=== PATIENT | female | born 1945 | race Caucasian/White ===

== ENCOUNTER → 2019-12-25 09:19 | Outpatient (BNVA) | payer MEDICARE, MEDICAID, SELFPAY | PROVIDERS: PCP Student in an Organized Health Care Education/Training Program; Visit Provider Internal Medicine | DX: I48.0 Paroxysmal atrial fibrillation (principal); Z51.81 Encounter for therapeutic drug level monitoring; Z79.01 Long term (current) use of anticoagulants | CPT/HCPCS: 99211 ==

== ENCOUNTER 2020-01-01 10:11 | Outpatient (REF) | payer MEDICARE, OTHER, SELFPAY ==
[2020-01-01 14:28] LABS: Anion Gap 10 (12-20); Carbon Dioxide 30 mmol/L (22-29); Chloride 104 mmol/L (96-108); Potassium 3.2 mmol/l (3.3-5.1); Sodium 141 mmol/L (135-145)
== END 2020-01-01 10:12 | disposition home or self-care (01) ==
LOC: HO.10HDL 10:11
PROVIDERS: Visit Provider Nurse Practitioner Acute Care
DX: I42.2 Other hypertrophic cardiomyopathy (principal); I48.19 Other persistent atrial fibrillation
CPT/HCPCS: 80051; 85610; 99211

== ENCOUNTER 2020-01-09 08:30 | Outpatient (REF) | payer MEDICARE, OTHER, SELFPAY ==
[2020-01-09 14:13] LABS: Anion Gap 15 (12-20); Blood Urea Nitrogen 9 mg/dL (9-16); Calcium 8.7 mg/dL (8.4-10.2); Carbon Dioxide 27 mmol/L (22-29); Chloride 102 mmol/L (96-108); Estimated Glomerular Filt Rate 41; Glucose Random 100 mg/dL (60-115); Potassium 3.6 mmol/l (3.3-5.1); Sodium 140 mmol/L (135-145)
[2020-01-09 14:38] LABS: TSH reflex Free T4 2.83 mIU/mL (0.32-4.0)
== END 2020-01-09 08:31 | disposition home or self-care (01) ==
LOC: HO.10HDL 08:30
PROVIDERS: Visit Provider Internal Medicine Cardiovascular Disease
DX: E05.90 Thyrotoxicosis, unspecified without thyrotoxic crisis or storm (principal); I34.2 Nonrheumatic mitral (valve) stenosis; I42.2 Other hypertrophic cardiomyopathy; I71.2 Thoracic aortic aneurysm, without rupture; I70.208 Unspecified atherosclerosis of native arteries of extremities, other extremity
CPT/HCPCS: 80048; 84443

== ENCOUNTER → 2020-02-03 08:27 | Outpatient (BNVA) | payer MEDICARE, OTHER, SELFPAY | PROVIDERS: PCP Student in an Organized Health Care Education/Training Program; Referring Provider Student in an Organized Health Care Education/Training Program; Visit Provider Internal Medicine | DX: I48.0 Paroxysmal atrial fibrillation (principal); Z51.81 Encounter for therapeutic drug level monitoring; Z79.01 Long term (current) use of anticoagulants | CPT/HCPCS: 85610; 99211 ==

== ENCOUNTER → 2020-03-11 09:32 | Outpatient (BNVA) | payer MEDICARE, MEDICAID, OTHER, SELFPAY | PROVIDERS: PCP Student in an Organized Health Care Education/Training Program; Visit Provider Internal Medicine | DX: I48.0 Paroxysmal atrial fibrillation (principal); Z51.81 Encounter for therapeutic drug level monitoring; Z79.01 Long term (current) use of anticoagulants | CPT/HCPCS: 85610; 99211 ==

== ENCOUNTER 2020-03-21 22:23 | Inpatient (IN) | payer MEDICARE, MEDICAID, SELFPAY ==
[2020-03-21 22:32] VITALS: BP 152/84; PULSE 84; RESP 16; TEMP 36.4; O2SAT 98; BMI 23.0
--- NOTE | 2020-03-21 22:48 | ED.SKABFB ---
HPI - Skin/Abscess/Foreign Bdy General Chief complaint: Skin/Abscess/Foreign Body Stated complaint: Red inflamed skin Time Seen by Provider: 03/21/20 22:48 Source: patient Mode of arrival: ambulatory Limitations: no limitations History of Present Illness HPI narrative: Patient with pacemaker had the wire refixed in 09/06 was doing fine for last few days noticed swelling around the size site of pacemaker which increase in last 2 days with surrounding erythema no fever no chills no shortness of breath no other complaints Related Data Home Medications Medication Instructions Recorded Confirmed albuterol sulfate 90 mcg/actuation INHALATION 02/03/20 02/24/20 aerosol inhaler amiodarone 200 mg tablet 200 mg PO DAILY 02/03/20 02/24/20 atorvastatin 40 mg tablet mg PO 02/03/20 02/24/20 budesonide-formoterol HFA 160 INHALATION 02/03/20 02/24/20 mcg-4.5 mcg/actuation aerosol inhaler cilostazol 100 mg tablet 100 mg PO Q12H 02/03/20 02/24/20 furosemide 40 mg tablet mg PO 02/03/20 02/24/20 levothyroxine 50 mcg tablet 50 mcg PO DAILY 02/03/20 02/24/20 metoprolol tartrate 25 mg tablet 25 mg PO BID 02/03/20 02/24/20 mexiletine 150 mg capsule 150 mg PO Q12H 02/03/20 02/24/20 multivitamin 1 tab PO DAILY 02/03/20 02/24/20 potassium chloride 20 mEq 20 meq PO DAILY 02/03/20 02/24/20 tablet,extended release(part/cryst) trazodone 50 mg tablet 50 mg PO BEDTIME 02/03/20 02/24/20 calcium carbonate 500 mg calcium 500 mg PO BID 02/24/20 02/24/20 (1,250 mg) tablet Previous Rx's Medication Instructions Recorded warfarin 2 mg tablet 2 mg PO DAILY #90 tab 12/25/19 Allergies Allergy/AdvReac Type Severity Reaction Status Date / Time doxycycline AdvReac Vomiting Verified 03/21/20 22:34 Review of Systems Review of Systems: Constitutional : No Weight loss, No Fever, No Chills ENT/Mouth : No sore throat, No Rhinorrhea Eyes: No Eye Pain, No Swelling Cardiovascular : No Chest Pain, no palpitations Respiratory : No Cough, No Sputum, no shortness of breath Gastrointestinal : no Nausea, No Vomiting, No Diarrhea, No abdominal Pain, no black stools Genitourinary : No Dysuria, No Urinary Frequency Musculoskeletal : No joint pain, No Myalgias, No Joint Swelling Skin : Per HPI Neuro : No Weakness, No Numbness, No Dizziness, No Headache Psych : No Anxiety/Panic, No Depression Heme/Lymph: No Bruising, No Lymphadenopathy Endocrine : No Polyuria, No Polydipsia All other systems reviewed and are negative [facility] Past Medical History Medical History History of breast cancer Hypothyroidism Mucinous carcinoma of right breast Multinodular thyroid Osteoporosis Vitamin D deficiency Surgical History History of automatic internal cardiac defibrillator (AICD) History of tubal ligation Social History Social History Smoking Status: Former smoker Packs Per Day: 3 Years Smoked: 30 Advance Directives: Yes Advance Directives on File: Yes Advance Directives Date on File: 01/01/20 Physical Exam Vital Signs: Vital Signs: Last Vital Signs Temp 97.6 F 03/21/20 22:32 Pulse 84 03/21/20 22:32 Resp 16 03/21/20 22:32 BP 152/84 H 03/21/20 22:32 Pulse Ox 98 03/21/20 22:32 Body Mass Index 23.0 Appearance: Alert. Oriented X3. No acute distress. Eyes: Pupils equal, round and reactive to light. ENT: Pharynx normal. Neck: Normal inspection. Neck supple. CVS: Normal heart rate and rhythm. Pulses normal. Respiratory: No respiratory distress. Breath sounds normal. Abdomen: Soft and nontender. Bowel sounds are present, no mass palpable, no CVA tenderness Skin: Skin warm and dry. Skin around the left chest wall around pacemaker swollen with fluctuancy with surrounding erythema Extremities: No lower extremity edema. Neuro: Oriented X 3. No motor deficit. No sensory deficit. Course Course Course Narrative: Patient clinically with infected pacemaker site needle aspiration showed thick yellow pus. Will do the CT scan to see exactly how deep is the fluid collection start on Zosyn plan to admit for IV antibiotics and surgical evaluation Procedures Abscess I/D Site: chest Side (if applicable): left Technique: needle aspiration Amount of fluid expressed (mL): 0.5 Sent for culture/gram staining?: Yes Irrigation: No Packing used?: none MDM - Skin/Abscess/Foreign Bdy MDM Narrative Medical decision making narrative: Patient with abscess with cellulitis around pacemaker site CT scan showed 4 cm fluid collection around it. WBCs count is normal needle aspiration showed thick pus. Will start patient on Zosyn plan to admit for surgical evaluation Medical Records Attestation: I reviewed the patient's medical records. Lab Data Attestation: I reviewed the patient's lab results. Result diagrams: 03/21/20 23:09 03/21/20 23:09 Labs: Lab Results 03/21/20 03/21/20 03/21/20 Range/Units 23:08 23:09 23:09 WBC 6.7 (4.8-10.8) X10*3/uL RBC 4.33 (4.20-5.50) X10*6/uL Hgb 11.3 L (12.0-16.0) g/dl Hct 36.3 L (37-47) % MCV 83.8 (80-98) fL MCH 26.1 L (27.0-33.0) pg MCHC 31.1 (31.0-35.0) g/dl RDW 19.3 H (11.0-16.0) % Plt Count 307 (160-400) X10*3/uL MPV 9.9 (9.4-12.3) fL Immature Gran % (Auto) 0.3 (0.0-0.4) % Neut % (Auto) 61.6 (45-73) % Lymph % (Auto) 19.9 L (20-40) % [place] % (Auto) 10.5 (2-11) % Eos % (Auto) 6.8 H (0-4) % Baso % (Auto) 0.9 (0-2) % Lymph # (Auto) 1.3 (1.2-4.9) X10*3/uL [place] # (Auto) 0.7 (0.1-1.2) X10*3/uL Eos # (Auto) 0.5 H (0.0-0.4) X10*3/uL Baso # (Auto) 0.1 (0.0-0.2) X10*3/uL Abs Immat Gran (auto) 0.02 (0.00-0.03) X10*3/uL Absolute Neuts (auto) 4.2 (2.0-8.3) X10*3/uL Absolute Nucleated RBC 0.000 (0.0-0.012) X10*3/uL Nucleated RBC % (auto) 0.0 (0.0-0.2) /100WBC PT (10.8-13.0) SEC INR (0.9-1.1) APTT (24.1-38.0) SEC Sodium 141 (135-145) mmol/L Potassium 3.8 (3.3-5.1) mmol/l Chloride 105 (96-108) mmol/L Carbon Dioxide 27 (22-29) mmol/L Anion Gap 13 (12-20) BUN 12 (9-16) mg/dL Creatinine 1.31 (0.5-1.4) mg/dL Estim Creat Clear Calc 26.4 Estimated GFR 40 Random Glucose 98 (60-115) mg/dL Lactic Acid 1.3 (0.5-2.0) mmol/L Calcium 8.5 (8.4-10.2) mg/dL COVID-19 ([facility]) (Negative) COVID-19 Clin Com 03/21/20 03/21/20 Range/Units 23:09 23:11 WBC (4.8-10.8) X10*3/uL RBC (4.20-5.50) X10*6/uL Hgb (12.0-16.0) g/dl Hct (37-47) % MCV (80-98) fL MCH (27.0-33.0) pg MCHC (31.0-35.0) g/dl RDW (11.0-16.0) % Plt Count (160-400) X10*3/uL MPV (9.4-12.3) fL Immature Gran % (Auto) (0.0-0.4) % Neut % (Auto) (45-73) % Lymph % (Auto) (20-40) % [place] % (Auto) (2-11) % Eos % (Auto) (0-4) % Baso % (Auto) (0-2) % Lymph # (Auto) (1.2-4.9) X10*3/uL [place] # (Auto) (0.1-1.2) X10*3/uL Eos # (Auto) (0.0-0.4) X10*3/uL Baso # (Auto) (0.0-0.2) X10*3/uL Abs Immat Gran (auto) (0.00-0.03) X10*3/uL Absolute Neuts (auto) (2.0-8.3) X10*3/uL Absolute Nucleated RBC (0.0-0.012) X10*3/uL Nucleated RBC % (auto) (0.0-0.2) /100WBC PT 24.2 H (10.8-13.0) SEC INR 2.0 H (0.9-1.1) APTT 39.6 H (24.1-38.0) SEC Sodium (135-145) mmol/L Potassium (3.3-5.1) mmol/l Chloride (96-108) mmol/L Carbon Dioxide (22-29) mmol/L Anion Gap (12-20) BUN (9-16) mg/dL Creatinine (0.5-1.4) mg/dL Estim Creat Clear Calc Estimated GFR Random Glucose (60-115) mg/dL Lactic Acid (0.5-2.0) mmol/L Calcium (8.4-10.2) mg/dL COVID-19 ([facility]) Negative (Negative) COVID-19 Clin Com See Note ECG Data Attestation: I personally reviewed and interpreted this ECG as follows: Interpretation: Pacemaker beats ventricular rate 71 left ventricular hypertrophy no acute ST T wave changes impression pacemaker beats no acute ischemia Discharge Plan Discharge Clinical Impression: Abscess of skin or subcutaneous tissue Qualifiers: Site of cutaneous abscess: trunk Site of cutaneous abscess of trunk: chest wall Qualified Code(s): L02.213 - Cutaneous abscess of chest wall Patient Disposition: Admitted As Inpatient
--- NOTE | 2020-03-21 22:56 | CT_ITS ---
EXAMINATION: CT CHEST WITHOUT CONTRAST CLINICAL INFORMATION: Abscess of the left chest wall around the pacemaker. COMPARISON: No prior CT for comparison. TECHNIQUE: Multidetector volumetric CT imaging of the chest was done. Axial MIP volume rendering provided. Sagittal and coronal reformatted images were obtained. This CT examination was performed using dose optimization techniques as appropriate, variously including the following: *Automated exposure control *Adjustment of mA and/or kV according to patient size (this includes techniques or standardized protocols for targeted exams where dose is matched to indication/reason for exam; i.e. extremities or head) *Use of iterative reconstruction technique DLP: 182 mGy-cm FINDINGS: CAM MAKER: Left chest wall pacer in place. Prominent cardiac silhouette. LUNGS: The central airways are patent. Mild subpleural reticulation bilaterally. Mild septal thickening. No consolidation. Multiple small subsolid pulmonary nodules are present scattered throughout. For instance, there is a 0.4 cm anterior right upper lobe nodule on series 5 image 57. Right middle lobe 0.4 cm nodule on series 5 image 230. MEDIASTINUM: Enlarged heart. Coarse calcifications of the mitral annulus. No pericardial effusion. No mediastinal adenopathy. Calcification in the left lobe of the thyroid gland. PLEURA: There is no pleural effusion. No pleural mass or thickening. No pneumothorax. AXILLA/CHEST WALL: There is no lymphadenopathy. There is a left chest wall pacer generator. Superficial to the generator and extending superiorly there is a collection. The collection measures 4.3 x 3.1 by approximately 4.5 cm. Pacer lead wiring extends through the collection. UPPER ABDOMEN: There is a 1.5 cm cyst in the left lobe of the liver. High attenuation of the liver parenchyma could be associated with iron overload or amiodarone deposition. OSSEOUS STRUCTURES: No acute or suspicious osseous abnormality. Mild height loss of the T11 vertebral body. CT/CT chest wo con IMPRESSION: 1. Fluid collection superficial to the pacer generator in the left chest wall. The pacer wiring extends through the collection. 2. Diffuse tiny nodules throughout the lungs are nonspecific, possibly infectious or inflammatory. According to the UPDATED 2017 Fleischner Society recommendations, the advised follow-up imaging for multiple subsolid nodules, the largest of which measures <6 mm, is: CT at 3-6 months. If stable, consider CT at 2 and 4 years. 3. Cardiomegaly.
--- NOTE | 2020-03-21 22:57 | ECG_ITS ---
Test Reason : INFECTION Blood Pressure : / mmHG Vent. Rate : 071 BPM Atrial Rate : 072 BPM P-R Int : 000 ms QRS Dur : 210 ms QT Int : 552 ms P-R-T Axes : 000 -22 147 degrees QTc Int : 599 ms A sensed V paced rhythm Abnormal ECG When compared with ECG of 09-SEP-2014 00:38, Rhythm change and rate slower Referred By: Pepe Cleary Electronically Signed By:SURJIT PICKENS
[2020-03-21 23:25] LABS: MANUAL DIFF FLAG NO
[2020-03-21 23:31] LABS: Basophils Absolute Auto 0.1 X10*3/uL (0.0-0.2); Basophils Percent Auto 0.9 % (0-2); Eosinophils Absolute Auto 0.5 X10*3/uL (0.0-0.4); Eosinophils Percent Auto 6.8 % (0-4); Hematocrit 36.3 % (37-47); Hemoglobin 11.3 g/dl (12.0-16.0); Imm Gran Abs Auto 0.02 X10*3/uL (0.00-0.03); Imm Gran Pct Auto 0.3 % (0.0-0.4); Lymphocytes Absolute Auto 1.3 X10*3/uL (1.2-4.9); Lymphocytes Percent Auto 19.9 % (20-40); Mean Corpuscular HGB Conc 31.1 g/dl (31.0-35.0); Mean Corpuscular Hemoglobin 26.1 pg (27.0-33.0); Mean Corpuscular Volume 83.8 fL (80-98); Mean Platelet Volume 9.9 fL (9.4-12.3); Monocytes Absolute Auto 0.7 X10*3/uL (0.1-1.2); Monocytes Percent Auto 10.5 % (2-11); Neutrophils Absolute Auto 4.2 X10*3/uL (2.0-8.3); Neutrophils Percent Auto 61.6 % (45-73); Platelet Count 307 X10*3/uL (160-400); Red Blood Count 4.33 X10*6/uL (4.20-5.50); Red Cell Distribution Width 19.3 % (11.0-16.0); White Blood Count 6.7 X10*3/uL (4.8-10.8)
[2020-03-21 23:41] LABS: COVID-19 Test Negative (Negative)
[2020-03-21 23:43] LABS: Lactic Acid 1.3 mmol/L (0.5-2.0)
[2020-03-21 23:45] LABS: Prothrombin Time 24.2 SEC (10.8-13.0)
[2020-03-21 23:46] LABS: Anion Gap 13 (12-20); Blood Urea Nitrogen 12 mg/dL (9-16); Calcium 8.5 mg/dL (8.4-10.2); Carbon Dioxide 27 mmol/L (22-29); Chloride 105 mmol/L (96-108); Creatinine Clr Calc Pharmacy 26.4; Estimated Glomerular Filt Rate 40; Glucose Random 98 mg/dL (60-115); Potassium 3.8 mmol/l (3.3-5.1); Sodium 141 mmol/L (135-145)
[2020-03-21 23:47] LABS: Partial Thromboplastin Time 39.6 SEC (24.1-38.0)
[2020-03-22] VITALS (12 sets, daily range): BP systolic 121–151; BP diastolic 62–81; PULSE 18–76; RESP 18; TEMP 36.2–36.6; O2SAT 95–100; BMI 23.3
[2020-03-22] MEDS: Piperacillin Sodium/Tazobactam 3.375 GM in 0.9 % Sodium Chloride 50 ML IV (00:08)
[2020-03-22] MEDS: vancomycin HCL 1,000 MG in 0.9 % Sodium Chloride 250 ML 270 MG IV (03:55)
[2020-03-22] MEDS: Levothyroxine Sodium 50 MCG TABLET PO (03:56)
--- NOTE | 2020-03-22 04:45 | P.HPHOSP_ITS ---
History of Present Illness Date of Service: 03/22/20 Chief Complaint: Abscess over pacemaker This is a 74-year-old female with past medical history of breast cancer, hypothyroidism, hypertrophic obstructive cardiomyopathy, AFib, hypertension, HLD, nonischemic cardiomyopathy status post ICD placement who presents to the hospital with complaints of swelling over her pacemaker/AICD. Patient reports that about 3 days ago she noticed a lump in swelling at the site of pacemaker as well as skin changes were started becoming red all around the pacemaker. She denies any fever, no chills, she has significant pain where she could not go to bed, and has difficulty laying on that side to the pain. She has some nausea, no vomiting, no abdominal pain diarrhea constipation. No chest pain shortness of breath, cough no urinary symptoms and no lower extremity edema. She reports that 1 of the leads stopped functioning back in August and had it replaced at that time and had no complications with her AICD since then. Denies any headache, change in vision, no dizziness, no fainting. On arrival to the ED hemodynamically stable with no significant abnormal vitals Labs are significant for WBC count of 6.7, hemoglobin of 11.3, hematocrit of 36.3, sodium of 141, potassium 3.8, PT of 24.2, INR of 2.0, Chest CT shows fluid collection superficial to the pacer generator in the left chest wall, the pacer wiring stents through the collection. Diffuse tiny nodules throughout the lungs which are nonspecific. Possibly infectious or inflammatory. Patient needs follow-up of these nodules in 3-6 months. Past medical history: Hypertension, HLD, AFib on anticoagulation with Coumadin, nonischemic cardiomyopathy status post ICD placement, hypothyroidism, breast cancer, hypertrophic obstructive cardiomyopathy Past surgical history: AICD placement, tubal ligation Family history: Mother had heart disease, father of pulmonary emboli Social history: Comes from home, walks with a walker, denies any tobacco alcoh ol or illicit drugs Review of Systems Review of Systems: Yes all other systems are reviewed and are negative [facility] Medical History (Updated 03/22/20 @ 05:09 by Carlos Hamm MD) Afib History of breast cancer Hypothyroidism Mucinous carcinoma of right breast Multinodular thyroid Osteoporosis Vitamin D deficiency Surgical History (Updated 03/22/20 @ 05:07 by Carlos Hamm MD) History of automatic internal cardiac defibrillator (AICD) History of tubal ligation Social History Household Members: Family Housing: Apartment Do you presently have visiting nurse or other home services: No Alcohol intake: current Smoking Status: Never smoker Packs Per Day: 3 Years Smoked: 30 Smoked in Last 30 Days: No Use of substances other than those prescribed or required for medical reasons: No Have you been hit, kicked, punched, or otherwise hurt by someone within the past year? If so, by whom?: No Do you feel safe in your current relationship?: No Current Relationship Is there a partner from a previous relationship who is making you feel unsafe now?: No Are you made to feel afraid or neglected: No Advance Directives: Yes Advance Directives on File: Yes Advance Directives Date on File: 01/01/20 Do you have thoughts of harming others: None Do you have a plan to hurt others: No Plan Recently lost weight without trying: Yes Meds Allergies Allergy/AdvReac Type Severity Reaction Status Date / Time doxycycline AdvReac Vomiting Verified 03/21/20 22:34 Home Medications Medication Instructions Recorded Confirmed Type albuterol sulfate 90 mcg/actuation 2 puff INHALATION Q4-6H 02/03/20 03/22/20 History aerosol inhaler amiodarone 200 mg tablet 200 mg PO DAILY 02/03/20 03/22/20 History atorvastatin 40 mg tablet 40 mg PO DAILY 02/03/20 03/22/20 History budesonide-formoterol HFA 160 1 puff INHALATION DIRECTED 02/03/20 03/22/20 History mcg-4.5 mcg/actuation aerosol inhaler cilostazol 100 mg tablet 100 mg PO Q12H 02/03/20 03/22/20 History furosemide 40 mg tablet 40 mg PO DAILY 02/03/20 03/22/20 History levothyroxine 50 mcg tablet 50 mcg PO DAILY 02/03/20 03/22/20 History metoprolol tartrate 25 mg tablet 25 mg PO BID 02/03/20 03/22/20 History mexiletine 150 mg capsule 150 mg PO Q12H 02/03/20 03/22/20 History multivitamin 1 tab PO DAILY 02/03/20 03/22/20 History potassium chloride 20 mEq 20 meq PO DAILY 02/03/20 03/22/20 History tablet,extended release(part/cryst) trazodone 50 mg tablet 50 mg PO BEDTIME 02/03/20 03/22/20 History calcium carbonate 500 mg calcium 500 mg PO BID 02/24/20 03/22/20 History (1,250 mg) tablet Physical Exam Vital Signs and Narrative: Vital Signs: Last Vital Signs Temp 97.3 F 03/22/20 03:40 Pulse 76 03/22/20 03:40 Resp 18 03/22/20 03:40 BP 151/81 H 03/22/20 03:40 Pulse Ox 98 03/22/20 03:40 Body Mass Index 23.3 Const: General: cooperative and no acute distress Orientation/consciousness: patient oriented x3 Eyes: General: appearance normal, both eyes and all related structures Chest: Other: Right upper chest abscess right over the AICD, erythema, edema, tenderness Resp: Effort & Inspection: normal respiratory effort and able to speak in complete sentences Cardio: Rate: regular rate Rhythm: regular rhythm GI: Palpation (GI): Soft to palpation Auscultation: normal bowel sounds Skin: General skin exam: no rashes or lesions noted Neuro: General: patient oriented x3 Cognition (Neuro): normal cognition Extrem: General: Yes normal to inspection and Yes no pedal edema Results Labs CBC and Chem 7: 03/21/20 23:09 03/21/20 23:09 Labs: Laboratory Results - last 24 hr 03/21/20 03/21/20 03/21/20 23:08 23:09 23:09 MCV 83.8 MCH 26.1 L MCHC 31.1 RDW 19.3 H Plt Count 307 MPV 9.9 Immature Gran % (Auto) 0.3 Neut % (Auto) 61.6 Lymph % (Auto) 19.9 L [place] % (Auto) 10.5 Eos % (Auto) 6.8 H Baso % (Auto) 0.9 Lymph # (Auto) 1.3 [place] # (Auto) 0.7 Eos # (Auto) 0.5 H Baso # (Auto) 0.1 Abs Immat Gran (auto) 0.02 Absolute Neuts (auto) 4.2 Absolute Nucleated RBC 0.000 Nucleated RBC % (auto) 0.0 PT INR APTT Anion Gap 13 Estim Creat Clear Calc 26.4 Estimated GFR 40 Random Glucose 98 Lactic Acid 1.3 Calcium 8.5 COVID-19 ([facility]) COVID-19 Clin Com 03/21/20 03/21/20 23:09 23:11 MCV MCH MCHC RDW Plt Count MPV Immature Gran % (Auto) Neut % (Auto) Lymph % (Auto) [place] % (Auto) Eos % (Auto) Baso % (Auto) Lymph # (Auto) [place] # (Auto) Eos # (Auto) Baso # (Auto) Abs Immat Gran (auto) Absolute Neuts (auto) Absolute Nucleated RBC Nucleated RBC % (auto) PT 24.2 H INR 2.0 H APTT 39.6 H Anion Gap Estim Creat Clear Calc Estimated GFR Random Glucose Lactic Acid Calcium COVID-19 ([facility]) Negative COVID-19 Clin Com See Note Imaging Radiologist's Impressions: Impressions Chest CT 03/21/20 22:56 IMPRESSION: 1. Fluid collection superficial to the pacer generator in the left chest wall. The pacer wiring extends through the collection. 2. Diffuse tiny nodules throughout the lungs are nonspecific, possibly infectious or inflammatory. According to the UPDATED 2017 Fleischner Society recommendations, the advised follow-up imaging for multiple subsolid nodules, the largest of which measures <6 mm, is: CT at 3-6 months. If stable, consider CT at 2 and 4 years. 3. Cardiomegaly. Assessment and Plan (1) Abscess of skin or subcutaneous tissue: Qualifiers: Site of cutaneous abscess: trunk Site of cutaneous abscess of trunk: chest wall Qualified Code(s): L02.213 - Cutaneous abscess of chest wall Status: Acute (2) AICD (automatic cardioverter/defibrillator) present: Status: Acute (3) Afib: Qualifiers: Atrial fibrillation type: unspecified Qualified Code(s): I48.91 - Unspecified atrial fibrillation Status: Acute (4) Lung nodules: Status: Acute (5) Nonischemic cardiomyopathy: Status: Acute This is a 74-year-old female with past medical history as above who presents to the hospital with abscess over AICD/pacemaker generator. # abscess/cellulitis chest - has no leukocytosis, afebrile - given location of this abscess patient will be admitted, will consult thoracic surgery as abscesses located directly on the pacemaker generator with leads going through a - will start on IV antibiotics - follow cultures # nonischemic cardiomyopathy - not in exacerbation - will continue Lasix # AFib - rate control - continue amiodarone, patient on warfarin with INR of 2.0 - INR may need to be reversed as patient may require I&D # hypothyroidism - continue levothyroxine DVT prophylaxis: Warfarin
[2020-03-22 07:21] LABS: INTERNATIONAL NORM RATIO 2.2 (0.9-1.1); Prothrombin Time 25.8 SEC (10.8-13.0)
[2020-03-22] MEDS: Multivitamin TABLET 1 TAB PO (08:47)
[2020-03-22] MEDS: Potassium Chloride ER 20 MEQ TAB.ER.PRT PO (08:47)
[2020-03-22] MEDS: Metoprolol Tartrate 25 MG TABLET PO ×2 (08:47→21:04)
[2020-03-22] MEDS: Furosemide 40 MG TABLET PO (08:47)
[2020-03-22] MEDS: Atorvastatin Calcium 40 MG TABLET PO (08:48)
[2020-03-22] MEDS: Amiodarone HCL 200 MG TABLET PO (08:48)
[2020-03-22] MEDS: 0.9 % Sodium Chloride Flush 3 ML SYRINGE IVFLUSH ×3 (08:48→23:44)
[2020-03-22] MEDS: cilostazoL 100 MG TABLET PO (09:40)
[2020-03-22] MEDS: Fluticasone/Vilanterol 200/25 BLST.W.DEV 1 PUFF INHALE (11:25)
--- NOTE | 2020-03-22 11:56 | MHC.CM.PN ---
PT REPORTS SHE LIVES AT HOME WITH HER DAUGHTER AND 23 YO GRANDSON. SHE REPORTS THEY BOTH HELP HER NEEDED. PT REPORTS SHE USES A WHEELED WALKER AT HOME AND IS INDEPENDENT WITH ALL PERSONAL CARE. PT DENIES THE USE OF ANY COMMUNITY OR HOME SERVICES. PT CONFIRMS HER PCP IS KENYATTA COPPOLA AND SHE HAS A HCP ON FILE. CURRENT DC PLAN IS HOME WITH NO SERVICES PT WILL NEED TRANSPORTATION
--- NOTE | 2020-03-22 15:18 | PM.EVENT ---
Event Note Date of Service: 03/22/20 Event Note: Chart reviewed patient seen and examined 74-year-old female patient admitted with diagnosis of abscess/cellulitis at site of pacemaker generator Patient awake alert offers no acute complete Will continue IV vancomycin follow Vanco trough, follow CBC, blood cultures, spoke with thoracic surgery PA patient will be evaluated by Dr. Schumacher at a.m. for possible abscess drainage will hold Coumadin Follow PT INR at am, keep patient NPO Nonischemic cardiomyopathy/AFib Continue amiodarone hold warfarin as above patient also on mexiletine that is non formulary medication requested patient to request family to bring it from home called pharmacy to arrange for medicine Hospital does not carry mexiletine, will rediscuss with pharmacist tomorrow morning Chronic kidney disease stage III
--- NOTE | 2020-03-22 17:36 | P.CONGS_ITS ---
History of Present Illness Consult details Consult date: 03/22/20 Reason for consult: other (Chest wall abscess) Narrative: Patient is a 74-year-old female with a past medical history of breast cancer, hypothyroidism, hypertrophic obstructive cardiomyopathy, atrial fibrillation on Coumadin last dose was taken yesterday on 03/21/2020, with a INR of 2.2, hypertension, HLD, nonischemic cardiomyopathy s/p ICD placement who presented to the hospital with complaints of swelling over her pacemaker/AICD. Patient states that about 2 days ago she noticed some swelling and discomfort over her pacemaker site with increased redness. Patient continues to deny fever, chills but does have significant pain when she moves her arm or lays on her left side. Patient denies any chest pain, shortness of breath, cough, hemoptysis. While patient was in the emergency department FNA was performed of the abscess which nicole out yellow pus. A chest CT was performed which showed a collection of fluid which measured 4 x 3 x 4.5 cm with pacer lead wires extending through the collection, for which Thoracic surgery was consulted for . During my examination today patient informed me that she originally had her pacemaker placed at [facility] and in August 2019 had leads replaced at [facility] by Dr.Jonathan Lou. Review of Systems Review of Systems: Yes all other systems are reviewed and are negative PMFSH Past Medical History Medical History Afib History of breast cancer Hypothyroidism Mucinous carcinoma of right breast Multinodular thyroid Osteoporosis Vitamin D deficiency Surgical History Surgical History History of automatic internal cardiac defibrillator (AICD) History of tubal ligation Social History Social History Household Members: Family Housing: Apartment Do you presently have visiting nurse or other home services: No Alcohol intake: current Smoking Status: Never smoker Packs Per Day: 3 Years Smoked: 30 Smoked in Last 30 Days: No Use of substances other than those prescribed or required for medical reasons: No Currently Displaying Signs/Symptoms of Drug Intoxication Withdrawal: No Have you been hit, kicked, punched, or otherwise hurt by someone within the past year? If so, by whom?: No Do you feel safe in your current relationship?: No Current Relationship Is there a partner from a previous relationship who is making you feel unsafe now?: No Are you made to feel afraid or neglected: No Advance Directives: Yes Advance Directives on File: Yes Advance Directives Date on File: 01/01/20 Do you have thoughts of harming others: None Do you have a plan to hurt others: No Plan Recently lost weight without trying: Yes service: No Current occupational status: retired Meds Allergies Allergy/AdvReac Type Severity Reaction Status Date / Time doxycycline AdvReac Vomiting Verified 03/21/20 22:34 Home Medications Medication Instructions Recorded Confirmed Type albuterol sulfate 90 mcg/actuation 2 puff INHALATION Q4-6H 02/03/20 03/22/20 History aerosol inhaler amiodarone 200 mg tablet 200 mg PO DAILY 02/03/20 03/22/20 History atorvastatin 40 mg tablet 40 mg PO DAILY 02/03/20 03/22/20 History budesonide-formoterol HFA 160 1 puff INHALATION DIRECTED 02/03/20 03/22/20 History mcg-4.5 mcg/actuation aerosol inhaler cilostazol 100 mg tablet 100 mg PO Q12H 02/03/20 03/22/20 History furosemide 40 mg tablet 40 mg PO DAILY 02/03/20 03/22/20 History levothyroxine 50 mcg tablet 50 mcg PO DAILY 02/03/20 03/22/20 History metoprolol tartrate 25 mg tablet 25 mg PO BID 02/03/20 03/22/20 History mexiletine 150 mg capsule 150 mg PO Q12H 02/03/20 03/22/20 History multivitamin 1 tab PO DAILY 02/03/20 03/22/20 History potassium chloride 20 mEq 20 meq PO DAILY 02/03/20 03/22/20 History tablet,extended release(part/cryst) trazodone 50 mg tablet 50 mg PO BEDTIME 02/03/20 03/22/20 History calcium carbonate 500 mg calcium 500 mg PO BID 02/24/20 03/22/20 History (1,250 mg) tablet Physical Exam Vital Signs: Vital Signs: Last Vital Signs Temp 97.4 F 03/22/20 15:40 Pulse 70 03/22/20 15:40 Resp 18 01/03/21 15:40 BP 133/66 03/22/20 15:40 Pulse Ox 95 03/22/20 15:40 Body Mass Index 23.3 Const: General: cooperative, comfortable and no acute distress Orientation/consciousness: patient oriented x3 HENMT: Head: Yes normocephalic and Yes atraumatic Neck: Neck: Yes normal visual inspection and Yes no JVD Chest: Other: there is a 4 cm induration which erythematous, fluctuant and tender. Resp: Effort & Inspection: normal respiratory effort Auscultation: clear to auscultation bilaterally Cardio: Jugular venous distension: no JVD Rhythm: regular rhythm Heart sounds: S1 normal heart sound present and S2 normal heart sound present GI: Inspection: Yes normal to inspection Auscultation: normal bowel sounds Neuro: General: patient oriented x3 Extrem: General: Yes normal to inspection Right upper extremity: no cyanosis and no edema Left upper extremity: no cyanosis and no edema Right lower extremity: normal to inspection; no cyanosis and no edema Left lower extremity: normal to inspection; no cyanosis and no edema Results Labs Result diagrams: 03/21/20 23:09 03/21/20 23:09 Labs: Abnormal lab results 03/21/20 03/21/20 03/22/20 Range/Units 23:09 23:09 06:35 Hgb 11.3 L (12.0-16.0) g/dl Hct 36.3 L (37-47) % MCH 26.1 L (27.0-33.0) pg RDW 19.3 H (11.0-16.0) % Lymph % (Auto) 19.9 L (20-40) % Eos % (Auto) 6.8 H (0-4) % Eos # (Auto) 0.5 H (0.0-0.4) X10*3/uL PT 24.2 H 25.8 H (10.8-13.0) SEC INR 2.0 H 2.2 H (0.9-1.1) APTT 39.6 H (24.1-38.0) SEC Short CBC 03/21/20 Range/Units 23:09 WBC 6.7 (4.8-10.8) X10*3/uL Hgb 11.3 L (12.0-16.0) g/dl Hct 36.3 L (37-47) % Plt Count 307 (160-400) X10*3/uL [facility] 03/21/20 23:09 Sodium 141 Potassium 3.8 Chloride 105 Carbon Dioxide 27 BUN 12 Creatinine 1.31 Calcium 8.5 All other labs normal. Assessment and Plan (1) Abscess of skin or subcutaneous tissue: Qualifiers: Site of cutaneous abscess: trunk Site of cutaneous abscess of trunk: chest wall Qualified Code(s): L02.213 - Cutaneous abscess of chest wall Status: Acute Patient is a 74-year-old female with a past medical history of breast cancer, hypothyroidism, hypertrophic obstructive cardiomyopathy, atrial fibrillation who takes Coumadin at home which is on hold, last dose was taken yesterday on 03/21/2020, with an INR of 2.2, hypertension, hyperlipidemia, nonischemic cardiomyopathy s/p ICD placement who presented to the hospital with a chest wall abscess which overlies her pacemaker. Cardiology at [facility] was contacted and asked to pass a message along to Dr. Lou as he is the computer technician who placed the pacemaker and would be more appropriate to manage her abscess. At this time patient is stable on IV Zosyn and vancomycin. Remains afebrile with WBC 6.7, in no acute distress. I was informed by Dr. Fenton computer technician that Dr. Lou would be contacting the medicine team at [facility] with instructions on where to transfer patient. It is thought patient will be required to be transferred to [facility] for removal of AICD hardware. Thank you for allowing me to participate in this patient's care if you have any other questions or concerns please do not hesitate to contact the thoracic surgical department.
[2020-03-22] MEDS: Albuterol Sulfate 90 MCG 8 GM INHALER 2 PUFF INHALE (19:38)
[2020-03-22] MEDS: traZODone HCL 50 MG TABLET PO (21:04)
[2020-03-23] VITALS (11 sets, daily range): BP systolic 119–143; BP diastolic 65–87; PULSE 70–80; RESP 18; TEMP 36.2–37.1; O2SAT 93–99
[2020-03-23] MEDS: vancomycin HCL 1,000 MG in 0.9 % Sodium Chloride 250 ML 270 MG IV (04:12)
[2020-03-23 04:51] LABS: Basophils Absolute Auto 0.1 X10*3/uL (0.0-0.2); Basophils Percent Auto 1.4 % (0-2); Eosinophils Absolute Auto 0.4 X10*3/uL (0.0-0.4); Eosinophils Percent Auto 6.5 % (0-4); Hematocrit 35.1 % (37-47); Hemoglobin 10.9 g/dl (12.0-16.0); Imm Gran Abs Auto 0.01 X10*3/uL (0.00-0.03); Imm Gran Pct Auto 0.2 % (0.0-0.4); Lymphocytes Absolute Auto 1.1 X10*3/uL (1.2-4.9); Lymphocytes Percent Auto 19.9 % (20-40); MANUAL DIFF FLAG NO; Mean Corpuscular HGB Conc 31.1 g/dl (31.0-35.0); Mean Corpuscular Hemoglobin 26.3 pg (27.0-33.0); Mean Corpuscular Volume 84.8 fL (80-98); Mean Platelet Volume 9.9 fL (9.4-12.3); Monocytes Absolute Auto 0.5 X10*3/uL (0.1-1.2); Monocytes Percent Auto 9.4 % (2-11); Neutrophils Absolute Auto 3.5 X10*3/uL (2.0-8.3); Neutrophils Percent Auto 62.6 % (45-73); Platelet Count 251 X10*3/uL (160-400); Red Blood Count 4.14 X10*6/uL (4.20-5.50); White Blood Count 5.5 X10*3/uL (4.8-10.8)
[2020-03-23 04:56] LABS: INTERNATIONAL NORM RATIO 1.8 (0.9-1.1); Prothrombin Time 21.7 SEC (10.8-13.0)
[2020-03-23 05:18] LABS: Anion Gap 11 (12-20); Blood Urea Nitrogen 9 mg/dL (9-16); Calcium 8.3 mg/dL (8.4-10.2); Carbon Dioxide 30 mmol/L (22-29); Chloride 103 mmol/L (96-108); Creatinine Clr Calc Pharmacy 30.3; Estimated Glomerular Filt Rate 43; Glucose Random 84 mg/dL (60-115); Potassium 3.2 mmol/l (3.3-5.1); Sodium 141 mmol/L (135-145)
[2020-03-23] MEDS: Albuterol Sulfate 90 MCG 8 GM INHALER 2 PUFF INHALE ×4 (07:58→20:19)
[2020-03-23] MEDS: 0.9 % Sodium Chloride Flush 3 ML SYRINGE IVFLUSH ×3 (09:09→19:50)
[2020-03-23] MEDS: Furosemide 40 MG TABLET PO (09:26)
[2020-03-23] MEDS: Amiodarone HCL 200 MG TABLET PO (09:26)
[2020-03-23] MEDS: Metoprolol Tartrate 25 MG TABLET PO ×2 (09:26→19:50)
--- NOTE | 2020-03-23 11:50 | HO.PM.IMPN ---
Subjective Subjective Date of Service: 03/23/20 Interval History: chest wall improved Respiratory Respiratory: Reports no additional respiratory complaints Gastrointestinal Gastrointestinal: Reports no additional gastrointestinal complaints Physical Exam Vital Signs: Vital Signs: Last Vital Signs Temp 97.1 F 03/23/20 08:00 Pulse 76 03/23/20 09:26 Resp 18 03/23/20 08:00 BP 143/72 H 03/23/20 09:26 Pulse Ox 93 03/23/20 08:00 Body Mass Index 23.3 General: AO X 3, no acute distress Resp: CTA bilateral CVS: S1,S2,RRR GI: soft, non tender, non distended Neuro: motor grossly intact Psych: appropriate affect Objective Data Current Medications Generic Name Dose Route Start Last Admin Trade Name Freq PRN Reason Stop Dose Admin Acetaminophen 650 mg 03/22/20 02:45 Acetaminophen 325 Mg Tablet PO Q6H PRN Pain, Mild (Pain Scale 1-3) Albuterol Sulfate 2 puff 03/22/20 04:00 03/23/20 07:58 Albuterol Sulfate 90 Mcg 8 Gm Inhaler INHALE 2 puff Q4H PATIENCE Administration Amiodarone HCl 200 mg 03/22/20 09:00 03/23/20 09:26 Amiodarone Hcl 200 Mg Tablet PO 200 mg DAILY PATIENCE Administration Atorvastatin Calcium 40 mg 03/22/20 09:00 03/23/20 09:27 Atorvastatin Calcium 40 Mg Tablet PO Not Given DAILY PATIENCE Calcium Carbonate 500 mg 03/22/20 09:00 03/23/20 09:28 Calcium Carbonate 500 Mg Tablet PO Not Given BID PATIENCE Docusate Sodium 100 mg 03/22/20 02:45 Docusate Sodium 100 Mg Capsule PO DAILY PRN Constipation Fluticasone/Vilanterol 1 puff 03/22/20 08:00 03/23/20 08:00 Fluticasone/Vilanterol 200/25 Blst.W.Dev INHALE Not Given RDAILY PATIENCE Furosemide 40 mg 03/22/20 09:00 03/23/20 09:26 Furosemide 40 Mg Tablet PO 40 mg DAILY PATIENCE Administration Protocol Vancomycin HCl 1,000 mg/ 270 mls @ 270 mls/hr 03/23/20 04:00 03/23/20 05:20 Sodium Chloride IV Infused Q24H PATIENCE Infusion Levothyroxine Sodium 50 mcg 03/22/20 06:00 03/23/20 05:24 Levothyroxine Sodium 50 Mcg Tablet PO Not Given DAILY@0600 [facility] Metoprolol Tartrate 25 mg 03/22/20 09:00 03/23/20 09:26 Metoprolol Tartrate 25 Mg Tablet PO 25 mg BID [facility] Administration Protocol Multivitamins/Vitamin C 1 tab 03/22/20 09:00 03/23/20 09:28 Multivitamin Tablet PO Not Given DAILY [facility] Patient Own 150 mg 03/22/20 09:00 Medication ( PO Mexiletine 150 Mg BID [facility] Capsule) Ondansetron HCl 4 mg 03/22/20 02:45 Ondansetron Hcl 4 Mg/2 Ml Vial IVPUSH Q8H PRN Nausea and Vomiting Pharmacy Consult 1 each 03/22/20 02:45 Consult Rx Vancomycin Dosing MISCELLANE DAILY PRN Consult order Potassium Chloride 20 meq 03/22/20 09:00 03/23/20 09:28 Potassium Chloride Er 20 Meq Tab.Er.Prt PO Not Given DAILY [facility] Sodium Chloride 3 ml 03/22/20 08:00 03/23/20 09:09 0.9 % Sodium Chloride Flush 3 Ml Syringe IVFLUSH 3 ml QSHIFT [facility] Administration Trazodone HCl 50 mg 03/22/20 21:00 03/22/20 21:04 Trazodone Hcl 50 Mg Tablet PO 50 mg BEDTIME [facility] Administration Labs CBC & Chem 7: 03/23/20 04:37 03/23/20 04:37 Microbiology Microbiology Results: Microbiology 03/21/20 23:07 Chest Gram Stain - Final 03/21/20 23:07 Chest Routine Culture - Preliminary Staphylococcus aureus 03/21/20 23:07 Blood - Venous Blood Culture - Preliminary No growth after 24 hours. 03/21/20 23:08 Blood - Venous Blood Culture - Preliminary No growth after 24 hours. Assessment and Plan (1) Abscess of skin or subcutaneous tissue: Status: Acute (2) AICD (automatic cardioverter/defibrillator) present: Status: Acute (3) Afib: Status: Acute (4) Lung nodules: Status: Acute (5) Nonischemic cardiomyopathy: Status: Acute Assessment and Plan: This is a 74-year-old female with past medical history as above who presented to the hospital with abscess over AICD/pacemaker generator. abscess/cellulitis chest abscess growing staph continue vanc follow up cultures and cardiology at [facility] nonischemic cardiomyopathy continue Lasix, amio, lopressor AFib lopressor, amiodarone, patient normally on warfarin - INR may need to be reversed as patient may require I&D (coumadin on hold for possible intervention) hypothyroidism levothyroxine DVT prophylaxis: Warfarin
--- NOTE | 2020-03-23 12:21 | P.DS_ITS ---
DS: Providers Provider Date of admission: 03/22/20 01:27 Primary care physician: Roya Marshall MD Consults: 03/22/20 02:45 Consult to Thoracic Surgery Routine Consulting Provider: Bradley Stahl Reason for consultation: abscess at pacemaker site DS: Diagnosis Discharge Diagnosis (1) Abscess of skin or subcutaneous tissue: Status: Acute (2) AICD (automatic cardioverter/defibrillator) present: Status: Acute (3) Afib: Status: Acute (4) Lung nodules: Status: Acute (5) Nonischemic cardiomyopathy: Status: Acute DS: Medications Discharge Medications Home Medications: Home Medications Medication Instructions Recorded Confirmed albuterol sulfate 90 mcg/actuation 2 puff INHALATION Q4-6H 02/03/20 03/22/20 aerosol inhaler amiodarone 200 mg tablet 200 mg PO DAILY 02/03/20 03/22/20 atorvastatin 40 mg tablet 40 mg PO DAILY 02/03/20 03/22/20 budesonide-formoterol HFA 160 1 puff INHALATION DIRECTED 02/03/20 03/22/20 mcg-4.5 mcg/actuation aerosol inhaler cilostazol 100 mg tablet 100 mg PO Q12H 02/03/20 03/22/20 furosemide 40 mg tablet 40 mg PO DAILY 02/03/20 03/22/20 levothyroxine 50 mcg tablet 50 mcg PO DAILY 02/03/20 03/22/20 metoprolol tartrate 25 mg tablet 25 mg PO BID 02/03/20 03/22/20 mexiletine 150 mg capsule 150 mg PO Q12H 02/03/20 03/22/20 multivitamin 1 tab PO DAILY 02/03/20 03/22/20 potassium chloride 20 mEq 20 meq PO DAILY 02/03/20 03/22/20 tablet,extended release(part/cryst) trazodone 50 mg tablet 50 mg PO BEDTIME 02/03/20 03/22/20 calcium carbonate 500 mg calcium 500 mg PO BID 02/24/20 03/22/20 (1,250 mg) tablet Previous Rx's Medication Instructions Recorded warfarin 2 mg tablet 2 mg PO DAILY #90 tab 12/25/19 DS: Summary Hospital Course Hospital Course: date of service: 03/24/2019 Patient was admitted for AICD site abscess, non septic. It was partially drained, abscess is growing Staph aureus, sensitivity still pending, blood culture negative so far. She was given IV vancomycin. Discussion was had with the foreign law consultant, plan for transfer to [facility] for OR on , would hold coumadin on transfer and continue vancomycin, follow up cultures from [facility] Time Spent with Patient Time attestation: Total time spent providing and/or coordinating discharge services: Physical Exam Vital Signs: Vital Signs: Last Vital Signs Temp 97.6 F 03/23/20 11:56 Pulse 80 03/23/20 12:06 Resp 18 03/23/20 11:56 BP 143/87 H 03/23/20 11:56 Pulse Ox 96 03/23/20 11:56 Body Mass Index 23.3 General: AO X 3, no acute distress Resp: CTA bilateral CVS: S1,S2,RRR GI: soft, non tender, non distended Neuro: motor grossly intact Psych: appropriate affect DS: Data Data Completed and Pending Labs on day of discharge: 03/21/20 22:56 IV insert/maintain .Now CT chest wo con Stat 03/21/20 22:57 ECG 12 lead EKG Stat EKG Documentation DIRECTED 03/21/20 22:58 Piperacillin Sodium/Tazobactam [Zosyn] 3.375 gm 0.9 % Sodium Chloride [Ns] 50 ml IV ONCE 03/21/20 23:08 Lactic Acid Stat 03/21/20 23:09 Basic Metabolic Panel Stat Complete Blood Count Auto Diff Stat Partial Thromboplastin Time Stat Prothrombin Time INR Stat 03/21/20 23:11 COVID-19 ID NOW (Nguyen) Stat 03/22/20 00:00 Piperacillin Sodium/Tazobactam [Zosyn] 3.375 gm IV .STK-MED ONE 03/22/20 01:11 Transfer Order Routine 03/22/20 03:45 vancomycin HCL 1,000 mg 0.9 % Sodium Chloride [Ns] 250 ml IV ONCE 03/22/20 03:46 vancomycin HCL 1,000 mg .ROUTE .STK-MED ONE 03/22/20 06:35 Prothrombin Time INR DAILY 03/22/20 09:00 cilostazoL [Pletal] 100 mg PO BID 03/22/20 Breakfast Cardiac Diet 03/22/20 18:00 Warfarin Sodium [Coumadin] 2 mg PO DAILY@1800 03/23/20 04:04 vancomycin HCL 1,000 mg .ROUTE .STK-MED ONE 03/23/20 04:37 Basic Metabolic Panel Routine Complete Blood Count Auto Diff Routine Prothrombin Time INR Routine Laboratory Last Values WBC 5.5 X10*3/uL (4.8-10.8) 03/23/20 04:37 RBC 4.14 X10*6/uL (4.20-5.50) L 03/23/20 04:37 Hgb 10.9 g/dl (12.0-16.0) L 03/23/20 04:37 Hct 35.1 % (37-47) L 03/23/20 04:37 MCV 84.8 fL (80-98) 03/23/20 04:37 MCH 26.3 pg (27.0-33.0) L 03/23/20 04:37 MCHC 31.1 g/dl (31.0-35.0) 03/23/20 04:37 RDW 19.0 % (11.0-16.0) H 03/23/20 04:37 Plt Count 251 X10*3/uL (160-400) 03/23/20 04:37 MPV 9.9 fL (9.4-12.3) 03/23/20 04:37 Immature Gran % (Auto) 0.2 % (0.0-0.4) 03/23/20 04:37 Neut % (Auto) 62.6 % (45-73) 03/23/20 04:37 Lymph % (Auto) 19.9 % (20-40) L 03/23/20 04:37 [place] % (Auto) 9.4 % (2-11) 03/23/20 04:37 Eos % (Auto) 6.5 % (0-4) H 03/23/20 04:37 Baso % (Auto) 1.4 % (0-2) 03/23/20 04:37 Lymph # (Auto) 1.1 X10*3/uL (1.2-4.9) L 03/23/20 04:37 [place] # (Auto) 0.5 X10*3/uL (0.1-1.2) 03/23/20 04:37 Eos # (Auto) 0.4 X10*3/uL (0.0-0.4) 03/23/20 04:37 Baso # (Auto) 0.1 X10*3/uL (0.0-0.2) 03/23/20 04:37 Abs Immat Gran (auto) 0.01 X10*3/uL (0.00-0.03) 03/23/20 04:37 Absolute Neuts (auto) 3.5 X10*3/uL (2.0-8.3) 03/23/20 04:37 Absolute Nucleated RBC 0.000 X10*3/uL (0.0-0.012) 03/23/20 04:37 Nucleated RBC % (auto) 0.0 /100WBC (0.0-0.2) 03/23/20 04:37 PT 21.7 SEC (10.8-13.0) H 03/23/20 04:37 INR 1.8 (0.9-1.1) H 03/23/20 04:37 APTT 39.6 SEC (24.1-38.0) H 03/21/20 23:09 Sodium 141 mmol/L (135-145) 03/23/20 04:37 Potassium 3.2 mmol/l (3.3-5.1) L 03/23/20 04:37 Chloride 103 mmol/L (96-108) 03/23/20 04:37 Carbon Dioxide 30 mmol/L (22-29) H 03/23/20 04:37 Anion Gap 11 (12-20) L 03/23/20 04:37 BUN 9 mg/dL (9-16) 03/23/20 04:37 Creatinine 1.24 mg/dL (0.5-1.4) 03/23/20 04:37 Estim Creat Clear Calc 30.3 03/23/20 04:37 Estimated GFR 43 03/23/20 04:37 Random Glucose 84 mg/dL (60-115) 03/23/20 04:37 Lactic Acid 1.3 mmol/L (0.5-2.0) 03/21/20 23:08 Calcium 8.3 mg/dL (8.4-10.2) L 03/23/20 04:37 COVID-19 (SHELBY) Negative (Negative) 03/21/20 23:11 COVID-19 Clin Com See Note 03/21/20 23:11 Preliminary micro results at discharge 03/21/20 23:07 Routine Culture - Preliminary Chest Staphylococcus aureus 03/21/20 23:07 Blood Culture - Preliminary Blood - Venous No growth after 24 hours. 03/21/20 23:08 Blood Culture - Preliminary Blood - Venous No growth after 24 hours. Discharge Plan Discharge Patient Disposition: [facility] Referrals: [facility] [Other] Roya Marshall MD [Primary Care Provider] - Discharge Medications: Continued levothyroxine 50 mcg tablet 50 mcg PO DAILY RF: 0 trazodone 50 mg tablet 50 mg PO BEDTIME RF: 0 multivitamin Tablet 1 tab PO DAILY RF: 0 mexiletine 150 mg capsule 150 mg PO Q12H RF: 0 budesonide-formoterol 160-4.5 mcg/actuation HFA aerosol inhaler 1 puff inhalation DIRECTED RF: 0 albuterol sulfate 90 mcg/actuation HFA aerosol inhaler 2 puff inhalation Q4-6H RF: 0 furosemide 40 mg tablet 40 mg PO DAILY RF: 0 metoprolol tartrate 25 mg tablet 25 mg PO BID RF: 0 atorvastatin 40 mg tablet 40 mg PO DAILY RF: 0 cilostazol 100 mg tablet 100 mg PO Q12H RF: 0 potassium chloride 20 mEq tablet,ER particles/crystals 20 meq PO DAILY RF: 0 amiodarone 200 mg tablet 200 mg PO DAILY RF: 0 calcium carbonate [Calcium 500] 500 mg calcium (1,250 mg) tablet 500 mg PO BID RF: 0 warfarin 2 mg tablet 2 mg PO DAILY Qty: 90 RF: 0 Discharge Orders: Discharge Order (Routine); Ordered 03/23/20 Ordered By: Redd Olivo Activity on Discharge: As tolerated Visit Report Forms: Patient Portal Discharge page Care Plan Goals: resolve aicd site infection Health Concerns: aicd site infection Plan of Treatment: [facility]
[2020-03-23] MEDS: Potassium Chloride ER 20 MEQ TAB.ER.PRT PO (13:42)
[2020-03-23] MEDS: traZODone HCL 50 MG TABLET PO (19:50)
[2020-03-24 03:47] VITALS: BP 153/77; PULSE 71; RESP 18; TEMP 36.9; O2SAT 96
[2020-03-24] MEDS: vancomycin HCL 1,000 MG in 0.9 % Sodium Chloride 250 ML 270 MG IV (03:50)
[2020-03-24] MEDS: Albuterol Sulfate 90 MCG 8 GM INHALER 2 PUFF INHALE ×2 (04:02→07:27)
[2020-03-24] MEDS: Levothyroxine Sodium 50 MCG TABLET PO (06:14)
[2020-03-24 06:34] LABS: MANUAL DIFF FLAG NO
[2020-03-24 06:52] LABS: Basophils Absolute Auto 0.1 X10*3/uL (0.0-0.2); Eosinophils Absolute Auto 0.4 X10*3/uL (0.0-0.4); Eosinophils Percent Auto 6.9 % (0-4); Hematocrit 35.4 % (37-47); Hemoglobin 11.1 g/dl (12.0-16.0); Imm Gran Abs Auto 0.02 X10*3/uL (0.00-0.03); Imm Gran Pct Auto 0.3 % (0.0-0.4); Lymphocytes Absolute Auto 1.1 X10*3/uL (1.2-4.9); Lymphocytes Percent Auto 18.2 % (20-40); Mean Corpuscular HGB Conc 31.4 g/dl (31.0-35.0); Mean Corpuscular Hemoglobin 26.3 pg (27.0-33.0); Mean Corpuscular Volume 83.9 fL (80-98); Mean Platelet Volume 10.8 fL (9.4-12.3); Monocytes Absolute Auto 0.7 X10*3/uL (0.1-1.2); Monocytes Percent Auto 11.1 % (2-11); Neutrophils Absolute Auto 3.8 X10*3/uL (2.0-8.3); Neutrophils Percent Auto 62.5 % (45-73); Platelet Count 257 X10*3/uL (160-400); Red Blood Count 4.22 X10*6/uL (4.20-5.50); Red Cell Distribution Width 18.9 % (11.0-16.0); White Blood Count 6.1 X10*3/uL (4.8-10.8)
[2020-03-24 06:55] LABS: INTERNATIONAL NORM RATIO 1.4 (0.9-1.1); Prothrombin Time 17.1 SEC (10.8-13.0)
[2020-03-24 07:16] LABS: Anion Gap 14 (12-20); Blood Urea Nitrogen 12 mg/dL (9-16); Calcium 8.5 mg/dL (8.4-10.2); Carbon Dioxide 28 mmol/L (22-29); Chloride 103 mmol/L (96-108); Creatinine Clr Calc Pharmacy 29.1; Estimated Glomerular Filt Rate 41; Glucose Fasting 87 mg/dL (60-99); Potassium 3.7 mmol/l (3.3-5.1); Sodium 141 mmol/L (135-145)
[2020-03-24] MEDS: Fluticasone/Vilanterol 200/25 BLST.W.DEV 1 PUFF INHALE (07:27)
[2020-03-24 08:00] VITALS: BP 128/66; PULSE 71; RESP 18; TEMP 36; O2SAT 97
[2020-03-24 08:11] VITALS: BP 128/66; PULSE 71
[2020-03-24] MEDS: Amiodarone HCL 200 MG TABLET PO (08:11)
[2020-03-24] MEDS: Multivitamin TABLET 1 TAB PO (08:11)
[2020-03-24] MEDS: Metoprolol Tartrate 25 MG TABLET PO (08:11)
[2020-03-24] MEDS: Furosemide 40 MG TABLET PO (08:11)
[2020-03-24] MEDS: Atorvastatin Calcium 40 MG TABLET PO (08:11)
[2020-03-24] MEDS: 0.9 % Sodium Chloride Flush 3 ML SYRINGE IVFLUSH (08:12)
[2020-03-24] MEDS: Potassium Chloride ER 20 MEQ TAB.ER.PRT PO (08:12)
--- NOTE | 2020-03-24 10:29 | MHC.CM.PN ---
Patient will be transferred today to [facility] via BLS transport.
== END 2020-03-24 11:11 | disposition short-term general hospital (02) | DRG 315 ==
LOC: HO.ED 03-22 00:41 → HO.IMC 03-22 02:40
PROVIDERS: Hospitalist; Admitting Provider Internal Medicine; Emergency Provider Internal Medicine; PCP Student in an Organized Health Care Education/Training Program; Visit Provider Internal Medicine
DX: T82.7XXA Infection and inflammatory reaction due to other cardiac and vascular devices, implants and grafts, initial encounter (principal); L02.213 Cutaneous abscess of chest wall; I42.8 Other cardiomyopathies; B95.61 Methicillin susceptible Staphylococcus aureus infection as the cause of diseases classified elsewhere; E03.9 Hypothyroidism, unspecified; I48.91 Unspecified atrial fibrillation; R91.8 Other nonspecific abnormal finding of lung field; Z20.828 Contact with and (suspected) exposure to other viral communicable diseases; Z79.01 Long term (current) use of anticoagulants; Z79.890 Hormone replacement therapy; Z79.899 Other long term (current) drug therapy
CPT/HCPCS: 36415; 71250; 80048; 83605; 85025; 85610; 85730; 87040; 87071; 87147; 87186; 87205; 87635; 93005; 94640; 94664; 96365; 99285; J2543; J3370

== ENCOUNTER → 2020-04-06 10:17 | Outpatient (BNVA) | payer MEDICARE, MEDICAID, OTHER, SELFPAY | PROVIDERS: PCP Student in an Organized Health Care Education/Training Program; Visit Provider Internal Medicine | DX: I48.0 Paroxysmal atrial fibrillation (principal); Z51.81 Encounter for therapeutic drug level monitoring; Z79.01 Long term (current) use of anticoagulants | CPT/HCPCS: Q3014 ==

== ENCOUNTER → 2020-04-10 15:18 | Outpatient (BNVA) | payer MEDICARE, MEDICAID, OTHER, SELFPAY | PROVIDERS: PCP Student in an Organized Health Care Education/Training Program; Visit Provider Internal Medicine | DX: I48.0 Paroxysmal atrial fibrillation (principal); Z51.81 Encounter for therapeutic drug level monitoring; Z79.01 Long term (current) use of anticoagulants | CPT/HCPCS: Q3014 ==

== ENCOUNTER → 2020-04-14 15:01 | Outpatient (BNVA) | payer MEDICARE, MEDICAID, OTHER, SELFPAY | PROVIDERS: PCP Student in an Organized Health Care Education/Training Program; Visit Provider Internal Medicine | DX: I48.0 Paroxysmal atrial fibrillation (principal); Z51.81 Encounter for therapeutic drug level monitoring; Z79.01 Long term (current) use of anticoagulants | CPT/HCPCS: Q3014 ==

== ENCOUNTER → 2020-04-21 10:41 | Outpatient (BNVA) | payer MEDICARE, MEDICAID, OTHER, SELFPAY | PROVIDERS: PCP Internal Medicine; Visit Provider Internal Medicine | DX: I48.0 Paroxysmal atrial fibrillation (principal); Z51.81 Encounter for therapeutic drug level monitoring; Z79.01 Long term (current) use of anticoagulants | CPT/HCPCS: Q3014 ==

== ENCOUNTER → 2020-04-28 08:53 | Outpatient (BNVA) | payer MEDICARE, MEDICAID, OTHER, SELFPAY | PROVIDERS: PCP Internal Medicine; Visit Provider Internal Medicine | DX: I48.0 Paroxysmal atrial fibrillation (principal); Z51.81 Encounter for therapeutic drug level monitoring; Z79.01 Long term (current) use of anticoagulants | CPT/HCPCS: Q3014 ==

== ENCOUNTER → 2020-05-05 15:07 | Outpatient (BNVA) | payer MEDICARE, MEDICAID, SELFPAY | PROVIDERS: PCP Internal Medicine; Visit Provider Internal Medicine | DX: I48.0 Paroxysmal atrial fibrillation (principal); Z51.81 Encounter for therapeutic drug level monitoring; Z79.01 Long term (current) use of anticoagulants | CPT/HCPCS: Q3014 ==

== ENCOUNTER → 2020-05-12 11:54 | Outpatient (BNVA) | payer MEDICARE, MEDICAID, SELFPAY | PROVIDERS: PCP Internal Medicine; Visit Provider Internal Medicine | DX: Z13.89 Encounter for screening for other disorder (principal) | CPT/HCPCS: Q3014 ==

== ENCOUNTER → 2020-05-19 09:10 | Outpatient (BNVA) | payer MEDICARE, OTHER, SELFPAY | PROVIDERS: PCP Internal Medicine; Visit Provider Internal Medicine | DX: I48.0 Paroxysmal atrial fibrillation (principal); Z51.81 Encounter for therapeutic drug level monitoring; Z79.01 Long term (current) use of anticoagulants | CPT/HCPCS: Q3014 ==

== ENCOUNTER → 2020-05-25 08:14 | Outpatient (BNVA) | payer MEDICARE, SELFPAY | PROVIDERS: PCP Student in an Organized Health Care Education/Training Program; Visit Provider Internal Medicine | DX: Z13.89 Encounter for screening for other disorder (principal) | CPT/HCPCS: Q3014 ==

== ENCOUNTER → 2020-05-26 11:47 | Outpatient (BNVA) | payer MEDICARE, OTHER, SELFPAY | PROVIDERS: PCP Internal Medicine; Visit Provider Internal Medicine | DX: I48.0 Paroxysmal atrial fibrillation (principal); Z51.81 Encounter for therapeutic drug level monitoring; Z79.01 Long term (current) use of anticoagulants | CPT/HCPCS: Q3014 ==

== ENCOUNTER → 2020-06-02 10:15 | Outpatient (BNVA) | payer MEDICARE, OTHER, SELFPAY | PROVIDERS: PCP Student in an Organized Health Care Education/Training Program; Visit Provider Internal Medicine | DX: I48.0 Paroxysmal atrial fibrillation (principal); Z51.81 Encounter for therapeutic drug level monitoring; Z79.01 Long term (current) use of anticoagulants | CPT/HCPCS: Q3014 ==

== ENCOUNTER → 2020-06-05 11:36 | Outpatient (BNVA) | payer MEDICARE, OTHER, SELFPAY | PROVIDERS: PCP Student in an Organized Health Care Education/Training Program; Visit Provider Internal Medicine | DX: I48.0 Paroxysmal atrial fibrillation (principal); Z51.81 Encounter for therapeutic drug level monitoring; Z79.01 Long term (current) use of anticoagulants | CPT/HCPCS: Q3014 ==

== ENCOUNTER → 2020-06-12 10:22 | Outpatient (BNVA) | payer MEDICARE, MEDICAID, SELFPAY | PROVIDERS: PCP Student in an Organized Health Care Education/Training Program; Visit Provider Internal Medicine | DX: I48.0 Paroxysmal atrial fibrillation (principal); Z51.81 Encounter for therapeutic drug level monitoring; Z79.01 Long term (current) use of anticoagulants | CPT/HCPCS: Q3014 ==

== ENCOUNTER → 2020-06-19 10:02 | Outpatient (BNVA) | payer MEDICARE, MEDICAID, OTHER, SELFPAY | PROVIDERS: PCP Student in an Organized Health Care Education/Training Program; Visit Provider Internal Medicine | DX: I48.0 Paroxysmal atrial fibrillation (principal); Z51.81 Encounter for therapeutic drug level monitoring; Z79.01 Long term (current) use of anticoagulants | CPT/HCPCS: Q3014 ==

== ENCOUNTER → 2020-06-26 14:14 | Outpatient (BNVA) | payer MEDICARE, MEDICAID, SELFPAY | PROVIDERS: PCP Student in an Organized Health Care Education/Training Program; Visit Provider Internal Medicine | DX: I48.0 Paroxysmal atrial fibrillation (principal); Z79.01 Long term (current) use of anticoagulants; Z51.81 Encounter for therapeutic drug level monitoring | CPT/HCPCS: Q3014 ==

== ENCOUNTER → 2020-07-03 09:13 | Outpatient (BNVA) | payer MEDICARE, MEDICAID, SELFPAY | PROVIDERS: PCP Student in an Organized Health Care Education/Training Program; Visit Provider Internal Medicine | DX: I48.0 Paroxysmal atrial fibrillation (principal); Z79.01 Long term (current) use of anticoagulants; Z51.81 Encounter for therapeutic drug level monitoring | CPT/HCPCS: Q3014 ==

== ENCOUNTER → 2020-07-10 11:20 | Outpatient (BNVA) | payer MEDICARE, SELFPAY | PROVIDERS: PCP Student in an Organized Health Care Education/Training Program; Visit Provider Internal Medicine ==

== ENCOUNTER → 2020-07-17 10:37 | Outpatient (BNVA) | payer MEDICARE, SELFPAY | PROVIDERS: PCP Student in an Organized Health Care Education/Training Program; Visit Provider Internal Medicine ==

== ENCOUNTER → 2020-07-24 12:05 | Outpatient (BNVA) | payer MEDICARE, SELFPAY | PROVIDERS: PCP Student in an Organized Health Care Education/Training Program; Visit Provider Internal Medicine ==

== ENCOUNTER → 2020-07-31 09:44 | Outpatient (BNVA) | payer MEDICARE, SELFPAY | PROVIDERS: PCP Student in an Organized Health Care Education/Training Program; Visit Provider Internal Medicine ==

== ENCOUNTER → 2020-08-07 08:25 | Outpatient (BNVA) | payer MEDICARE, OTHER, SELFPAY | PROVIDERS: PCP Student in an Organized Health Care Education/Training Program; Visit Provider Internal Medicine | DX: I48.0 Paroxysmal atrial fibrillation (principal); Z51.81 Encounter for therapeutic drug level monitoring; Z79.01 Long term (current) use of anticoagulants | CPT/HCPCS: 85610; 99211 ==

== ENCOUNTER → 2020-08-14 08:28 | Outpatient (BNVA) | payer MEDICARE, MEDICAID, OTHER, SELFPAY | PROVIDERS: PCP Student in an Organized Health Care Education/Training Program; Visit Provider Internal Medicine | DX: I48.0 Paroxysmal atrial fibrillation (principal); Z51.81 Encounter for therapeutic drug level monitoring; Z79.01 Long term (current) use of anticoagulants | CPT/HCPCS: 85610; 99211 ==

== ENCOUNTER → 2020-08-24 08:36 | Outpatient (BNVA) | payer MEDICARE, SELFPAY | PROVIDERS: PCP Student in an Organized Health Care Education/Training Program; Visit Provider Internal Medicine | CPT/HCPCS: Q3014 ==

== ENCOUNTER → 2020-09-02 08:44 | Outpatient (BNVA) | payer MEDICARE, OTHER, SELFPAY | PROVIDERS: PCP Student in an Organized Health Care Education/Training Program; Visit Provider Internal Medicine | DX: I48.0 Paroxysmal atrial fibrillation (principal); Z51.81 Encounter for therapeutic drug level monitoring; Z79.01 Long term (current) use of anticoagulants | CPT/HCPCS: 85610; 99211 ==

== ENCOUNTER → 2020-09-16 08:24 | Outpatient (BNVA) | payer MEDICARE, OTHER, SELFPAY | PROVIDERS: PCP Student in an Organized Health Care Education/Training Program; Visit Provider Internal Medicine | DX: I48.0 Paroxysmal atrial fibrillation (principal); Z51.81 Encounter for therapeutic drug level monitoring; Z79.01 Long term (current) use of anticoagulants | CPT/HCPCS: 85610; 99211 ==

== ENCOUNTER → 2020-11-30 09:26 | Outpatient (BNVA) | payer MEDICARE, SELFPAY | PROVIDERS: PCP Student in an Organized Health Care Education/Training Program; Visit Provider Internal Medicine | DX: M81.0 Age-related osteoporosis without current pathological fracture (principal); E04.2 Nontoxic multinodular goiter; E55.9 Vitamin D deficiency, unspecified; C50.911 Malignant neoplasm of unspecified site of right female breast | CPT/HCPCS: Q3014 ==

== ENCOUNTER 2021-06-01 13:17 | Outpatient (REF) | payer OTHER, SELFPAY ==
--- NOTE | ~2021-06-01 | MM_ITS ---
EXAMINATION: MM DIAGNOSTIC DIGITAL BREAST TOMOSYNTHESIS, BILATERAL CLINICAL INFORMATION: Status post right lumpectomy 04/04/2018 for invasive mucinous carcinoma. Prior history remote left breast biopsy, fibroadenoma, no clip. Due for yearly. COMPARISON: Mammography: 04/22/2019, 10/18/2018, 04/04/2018, 03/15/2018, 03/01/2018, 08/28/2017, 08/03/2017 TECHNIQUE: Digital breast tomosynthesis is performed in both the craniocaudal and mediolateral oblique views along with computer-aided detection (CAD). Synthesized 2D images are generated from the tomosynthesis. Additional views are obtained: Right MLO, exaggerated left CC, magnification right CC, magnification right LM. FINDINGS: There are scattered areas of fibroglandular density (ACR BI-RADS breast composition Category b). Right breast post therapy changes are similar to prior exam. There is no developing density or interval mass or architectural abnormality. There are scattered bilateral benign coarse and ductal secretory and vascular calcifications. The fibroadenoma left breast is not demonstrated since 2018. There is a pacemaker generator overlying and partly obscuring the right axilla on MLO view. No significant changes. Results are provided to the patient at time of visit by the technologist. MM/MM tomosynthesis diagnostic BI IMPRESSION: No mammographic evidence of malignancy. Post therapy changes on right. ASSESSMENT: BI-RADS 2: Benign RECOMMENDATION: Annual bilateral mammography. This patient's information was entered into a reminder system with a target due date for their next mammogram.
== END 2021-06-01 13:18 | disposition home or self-care (01) ==
LOC: HO.MAMMO 13:17
PROVIDERS: PCP Physician Assistant; Visit Provider Physician Assistant
DX: Z85.3 Personal history of malignant neoplasm of breast (principal); Z98.890 Other specified postprocedural states
CPT/HCPCS: 77062; 77066

== ENCOUNTER 2021-06-07 12:45 | Outpatient (REF) | payer OTHER, SELFPAY ==
--- NOTE | ~2021-06-07 | CT_ITS ---
EXAMINATION: CT CHEST WITHOUT CONTRAST CLINICAL INFORMATION: SOB, post COVID-19. COMPARISON: CT chest 03/21/2020 TECHNIQUE: Multidetector volumetric CT imaging of the chest was done. Axial MIP volume rendering provided. Sagittal and coronal reformatted images were obtained. This CT examination was performed using dose optimization techniques as appropriate, variously including the following: *Automated exposure control *Adjustment of mA and/or kV according to patient size (this includes techniques or standardized protocols for targeted exams where dose is matched to indication/reason for exam; i.e. extremities or head) *Use of iterative reconstruction technique DLP: 94 mGy-cm FINDINGS: COREMAKING SUPERVISOR: Well-inflated chest. LUNGS: There is centrilobular emphysema with mild ground-glass attenuation in both upper and lower lobes but without acute pneumonic process. There is a tubular pulmonary nodule right upper lobe axial image 115/5, a 3 mm pulmonary nodule right upper lobe anteriorly image 69/5, a 3 mm nodule right anterior apex image 52/5, a 3 mm nodule right upper lobe axial image 72/5, several punctate subpleural 1 mm calcifications right upper lobe variously seen right middle lobe nodule is not visualized at this time. No additional new nodules seen. Focal atelectatic changes seen in the right lung base and lingula. MEDIASTINUM: The heart size is enlarged with dense mitral valve calcification. There is extensive coronary artery calcification as well. There is a solitary pacer electrode in the right ventricle. There is mild anterior pericardial diffusion. No abnormal-sized mediastinal lymph nodes or mass seen. The thyroid lobes are symmetrical and normal. Central airways widely patent. PLEURA: There is no pleural effusion. No pleural mass or thickening. AXILLA: There are small shotty lymph nodes seen in left left axilla slightly more prominent than the right. The largest lymph node is benign measuring 1 cm. UPPER ABDOMEN: Visualized liver, spleen, pancreas and bilateral adrenal glands are unremarkable. OSSEOUS STRUCTURES: There is exaggerated thoracic kyphosis. The vertebral heights and alignment. There is compression deformity T11 vertebra of indeterminate age. The rest of the vertebral alignment is normal CT/CT chest wo con IMPRESSION: Stable multiple small pulmonary nodules especially right upper lobe. The right middle lobe nodule is not visualized. Emphysema with mild ground-glass attenuation seen in both upper and lower lobes. Cardiomegaly with extensive mitral valve and coronary artery calcifications. Small pericardial effusion, stable. Fleischner guidelines were followed.
== END 2021-06-07 12:46 | disposition home or self-care (01) ==
LOC: HO.CT 12:45
PROVIDERS: Visit Provider Nurse Practitioner Acute Care
DX: R91.8 Other nonspecific abnormal finding of lung field (principal)
CPT/HCPCS: 71250

== ENCOUNTER 2021-07-06 09:24 | Outpatient (REF) | payer OTHER, SELFPAY ==
--- NOTE | ~2021-07-06 | US_ITS ---
EXAMINATION: US VENOUS WITH DOPPLER UPPER EXTREMITY, LEFT CLINICAL INFORMATION: Incidental left internal jugular thrombus. COMPARISON: Chest CT scan dated 06/07/2021. TECHNIQUE: Ultrasound of the upper extremity is performed using compression sonography and color and pulse Doppler flow with assessment of augmentation of flow. There is also imaging and Doppler assessment of the jugular and subclavian veins. Spectral analysis with color-flow imaging is performed. FINDINGS: Intraluminal echoes are seen within the left internal jugular vein which demonstrates reversibility flow. Normal venous waveforms are otherwise seen along with normal compressibility. The left subclavian, brachial, radial and ulnar veins are patent. The left basilic and cephalic veins are patent. US/US venous duplex UE LT IMPRESSION: 1. Intraluminal echoes in the left internal jugular vein demonstrating reversed systolic flow, but normal compressibility. This could represent artifact rather than thrombus given the normal compressibility. An obstructing abnormality in the left brachiocephalic vein cannot be excluded.
--- NOTE | ~2021-07-06 | US_ITS ---
EXAMINATION: US THYROID CLINICAL INFORMATION: Nontoxic multinodular goiter. COMPARISON: Ultrasound-guided thyroid biopsy 02/07/2019. Thyroid ultrasound 08/20/2018. TECHNIQUE: Linear transducer grayscale and color Doppler examination with attention to the region of the thyroid. FINDINGS: SIZE: Measurements of the thyroid lobes and nodules are given in sagittal, anteroposterior and transverse dimensions respectively. Right Thyroid Lobe: 3.8 x 2.1 x 1.6 cm, volume 6.7 mL. Previously 4.7 x 2.5 x 1.6 cm, volume 9.9 mL. Parenchyma: The gland echotexture is heterogeneous. Thyroid vascularity is normal. Left Thyroid Lobe: 4.5 x 2.1 x 1.8 cm, volume 8.9 mL. Previously 4.8 x 2.1 x 1.9 cm, volume 9.2 mL. Parenchyma: The gland echotexture is heterogeneous. Thyroid vascularity is normal. Isthmus: 0.9 cm in maximum AP dimension. Previously 0.9 cm. Estimated total number of nodules greater than or equal to 1 cm: 1. Salon Receptionist nodules are described as follows: 1. Location: Right mid/medial. Size: 0.2 x 0.1 x 0.3 cm, volume 0.003 mL. Previously: 0.3 x 0.3 cm Nodule characteristics: Composition: Solid (2). Echogenicity: Hyperechoic (1). Shape: Not taller than wide (0). Margins: Smooth (0). Echogenic Foci: Macrocalcifications (1). ACR TI-RADS total points: 4 ACR TI-RADS category: 4 Significant change in size (>/= 20% in 2 dimensions and minimal increase of 2 mm or 50% or greater increase in volume): No Change in features: No Change in ACR TI-RADS risk category: No 2. Location: Left mid pole. Size: 0.5 x 0.5 x 0.4 cm, volume 0.05 mL. Previously: 0.9 x 0.7 x 0.7 cm, volume 0.2 mL. Nodule characteristics: Composition: Solid (2). Echogenicity: Hypoechoic (2). Shape: Taller than wide (3). Margins: Smooth (0). Echogenic Foci: None (0). ACR TI-RADS total points: 7 ACR TI-RADS category: 5 Significant change in size (>/= 20% in 2 dimensions and minimal increase of 2 mm or 50% or greater increase in volume): Decreased Change in features: No Change in ACR TI-RADS risk category: Number 3. Location: Left lower pole. Size: 0.4 x 0.1 x 0.3 cm, volume 0.006 mL. Previously: 0.3 x 0.4 cm. Nodule characteristics: Composition: Solid (2). Echogenicity: Hyperechoic (1). Shape: Not taller than wide (0). Margins: Smooth (0). Echogenic Foci: Macrocalcifications (1). ACR TI-RADS total points: 4 ACR TI-RADS category: 4 Significant change in size (>/= 20% in 2 dimensions and minimal increase of 2 mm or 50% or greater increase in volume): No Change in features: No Change in ACR TI-RADS risk category: No 4. Location: Isthmus. Size: 1.7 x 1.1 x 1.1 cm, volume 1.1 mL. Previously: 1.1 x 0.9 x 0.9 cm, volume 0.5 mL. Nodule characteristics: Composition: Solid (2). Echogenicity: Hypoechoic (2). Shape: Not taller than wide (0). Margins: Smooth (0). Echogenic Foci: None (0). ACR TI-RADS total points: 4 ACR TI-RADS category: 4 Significant change in size (>/= 20% in 2 dimensions and minimal increase of 2 mm or 50% or greater increase in volume): Yes Change in features: Increased hypoechoic components. Change in ACR TI-RADS risk category: NODES: No lymphadenopathy is seen in the tissue surrounding the thyroid gland. US/US thyroid IMPRESSION: Interval enlargement of left isthmus nodule as detailed above. This is amenable to further evaluation with ultrasound-guided biopsy as per guidelines detailed below. ACR TI-RADS RECOMMENDATION REFERENCE: Ultrasound-guided fine-needle aspiration, followup ultrasound, no further follow up. * TR1 (0 point) and TR 2 (2 points): No FNA or follow up * TR3 (3 points): FNA if more than or equal to 2.5 cm in maximum dimension, followup ultrasound in 1, 3 and 5 years if 1.5 to 2.4 cm in maximum dimension. * TR4 (4-6 points): FNA if more than or equal to 1.5 cm in maximum dimension, followup ultrasound in 1, 2, 3 and 5 years if 1 to 1.4 cm in maximum dimension. * TR5 (more than or equal to 7 points): FNA if more than or equal to 1 cm in maximum dimension, followup ultrasound every year for 5 years if 0.5 to 0.9 cm in maximum dimension. * TR3, TR4 or TR5 nodules that are below the size threshold for follow up receive no follow up.
== END 2021-07-06 09:25 | disposition home or self-care (01) ==
LOC: HO.US 09:24
PROVIDERS: Visit Provider Nurse Practitioner Acute Care
DX: E04.2 Nontoxic multinodular goiter (principal); I82.C12 Acute embolism and thrombosis of left internal jugular vein
CPT/HCPCS: 76536; 93971

== ENCOUNTER 2021-07-06 11:41 | Emergency (ER) | payer OTHER, SELFPAY ==
[2021-07-06 12:10] VITALS: BP 121/77; PULSE 73; RESP 18; TEMP 36.7; O2SAT 97; BMI 25.4
[2021-07-06 14:46] VITALS: BP 122/62; PULSE 74; RESP 16; TEMP 36.8; O2SAT 96
--- NOTE | 2021-07-06 14:48 | ED_ITS ---
HPI - General Adult General Chief complaint: General Medical Stated complaint: Abnormal ultrasound L arm Time Seen by Provider: 07/06/21 14:34 Source: patient and old records reviewed Mode of arrival: ambulatory Limitations: no limitations History of Present Illness HPI narrative: compliant with her coumadin - had surveillance US today - told she might have a clot in a vein has no complaints at this time. referred to ED for further workup. denies pain MD complaint: abnormal US - ? L clot brachiocephalic Onset (ago): minute(s) (had US done earlier today ) Radiation: non-radiation Severity: mild Relieving factors: none Exacerbating factors: none Associated symptoms: denies other symptoms Treatments prior to arrival: none Related Data Home Medications Medication Instructions Recorded Confirmed atorvastatin 40 mg tablet 40 mg PO DAILY 02/03/20 06/17/21 levothyroxine 50 mcg tablet 50 mcg PO DAILY 02/03/20 06/17/21 metoprolol tartrate 25 mg tablet 25 mg PO BID 02/03/20 06/17/21 multivitamin 1 tab PO DAILY 02/03/20 06/17/21 potassium chloride 20 mEq 20 meq PO BID tab 05/25/20 06/17/21 tablet,extended release(part/cryst) warfarin 3 mg tablet 3 mg PO DAILY 05/25/20 06/17/21 albuterol sulfate 90 mcg/actuation 2 puff INHALATION Q4-6H PRN 08/24/20 06/17/21 aerosol inhaler cilostazol 100 mg tablet 100 mg PO Q12H 08/24/20 06/17/21 Previous Rx's Medication Instructions Recorded fluticasone propionate 50 1 spray INTRANASAL DAILY PRN #16 g 05/28/21 mcg/actuation nasal spray,suspension loratadine 10 mg tablet 10 mg PO DAILY #20 tab 05/28/21 olopatadine 0.1 % eye drops 1 drp OPHTHALMIC (EYE) BID 15 Days 05/31/21 #5 ml warfarin 2 mg tablet 2 mg PO DAILY #90 tab 05/31/21 calcium carbonate 500 mg calcium 500 mg PO BID 90 Days #180 tab 06/17/21 (1,250 mg) tablet fluticasone fur. 100 mcg-umeclid 1 inh INHALATION DAILY 60 Days #60 06/17/21 62.5 mcg-vilant 25 mcg ea inhalat.powder (Trelegy Ellipta) miscellaneous medical supply 1 ea MISCELLANEOUS DAILY 99 Days 06/17/21 #1 ea furosemide 40 mg tablet 40 mg PO BID 30 Days #60 tab 06/22/21 ropinirole 5 mg tablet 5 mg PO BEDTIME #30 tab 06/22/21 amiodarone 200 mg tablet 200 mg PO DAILY 30 Days #30 tab 06/23/21 prednisone 5 mg tablet 5 mg PO DAILY 6 Days #9 tab 06/26/21 flecainide 150 mg tablet 150 mg PO Q12H #60 tab 06/30/21 Allergies Allergy/AdvReac Type Severity Reaction Status Date / Time doxycycline AdvReac Vomiting Verified 06/17/21 09:17 Review of Systems Review of Systems: Constitutional : No Weight loss, No Fever, No Chills, No Fatigue, No Malaise ENT/Mouth : No sore throat, No Rhinorrhea Eyes: No Eye Pain, No Swelling, No Redness Cardiovascular : No Chest Pain, No SOB, No Dyspnea on Exertion, No Orthopnea, No Edema, No Palpitations Respiratory : No Cough, No Sputum, No Wheezing Gastrointestinal : No Nausea, No Vomiting, No Diarrhea, No Constipation, No ab dominal Pain, No Hematochezia, No Melena Genitourinary : No Dysuria, No Urinary Frequency, No Hematuria, Musculoskeletal : No joint pain, No Myalgias, No Joint Swelling Skin : No Skin Lesions, No rash Neuro : No Weakness, No Numbness, No Dizziness, No Headache Psych : No Anxiety/Panic, No Depression All other systems reviewed and are negative [facility] Past Medical History Attestation statement: The following information was validated with the patient. Medical History Afib Cardiac defibrillator in place History of breast cancer Hypothyroidism Mucinous carcinoma of right breast Multinodular thyroid Osteoporosis Vitamin D deficiency Surgical History History of automatic internal cardiac defibrillator (AICD) History of tubal ligation Family History Family History Father Thrombus Mother Heart disease Social History Social History Household Members: Family Housing: Apartment Do you presently have visiting nurse or other home services: No Alcohol intake: current Alcohol intake frequency: does not drink Patient Tobacco Use Status: Former Tobacco user Cigarette Packs Per Day: 3 Years Smoked: 30 e-Cigarette/Vaping Use: Never Used Second Hand Smoke Exposure: Yes Advance Directives: Yes Advance Directives on File: Yes Advance Directives Date on File: 07/23/20 service: No Current occupational status: retired Cognitive needs: No Hearing needs: No Vision needs: No Physical Exam ED Vital Signs: Vital Signs - 24 hr 07/06/21 12:10 07/06/21 14:46 07/06/21 16:14 Temperature 98.0 F 98.2 F 98.9 F Pulse Rate 73 74 70 Respiratory Rate 18 16 14 Blood Pressure 121/77 122/62 104/59 L Pulse Oximetry 97 96 98 07/06/21 17:12 Temperature Pulse Rate 69 Respiratory Rate 16 Blood Pressure 138/69 Pulse Oximetry 98 BMI result Body Mass Index 25.4 Appearance: Alert. Oriented X3. No acute distress. Eyes: Pupils equal, round and reactive to light. ENT: Pharynx normal. Neck: Normal inspection. Neck supple. no mass or bulging neck veins. CVS: Normal heart rate and rhythm. Pulses normal. Respiratory: No respiratory distress. Breath sounds normal. Abdomen: Soft and nontender. Skin: Skin warm and dry. Normal skin color. Normal skin turgor. Extremities: No lower extremity edema. LUE NV intact no swelling Neuro: Oriented X 3. No motor deficit. No sensory deficit. Course Course Course Narrative: has PPM cannot have MRI will try to hydrate and recheck Cr awake she has mild BRIONNA cannot have CT scan at this time - was supposed to have labs done she never followed up no labs mar 2020 will repeat Cr after fluids over [address] Day sent images over of US today and INR 1.8 states no fu rther testing needed - patient does not need CT scans slight improvement in Cr with fluids though BUN normal Na normal suspect this is chronic and she was told she had to see a towel folder has intermittent bouts of elevated Cr 1.5 to 1.2 will instruct her to follow up with her PCP and towel folder this week plan to recheck with PCP - patient notes I have been told that I have kidney failure. Case management asked to call PCP in AM to make sure they follow up with patient as well. Medical Decision Making MDM Narrative Medical decision making narrative: 75 yo female with hx of cardiomyopathy, AICD, lung nodules, afib on coumadin, thyroid nodules comes in with c/o possible L brachiocephalic clot seen on US today - she has no complaints at this time. Will obtain labs and imaging of CT neck/chest to evaluate veins. Dispo per results and findings. Lab Data Result diagrams: 07/06/21 15:02 07/06/21 18:23 Labs: Lab Results 07/06/21 07/06/21 07/06/21 Range/Units 15:02 15:02 15:02 WBC 6.5 (4.8-10.8) X10*3/uL RBC 4.49 (4.20-5.50) X10*6/uL Hgb 9.1 L (12.0-16.0) g/dl Hct 31.6 L (37.0-47.0) % MCV 70.4 L (80.0-98.0) fL MCH 20.3 L (27.0-33.0) pg MCHC 28.8 L (31.0-35.0) g/dl RDW 20.0 H (11.0-16.0) % Plt Count 335 (160-400) X10*3/uL MPV 9.0 L (9.4-12.3) fL Immature Gran % (Auto) 0.2 (0.0-0.4) % Neut % (Auto) 77.2 H (45-73) % Lymph % (Auto) 12.5 L (20-40) % [place] % (Auto) 7.2 (2-11) % Eos % (Auto) 2.3 (0-4) % Baso % (Auto) 0.6 (0-2) % Lymph # (Auto) 0.8 L (1.2-4.9) X10*3/uL [place] # (Auto) 0.5 (0.1-1.2) X10*3/uL Eos # (Auto) 0.2 (0.0-0.4) X10*3/uL Baso # (Auto) 0.0 (0.0-0.2) X10*3/uL Abs Immat Gran (auto) 0.01 (0.00-0.03) X10*3/uL Absolute Neuts (auto) 5.0 (2.0-8.3) x10*3/uL Absolute Nucleated RBC 0.000 (0.0-0.012) X10*3/uL Nucleated RBC % (auto) 0.0 (0.0-0.2) /100WBC PT 20.7 H (9.9-13.0) SEC INR 1.8 H (0.9-1.1) APTT 34.9 (24.1-38.0) SEC Sodium 144 (135-145) mmol/L Potassium 2.9 L (3.3-5.1) mmol/L Chloride 101 (96-108) mmol/L Carbon Dioxide 32 H (22-29) mmol/L Anion Gap 14 (12-20) BUN 16 (9-16) mg/dL Creatinine 1.95 H (0.5-1.4) mg/dL Estim Creat Clear Calc 19.7 Estimated GFR 25 Random Glucose 146 H (60-115) mg/dL Calcium 8.8 (8.4-10.2) mg/dL Magnesium 1.8 (1.6-2.6) mg/dL Total Bilirubin 1.1 H (0.0-1.0) mg/dL Direct Bilirubin 0.4 (0.0-0.5) mg/dL AST 34 H (5-31) U/L ALT 24 (0-31) U/L Alkaline Phosphatase 104 (39-117) U/L Total Protein 6.2 L (6.5-8.0) g/dL Albumin 3.8 (3.5-5.0) g/dL Stool Occult Blood (NEGATIVE) 07/06/21 07/06/21 Range/Units 17:09 18:23 WBC (4.8-10.8) X10*3/uL RBC (4.20-5.50) X10*6/uL Hgb (12.0-16.0) g/dl Hct (37.0-47.0) % MCV (80.0-98.0) fL MCH (27.0-33.0) pg MCHC (31.0-35.0) g/dl RDW (11.0-16.0) % Plt Count (160-400) X10*3/uL MPV (9.4-12.3) fL Immature Gran % (Auto) (0.0-0.4) % Neut % (Auto) (45-73) % Lymph % (Auto) (20-40) % [place] % (Auto) (2-11) % Eos % (Auto) (0-4) % Baso % (Auto) (0-2) % Lymph # (Auto) (1.2-4.9) X10*3/uL [place] # (Auto) (0.1-1.2) X10*3/uL Eos # (Auto) (0.0-0.4) X10*3/uL Baso # (Auto) (0.0-0.2) X10*3/uL Abs Immat Gran (auto) (0.00-0.03) X10*3/uL Absolute Neuts (auto) (2.0-8.3) x10*3/uL Absolute Nucleated RBC (0.0-0.012) X10*3/uL Nucleated RBC % (auto) (0.0-0.2) /100WBC PT (9.9-13.0) SEC INR (0.9-1.1) APTT (24.1-38.0) SEC Sodium 145 (135-145) mmol/L Potassium 3.3 (3.3-5.1) mmol/L Chloride 105 (96-108) mmol/L Carbon Dioxide 32 H (22-29) mmol/L Anion Gap 11 L (12-20) BUN 16 (9-16) mg/dL Creatinine 1.75 H (0.5-1.4) mg/dL Estim Creat Clear Calc 22.0 Estimated GFR 28 Random Glucose 88 (60-115) mg/dL Calcium 8.1 L D (8.4-10.2) mg/dL Magnesium (1.6-2.6) mg/dL Total Bilirubin (0.0-1.0) mg/dL Direct Bilirubin (0.0-0.5) mg/dL AST (5-31) U/L ALT (0-31) U/L Alkaline Phosphatase (39-117) U/L Total Protein (6.5-8.0) g/dL Albumin (3.5-5.0) g/dL Stool Occult Blood NEGATIVE (NEGATIVE) Discharge Plan Discharge Clinical Impression: Acute kidney injury superimposed on chronic kidney disease, Acute hypokalemia Anemia Qualifiers: Anemia type: unspecified type Qualified Code(s): D64.9 - Anemia, unspecified Patient Disposition: Home, Self-Care Instructions: Chronic Kidney Disease (ED), Hypokalemia (ED), Anemia (ED) Additional Instructions: return to ED for any worsening symptoms or concerns INR 1.8 your kidney function runs from 1.2 to 1.5 today it was 1.7 - you have not followed up regularly and need to see the kidney doctor along with your doctor as soon as possible. in regards to the vein in your neck I spoke to a vascular doctor and states there is nothing to do at this time other than coumadin Prescriptions: No Action olopatadine 0.1 % drops 1 drp ophthalmic (eye) BID 15 Days Qty: 5 1RF Rx Instructions: separate doses by at least 6-8 hours warfarin 2 mg tablet 2 mg PO DAILY Qty: 90 0RF Protocol: Dose Management Condition: Monday (Week One) Dose/Route: 2 mg Instruction: 1 x 2 mg tablet Condition: Monday Dose/Route: 3 mg Instruction: 1 x 3 mg tablet Condition: Monday Dose/Route: 2 mg Instruction: 1 x 2 mg tablet Condition: Monday Dose/Route: 2 mg Instruction: 1 x 2 mg tablet Condition: Dose/Route: 3 mg Instruction: 1 x 3 mg tablet Condition: Monday Dose/Route: 2 mg Instruction: 1 x 2 mg tablet Condition: Monday Dose/Route: 2 mg Instruction: 1 x 2 mg tablet Condition: Monday (Week Two) Dose/Route: 2 mg Instruction: 1 x 2 mg tablet Condition: Monday Dose/Route: 3 mg Instruction: 1 x 3 mg tablet Condition: Monday Dose/Route: 2 mg Instruction: 1 x 2 mg tablet Condition: Monday Dose/Route: 2 mg Instruction: 1 x 2 mg tablet Condition: Dose/Route: 3 mg Instruction: 1 x 3 mg tablet Condition: Monday Dose/Route: 2 mg Instruction: 1 x 2 mg tablet Condition: Monday Dose/Route: 2 mg Instruction: 1 x 2 mg tablet Protocol Text: Adjustment Start Date: Monday09/16/20 INR Value: 2.7 INR Date: 09/16/20 Recheck Date: 09/30/20 furosemide 40 mg tablet 40 mg PO BID 30 Days Qty: 60 1RF ropinirole 5 mg tablet 5 mg PO BEDTIME Qty: 30 3RF amiodarone 200 mg tablet 200 mg PO DAILY 30 Days Qty: 30 1RF prednisone 5 mg tablet 5 mg PO DAILY 6 Days Qty: 9 0RF Rx Instructions: Take 2 tablets x3 days, 1 tablet x3 days flecainide 150 mg tablet 150 mg PO Q12H Qty: 60 2RF Hold Instructions: Doctor's Order fluticasone propionate 50 mcg/actuation spray,suspension 1 spray intranasal DAILY PRN (Reason: allergy symptoms) Qty: 16 0RF loratadine 10 mg tablet 10 mg PO DAILY Qty: 20 0RF calcium carbonate 500 mg calcium (1,250 mg) tablet 500 mg PO BID 90 Days Qty: 180 1RF Trelegy Ellipta 100-62.5-25 mcg blister with device 1 inh inhalation DAILY 60 Days Qty: 60 0RF miscellaneous medical supply Misc 1 ea miscellaneous DAILY 99 Days Qty: 1 0RF levothyroxine 50 mcg tablet 50 mcg PO DAILY 0RF multivitamin Tablet 1 tab PO DAILY 0RF metoprolol tartrate 25 mg tablet 25 mg PO BID 0RF atorvastatin 40 mg tablet 40 mg PO DAILY 0RF potassium chloride 20 mEq tablet,ER particles/crystals 20 meq PO BID 0RF albuterol sulfate 90 mcg/actuation HFA aerosol inhaler 2 puff inhalation Q4-6H PRN0RF cilostazol 100 mg tablet 100 mg PO Q12H 0RF warfarin 3 mg tablet 3 mg PO DAILY 0RF Protocol: Dose Management Condition: Monday (Week One) Dose/Route: 2 mg Instruction: 1 x 2 mg tablet Condition: Monday Dose/Route: 3 mg Instruction: 1 x 3 mg tablet Condition: Monday Dose/Route: 2 mg Instruction: 1 x 2 mg tablet Condition: Monday Dose/Route: 2 mg Instruction: 1 x 2 mg tablet Condition: Dose/Route: 3 mg Instruction: 1 x 3 mg tablet Condition: Monday Dose/Route: 2 mg Instruction: 1 x 2 mg tablet Condition: Monday Dose/Route: 2 mg Instruction: 1 x 2 mg tablet Condition: Monday (Week Two) Dose/Route: 2 mg Instruction: 1 x 2 mg tablet Condition: Monday Dose/Route: 3 mg Instruction: 1 x 3 mg tablet Condition: Monday Dose/Route: 2 mg Instruction: 1 x 2 mg tablet Condition: Monday Dose/Route: 2 mg Instruction: 1 x 2 mg tablet Condition: Dose/Route: 3 mg Instruction: 1 x 3 mg tablet Condition: Monday Dose/Route: 2 mg Instruction: 1 x 2 mg tablet Condition: Monday Dose/Route: 2 mg Instruction: 1 x 2 mg tablet Protocol Text: Adjustment Start Date: Monday09/16/20 INR Value: 2.7 INR Date: 09/16/20 Recheck Date: 09/30/20 Referrals: Farhan Molina PA-C [Primary Care Provider] - 1 day Interventions: ED Discharge Assessment Last Done: 07/06/21 19:13 Discharge Date/Time: 07/06/21 19:22
[2021-07-06 15:06] LABS: MANUAL DIFF FLAG NO
[2021-07-06 15:07] LABS: Basophils Percent Auto 0.6 % (0-2); Eosinophils Absolute Auto 0.2 X10*3/uL (0.0-0.4); Eosinophils Percent Auto 2.3 % (0-4); Hematocrit 31.6 % (37.0-47.0); Hemoglobin 9.1 g/dl (12.0-16.0); Imm Gran Abs Auto 0.01 X10*3/uL (0.00-0.03); Imm Gran Pct Auto 0.2 % (0.0-0.4); Lymphocytes Absolute Auto 0.8 X10*3/uL (1.2-4.9); Lymphocytes Percent Auto 12.5 % (20-40); Mean Corpuscular HGB Conc 28.8 g/dl (31.0-35.0); Mean Corpuscular Hemoglobin 20.3 pg (27.0-33.0); Mean Corpuscular Volume 70.4 fL (80.0-98.0); Monocytes Absolute Auto 0.5 X10*3/uL (0.1-1.2); Monocytes Percent Auto 7.2 % (2-11); Neutrophils Percent Auto 77.2 % (45-73); Platelet Count 335 X10*3/uL (160-400); Red Blood Count 4.49 X10*6/uL (4.20-5.50); White Blood Count 6.5 X10*3/uL (4.8-10.8)
[2021-07-06 15:19] LABS: INTERNATIONAL NORM RATIO 1.8 (0.9-1.1); Prothrombin Time 20.7 SEC (9.9-13.0)
[2021-07-06 15:21] LABS: Partial Thromboplastin Time 34.9 SEC (24.1-38.0)
[2021-07-06 15:31] LABS: Alanine Aminotransferase 24 U/L (0-31); Albumin Level 3.8 g/dL (3.5-5.0); Alkaline Phosphatase 104 U/L (39-117); Anion Gap 14 (12-20); Aspartate Amino Transferase 34 U/L (5-31); Bilirubin Direct 0.4 mg/dL (0.0-0.5); Bilirubin Total 1.1 mg/dL (0.0-1.0); Blood Urea Nitrogen 16 mg/dL (9-16); Calcium 8.8 mg/dL (8.4-10.2); Carbon Dioxide 32 mmol/L (22-29); Chloride 101 mmol/L (96-108); Creatinine Clr Calc Pharmacy 19.7; Estimated Glomerular Filt Rate 25; Glucose Random 146 mg/dL (60-115); Magnesium 1.8 mg/dL (1.6-2.6); Potassium 2.9 mmol/L (3.3-5.1); Sodium 144 mmol/L (135-145); Total Protein 6.2 g/dL (6.5-8.0)
[2021-07-06] MEDS: Potassium Chloride ER 20 MEQ TAB.ER.PRT PO (15:55)
[2021-07-06] MEDS: 0.9 % Sodium Chloride 1,000 ML 500 ML IV (15:55)
[2021-07-06 16:14] VITALS: BP 104/59; PULSE 70; RESP 14; TEMP 37.2; O2SAT 98
[2021-07-06 17:12] VITALS: BP 138/69; PULSE 69; RESP 16; O2SAT 98
--- NOTE | 2021-07-06 17:13 | PC.NURSE ---
This RN and Dr Albert to bedside for rectal exam. Pt denies rectal bleeding. Fluids continue to infuse slow per verbal from Dr Albert at 500ml/hr, BMP pending fluid completion
[2021-07-06 17:29] LABS: OBS Int Ctl Valid YES; OBS1 NEGATIVE (NEGATIVE)
[2021-07-06 18:49] LABS: Anion Gap 11 (12-20); Blood Urea Nitrogen 16 mg/dL (9-16); Calcium 8.1 mg/dL (8.4-10.2); Carbon Dioxide 32 mmol/L (22-29); Chloride 105 mmol/L (96-108); Estimated Glomerular Filt Rate 28; Glucose Random 88 mg/dL (60-115); Potassium 3.3 mmol/L (3.3-5.1); Sodium 145 mmol/L (135-145)
--- NOTE | 2021-07-07 08:22 | MHC.CM.ED ---
Patient already discharged home. Dr Albert requesting follow up appointment with Anthony Molina due to patient not having labs done in over a year. psychologist research assistant has been asked to reach out to PCP's office to arrange follow up ER appointment.
== END 2021-07-06 19:22 | disposition home or self-care (01) ==
PROVIDERS: Emergency Provider Emergency Medicine; PCP Physician Assistant
DX: N18.9 Chronic kidney disease, unspecified (principal); D64.9 Anemia, unspecified; Z79.899 Other long term (current) drug therapy; Z87.891 Personal history of nicotine dependence; Z79.01 Long term (current) use of anticoagulants
CPT/HCPCS: 36415; 80048; 80076; 82272; 83735; 85025; 85610; 85730; 96360; 99284

== ENCOUNTER 2021-07-08 00:23 | Inpatient (IN) | payer OTHER, SELFPAY ==
[2021-07-08] VITALS (16 sets, daily range): BP systolic 101–137; BP diastolic 63–86; PULSE 69–80; RESP 13–20; TEMP 36.4–37.1; O2SAT 93–100; BMI 25.4
--- NOTE | ~2021-07-08 | CT_ITS ---
EXAMINATION: CT HEAD WITHOUT CONTRAST CLINICAL INFORMATION: Fall with pain COMPARISON: None. TECHNIQUE: Contiguous axial imaging was performed from the skull base to vertex without intravenous contrast. This CT examination was performed using dose optimization techniques as appropriate, variously including the following: * Automated exposure control * Adjustment of mA and/or kV according to patient size (this includes techniques or standardized protocols for targeted exams where dose is matched to indication/reason for exam; i.e. extremities or head) Use of iterative reconstruction technique DLP: 638 mGy-cm. FINDINGS: There is no evidence of acute intracranial hemorrhage or territorial infarction. No abnormal mass effect or midline shift is seen. Sanchez to white matter differentiation is well preserved. No extra-axial fluid collections are identified. No hydrocephalus. Proportional prominence of the ventricles and sulcal spaces is consistent with mild volume loss. Patchy periventricular and deep white matter hypoattenuation is consistent with mild small vessel ischemic changes. The osseous structures and soft tissues are normal. The mastoid air cells and visualized portions of the paranasal sinuses are well aerated. CT/CT head/brain wo con IMPRESSION: No acute intracranial pathology.
--- NOTE | ~2021-07-08 | CT_ITS ---
EXAMINATION: CT CHEST WITHOUT CONTRAST CLINICAL INFORMATION: Fall. Thoracic back pain. COMPARISON: 06/07/2021 TECHNIQUE: Multidetector volumetric CT imaging of the chest was done. Axial MIP volume rendering provided. Sagittal and coronal reformatted images were obtained. This CT examination was performed using dose optimization techniques as appropriate, variously including the following: *Automated exposure control *Adjustment of mA and/or kV according to patient size (this includes techniques or standardized protocols for targeted exams where dose is matched to indication/reason for exam; i.e. 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 LUNGS: The central airways are patent. Small to moderate right pleural effusion with basilar atelectasis. No separate consolidation. No pneumothorax. MEDIASTINUM: Enlarged heart. Mitral annular calcification. No pericardial effusion. No mediastinal lymphadenopathy. Right chest wall pacer. AXILLA: No lymphadenopathy. UPPER ABDOMEN: Unremarkable. OSSEOUS STRUCTURES: No acute or suspicious osseous abnormality. Degenerative changes of the spine. Mild height loss of the T11 vertebral body is chronic. No rib fracture. CT/CT chest wo con IMPRESSION: Small to moderate right pleural effusion. Basilar atelectasis. No acute fractures. Fleischner guidelines were followed.
--- NOTE | 2021-07-08 00:43 | ECG_ITS ---
Test Reason : CP Blood Pressure : / mmHG Vent. Rate : 070 BPM Atrial Rate : 051 BPM P-R Int : 000 ms QRS Dur : 216 ms QT Int : 564 ms P-R-T Axes : 086 -38 140 degrees QTc Int : 609 ms Normal sinus rhythm with A-V dissociation with Ventricular-paced rhythm Abnormal ECG When compared with ECG of 22-MAR-2020 00:02, AV dissociation is seen Referred By: Branden Crowley Electronically Signed By:ROSI CHU MD
--- NOTE | 2021-07-08 00:44 | ED.FALL ---
HPI - Fall General Chief Complaint: Fall Stated Complaint: fall Time Seen by Provider: 07/08/21 00:32 Source: patient Mode of arrival: EMS Limitations: no limitations History of Present Illness HPI Narrative: 75-year-old female who presents emergency department for evaluation of a fall. The patient states that she was sitting on the edge of the bed and about to get up to go to the bathroom when she fell. She states she fell forward onto her knees . She believes that she then twisted and struck her back on a hamper. She did not hit her head and she did not lose consciousness. Her daughter was able to get her up and she was placed back in bed. She is currently complaining moderate to severe thoracic back and bilateral thoracic chest pain. She states that the pain is a constant, sharp pain which is worse with movement. The pain is 8/10 at its worst. She denies shortness of breath. She denies headache, neck pain, nausea or vomiting. She denied being ill in any way prior to the fall. She denied fever, chills, cough, nausea, vomiting, diarrhea, abdominal pain, frequency, urgency or dysuria. The patient was seen in the emergency department on 07/06/2021 after she had a left upper extremity Doppler ultrasound which revealed incidental left internal jugular thrombus. The patient is on warfarin and the treatment was determined to be continuation of this medication with no other intervention. Related Data Home Medications Medication Instructions Recorded Confirmed atorvastatin 40 mg tablet 40 mg PO DAILY 02/03/20 06/17/21 levothyroxine 50 mcg tablet 50 mcg PO DAILY 02/03/20 06/17/21 metoprolol tartrate 25 mg tablet 25 mg PO BID 02/03/20 06/17/21 multivitamin 1 tab PO DAILY 02/03/20 06/17/21 potassium chloride 20 mEq 20 meq PO BID tab 05/25/20 06/17/21 tablet,extended release(part/cryst) warfarin 3 mg tablet 3 mg PO DAILY 05/25/20 06/17/21 albuterol sulfate 90 mcg/actuation 2 puff INHALATION Q4-6H PRN 08/24/20 06/17/21 aerosol inhaler cilostazol 100 mg tablet 100 mg PO Q12H 08/24/20 06/17/21 Previous Rx's Medication Instructions Recorded fluticasone propionate 50 1 spray INTRANASAL DAILY PRN #16 g 05/28/21 mcg/actuation nasal spray,suspension loratadine 10 mg tablet 10 mg PO DAILY #20 tab 05/28/21 olopatadine 0.1 % eye drops 1 drp OPHTHALMIC (EYE) BID 15 Days 05/31/21 #5 ml warfarin 2 mg tablet 2 mg PO DAILY #90 tab 05/31/21 calcium carbonate 500 mg calcium 500 mg PO BID 90 Days #180 tab 06/17/21 (1,250 mg) tablet fluticasone fur. 100 mcg-umeclid 1 inh INHALATION DAILY 60 Days #60 06/17/21 62.5 mcg-vilant 25 mcg ea inhalat.powder (Trelegy Ellipta) miscellaneous medical supply 1 ea MISCELLANEOUS DAILY 99 Days 06/17/21 #1 ea furosemide 40 mg tablet 40 mg PO BID 30 Days #60 tab 06/22/21 ropinirole 5 mg tablet 5 mg PO BEDTIME #30 tab 06/22/21 amiodarone 200 mg tablet 200 mg PO DAILY 30 Days #30 tab 06/23/21 prednisone 5 mg tablet 5 mg PO DAILY 6 Days #9 tab 06/26/21 flecainide 150 mg tablet 150 mg PO Q12H #60 tab 06/30/21 Allergies Allergy/AdvReac Type Severity Reaction Status Date / Time doxycycline AdvReac Vomiting Verified 06/17/21 09:17 Review of Systems Review of Systems: Yes all other systems are reviewed and are negative [facility] Past Medical History [facility] Narrative: Social history: The patient lives at home with her daughter. She states that she is a former smoker and quit 12 years prior. She smoked for at least 30 years. She denies drug use. She denies alcohol use. Medical History Afib Cardiac defibrillator in place History of breast cancer Hypothyroidism Mucinous carcinoma of right breast Multinodular thyroid Osteoporosis Vitamin D deficiency Surgical History History of automatic internal cardiac defibrillator (AICD) History of tubal ligation Family History Family History Father Thrombus Mother Heart disease Social History Social History Household Members: Family Housing: Apartment Do you presently have visiting nurse or other home services: No Alcohol intake: current Alcohol intake frequency: does not drink Patient Tobacco Use Status: Former Tobacco user Cigarette Packs Per Day: 3 Years Smoked: 30 e-Cigarette/Vaping Use: Never Used Second Hand Smoke Exposure: Yes Advance Directives Date on File: 07/23/20 service: No Current occupational status: retired Cognitive needs: No Hearing needs: No Vision needs: No Physical Exam Vital Signs: Vital Signs: Last Vital Signs Temp 98.6 F 07/08/21 00:24 Pulse 71 07/08/21 00:38 Resp 16 07/08/21 00:38 BP 107/63 07/08/21 00:38 Pulse Ox 93 07/08/21 00:38 BMI result Body Mass Index 25.4 Const: Other: Awake, alert, female patient, very pleasant cooperative, answers all questions appropriately. HEENT: Head: Yes normal to inspection, Yes normocephalic and Yes atraumatic Ears: external ears normal General nose exam: Normal external nose present Face and sinus: Yes normal facial exam Mouth: Normal oral and palatal mucosa present Throat: Yes posterior oropharynx normal Eyes: General: appearance normal, both eyes and all related structures Pupils: Equal, round and reactive pupils present Neck: Neck: Yes normal visual inspection, Yes no lymphadenopathy, Yes trachea midline and Yes supple Chest: Other: The patient does have tenderness with palpation of her midthoracic spine and bilateral thoracic ribs, there is no crepitus, there is no ecchymosis Resp: Effort & Inspection: normal respiratory effort and able to speak in complete sentences Auscultation: clear to auscultation bilaterally Cardio: Rate: regular rate Rhythm: regular rhythm Heart sounds: S1 normal heart sound present, S2 normal heart sound present and no murmurs GI: Inspection: Yes normal to inspection Palpation (GI): Soft to palpation, nontender and no guarding Auscultation: normal bowel sounds Back/Spine/Pelvis: Other: Tenderness with palpation of the midthoracic spine Skin: General skin exam: no rashes or lesions noted Neuro: Cranial nerves: Yes CN's II-XII intact bilaterally and Yes Equal, round and reactive pupils present Cognition (Neuro): normal cognition Motor exam (neuro): 5/5 motor strength present throughout Extrem: Other: Patient is able to move all extremities symmetrically without any difficulty Psych: Appearance: grossly normal Speech and movement: Normal speech and movement present Affect: normal affect Attitude: cooperative Thought process: Normal thought process present Thought content: Normal thought content present Course Course Course Narrative: 75-year-old female who presents emergency department for evaluation of injuries from a fall. Patient was sitting on the edge of her bed to get up to go to the bathroom when she fell forward landing on her knees. She believes that she may have either twisted or struck her back on a hamper. She is currently complaining of pain in her upper thoracic back and posterior chest pain. She had no head injury or loss of consciousness. She denies headache, neck pain, shortness of breath. She was not ill in any way prior to her fall. The patient does have atrial fibrillation and is on warfarin. Her vital signs were normal. Examination did reveal tenderness palpation of her midthoracic vertebrae as well as her posterior chest/ribs. I did order laboratory evaluation to include CBC, CMP, troponin, PT/INR, PTT, urinalysis. EKG will also be obtained. Given her fall in her tenderness I will order a CT scan of the chest to evaluate for possible thoracic vertebrae fractures and rib fractures. 0113: At the end of my shift, the patient's workup is pending, therefore the patient's care was turned over to my colleague, Dr. Cleary. Discharge Plan Discharge Clinical Impression: Fall Patient Disposition: Still a Patient Prescriptions: No Action olopatadine 0.1 % drops 1 drp ophthalmic (eye) BID 15 Days Qty: 5 1RF Rx Instructions: separate doses by at least 6-8 hours warfarin 2 mg tablet 2 mg PO DAILY Qty: 90 0RF Protocol: Dose Management Condition: Monday (Week One) Dose/Route: 2 mg Instruction: 1 x 2 mg tablet Condition: Monday Dose/Route: 3 mg Instruction: 1 x 3 mg tablet Condition: Monday Dose/Route: 2 mg Instruction: 1 x 2 mg tablet Condition: Monday Dose/Route: 2 mg Instruction: 1 x 2 mg tablet Condition: Dose/Route: 3 mg Instruction: 1 x 3 mg tablet Condition: Monday Dose/Route: 2 mg Instruction: 1 x 2 mg tablet Condition: Monday Dose/Route: 2 mg Instruction: 1 x 2 mg tablet Condition: Monday (Week Two) Dose/Route: 2 mg Instruction: 1 x 2 mg tablet Condition: Monday Dose/Route: 3 mg Instruction: 1 x 3 mg tablet Condition: Monday Dose/Route: 2 mg Instruction: 1 x 2 mg tablet Condition: Monday Dose/Route: 2 mg Instruction: 1 x 2 mg tablet Condition: Dose/Route: 3 mg Instruction: 1 x 3 mg tablet Condition: Monday Dose/Route: 2 mg Instruction: 1 x 2 mg tablet Condition: Monday Dose/Route: 2 mg Instruction: 1 x 2 mg tablet Protocol Text: Adjustment Start Date: Monday09/16/20 INR Value: 2.7 INR Date: 09/16/20 Recheck Date: 09/30/20 furosemide 40 mg tablet 40 mg PO BID 30 Days Qty: 60 1RF ropinirole 5 mg tablet 5 mg PO BEDTIME Qty: 30 3RF amiodarone 200 mg tablet 200 mg PO DAILY 30 Days Qty: 30 1RF prednisone 5 mg tablet 5 mg PO DAILY 6 Days Qty: 9 0RF Rx Instructions: Take 2 tablets x3 days, 1 tablet x3 days flecainide 150 mg tablet 150 mg PO Q12H Qty: 60 2RF Hold Instructions: Doctor's Order fluticasone propionate 50 mcg/actuation spray,suspension 1 spray intranasal DAILY PRN (Reason: allergy symptoms) Qty: 16 0RF loratadine 10 mg tablet 10 mg PO DAILY Qty: 20 0RF calcium carbonate 500 mg calcium (1,250 mg) tablet 500 mg PO BID 90 Days Qty: 180 1RF Trelegy Ellipta 100-62.5-25 mcg blister with device 1 inh inhalation DAILY 60 Days Qty: 60 0RF miscellaneous medical supply Misc 1 ea miscellaneous DAILY 99 Days Qty: 1 0RF levothyroxine 50 mcg tablet 50 mcg PO DAILY 0RF multivitamin Tablet 1 tab PO DAILY 0RF metoprolol tartrate 25 mg tablet 25 mg PO BID 0RF atorvastatin 40 mg tablet 40 mg PO DAILY 0RF potassium chloride 20 mEq tablet,ER particles/crystals 20 meq PO BID 0RF albuterol sulfate 90 mcg/actuation HFA aerosol inhaler 2 puff inhalation Q4-6H PRN0RF cilostazol 100 mg tablet 100 mg PO Q12H 0RF warfarin 3 mg tablet 3 mg PO DAILY 0RF Protocol: Dose Management Condition: Monday (Week One) Dose/Route: 2 mg Instruction: 1 x 2 mg tablet Condition: Monday Dose/Route: 3 mg Instruction: 1 x 3 mg tablet Condition: Monday Dose/Route: 2 mg Instruction: 1 x 2 mg tablet Condition: Monday Dose/Route: 2 mg Instruction: 1 x 2 mg tablet Condition: Dose/Route: 3 mg Instruction: 1 x 3 mg tablet Condition: Monday Dose/Route: 2 mg Instruction: 1 x 2 mg tablet Condition: Monday Dose/Route: 2 mg Instruction: 1 x 2 mg tablet Condition: Monday (Week Two) Dose/Route: 2 mg Instruction: 1 x 2 mg tablet Condition: Monday Dose/Route: 3 mg Instruction: 1 x 3 mg tablet Condition: Monday Dose/Route: 2 mg Instruction: 1 x 2 mg tablet Condition: Monday Dose/Route: 2 mg Instruction: 1 x 2 mg tablet Condition: Dose/Route: 3 mg Instruction: 1 x 3 mg tablet Condition: Monday Dose/Route: 2 mg Instruction: 1 x 2 mg tablet Condition: Monday Dose/Route: 2 mg Instruction: 1 x 2 mg tablet Protocol Text: Adjustment Start Date: Monday09/16/20 INR Value: 2.7 INR Date: 09/16/20 Recheck Date: 09/30/20
[2021-07-08] MEDS: oxyCODONE HCl Immed Release 5 MG TABLET PO ×2 (01:05→20:48)
[2021-07-08] MEDS: Acetaminophen 325 MG TABLET 975 MG PO (01:06)
[2021-07-08 01:12] LABS: Basophils Percent Auto 0.5 % (0-2); Eosinophils Absolute Auto 0.2 X10*3/uL (0.0-0.4); Eosinophils Percent Auto 3.1 % (0-4); Hematocrit 27.6 % (37.0-47.0); Hemoglobin 8.1 g/dl (12.0-16.0); Imm Gran Abs Auto 0.07 X10*3/uL (0.00-0.03); Imm Gran Pct Auto 1.1 % (0.0-0.4); Lymphocytes Absolute Auto 0.5 X10*3/uL (1.2-4.9); Lymphocytes Percent Auto 7.3 % (20-40); MANUAL DIFF FLAG NO; Mean Corpuscular HGB Conc 29.3 g/dl (31.0-35.0); Mean Corpuscular Hemoglobin 20.5 pg (27.0-33.0); Mean Corpuscular Volume 69.9 fL (80.0-98.0); Mean Platelet Volume 9.3 fL (9.4-12.3); Monocytes Absolute Auto 0.5 X10*3/uL (0.1-1.2); Monocytes Percent Auto 8.2 % (2-11); Neutrophils Absolute Auto 4.9 x10*3/uL (2.0-8.3); Neutrophils Percent Auto 79.8 % (45-73); Platelet Count 314 X10*3/uL (160-400); Red Blood Count 3.95 X10*6/uL (4.20-5.50); White Blood Count 6.2 X10*3/uL (4.8-10.8)
[2021-07-08 01:20] LABS: INTERNATIONAL NORM RATIO 1.5 (0.9-1.1)
[2021-07-08 01:24] LABS: Partial Thromboplastin Time 20.8 SEC (24.1-38.0)
[2021-07-08 01:37] LABS: Alanine Aminotransferase 24 U/L (0-31); Albumin Level 3.5 g/dL (3.5-5.0); Alkaline Phosphatase 91 U/L (39-117); Anion Gap 14 (12-20); Aspartate Amino Transferase 53 U/L (5-31); Bilirubin Total 1.1 mg/dL (0.0-1.0); Blood Urea Nitrogen 18 mg/dL (9-16); Calcium 8.5 mg/dL (8.4-10.2); Carbon Dioxide 28 mmol/L (22-29); Chloride 103 mmol/L (96-108); Creatinine Clr Calc Pharmacy 21.2; Estimated Glomerular Filt Rate 27; Glucose Random 100 mg/dL (60-115); Potassium 4.3 mmol/L (3.3-5.1); Sodium 141 mmol/L (135-145); Total Protein 6.1 g/dL (6.5-8.0)
[2021-07-08 01:38] LABS: Troponin-I High Sensitivity 204.6 ng/L (<3.5-17.0)
[2021-07-08 04:28] LABS: Troponin-I High Sensitivity 227.2 ng/L (<3.5-17.0)
--- NOTE | 2021-07-08 05:29 | P.HPHOSP_ITS ---
History of Present Illness Date of Service: 07/08/21 Chief Complaint: falling, abnormal labs This is a 75-year-old female past medical history of nonischemic cardiomyopathy, AFib on warfarin, AICD, history of breast cancer, COPD, who presents to the hospital after a fall. Patient reports she had the lobe yesterday and she was called and told that she has anemia as well as BRIONNA. Patient also reports that she has been falling for the past week with the most recent episode happening last night while she was sitting in bed. Patient denies having loss of consciousness, but feels that she falls asleep as she sitting down as noticed by her daughter. Patient reports that she also falls asleep on the kitchen table. She reports that she fell back and hit her back but did not hit her head. She denies dizziness, no change in vision, no chest pain, she complains of chronic shortness of breath with no recent worsening symptoms. She has chronic cough and sputum production that has not worsened. She denies any abdominal pains but reports nausea and vomiting episodes most recently happened today, she denies any diarrhea constipation, she reports urinary frequency and no lower extremity edema. While in the ED patient was noted to be hypoxic with oxygen level dropping to 80%. Vital signs are otherwise unremarkable, currently on 2 L satting 93%. Labs are significant for WBC count of 6.2, hemoglobin of 8.1 that dropped from 9.1 on July 06, it was 11.1 back in 2020, hematocrit 27.6, PT of 17, INR of 1.5, PTT of 20, BUN of 19, creatinine of 1.82, troponin of 204.6, increased to 227, BNP of [address] revealed small to moderate right pleural effusion Patient will be admitted for further management Review of Systems Review of Systems: Yes all other systems are reviewed and are negative [facility] Medical History Afib Cardiac defibrillator in place History of breast cancer Hypothyroidism Mucinous carcinoma of right breast Multinodular thyroid Osteoporosis Vitamin D deficiency Family History Father Thrombus Mother Heart disease Surgical History History of automatic internal cardiac defibrillator (AICD) History of tubal ligation Social History Household Members: Family Housing: Apartment Do you presently have visiting nurse or other home services: No Alcohol intake: current Alcohol intake frequency: does not drink Patient Tobacco Use Status: Former Tobacco user Cigarette Packs Per Day: 3 Years Smoked: 30 e-Cigarette/Vaping Use: Never Used Second Hand Smoke Exposure: Yes Advance Directives: Yes Advance Directives on File: Yes Advance Directives Date on File: 07/23/20 service: No Current occupational status: retired Cognitive needs: No Hearing needs: No Vision needs: No Meds Allergies Allergy/AdvReac Type Severity Reaction Status Date / Time doxycycline AdvReac Vomiting Verified 06/17/21 09:17 Active Medications: Current Medications Acetaminophen (Acetaminophen 325 Mg Tablet) 650 mg PO Q6H PRN PRN Reason: Pain, Mild (Pain Scale 1-3) Ondansetron HCl (Ondansetron Hcl 4 Mg/2 Ml Vial) 4 mg IVPUSH Q8H PRN PRN Reason: Nausea and Vomiting Sodium Chloride (0.9 % Sodium Chloride Flush 3 Ml Syringe) 3 ml IVFLUSH [facility] Home Medications Medication Instructions Recorded Confirmed Last Taken Type atorvastatin 40 mg tablet 40 mg PO DAILY 02/03/20 06/17/21 Unknown History levothyroxine 50 mcg tablet 50 mcg PO DAILY 02/03/20 06/17/21 Unknown History metoprolol tartrate 25 mg tablet 25 mg PO BID 02/03/20 06/17/21 Unknown History multivitamin 1 tab PO DAILY 02/03/20 06/17/21 Unknown History potassium chloride 20 mEq 20 meq PO BID tab 05/25/20 06/17/21 Unknown History tablet,extended release(part/cryst) warfarin 3 mg tablet 3 mg PO DAILY 05/25/20 06/17/21 Unknown History albuterol sulfate 90 mcg/actuation 2 puff INHALATION Q4-6H PRN 08/24/20 06/17/21 Unknown History aerosol inhaler cilostazol 100 mg tablet 100 mg PO Q12H 08/24/20 06/17/21 Unknown History Physical Exam Vital Signs and Narrative: Vital Signs: Last Vital Signs Temp 98.6 F 07/08/21 00:24 Pulse 70 07/08/21 04:11 Resp 14 07/08/21 04:11 BP 126/71 07/08/21 04:11 Pulse Ox 97 07/08/21 04:11 BMI result Body Mass Index 25.4 Const: General: cooperative and no acute distress Orientation/consciousness: patient oriented x3 Eyes: General: appearance normal, both eyes and all related structures Pupils: Equal, round and reactive pupils present Resp: Other: Crackles in the right lower base Effort & Inspection: normal respiratory effort Cardio: Rate: regular rate Rhythm: regular rhythm GI: Palpation (GI): Soft to palpation Auscultation: normal bowel sounds Skin: General skin exam: no rashes or lesions noted Neuro: General: patient oriented x3 Cranial nerves: Yes Equal, round and reactive pupils present Cognition (Neuro): normal cognition Extrem: General: Yes normal to inspection and Yes no pedal edema Results Labs CBC and Chem 7: 07/08/21 01:08 07/08/21 01:08 Labs: Laboratory Results - last 24 hr 07/08/21 07/08/21 07/08/21 01:08 01:08 01:08 Hgb 8.1 L MCV 69.9 L MCH 20.5 L MCHC 29.3 L RDW 20.0 H Plt Count 314 MPV 9.3 L Immature Gran % (Auto) 1.1 H Neut % (Auto) 79.8 H Lymph % (Auto) 7.3 L Cooper % (Auto) 8.2 Eos % (Auto) 3.1 Baso % (Auto) 0.5 Lymph # (Auto) 0.5 L Cooper # (Auto) 0.5 Eos # (Auto) 0.2 Baso # (Auto) 0.0 Abs Immat Gran (auto) 0.07 H Absolute Neuts (auto) 4.9 Absolute Nucleated RBC 0.000 Nucleated RBC % (auto) 0.0 PT 17.0 H INR 1.5 H APTT 20.8 L D Anion Gap 14 Creatinine 1.82 H Estim Creat Clear Calc 21.2 Estimated GFR 27 Random Glucose 100 Calcium 8.5 Total Bilirubin 1.1 H AST 53 H ALT 24 Alkaline Phosphatase 91 Troponin I High Sens Total Protein 6.1 L Albumin 3.5 07/08/21 07/08/21 01:08 03:57 Hgb MCV MCH MCHC RDW Plt Count MPV Immature Gran % (Auto) Neut % (Auto) Lymph % (Auto) Cooper % (Auto) Eos % (Auto) Baso % (Auto) Lymph # (Auto) Cooper # (Auto) Eos # (Auto) Baso # (Auto) Abs Immat Gran (auto) Absolute Neuts (auto) Absolute Nucleated RBC Nucleated RBC % (auto) PT INR APTT Anion Gap Creatinine Estim Creat Clear Calc Estimated GFR Random Glucose Calcium Total Bilirubin AST ALT Alkaline Phosphatase Troponin I High Sens 204.6 H* 227.2 H* Total Protein Albumin ECG Interpretation: EKG reviewed, reticular paced rhythm Imaging Radiologist's Impressions: Impressions Chest CT 07/08/21 01:40 IMPRESSION: Small to moderate right pleural effusion. Basilar atelectasis. No acute fractures. Fleischner guidelines were followed. Assessment and Plan (1) Acute exacerbation of CHF (congestive heart failure): Status: Acute (2) Acute on chronic anemia: Status: Acute (3) Acute respiratory failure with hypoxia: Status: Acute (4) Fall: Status: Acute (5) Syncope: Status: Acute (6) Elevated troponin: Status: Acute (7) BRIONNA (acute kidney injury): Status: Acute Plan this is a 75 yo F with hx of non-ischemic cardiomyopathy status post AICD, AFib on Coumadin who presents to the hospital with complaints of multiple falls as well as abnormal labs was found to have hypoxia in the ED # acute hypoxic respiratory failure - secondary to CHF exacerbation - has moderate size pleural effusion as seen on chest - less likely to be PE, no evidence of pneumonia - will treat with IV Lasix - O2 as required - monitor respiratory status # acute CHF exacerbation - has slightly elevated BNP with no EKG suggestive of ACS - patient on 40 of Lasix b.i.d. at home - has elevated BNP, pleural effusion on chest CT, dyspnea as well as hypoxia - will treat with Lasix 40 IV b.i.d., strict I&O, low-sodium diet, daily weight - echocardiogram - consult cardiology # acute on chronic anemia - patient with recent falls, on anticoagulation, and a notable drop in hemoglobin - patient is also symptomatic with dyspnea, and syncope - will obtain stool occult, ferritin, B12, and folic acid - will obtain head CT - transfuse 1 unit of PRBC given symptomatic anemia # syncope - possibly multifactorial including secondary to anemia as well as CHF - will obtain Cardiology consult and likely will need an AICD interrogation - monitor on telemetry # BRIONNA - likely secondary to CHF - will treat with Lasix - follow BMP # elevated troponin - most likely type 2 in the setting of CHF - patient denies any chest pain - no EKG changes suggestive of ACS - will monitor - cardiology consulted # fall - patient reports falling after falling asleep in random places - PT OT # AFib - on Coumadin and amiodarone as well as flecainide and metoprolol - will hold Coumadin at this time DVT prophylaxis: SCDs Given the hypoxia, CHF exacerbation, as syncope, as well as the anemia patient will require a 2 night inpatient hospital stay for further management and monitoring DVT prophylaxis Quality Stroke Does the patient have a stroke diagnosis?: No VTE Prior VTE?: No VTE Risk Level:: Medical - moderate - high VTE Device Contraindication: N/A - Device Ordered VTE Drug Contraindication: Treatment Not Indicated
[2021-07-08 05:46] LABS: B Type Natriuretic Peptide 1635 pg/mL (<100)
[2021-07-08 06:14] LABS: MANUAL DIFF FLAG NO
[2021-07-08 06:16] LABS: Basophils Percent Auto 0.5 % (0-2); Eosinophils Absolute Auto 0.2 X10*3/uL (0.0-0.4); Eosinophils Percent Auto 3.1 % (0-4); Hematocrit 27.3 % (37.0-47.0); Hemoglobin 7.9 g/dl (12.0-16.0); Imm Gran Abs Auto 0.02 X10*3/uL (0.00-0.03); Imm Gran Pct Auto 0.3 % (0.0-0.4); Lymphocytes Absolute Auto 0.7 X10*3/uL (1.2-4.9); Lymphocytes Percent Auto 11.3 % (20-40); Mean Corpuscular HGB Conc 28.9 g/dl (31.0-35.0); Mean Corpuscular Hemoglobin 20.4 pg (27.0-33.0); Mean Corpuscular Volume 70.4 fL (80.0-98.0); Mean Platelet Volume 9.3 fL (9.4-12.3); Monocytes Absolute Auto 0.5 X10*3/uL (0.1-1.2); Monocytes Percent Auto 8.7 % (2-11); Neutrophils Absolute Auto 4.7 x10*3/uL (2.0-8.3); Neutrophils Percent Auto 76.1 % (45-73); Platelet Count 281 X10*3/uL (160-400); Red Blood Count 3.88 X10*6/uL (4.20-5.50); White Blood Count 6.2 X10*3/uL (4.8-10.8)
[2021-07-08 06:18] LABS: OBS Int Ctl Valid YES; OBS1 NEGATIVE (NEGATIVE)
[2021-07-08 06:30] LABS: Anion Gap 13 (12-20); Blood Urea Nitrogen 19 mg/dL (9-16); Calcium 8.6 mg/dL (8.4-10.2); Carbon Dioxide 30 mmol/L (22-29); Chloride 103 mmol/L (96-108); Creatinine Clr Calc Pharmacy 21.1; Estimated Glomerular Filt Rate 27; Glucose Random 95 mg/dL (60-115); Potassium 3.9 mmol/L (3.3-5.1); Sodium 142 mmol/L (135-145)
--- NOTE | 2021-07-08 06:37 | PM.EVENT ---
Event Note Date of Service: 07/08/21 Event Note: pt has a prolonged QTc>600 will hold flecainide, amiodarone Extrusion Technician consulted
[2021-07-08 06:44] LABS: COVID-19 Test Negative (Negative)
[2021-07-08] MEDS: Furosemide 40 MG/4 ML VIAL IVPUSH ×2 (06:50→18:37)
[2021-07-08 06:52] LABS: Ferritin 24 ng/mL (10-250)
[2021-07-08 07:33] LABS: Magnesium 1.9 mg/dL (1.6-2.6)
--- NOTE | 2021-07-08 07:45 | PHA.MEDREC ---
Pharmacy Consult ? Medication Reconciliation Pharmacy has completed the medication reconciliation. Patients primary care states she takes warfarin, between 2 mg and 3 mg p.o. daily, she does take her own PT INR at home and calls in with results .
[2021-07-08 07:48] LABS: Appearance Urine CLEAR; Color Urine YELLOW; Glucose Urine UA NEG (NEG); Leukocyte Esterase Urine NEG (NEG); Nitrite Urine NEG (NEG); Urine Blood NEG (NEG); Urine Ketones NEG (NEG); Urine Protein TRACE MG/DL (NEG-TRACE)
--- NOTE | 2021-07-08 07:55 | PC.NURSE ---
pt doing well and tolerating Red blood cells , VSS. no reactions noted. Waiting to give report to RN on IMC.
[2021-07-08 08:48] LABS: Folate 11.1 ng/mL (> or = 4.0); Vitamin B12 318 pg/mL (200-900)
[2021-07-08 09:27] LABS: Iron 25 mcg/dL (30-160); Percent Iron Saturation 6 % (15-50); Total Iron Binding Capacity 402 mcg/dL (228-428); Unsaturated Iron Binding 377 ug/dL
[2021-07-08] MEDS: Loratadine 10 MG TABLET PO ×2 (09:49→10:16)
[2021-07-08] MEDS: Levothyroxine Sodium 50 MCG TABLET PO ×2 (09:49→10:15)
[2021-07-08] MEDS: Atorvastatin Calcium 40 MG TABLET PO ×2 (09:49→10:15)
[2021-07-08] MEDS: Potassium Chloride ER 20 MEQ TAB.ER.PRT PO ×2 (09:49→10:15)
[2021-07-08] MEDS: Multivitamin TABLET 1 TAB PO ×2 (09:49→10:16)
[2021-07-08] MEDS: Metoprolol Tartrate 25 MG TABLET PO ×2 (09:50→10:15)
--- NOTE | 2021-07-08 10:01 | MHC.CM.PN ---
Cm attempted to meet w/pt however pt has not made it to unit, per unit nurse pt will be w/in half hour, cm will revisit after morning rounds.
[2021-07-08] MEDS: cilostazoL 100 MG TABLET PO ×2 (10:16→18:38)
--- NOTE | 2021-07-08 10:16 | HE.PHANOTE ---
Messaged BETY Banegas to see if the patients family could bring in her non-formulary medications. I will follow up.
--- NOTE | 2021-07-08 11:09 | MHC.CLN ---
NUTRITION DIET CHANGED FROM REGULAR TO CARDIAC DUE TO CHF.
--- NOTE | 2021-07-08 12:14 | P.CONCA_ITS ---
History of Present Illness History of Present Illness Date of Service: 07/08/21 Requesting physician: Carlos Hmam Consult reason: congestive heart failure Chief complaint: Syncope, pleural effusion, hypoxic Narrative: I was requested to see Nishi in cardiology consultation today because of questionable symptoms of syncope but also heart failure. She is very complicated past cardiac history with poor follow-up. She is to see cardiolog ist in [place] but because of lack of access and able to go to the office she decided to switch her care to [place]. She was scheduled to see Dr. Garcia in the future her comes to the hospital after she fell down of the bed. Patient says she has been told that she has to get of easily from the bed and yesterday she was doing that and she was sitting by the edge of the bed. She was very slow and said she dozed off and then found herself on the floor. Not clear if there was a syncopal episode. She does not think so as she says she knew that she was going down. Her daughter 0 who was close by came by and she was alert and conscious. Patient does have significant past cardiac history including prior history of hypertrophic nonobstructive cardiomyopathy with severe LVH, dual-chamber Medtronic ICD placed in 2010 for syncope. Subsequently she had a lead fracture and underwent a revision and a new lead placement but unfortunate developed bacteremia and device side pocket abscess. She had to undergo explantation of the complete system and had a repeat implantation of dual-chamber Medtronic system on the right pectoral region. She also has prior history of permanent atrial fibrillation on chronic anticoagulation with warfarin. She also has AV shantel ablation because of that is ventricularly pacer dependent. She has prior history of heart failure poor functional status and what appears to significant calcific mitral stenosis although this has been difficult to assess. She also has prior history of recurrent VT and has been on amiodarone and in the past was on mexiletine. However mexiletine, she is not able to take because insurance company has denied coverage. She was admitted yesterday because of anemia, acute kidney injury and elevated BNP suggestive of heart failure. She continues to be short of breath. She says she is short of breath with minimal exertion and also has orthopnea and sleeps on 2 pillows. She also has leg edema more on the left side. She denies any exertional syncopal episode however this is difficult to obtain from her. She denies any palpitations. We had reviewed her Medtronic device report and there appears to be no ventricular tachycardia events or ICD therapy. She has ventricularly pacer dependent 100% Review of Systems Constitutional: Constitutional: Reports no additional constitutional complaints Eyes: Eyes: Reports no additional eye complaints Cardiovascular: Cardiovascular: Denies chest pain, Denies rapid heart rate, Reports leg edema, Denies palpitations, Reports dyspnea on exertion and Reports orthopnea Respiratory: Respiratory: Reports no additional respiratory complaints and Reports dyspnea on exertion Gastrointestinal: Gastrointestinal: Reports no additional gastrointestinal complaints Genitourinary: Genitourinary: Reports no additional female genitourinary complaints Musculoskeletal: Musculoskeletal: Reports no additional musculoskeletal complaints Integumentary/Breasts: Skin/Breast: Reports system reviewed and no additional complaints, except as docu Neurologic: Reports system reviewed and no additional complaints, except as documented Psychiatric: Psychiatric: Reports no additional psychiatric complaints Endocrine: Endocrine: Denies palpitations PMFSH Past Medical History Medical History (Updated 07/08/21 @ 12:21 by Ulysses Fernando MD) Afib Cardiac defibrillator in place History of breast cancer Hypertrophic cardiomyopathy Hypothyroidism Mitral stenosis Mucinous carcinoma of right breast Multinodular thyroid Osteoporosis Permanent atrial fibrillation Vitamin D deficiency Family History Family History Father Thrombus Mother Heart disease Surgical History Surgical History History of automatic internal cardiac defibrillator (AICD) History of tubal ligation Social History Social History Household Members: None Housing: Apartment Do you presently have visiting nurse or other home services: No Alcohol intake: current Alcohol intake frequency: does not drink Patient Tobacco Use Status: Former Tobacco user Cigarette Packs Per Day: 3 Years Smoked: 30 e-Cigarette/Vaping Use: Never Used Second Hand Smoke Exposure: Yes Advance Directives Date on File: 07/23/20 service: No Current occupational status: retired Cognitive needs: No Hearing needs: No Vision needs: No Meds Allergies Allergy/AdvReac Type Severity Reaction Status Date / Time doxycycline AdvReac Vomiting Verified 06/17/21 09:17 Active Medications: Current Medications Acetaminophen (Acetaminophen 325 Mg Tablet) 650 mg PO Q6H PRN PRN Reason: Pain, Mild (Pain Scale 1-3) Albuterol Sulfate (Albuterol Sulfate 90 Mcg 8 Gm Inhaler) 2 puff INHALE Q4H PRN PRN Reason: Shortness Of Breath Or Wheezing Atorvastatin Calcium (Atorvastatin Calcium 40 Mg Tablet) 40 mg PO DAILY [facility] Last Admin: 07/08/21 10:15 Dose: 40 mg Documented by: Calcium Carbonate (Calcium Carbonate 500 Mg Tablet) 500 mg PO BID [facility] Last Admin: 07/08/21 10:16 Dose: 500 mg Documented by: Cilostazol (Cilostazol 100 Mg Tablet) 100 mg PO Q12H [facility] Last Admin: 07/08/21 10:16 Dose: 100 mg Documented by: Fluticasone Propionate (Fluticasone Propionate Nasal 16 Gm Scotts) 1 spray NOSTRIL-B DAILY PRN PRN Reason: allergy symptoms Furosemide (Furosemide 40 Mg/4 Ml Vial) 40 mg IVPUSH BID@0900,1800 [facility]; Protocol Last Admin: 07/08/21 06:50 Dose: 40 mg Documented by: Levothyroxine Sodium (Levothyroxine Sodium 50 Mcg Tablet) 50 mcg PO DAILY@0600 [facility] Last Admin: 07/08/21 10:15 Dose: 50 mcg Documented by: Loratadine (Loratadine 10 Mg Tablet) 10 mg PO DAILY [facility] Last Admin: 07/08/21 10:16 Dose: 10 mg Documented by: Metoprolol Tartrate (Metoprolol Tartrate 25 Mg Tablet) 25 mg PO BID [facility]; Protocol Last Admin: 07/08/21 10:15 Dose: 25 mg Documented by: Multivitamins/Vitamin C (Multivitamin Tablet) 1 tab PO DAILY [facility] Last Admin: 07/08/21 10:16 Dose: 1 tab Documented by: Non-Formulary Medication ([id number]-Wjekkdnv [Trelegy Ellipta]) 1 inhalation INHALE DAILY [facility] Non-Formulary Medication (Olopatadine) 1 drop EYE-BOTH BID [facility] Potassium Chloride (Potassium Chloride Er 20 Meq Tab.Er.Prt) 20 meq PO BID [facility] Last Admin: 07/08/21 10:15 Dose: 20 meq Documented by: Prednisone (Prednisone 5 Mg Tablet) 5 mg PO DAILY [facility] Stop: 07/09/21 09:01 Ropinirole HCl (Ropinirole Hcl 1 Mg Tablet) 5 mg PO BEDTIME [facility] Sodium Chloride (0.9 % Sodium Chloride Flush 3 Ml Syringe) 3 ml IVFLUSH QSHIFT [facility] Last Admin: 07/08/21 10:26 Dose: Not Given Documented by: Warfarin Sodium (Warfarin Sodium 3 Mg Tablet) 3 mg PO DAILY@1800 [facility] Home Medications Medication Instructions Recorded Confirmed Last Taken Type atorvastatin 40 mg tablet 40 mg PO DAILY 02/03/20 07/08/21 07/07/21 21:00 History levothyroxine 50 mcg tablet 50 mcg PO DAILY 02/03/20 07/08/21 07/06/21 07:00 History metoprolol tartrate 25 mg tablet 25 mg PO BID 02/03/20 07/08/21 Unknown History multivitamin 1 tab PO DAILY 02/03/20 07/08/21 Unknown History potassium chloride 20 mEq 20 meq PO BID tab 05/25/20 07/08/21 07/07/21 21:00 History tablet,extended release(part/cryst) albuterol sulfate 90 mcg/actuation 2 puff INHALATION Q4-6H PRN 08/24/20 07/08/21 Unknown History aerosol inhaler cilostazol 100 mg tablet 100 mg PO Q12H 08/24/20 07/08/21 07/07/21 21:00 History budesonide-formoterol HFA 160 2 puff INHALATION BID 07/08/21 07/08/21 Unknown History mcg-4.5 mcg/actuation aerosol inhaler (Symbicort) warfarin 2 mg tablet (Jantoven) 2 - 3 mg PO DAILY 07/08/21 07/08/21 Unknown History Physical Exam Vital Signs: Vital Signs: Last Vital Signs Temp 98.5 F 07/08/21 11:04 Pulse 75 07/08/21 11:04 Resp 16 07/08/21 11:04 BP 112/64 07/08/21 11:04 Pulse Ox 99 07/08/21 11:04 BMI result Body Mass Index 25.4 Const: General: cooperative, comfortable, alert, awake and in distress mild and respiratory Nutritional Appearance: average body habitus Orientation/consciousness: patient oriented x3 HEENT: Head: Yes normocephalic and Yes atraumatic Neck: Neck: Yes trachea midline, Yes supple and Yes JVD Chest: Chest palpation & inspection: normal inspection of the chest Resp: Effort & Inspection: normal respiratory effort Auscultation: no rales and diminished lung sounds Cardio: Jugular venous distension: JVD Palpation: normal PMI Rate: regular rate Rhythm: regular rhythm Heart sounds: S1 normal heart sound present, S2 normal heart sound present, no click, no gallops and Murmur heart sound present systolic harsh and at the left sternal border GI: Auscultation: normal bowel sounds Skin: General skin exam: no rashes or lesions noted and ecchymosis Neuro: General: patient oriented x3 and no focal motor deficits Extrem: General: Yes no clubbing, cyanosis or edema Psych: Appearance: grossly normal Objective Labs and Meds Result diagrams: 07/08/21 06:11 07/08/21 06:10 Lab results: Laboratory Results - last 24 hr 07/08/21 07/08/21 07/08/21 01:08 01:08 01:08 WBC 6.2 RBC 3.95 L Hgb 8.1 L Hct 27.6 L MCV 69.9 L MCH 20.5 L MCHC 29.3 L RDW 20.0 H Plt Count 314 MPV 9.3 L Immature Gran % (Auto) 1.1 H Neut % (Auto) 79.8 H Lymph % (Auto) 7.3 L [place] % (Auto) 8.2 Eos % (Auto) 3.1 Baso % (Auto) 0.5 Lymph # (Auto) 0.5 L [place] # (Auto) 0.5 Eos # (Auto) 0.2 Baso # (Auto) 0.0 Abs Immat Gran (auto) 0.07 H Absolute Neuts (auto) 4.9 Absolute Nucleated RBC 0.000 Nucleated RBC % (auto) 0.0 PT 17.0 H INR 1.5 H APTT 20.8 L D Sodium 141 Potassium 4.3 D Chloride 103 Carbon Dioxide 28 Anion Gap 14 BUN 18 H Creatinine 1.82 H Estim Creat Clear Calc 21.2 Estimated GFR 27 Random Glucose 100 Calcium 8.5 Magnesium Iron TIBC % Saturation Unsat Iron Binding Ferritin Total Bilirubin 1.1 H AST 53 H ALT 24 Alkaline Phosphatase 91 Troponin I High Sens B-Natriuretic Peptide Total Protein 6.1 L Albumin 3.5 Vitamin B12 Folate Urine Color Urine Appearance Urine pH Ur Specific [place] Urine Protein Urine Glucose (UA) Urine Ketones Urine Blood Urine Nitrite Ur Leukocyte Esterase Stool Occult Blood COVID-19 (SHELBY) COVID-19 [facility] Blood Type Antibody Screen Crossmatch 07/08/21 07/08/21 07/08/21 01:08 03:57 06:10 WBC RBC Hgb Hct MCV MCH MCHC RDW Plt Count MPV Immature Gran % (Auto) Neut % (Auto) Lymph % (Auto) [place] % (Auto) Eos % (Auto) Baso % (Auto) Lymph # (Auto) [place] # (Auto) Eos # (Auto) Baso # (Auto) Abs Immat Gran (auto) Absolute Neuts (auto) Absolute Nucleated RBC Nucleated RBC % (auto) PT INR APTT Sodium Potassium Chloride Carbon Dioxide Anion Gap BUN Creatinine Estim Creat Clear Calc Estimated GFR Random Glucose Calcium Magnesium Iron TIBC % Saturation Unsat Iron Binding Ferritin Total Bilirubin AST ALT Alkaline Phosphatase Troponin I High Sens 204.6 H* 227.2 H* B-Natriuretic Peptide 1635 H Total Protein Albumin Vitamin B12 318 Folate 11.1 Urine Color Urine Appearance Urine pH Ur Specific [place] Urine Protein Urine Glucose (UA) Urine Ketones Urine Blood Urine Nitrite Ur Leukocyte Esterase Stool Occult Blood COVID-19 (SHELBY) COVID-Zhilian Zhaopin [facility] Blood Type Antibody Screen Crossmatch 07/08/21 07/08/21 07/08/21 06:10 06:11 06:11 WBC RBC Hgb Hct MCV MCH MCHC RDW Plt Count MPV Immature Gran % (Auto) Neut % (Auto) Lymph % (Auto) [place] % (Auto) Eos % (Auto) Baso % (Auto) Lymph # (Auto) [place] # (Auto) Eos # (Auto) Baso # (Auto) Abs Immat Gran (auto) Absolute Neuts (auto) Absolute Nucleated RBC Nucleated RBC % (auto) PT INR APTT Sodium 142 Potassium 3.9 Chloride 103 Carbon Dioxide 30 H Anion Gap 13 BUN 19 H Creatinine 1.83 H Estim Creat Clear Calc 21.1 Estimated GFR 27 Random Glucose 95 Calcium 8.6 Magnesium 1.9 Iron 25 L TIBC 402 % Saturation 6 L Unsat Iron Binding 377 Ferritin 24 Total Bilirubin AST ALT Alkaline Phosphatase Troponin I High Sens B-Natriuretic Peptide Total Protein Albumin Vitamin B12 Folate Urine Color Urine Appearance Urine pH Ur Specific [place] Urine Protein Urine Glucose (UA) Urine Ketones Urine Blood Urine Nitrite Ur Leukocyte Esterase Stool Occult Blood COVID-19 (SHELBY) COVIDHometica19 [facility] Blood Type O Positive Antibody Screen NEGATIVE Crossmatch See Detail 07/08/21 07/08/21 07/08/21 06:11 06:13 06:19 WBC 6.2 RBC 3.88 L Hgb 7.9 L Hct 27.3 L MCV 70.4 L MCH 20.4 L MCHC 28.9 L RDW 20.0 H Plt Count 281 MPV 9.3 L Immature Gran % (Auto) 0.3 Neut % (Auto) 76.1 H Lymph % (Auto) 11.3 L [place] % (Auto) 8.7 Eos % (Auto) 3.1 Baso % (Auto) 0.5 Lymph # (Auto) 0.7 L [place] # (Auto) 0.5 Eos # (Auto) 0.2 Baso # (Auto) 0.0 Abs Immat Gran (auto) 0.02 Absolute Neuts (auto) 4.7 Absolute Nucleated RBC 0.000 Nucleated RBC % (auto) 0.0 PT INR APTT Sodium Potassium Chloride Carbon Dioxide Anion Gap BUN Creatinine Estim Creat Clear Calc Estimated GFR Random Glucose Calcium Magnesium Iron TIBC % Saturation Unsat Iron Binding Ferritin Total Bilirubin AST ALT Alkaline Phosphatase Troponin I High Sens B-Natriuretic Peptide Total Protein Albumin Vitamin B12 Folate Urine Color Urine Appearance Urine pH Ur Specific [place] Urine Protein Urine Glucose (UA) Urine Ketones Urine Blood Urine Nitrite Ur Leukocyte Esterase Stool Occult Blood NEGATIVE COVID-19 (SHELBY) Negative COVID-19 Clin Com See Note Blood Type Antibody Screen Crossmatch 07/08/21 07/08/21 07:30 07:31 WBC RBC Hgb Hct MCV MCH MCHC RDW Plt Count MPV Immature Gran % (Auto) Neut % (Auto) Lymph % (Auto) [place] % (Auto) Eos % (Auto) Baso % (Auto) Lymph # (Auto) [place] # (Auto) Eos # (Auto) Baso # (Auto) Abs Immat Gran (auto) Absolute Neuts (auto) Absolute Nucleated RBC Nucleated RBC % (auto) PT INR APTT Sodium Potassium Chloride Carbon Dioxide Anion Gap BUN Creatinine Estim Creat Clear Calc Estimated GFR Random Glucose Calcium Magnesium Iron TIBC % Saturation Unsat Iron Binding Ferritin Total Bilirubin AST ALT Alkaline Phosphatase Troponin I High Sens B-Natriuretic Peptide Total Protein Albumin Vitamin B12 Folate Urine Color YELLOW Cancelled Urine Appearance CLEAR Cancelled Urine pH 7.0 Cancelled Ur Specific [place] 1.010 Cancelled Urine Protein TRACE Cancelled Urine Glucose (UA) NEG Cancelled Urine Ketones NEG Cancelled Urine Blood NEG Cancelled Urine Nitrite NEG Cancelled Ur Leukocyte Esterase NEG Cancelled Stool Occult Blood COVID-19 (SHELBY) COVID-19 Clin Com Blood Type Antibody Screen Crossmatch Imaging Radiologist's impression: Impressions Chest CT 07/08/21 01:40 IMPRESSION: Small to moderate right pleural effusion. Basilar atelectasis. No acute fractures. Fleischner guidelines were followed. Head CT 07/08/21 06:39 IMPRESSION: No acute intracranial pathology. Assessment and Plan (1) Acute exacerbation of CHF (congestive heart failure): Status: Acute Patient very complicated past medical history with poor follow-up in the past comes with symptoms of shortness of breath with elevated BNP and remains clinically short of breath with findings suggestive of elevated right-sided filling pressures. Clinically does not appear to be in marked heart failure but findings are suggestive the same mostly right-sided heart failure. Continue IV diuresis with Lasix. Strict intake and output chart needs to be pursued. Continue to monitor renal function electrolytes and replace electrolytes as needed. Her heart failure appears to be secondary to significant mitral stenosis however also a component of significant advanced diastolic dysfunction setting of atrial fibrillation cannot be entirely ruled out. Overall prognosis is guarded. Please replace packed RBC with goal hematocrit above 30 to help her heart failure syndrome. Rate is adequately control at this point time. Heart of bed to chair. At some point time future require full hemodynamic evaluation of mitral valve, as outpatient. (2) AICD (automatic cardioverter/defibrillator) present: Status: Acute ICD in place. Working well. No events noted. She has prior history of VT, wit h no recurrent events. Continue amiodarone therapy for now. (3) Permanent atrial fibrillation: Status: Acute Permanent atrial fibrillation status post AV shantel ablation. Continue rate control approach. Continue full oral anticoagulation, currently on warfarin therapy. Maintain target INR between 2 and 3. If she develops recurrent anemia, may require GI workup and evaluation with GI blood loss. (4) Mitral stenosis: Status: Acute Calcific mitral stenosis. Echocardiogram staton appears to be significant mitral stenosis however not able to accurately define it as most of the parameters to evaluate calcific mitral stenosis could be erroneous on transthoracic echocardiogram. Most likely require invasive evaluation in the future. However given her multiple comorbidities not sure if she would be a candidate for mitral valve replacement, will need to be done at the surgical center of Excellence for such disease. This would. This is marcelino in the future. For now continue rate control and continue diuresis as above. (5) Hypertrophic cardiomyopathy: Status: Acute She has significant LVH in narrowing of the LV outflow tract which could also be due to the calcific mitral annulus as well as severe LVH. However there is no dynamic obstruction. LV systolic function is normal. She could have significant advanced diastolic dysfunction contributing to heart failure syndrome. Will need further evaluation with cardiac catheterization. Continue diuresis as above. Consider addition of Aldactone therapy to her regimen. May require septal debulking surgery in the future as well. Will follow with her. Greater than 30 minutes was spent in managing her complex care. Procedures Date of Service Date of Service: 07/08/21
--- NOTE | 2021-07-08 13:00 | CA_ITS ---
Transthoracic Echocardiogram Patient (Last, First, Middle): Nishi Hernandez G Gender: Female Date of : 1945 Age: 75 Procedure Date: 07/08/2021 Procedure Type: Transthoracic Echocardiogram Location: ER Height: 149.86 cm Weight: 57.15 kg BSA: 1.52 m2 Heart Rate: bpm BP: 125 / 72 mmHg Set Designer: GUERO Referring MD: Carlos Hamm MD Ground Host/Hostess: Ulysses Fernando MD Symptoms: CHF Study Quality: Fair ECG Rhythm: Ventriculary paced rhythm Conclusions: - 1. Normal LV systolic function with severe LVH and significant asymmetric septal hypertrophy without any clear evidence of dynamic obstruction 2. Markedly enlarged left atrium 3. Possibility of severe calcific mitral stenosis and mild-to moderate mitral regurgitation 4. Severely elevated right atrial pressures and moderate elevation of right ventricular systolic pressure Findings Left Ventricle Normal left ventricular cavity size. There is severely increased left ventricular wall thickness. The left ventricular systolic function is normal. The visually estimated ejection fraction is between 65-70%. There is paradoxical septal motion consistent with a right ventricular pacemaker. Diastolic function is indeterminate on the basis of available data. There is severe septal asymmetric hypertrophy. Right Ventricle Normal right ventricular cavity size and systolic function. There is an ICD wire seen in the right ventricle. Atria The left atrium is severely dilated. Interatrial shunt cannot be excluded. The right atrium is moderately dilated. Aortic Valve There is mild calcification of the aortic valve. There is no aortic valve stenosis. There is no aortic valve regurgitation. Mitral Valve There is mild anterior and severe posterior mitral leaflet thickening. The anterior mitral leaflet has restricted mobility and the posterior mitral leaflet is immobile. There is severe mitral annular calcification. There is mild to moderate mitral valve regurgitation. There is suggestion of significant mitral stenosis although accurate quantitative evaluation could not be performed due to heavy calcification, limits the utility of pressure half time as well as planimetry Pulmonic Valve The pulmonic valve is likely normal. There is mild pulmonic valve regurgitation. Tricuspid Valve There is moderate tricuspid valve regurgitation. Significantly elevated right atrial pressure. Great Vessels All visible segments of the aorta are normal in size. The pulmonary artery was not well visualized. Venous The inferior vena cava is severely dilated and does not collapse with inspiration. Pericardium/Pleural There is no evidence of pericardial effusion. Measurements 2D Linear Measurements IVSd: 2.32 0.6-0.9/0.6-1.0 cm LVIDd: 3.12 3.9-5.3/4.2-5.9 cm LVIDd Index: 2.05 2.4-3.2/2.2-3.1 cm/m2 LVIDs: 1.35 2.0-3.6 cm LVPWd: 2.25 0.7-1.1 cm LA Diam: 5.10 2.7-3.8/3.0-4.0 cm LAIDs Index: 3.36 1.5-2.3 cm/m2 LV Mass: 441.36 67-162/88-224 g LV Mass Index: 290.37 43-95/49-115 g/m2 LVOT Diam: 2.00 3.0+(-)1.3 cm 2D Systolic Function EF 4C: 67.20 >55% EF 2C: 71.80 >55% EF BiP: 71.30 >55% Mitral Valve MV VTI: 0.50 MV Pk Escobar: 1.84 MV Mn Escobar: 1.09 MV Pk Grad: 14.00 MV Mn Grad: 6.00 MV Pk E: 1.73 MV PK A: 1.18 MV Decel Time: 325.00 E/A: 1.50 E'Lateral: 3.94 E'Medial: 2.76 E/E' Med: 62.70 E/E' Lat: 43.90 PHT: 95.00 MVA PHT: 2.32 MVA Continuity: 1.02 Decel Nolan: 5.33 Aortic Valve AoV Pk Escobar: 1.18 AoV Mn Escobar: 0.86 AoV VTI: 0.21 AoV Pk Grad: 6.00 Aov Mn Grad: 3.00 JAGRUTI Cont.VTI: 2.45 LVOT LVOT Pk Escobar: 0.86 LVOT Mn Escobar: 0.59 LVOT VTI: 0.16 LVOT Pk Grad: 3.00 LVOT Mn Grad: 2.00 LVOT Diam: 2.00 LVOT Area: 3.14 Diastolic Function MV Pk E: 1.73 MV Pk A: 1.18 E/A: 1.50 E'Medial: 2.76 E/E' Med: 62.70 E' Laterial: 3.94 E/E' Lat: 43.90 Right Ventricle TAPSE (mm): 13.60 TVS' Escobar: 7.18 Tricuspid Valve TR Pk Escobar: 3.07 TR Pk Grad: 38.00 RA Press: 15.00 RVSP: 53.00 Great Vessels Aorta Sinus of Valsalva: 3.25 2.0-3.[address] [place]: 2.61 1.7-3.4 cm Ao Asc: 3.70 2.1-3.4 cm Ao Arch: 2.90 Updated in Other Vendor System with Status of Final Ulysses Fernando MD electronically signed on 07/08/2021 10:53:55 AM with status of Final
--- NOTE | 2021-07-08 13:16 | MHC.CM.PN ---
IMM 07/08/21, CM MET W/PT WHO REPORTS SHE LIVES W/DTR AND 27YO GSON, PT IS INDEPENDENT W/CARE AND HAS A CANE/WALKER AT HOME HOWEVER SHE HAS ASKED HER PCP TO REQUEST SCOOTER FROM HER INSURANCE SO SHE CAN GO TO THE STORE INDEPENDENTLY, OF NOW SHE WOULD HAVE TO USE A W/C FOR LONG DISTANCES BUT IS UNABLE TO PUSH HERSELF, PT WOULD ALSO LIKE A VNA FOR A SHORT TIME AND REFERRAL WILL BE SENT TO [facility], PT VERIFIES PCP MAURO MOFFETT, HCP ON FILE IN EXPANCE FROM PREVIOUS VISIT AND PT HAS HAD Privlo VACCINE X2 AND A MODERNA BOOSTER ON 04/26/21, ALL 3 WERE GIVEN AT [facility] IN [place]. D/C PLAN: HOME W/NEW VNA-NO PREFERENCE, FAMILY FOR TRANSPORT
--- NOTE | 2021-07-08 13:51 | PM.EVENT ---
Event Note Date of Service: 07/08/21 Event Note: Patient seen and evaluated this morning Feeling better since admission Possible anemia Seems she has significant mitral stenosis which will likely need further evaluation down the road but she is high risk for any surgery for mitral valve replacement. continue IV diuresis Will need further evaluation with cardiac catheterization In the future Cardiology following
[2021-07-08] MEDS: predniSONE 5 MG TABLET PO (13:56)
[2021-07-08] MEDS: 0.9 % Sodium Chloride Flush 3 ML SYRINGE IVFLUSH ×2 (18:38→20:24)
[2021-07-08] MEDS: Warfarin Sodium 3 MG TABLET PO (18:38)
[2021-07-08] MEDS: rOPINIRole HCL 1 MG TABLET 5 MG PO (20:23)
[2021-07-09] VITALS (8 sets, daily range): BP systolic 106–144; BP diastolic 59–77; PULSE 66–75; RESP 16–20; TEMP 36.2–36.9; O2SAT 90–95; BMI 27.1
[2021-07-09] MEDS: cilostazoL 100 MG TABLET PO ×2 (06:34→18:43)
[2021-07-09] MEDS: Levothyroxine Sodium 50 MCG TABLET PO (06:35)
[2021-07-09 06:38] LABS: INTERNATIONAL NORM RATIO 1.5 (0.9-1.1); Prothrombin Time 17.3 SEC (9.9-13.0)
[2021-07-09 06:40] LABS: Hematocrit 32.7 % (37.0-47.0); Hemoglobin 9.5 g/dl (12.0-16.0); Mean Corpuscular HGB Conc 29.1 g/dl (31.0-35.0); Mean Corpuscular Volume 72.2 fL (80.0-98.0); Mean Platelet Volume 8.9 fL (9.4-12.3); Platelet Count 286 X10*3/uL (160-400); Red Blood Count 4.53 X10*6/uL (4.20-5.50); White Blood Count 6.1 X10*3/uL (4.8-10.8)
[2021-07-09 06:59] LABS: Anion Gap 10 (12-20); Blood Urea Nitrogen 19 mg/dL (9-16); Calcium 8.8 mg/dL (8.4-10.2); Carbon Dioxide 31 mmol/L (22-29); Chloride 104 mmol/L (96-108); Creatinine Clr Calc Pharmacy 24.2; Estimated Glomerular Filt Rate 31; Glucose Random 93 mg/dL (60-115); Potassium 3.6 mmol/L (3.3-5.1); Sodium 141 mmol/L (135-145)
[2021-07-09] MEDS: Furosemide 40 MG/4 ML VIAL IVPUSH ×2 (08:13→18:44)
[2021-07-09] MEDS: Potassium Chloride ER 20 MEQ TAB.ER.PRT PO ×2 (08:13→20:47)
[2021-07-09] MEDS: Metoprolol Tartrate 25 MG TABLET PO ×2 (08:13→20:47)
[2021-07-09] MEDS: predniSONE 5 MG TABLET PO (08:14)
[2021-07-09] MEDS: 0.9 % Sodium Chloride Flush 3 ML SYRINGE IVFLUSH ×3 (08:15→20:47)
[2021-07-09] MEDS: Multivitamin TABLET 1 TAB PO (08:20)
[2021-07-09] MEDS: Loratadine 10 MG TABLET PO (08:20)
[2021-07-09] MEDS: Fluticasone/Vilanterol 100/25 BLST.W.DEV 1 PUFF INHALE (08:20)
--- NOTE | 2021-07-09 11:24 | P.PNCA_ITS ---
Subjective Subjective Date of Service: 07/09/21 Principal diagnosis: CHF Interval history: Patient is feeling better, less short of breath and says has been going to bathroom a lot. However intake and output chart are suggestive of the same. She denies any chest pain. No palpitations. Remains in paced rhythm. Review of Systems Constitutional: Reports no additional constitutional complaints Cardiovascular: Denies chest pain and Reports dyspnea Respiratory: Reports no additional respiratory complaints and Reports dyspnea Gastrointestinal: Reports no additional gastrointestinal complaints Genitourinary: Reports no additional female genitourinary complaints Musculoskeletal: Reports no additional musculoskeletal complaints Skin/Breast: Reports system reviewed and no additional complaints, except as docu Reports system reviewed and no additional complaints, except as documented Physical Exam Vital Signs: Last Vital Signs Temp 97.4 F 07/09/21 07:26 Pulse 72 07/09/21 07:26 Resp 19 07/09/21 07:26 BP 121/67 07/09/21 07:26 Pulse Ox 92 07/09/21 07:26 BMI result Body Mass Index 27.1 Const General: cooperative, comfortable, alert, awake and in distress mild and respiratory Nutritional Appearance: overweight Orientation/consciousness: patient oriented x3 Neck Neck: Yes trachea midline, Yes supple and Yes JVD Resp Effort & Inspection: normal respiratory effort Auscultation: no rales and diminished lung sounds Cardio Jugular venous distension: JVD Palpation: normal PMI Rate: regular rate Rhythm: regular rhythm Heart sounds: S1 normal heart sound present, S2 normal heart sound present and Murmur heart sound present systolic GI Auscultation: normal bowel sounds Skin General skin exam: no rashes or lesions noted Neuro General: patient oriented x3 and no focal motor deficits Extrem General: Yes no clubbing, cyanosis or edema Objective Labs and Meds Result diagrams: 07/09/21 06:21 07/09/21 06:21 Lab results: Laboratory Results - last 24 hr 07/09/21 07/09/21 07/09/21 06:21 06:21 06:21 WBC 6.1 RBC 4.53 Hgb 9.5 L D Hct 32.7 L MCV 72.2 L MCH 21.0 L MCHC 29.1 L RDW 21.0 H Plt Count 286 MPV 8.9 L Absolute Nucleated RBC 0.000 Nucleated RBC % (auto) 0.0 PT 17.3 H INR 1.5 H Sodium 141 Potassium 3.6 Chloride 104 Carbon Dioxide 31 H Anion Gap 10 L BUN 19 H Creatinine 1.64 H Estim Creat Clear Calc 24.2 Estimated GFR 31 Random Glucose 93 Calcium 8.8 Progress Note: A&P Assessment and plan (1) Acute exacerbation of CHF (congestive heart failure): Status: Acute Assessment and Plan: Patient with congestive heart failure, multifactorial. Breathing is improved diuresis although intake and output chart is not adequately charge. Kidney functions have improved with diuresis. Continue Lasix. Better intake and output chart needs to be pursued. Continue to monitor renal function electrolytes. Volume status is difficult to assess but appears said she still has central venous congestion. Consider adding Aldactone 12.5 mg to her regimen. Will continue to monitor clinically. Trend BNP tomorrow. Will continue follow with her. Maintain hematocrit above 30. (2) Permanent atrial fibrillation: Status: Acute Assessment and Plan: Permanent atrial fibrillation. Continue warfarin therapy with target INR between 2 and 3. Rate is adequately controlled and patient is currently being paced. (3) Mitral stenosis: Status: Acute Assessment and Plan: Appears to have significant calcific mitral stenosis. This will require further invasive evaluation down the line and see if she would be a candidate for mitral valve surgery, would be higher risk. Will continue to follow with you Fall Risk Details Current Medications: Current Medications Acetaminophen (Acetaminophen 325 Mg Tablet) 650 mg PO Q6H PRN PRN Reason: Pain, Mild (Pain Scale 1-3) Albuterol Sulfate (Albuterol Sulfate 90 Mcg 8 Gm Inhaler) 2 puff INHALE Q4H PRN PRN Reason: Shortness Of Breath Or Wheezing Atorvastatin Calcium (Atorvastatin Calcium 40 Mg Tablet) 40 mg PO DAILY [facility] Last Admin: 07/08/21 10:15 Dose: 40 mg Documented by: Calcium Carbonate (Calcium Carbonate 500 Mg Tablet) 500 mg PO BID [facility] Last Admin: 07/09/21 08:13 Dose: 500 mg Documented by: Cilostazol (Cilostazol 100 Mg Tablet) 100 mg PO Q12H [facility] Last Admin: 07/09/21 06:34 Dose: 100 mg Documented by: Fluticasone Propionate (Fluticasone Propionate Nasal 16 Gm [place]) 1 spray NOSTRIL-B DAILY PRN PRN Reason: allergy symptoms Fluticasone/Vilanterol (Fluticasone/Vilanterol 100/25 Blst.W.Dev) 1 puff INHALE RDAILY [facility] Last Admin: 07/09/21 08:20 Dose: 1 puff Documented by: Furosemide (Furosemide 40 Mg/4 Ml Vial) 40 mg IVPUSH BID@0900,1800 [facility]; Protocol Last Admin: 07/09/21 08:13 Dose: 40 mg Documented by: Levothyroxine Sodium (Levothyroxine Sodium 50 Mcg Tablet) 50 mcg PO DAILY@0600 [facility] Last Admin: 07/09/21 06:35 Dose: 50 mcg Documented by: Loratadine (Loratadine 10 Mg Tablet) 10 mg PO DAILY [facility] Last Admin: 07/09/21 08:20 Dose: 10 mg Documented by: Metoprolol Tartrate (Metoprolol Tartrate 25 Mg Tablet) 25 mg PO BID [facility]; Protocol Last Admin: 07/09/21 08:13 Dose: 25 mg Documented by: Multivitamins/Vitamin C (Multivitamin Tablet) 1 tab PO DAILY [facility] Last Admin: 07/09/21 08:20 Dose: 1 tab Documented by: Non-Formulary Medication (Olopatadine) 1 drop EYE-BOTH BID [facility] Potassium Chloride (Potassium Chloride Er 20 Meq Tab.Er.Prt) 20 meq PO BID [facility] Last Admin: 07/09/21 08:13 Dose: 20 meq Documented by: Ropinirole HCl (Ropinirole Hcl 1 Mg Tablet) 5 mg PO BEDTIME [facility] Last Admin: 07/08/21 20:23 Dose: 5 mg Documented by: Sodium Chloride (0.9 % Sodium Chloride Flush 3 Ml Syringe) 3 ml IVFLUSH QSHIFT [facility] Last Admin: 07/09/21 08:15 Dose: 3 ml Documented by: Tiotropium [place] (Tiotropium [place] 18 Mcg Cap.W.Dev) 1 puff INHALE RDAILY [facility] Last Admin: 07/09/21 08:22 Dose: 1 puff Documented by: Warfarin Sodium (Warfarin Sodium 4 Mg Tablet) 4 mg PO DAILY@1800 [facility] Time Spent With Patient Time: Total time spent is greater than 50% in coordination of care (as documented) at patient's floor/unit and/or counseling patient: Progress Note: Quality Stroke Does the patient have a stroke diagnosis?: No Procedures Date of Service Date of Service: 07/09/21
--- NOTE | 2021-07-09 13:11 | HO.PM.IMPN ---
Subjective Subjective Date of Service: 07/09/21 Interval History: the patient was seen and evaluated this morning Laying in bed, feels some improvement with SOB Edema improving Denies any fever, chills or shortness of breath No reported other overnight events. Systemic review: No fever, chills or weakness No chest pain, palpitation but has mild edema Dyspnea on exertion with no coughing No abdominal pain, nausea or vomiting No urinary symptoms No any rash or wounds Physical Exam Vital Signs: Vital Signs: Last Vital Signs Temp 97.8 F 07/09/21 12:15 Pulse 68 07/09/21 12:15 Resp 19 07/09/21 12:15 BP 119/69 07/09/21 12:15 Pulse Ox 90 L 07/09/21 12:15 BMI result Body Mass Index 27.1 Const: Other: Constitutional : Alert, oriented, not in distress Neck : Normal inspection, Supple Cardiovascular : RRR, no JVP, trace bilateral lower extremity edema Respiratory : fair bilateral air entry, basal fine more in the right crackles, wheezes or rhonchi Gastrointestinal: soft, lax, Normal bowel sounds, Non tender Skin : Warm, Dry Neurological : Alert & oriented x3, No focal deficit , CN 2-12 within normal Objective Data Active Medications Acetaminophen (Acetaminophen 325 Mg Tablet) 650 mg PO Q6H PRN PRN Reason: Pain, Mild (Pain Scale 1-3) Albuterol Sulfate (Albuterol Sulfate 90 Mcg 8 Gm Inhaler) 2 puff INHALE Q4H PRN PRN Reason: Shortness Of Breath Or Wheezing Atorvastatin Calcium (Atorvastatin Calcium 40 Mg Tablet) 40 mg PO BEDTIME [facility] Calcium Carbonate (Calcium Carbonate 500 Mg Tablet) 500 mg PO BID [facility] Last Admin: 07/09/21 08:13 Dose: 500 mg Documented by: TRINI Cilostazol (Cilostazol 100 Mg Tablet) 100 mg PO Q12H [facility] Last Admin: 07/09/21 06:34 Dose: 100 mg Documented by: JACK Fluticasone Propionate (Fluticasone Propionate Nasal 16 Gm [place]) 1 spray NOSTRIL-B DAILY PRN PRN Reason: allergy symptoms Fluticasone/Vilanterol (Fluticasone/Vilanterol 100/25 Blst.W.Dev) 1 puff INHALE RDAILY [facility] Last Admin: 07/09/21 08:20 Dose: 1 puff Documented by: TRINI Furosemide (Furosemide 40 Mg/4 Ml Vial) 40 mg IVPUSH BID@0900,1800 [facility]; Protocol Last Admin: 07/09/21 08:13 Dose: 40 mg Documented by: TRINI Levothyroxine Sodium (Levothyroxine Sodium 50 Mcg Tablet) 50 mcg PO DAILY@0600 [facility] Loratadine (Loratadine 10 Mg Tablet) 10 mg PO DAILY [facility] Metoprolol Tartrate (Metoprolol Tartrate 25 Mg Tablet) 25 mg PO BID [facility]; Protocol Multivitamins/Vitamin C (Multivitamin Tablet) 1 tab PO DAILY [facility] Non-Formulary Medication (Olopatadine) 1 drop EYE-BOTH BID [facility] Potassium Chloride (Potassium Chloride Er 20 Meq Tab.Er.Prt) 20 meq PO BID [facility] Ropinirole HCl (Ropinirole Hcl 1 Mg Tablet) 5 mg PO BEDTIME [facility] Last Admin: 07/08/21 20:23 Dose: 5 mg Documented by: STELLA Sodium Chloride (0.9 % Sodium Chloride Flush 3 Ml Syringe) 3 ml IVFLUSH QSHIFT [facility] Last Admin: 07/09/21 08:15 Dose: 3 ml Documented by: TRINI Tiotropium [place] (Tiotropium [place] 18 Mcg Cap.W.Dev) 1 puff INHALE RDAILY [facility] Last Admin: 07/09/21 08:22 Dose: 1 puff Documented by: TRINI Warfarin Sodium (Warfarin Sodium 4 Mg Tablet) 4 mg PO DAILY@1800 [facility] Labs CBC & Chem 7: 07/09/21 06:21 07/09/21 06:21 Labs: Laboratory Results - last 24 hr 07/09/21 07/09/21 07/09/21 06:21 06:21 06:21 MCV 72.2 L MCH 21.0 L MCHC 29.1 L RDW 21.0 H Plt Count 286 MPV 8.9 L Absolute Nucleated RBC 0.000 Nucleated RBC % (auto) 0.0 PT 17.3 H INR 1.5 H Anion Gap 10 L Estim Creat Clear Calc 24.2 Estimated GFR 31 Random Glucose 93 Calcium 8.8 Assessment and Plan (1) Hypertrophic cardiomyopathy: Status: Acute (2) Mitral stenosis: Status: Acute (3) Acute respiratory failure with hypoxia: Status: Acute (4) Acute exacerbation of CHF (congestive heart failure): Status: Acute (5) Acute on chronic anemia: Status: Acute Plan this is a 75 yo F with hx of non-ischemic cardiomyopathy status post AICD, AFib on Coumadin who presents to the hospital with complaints of multiple falls as well as abnormal labs was found to have hypoxia in the ED # acute hypoxic respiratory failure # secondary to CHF exacerbation has moderate size pleural effusion as seen on chest image continue IV Lasix wean O2 as required Echo showed normal EF with severe LVH and asymmetric septal hypertrophy with associated severe calcific mitral stenosis cardiology input appreciated, continue diuresis and add Aldactone appropriate intake and output # acute on chronic anemia symptomatic with dyspnea, and syncope negative occult stool Low normal ferritin, B12, and folic acid hemoglobin of 9.5 after 1 unit transfusion # syncope multifactorial including secondary to anemia as well as CHF AICD interrogation monitor on telemetry # BRIONNA seems cardiorenal syndrome as creatinine improving with diuresis continue Lasix follow BMP # mitral stenosis Appears significantly calcified and require further invasive evaluation as outpatient # fall PT evaluation # AFib continue Coumadin and amiodarone as well as mexiletine and metoprolol DVT prophylaxis warfarin patient will require overnight hospital stay for treatment of hypoxia, CHF exacerbation given High chance of decompensation. Quality Stroke Does the patient have a stroke diagnosis?: No VTE Prior VTE?: No VTE Risk Level:: Medical - moderate - high VTE Device Contraindication: N/A - Device Ordered VTE Drug Contraindication: Treatment Not Indicated
[2021-07-09] MEDS: Warfarin Sodium 4 MG TABLET PO (18:44)
[2021-07-09] MEDS: rOPINIRole HCL 1 MG TABLET 5 MG PO (20:46)
[2021-07-09] MEDS: Atorvastatin Calcium 40 MG TABLET PO (20:48)
[2021-07-10] VITALS (9 sets, daily range): BP systolic 102–141; BP diastolic 57–78; PULSE 69–76; RESP 16–20; TEMP 36.1–37.1; O2SAT 92–95; BMI 25.9
[2021-07-10] MEDS: Acetaminophen 325 MG TABLET 650 MG PO (00:11)
[2021-07-10] MEDS: cilostazoL 100 MG TABLET PO ×2 (06:12→17:49)
[2021-07-10] MEDS: Levothyroxine Sodium 50 MCG TABLET PO (06:14)
[2021-07-10 07:03] LABS: INTERNATIONAL NORM RATIO 1.9 (0.9-1.1); Prothrombin Time 22.2 SEC (9.9-13.0)
[2021-07-10 07:17] LABS: B Type Natriuretic Peptide 2270 pg/mL (<100)
[2021-07-10 07:24] LABS: Anion Gap 11 (12-20); Blood Urea Nitrogen 16 mg/dL (9-16); Calcium 8.5 mg/dL (8.4-10.2); Carbon Dioxide 33 mmol/L (22-29); Chloride 103 mmol/L (96-108); Creatinine Clr Calc Pharmacy 24.7; Estimated Glomerular Filt Rate 32; Glucose Random 78 mg/dL (60-115); Potassium 3.7 mmol/L (3.3-5.1); Sodium 143 mmol/L (135-145)
[2021-07-10] MEDS: Fluticasone/Vilanterol 100/25 BLST.W.DEV 1 PUFF INHALE (07:52)
[2021-07-10] MEDS: Potassium Chloride ER 20 MEQ TAB.ER.PRT PO ×2 (08:43→20:31)
[2021-07-10] MEDS: Metoprolol Tartrate 25 MG TABLET PO ×2 (08:43→20:31)
[2021-07-10] MEDS: Spironolactone 25 MG TABLET 12.5 MG PO (08:43)
[2021-07-10] MEDS: 0.9 % Sodium Chloride Flush 3 ML SYRINGE IVFLUSH ×3 (08:43→20:34)
[2021-07-10] MEDS: Multivitamin TABLET 1 TAB PO (08:44)
[2021-07-10] MEDS: Loratadine 10 MG TABLET PO (08:44)
[2021-07-10] MEDS: Furosemide 40 MG/4 ML VIAL IVPUSH ×2 (08:44→17:49)
[2021-07-10] MEDS: predniSONE 20 MG TABLET 40 MG PO (09:51)
[2021-07-10] MEDS: Benzonatate 100 MG CAPSULE PO ×3 (09:51→20:32)
[2021-07-10] MEDS: guaiFENesin LA 600 MG TAB.ER.12H PO ×2 (09:51→20:32)
--- NOTE | 2021-07-10 11:44 | HO.PM.IMPN ---
Subjective Subjective Date of Service: 07/10/21 Interval History: the patient was seen and evaluated this morning feels some improvement with SOB but still complaining of significant cough Edema improving Denies any fever, chills or shortness of breath No reported other overnight events. Systemic review: No fever, chills or weakness No chest pain, palpitation but has mild edema Dyspnea on exertion with productive coughing No abdominal pain, nausea or vomiting No urinary symptoms No any rash or wounds Physical Exam Vital Signs: Vital Signs: Last Vital Signs Temp 97.9 F 07/10/21 11:40 Pulse 76 07/10/21 11:40 Resp 20 07/10/21 11:40 BP 113/66 07/10/21 11:40 Pulse Ox 95 07/10/21 11:40 BMI result Body Mass Index 25.9 Const: Other: Constitutional : Alert, oriented, not in distress Neck : Normal inspection, Supple Cardiovascular : RRR, no JVP, trace bilateral lower extremity edema Respiratory : fair bilateral air entry, decreased basal crackles, wheezes or rhonchi Gastrointestinal: soft, lax, Normal bowel sounds, Non tender Skin : Warm, Dry Neurological : Alert & oriented x3, No focal deficit , CN 2-12 within normal Objective Data Active Medications Acetaminophen (Acetaminophen 325 Mg Tablet) 650 mg PO Q6H PRN PRN Reason: Pain, Mild (Pain Scale 1-3) Last Admin: 07/10/21 00:11 Dose: 650 mg Documented by: LILIANA Albuterol Sulfate (Albuterol Sulfate 90 Mcg 8 Gm Inhaler) 2 puff INHALE Q4H PRN PRN Reason: Shortness Of Breath Or Wheezing Albuterol/Ipratropium (Albuterol/Iprat 2.5/0.5mg 3 Ml Ampul.Neb) 3 ml INHALE RQ6H WHILE AWAKE [facility] Atorvastatin Calcium (Atorvastatin Calcium 40 Mg Tablet) 40 mg PO BEDTIME [facility] Last Admin: 07/09/21 20:48 Dose: 40 mg Documented by: LILIANA Benzonatate (Benzonatate 100 Mg Capsule) 100 mg PO TID [facility] Last Admin: 07/10/21 09:51 Dose: 100 mg Documented by: ZAIN Calcium Carbonate (Calcium Carbonate 500 Mg Tablet) 500 mg PO BID [facility] Last Admin: 07/10/21 08:43 Dose: 500 mg Documented by: ZANI Cilostazol (Cilostazol 100 Mg Tablet) 100 mg PO Q12H [facility] Last Admin: 07/10/21 06:12 Dose: 100 mg Documented by: LILIANA Fluticasone Propionate (Fluticasone Propionate Nasal 16 Gm [place]) 1 spray NOSTRIL-B DAILY PRN PRN Reason: allergy symptoms Fluticasone/Vilanterol (Fluticasone/Vilanterol 100/25 Blst.W.Dev) 1 puff INHALE RDAILY [facility] Last Admin: 07/10/21 07:52 Dose: 1 puff Documented by: ADARSH Furosemide (Furosemide 40 Mg/4 Ml Vial) 40 mg IVPUSH BID@0900,1800 [facility]; Protocol Last Admin: 07/10/21 08:44 Dose: 40 mg Documented by: ZAIN Guaifenesin (Guaifenesin [place] 600 Mg Tab.Er.12h) 600 mg PO BID [facility] Last Admin: 07/10/21 09:51 Dose: 600 mg Documented by: ZAIN Levothyroxine Sodium (Levothyroxine Sodium 50 Mcg Tablet) 50 mcg PO DAILY@0600 [facility] Last Admin: 07/10/21 06:14 Dose: 50 mcg Documented by: LILIANA Loratadine (Loratadine 10 Mg Tablet) 10 mg PO DAILY [facility] Last Admin: 07/10/21 08:44 Dose: 10 mg Documented by: ZAIN Metoprolol Tartrate (Metoprolol Tartrate 25 Mg Tablet) 25 mg PO BID [facility]; Protocol Last Admin: 07/10/21 08:43 Dose: 25 mg Documented by: ZAIN Multivitamins/Vitamin C (Multivitamin Tablet) 1 tab PO DAILY [facility] Last Admin: 07/10/21 08:44 Dose: 1 tab Documented by: ZAIN Non-Formulary Medication (Olopatadine) 1 drop EYE-BOTH BID [facility] Potassium Chloride (Potassium Chloride Er 20 Meq Tab.Er.Prt) 20 meq PO BID [facility] Last Admin: 07/10/21 08:43 Dose: 20 meq Documented by: ZAIN Prednisone (Prednisone 20 Mg Tablet) 40 mg PO DAILY [facility] Last Admin: 07/10/21 09:51 Dose: 40 mg Documented by: ZAIN Ropinirole HCl (Ropinirole Hcl 1 Mg Tablet) 5 mg PO BEDTIME [facility] Last Admin: 07/09/21 20:46 Dose: 5 mg Documented by: LILIANA Sodium Chloride (0.9 % Sodium Chloride Flush 3 Ml Syringe) 3 ml IVFLUSH QSHIFT [facility] Last Admin: 07/10/21 08:43 Dose: 3 ml Documented by: ZAIN Spironolactone (Spironolactone 25 Mg Tablet) 12.5 mg PO DAILY [facility]; Protocol Last Admin: 07/10/21 08:43 Dose: 12.5 mg Documented by: ZAIN Warfarin Sodium (Warfarin Sodium 4 Mg Tablet) 4 mg PO DAILY@1800 [facility] Last Admin: 07/09/21 18:44 Dose: 4 mg Documented by: LOR-SEFERINO Labs CBC & Chem 7: 07/09/21 06:21 07/10/21 06:06 Labs: Laboratory Results - last 24 hr 07/10/21 07/10/21 07/10/21 06:06 06:06 06:06 PT 22.2 H INR 1.9 H Anion Gap 11 L Estim Creat Clear Calc 24.7 Estimated GFR 32 Random Glucose 78 Calcium 8.5 B-Natriuretic Peptide 2270 H Assessment and Plan (1) Acute respiratory failure with hypoxia: Status: Acute (2) Acute on chronic anemia: Status: Acute (3) Acute exacerbation of CHF (congestive heart failure): Status: Acute (4) Syncope: Status: Acute (5) BRIONNA (acute kidney injury): Status: Acute Plan this is a 75 yo F with hx of non-ischemic cardiomyopathy status post AICD, AFib on Coumadin who presents to the hospital with complaints of multiple falls as well as abnormal labs was found to have hypoxia in the ED # acute hypoxic respiratory failure # secondary to CHF exacerbation Echo showed normal EF with severe LVH and asymmetric septal hypertrophy with associated severe calcific mitral stenosis cardiology input appreciated, continue diuresis and add Aldactone I\O -1.2 L last 24 hours continue IV Lasix Aldactone started at 12.5 mg daily wean O2 as as tolerated # acute on chronic anemia symptomatic with dyspnea, and syncope negative occult stool Low normal ferritin, B12, and folic acid hemoglobin of 9.5 after 1 unit transfusion # syncope multifactorial including secondary to anemia as well as CHF AICD interrogation monitor on telemetry # BRIONNA seems cardiorenal syndrome as creatinine improving with diuresis to 1.5 today continue Lasix follow BMP # mitral stenosis Appears significantly calcified and require further invasive evaluation as outpatient # fall PT evaluation # AFib continue Coumadin and metoprolol hold mexiletine and amiodarone # COPD Seems a case of chronic bronchitis To use duo nebs and steroid for short-term and monitor response DVT prophylaxis warfarin patient will require overnight hospital stay for treatment of hypoxia, CHF exacerbation given High chance of decompensation. Quality Stroke Does the patient have a stroke diagnosis?: No VTE Prior VTE?: No VTE Risk Level:: Medical - moderate - high VTE Device Contraindication: N/A - Device Ordered VTE Drug Contraindication: Treatment Not Indicated
[2021-07-10] MEDS: Albuterol/Iprat 2.5/0.5MG 3 ML AMPUL.NEB INHALE ×2 (13:21→20:24)
--- NOTE | 2021-07-10 13:53 | HE.PHANOTE ---
Antiarrthymic Medications Dr. Méndez called pharmacy to question med rec. Patient has amiodarone and flecainide listed but also has filled mexilitine in the past. Contacted pharmacy who said the mexilitine has not been filled since 01/17 and the Flecainide was on hold due to interaction with amiodarone and PCP said to hold off on filling that medication. I also contacted the patients daughter who lives with danica. The daughter read off all medication bottles that were in her bin and only amiodarone was in there... mexilitine and fleciainide were not.
--- NOTE | 2021-07-10 14:31 | PM.PNCARD ---
Subjective Subjective Date of Service: 07/10/21 Principal diagnosis: CHF Interval history: Patient is diuresing adequately. Renal function is improving although BNP is gone up. She says her shortness of breath is improved. No arrhythmias noted Review of Systems Review of Systems Yes all other systems are reviewed and are negative Physical Exam Vital Signs: Last Vital Signs Temp 97.9 F 07/10/21 11:40 Pulse 76 07/10/21 13:21 Resp 20 07/10/21 13:21 BP 113/66 07/10/21 11:40 Pulse Ox 95 07/10/21 11:40 BMI result Body Mass Index 25.9 Const General: cooperative, comfortable, alert and awake Nutritional Appearance: average body habitus Orientation/consciousness: patient oriented x3 Neck Neck: Yes trachea midline, Yes supple and Yes JVD Resp Effort & Inspection: normal respiratory effort Auscultation: clear to auscultation bilaterally Cardio Jugular venous distension: JVD Palpation: normal PMI Rate: regular rate Rhythm: regular rhythm Heart sounds: S1 normal heart sound present, S2 normal heart sound present, no click, no gallops and Murmur heart sound present systolic Skin General skin exam: no rashes or lesions noted Neuro General: patient oriented x3 Extrem General: Yes no clubbing, cyanosis or edema Objective Labs and Meds Result diagrams: 07/09/21 06:21 07/10/21 06:06 Lab results: Laboratory Results - last 24 hr 07/10/21 07/10/21 07/10/21 06:06 06:06 06:06 PT 22.2 H INR 1.9 H Sodium 143 Potassium 3.7 Chloride 103 Carbon Dioxide 33 H Anion Gap 11 L BUN 16 Creatinine 1.57 H Estim Creat Clear Calc 24.7 Estimated GFR 32 Random Glucose 78 Calcium 8.5 B-Natriuretic Peptide 2270 H Progress Note: A&P Assessment and plan (1) Acute exacerbation of CHF (congestive heart failure): Status: Acute Assessment and Plan: Acute heart failure with seems to be clinically improving. Diuresing well. Continue IV diuresis. Hematocrit has improved about 30. Continue maintain hematocrit above 30. Strict intake and output chart needs to be pursued. Continue to follow renal function electrolytes and replace electrolytes as needed. Most likely require switch to a different oral diuretic on discharge. Continue other medical management. Eventually evaluation for mitral stenosis as well as hypertrophic cardiomyopathy. Will require invasive cardiac catheterization the future. Continue oral anticoagulation warfarin with target INR between 2 and 3. Continue current other therapy. Blood pressure is well optimal. Overall prognosis is still guarded. Will follow with you Fall Risk Details Current Medications: Current Medications Acetaminophen (Acetaminophen 325 Mg Tablet) 650 mg PO Q6H PRN PRN Reason: Pain, Mild (Pain Scale 1-3) Last Admin: 07/10/21 00:11 Dose: 650 mg Documented by: Albuterol Sulfate (Albuterol Sulfate 90 Mcg 8 Gm Inhaler) 2 puff INHALE Q4H PRN PRN Reason: Shortness Of Breath Or Wheezing Albuterol/Ipratropium (Albuterol/Iprat 2.5/0.5mg 3 Ml Ampul.Neb) 3 ml INHALE RQ6H WHILE AWAKE [facility] Last Admin: 07/10/21 13:21 Dose: 3 ml Documented by: Atorvastatin Calcium (Atorvastatin Calcium 40 Mg Tablet) 40 mg PO BEDTIME [facility] Last Admin: 07/09/21 20:48 Dose: 40 mg Documented by: Benzonatate (Benzonatate 100 Mg Capsule) 100 mg PO TID [facility] Last Admin: 07/10/21 09:51 Dose: 100 mg Documented by: Calcium Carbonate (Calcium Carbonate 500 Mg Tablet) 500 mg PO BID [facility] Last Admin: 07/10/21 08:43 Dose: 500 mg Documented by: Cilostazol (Cilostazol 100 Mg Tablet) 100 mg PO Q12H [facility] Last Admin: 07/10/21 06:12 Dose: 100 mg Documented by: Fluticasone Propionate (Fluticasone Propionate Nasal 16 Gm [place]) 1 spray NOSTRIL-B DAILY PRN PRN Reason: allergy symptoms Fluticasone/Vilanterol (Fluticasone/Vilanterol 100/25 Blst.W.Dev) 1 puff INHALE RDAILY [facility] Last Admin: 07/10/21 07:52 Dose: 1 puff Documented by: Furosemide (Furosemide 40 Mg/4 Ml Vial) 40 mg IVPUSH BID@0900,1800 [facility]; Protocol Last Admin: 07/10/21 08:44 Dose: 40 mg Documented by: Guaifenesin (Guaifenesin La 600 Mg Tab.Er.12h) 600 mg PO BID [facility] Last Admin: 07/10/21 09:51 Dose: 600 mg Documented by: Levothyroxine Sodium (Levothyroxine Sodium 50 Mcg Tablet) 50 mcg PO DAILY@0600 [facility] Last Admin: 07/10/21 06:14 Dose: 50 mcg Documented by: Loratadine (Loratadine 10 Mg Tablet) 10 mg PO DAILY [facility] Last Admin: 07/10/21 08:44 Dose: 10 mg Documented by: Metoprolol Tartrate (Metoprolol Tartrate 25 Mg Tablet) 25 mg PO BID [facility]; Protocol Last Admin: 07/10/21 08:43 Dose: 25 mg Documented by: Multivitamins/Vitamin C (Multivitamin Tablet) 1 tab PO DAILY [facility] Last Admin: 07/10/21 08:44 Dose: 1 tab Documented by: Non-Formulary Medication (Olopatadine) 1 drop EYE-BOTH BID [facility] Potassium Chloride (Potassium Chloride Er 20 Meq Tab.Er.Prt) 20 meq PO BID [facility] Last Admin: 07/10/21 08:43 Dose: 20 meq Documented by: Prednisone (Prednisone 20 Mg Tablet) 40 mg PO DAILY [facility] Last Admin: 07/10/21 09:51 Dose: 40 mg Documented by: Ropinirole HCl (Ropinirole Hcl 1 Mg Tablet) 5 mg PO BEDTIME [facility] Last Admin: 07/09/21 20:46 Dose: 5 mg Documented by: Sodium Chloride (0.9 % Sodium Chloride Flush 3 Ml Syringe) 3 ml IVFLUSH QSHIFT [facility] Last Admin: 07/10/21 08:43 Dose: 3 ml Documented by: Spironolactone (Spironolactone 25 Mg Tablet) 12.5 mg PO DAILY [facility]; Protocol Last Admin: 07/10/21 08:43 Dose: 12.5 mg Documented by: Warfarin Sodium (Warfarin Sodium 4 Mg Tablet) 4 mg PO DAILY@1800 [facility] Last Admin: 07/09/21 18:44 Dose: 4 mg Documented by: Time Spent With Patient Time: Total time spent is greater than 50% in coordination of care (as documented) at patient's floor/unit and/or counseling patient: Progress Note: Quality Stroke Does the patient have a stroke diagnosis?: No Procedures Date of Service Date of Service: 07/10/21
[2021-07-10] MEDS: Warfarin Sodium 4 MG TABLET PO (17:49)
[2021-07-10] MEDS: Atorvastatin Calcium 40 MG TABLET PO (20:32)
[2021-07-10] MEDS: rOPINIRole HCL 1 MG TABLET 5 MG PO (20:33)
[2021-07-10] MEDS: oxyCODONE HCl Immed Release 5 MG TABLET PO (20:59)
[2021-07-11] VITALS (9 sets, daily range): BP systolic 107–140; BP diastolic 54–78; PULSE 70–76; RESP 16–20; TEMP 36.3–37.3; O2SAT 94–96; BMI 25.3
[2021-07-11] MEDS: Acetaminophen 325 MG TABLET 650 MG PO ×3 (04:43→20:41)
[2021-07-11] MEDS: cilostazoL 100 MG TABLET PO ×2 (05:45→18:41)
[2021-07-11] MEDS: Levothyroxine Sodium 50 MCG TABLET PO (05:45)
[2021-07-11 07:28] LABS: INTERNATIONAL NORM RATIO 2.8 (0.9-1.1); Prothrombin Time 32.9 SEC (9.9-13.0)
[2021-07-11] MEDS: Albuterol/Iprat 2.5/0.5MG 3 ML AMPUL.NEB INHALE ×2 (07:36→19:21)
[2021-07-11] MEDS: Fluticasone/Vilanterol 100/25 BLST.W.DEV 1 PUFF INHALE (07:36)
[2021-07-11 08:08] LABS: B Type Natriuretic Peptide 2676 pg/mL (<100)
[2021-07-11 08:28] LABS: Anion Gap 12 (12-20); Blood Urea Nitrogen 19 mg/dL (9-16); Calcium 8.9 mg/dL (8.4-10.2); Carbon Dioxide 31 mmol/L (22-29); Chloride 104 mmol/L (96-108); Creatinine Clr Calc Pharmacy 22.5; Estimated Glomerular Filt Rate 29; Glucose Random 77 mg/dL (60-115); Potassium 4.2 mmol/L (3.3-5.1); Sodium 143 mmol/L (135-145)
[2021-07-11] MEDS: Benzonatate 100 MG CAPSULE PO ×3 (08:36→20:36)
[2021-07-11] MEDS: Potassium Chloride ER 20 MEQ TAB.ER.PRT PO ×2 (08:36→20:37)
[2021-07-11] MEDS: predniSONE 20 MG TABLET 40 MG PO (08:36)
[2021-07-11] MEDS: Loratadine 10 MG TABLET PO (08:36)
[2021-07-11] MEDS: Multivitamin TABLET 1 TAB PO (08:37)
[2021-07-11] MEDS: Metoprolol Tartrate 25 MG TABLET PO ×2 (08:37→20:37)
[2021-07-11] MEDS: Spironolactone 25 MG TABLET 12.5 MG PO (08:37)
[2021-07-11] MEDS: guaiFENesin LA 600 MG TAB.ER.12H PO ×2 (08:37→20:36)
[2021-07-11] MEDS: Furosemide 40 MG/4 ML VIAL IVPUSH (08:38)
[2021-07-11] MEDS: 0.9 % Sodium Chloride Flush 3 ML SYRINGE IVFLUSH ×2 (08:38→15:26)
[2021-07-11] MEDS: Bumetanide 1 MG TABLET 2 MG PO (12:21)
--- NOTE | 2021-07-11 13:16 | P.PNIM_ITS ---
Subjective Subjective Date of Service: 07/11/21 Interval History: the patient was seen and evaluated this morning weaned off oxygen, feels improvement Less coughing No reported other overnight events. Systemic review: No fever, chills or weakness No chest pain, palpitation but has mild edema improvement withDyspnea on exertion and decreased productive coughing No abdominal pain, nausea or vomiting No urinary symptoms No any rash or wounds Physical Exam Vital Signs: Vital Signs: Last Vital Signs Temp 98.0 F 07/11/21 11:12 Pulse 75 07/11/21 11:12 Resp 16 07/11/21 11:12 BP 117/54 L 07/11/21 11:12 Pulse Ox 96 07/11/21 11:12 BMI result Body Mass Index 25.3 Const: Other: Constitutional : Alert, oriented, not in distress Neck : Normal inspection, Supple Cardiovascular : RRR, no JVP, trace bilateral lower extremity edema Respiratory : fair bilateral air entry, decreased basal crackles, no wheezes or rhonchi Gastrointestinal: soft, lax, Normal bowel sounds, Non tender Skin : Warm, Dry Neurological : Alert & oriented x3, No focal deficit , CN 2-12 within normal Objective Data Active Medications Acetaminophen (Acetaminophen 325 Mg Tablet) 650 mg PO Q6H PRN PRN Reason: Pain, Mild (Pain Scale 1-3) Last Admin: 07/11/21 04:43 Dose: 650 mg Documented by: LILIANA Albuterol Sulfate (Albuterol Sulfate 90 Mcg 8 Gm Inhaler) 2 puff INHALE Q4H PRN PRN Reason: Shortness Of Breath Or Wheezing Albuterol/Ipratropium (Albuterol/Iprat 2.5/0.5mg 3 Ml Ampul.Neb) 3 ml INHALE RQ6H WHILE AWAKE [facility] Last Admin: 07/11/21 07:36 Dose: 3 ml Documented by: CARLA Atorvastatin Calcium (Atorvastatin Calcium 40 Mg Tablet) 40 mg PO BEDTIME [facility] Last Admin: 07/10/21 20:32 Dose: 40 mg Documented by: LILIANA Benzonatate (Benzonatate 100 Mg Capsule) 100 mg PO TID [facility] Last Admin: 07/11/21 08:36 Dose: 100 mg Documented by: LYNDSAY Bumetanide (Bumetanide 1 Mg Tablet) 2 mg PO DAILY [facility]; Protocol Last Admin: 07/11/21 12:21 Dose: 2 mg Documented by: LYNDSAY Calcium Carbonate (Calcium Carbonate 500 Mg Tablet) 500 mg PO BID [facility] Last Admin: 07/11/21 08:36 Dose: 500 mg Documented by: LYNDSAY Cilostazol (Cilostazol 100 Mg Tablet) 100 mg PO Q12H [facility] Last Admin: 07/11/21 05:45 Dose: 100 mg Documented by: LILIANA Fluticasone Propionate (Fluticasone Propionate Nasal 16 Gm [place]) 1 spray NOSTRIL-B DAILY PRN PRN Reason: allergy symptoms Fluticasone/Vilanterol (Fluticasone/Vilanterol 100/25 Blst.W.Dev) 1 puff INHALE RDAILY [facility] Last Admin: 07/11/21 07:36 Dose: 1 puff Documented by: CARLA Guaifenesin (Guaifenesin La 600 Mg Tab.Er.12h) 600 mg PO BID [facility] Last Admin: 07/11/21 08:37 Dose: 600 mg Documented by: LYNDSAY Levothyroxine Sodium (Levothyroxine Sodium 50 Mcg Tablet) 50 mcg PO DAILY@0600 [facility] Last Admin: 07/11/21 05:45 Dose: 50 mcg Documented by: LILIANA Loratadine (Loratadine 10 Mg Tablet) 10 mg PO DAILY [facility] Last Admin: 07/11/21 08:36 Dose: 10 mg Documented by: LYNDSAY Metoprolol Tartrate (Metoprolol Tartrate 25 Mg Tablet) 25 mg PO BID [facility]; Protocol Last Admin: 07/11/21 08:37 Dose: 25 mg Documented by: LYNDSAY Multivitamins/Vitamin C (Multivitamin Tablet) 1 tab PO DAILY [facility] Last Admin: 07/11/21 08:37 Dose: 1 tab Documented by: LYNDSAY Non-Formulary Medication (Olopatadine) 1 drop EYE-BOTH BID [facility] Potassium Chloride (Potassium Chloride Er 20 Meq Tab.Er.Prt) 20 meq PO BID [facility] Last Admin: 07/11/21 08:36 Dose: 20 meq Documented by: LYNDSAY Prednisone (Prednisone 20 Mg Tablet) 40 mg PO DAILY [facility] Last Admin: 07/11/21 08:36 Dose: 40 mg Documented by: LYNDSAY Ropinirole HCl (Ropinirole Hcl 1 Mg Tablet) 5 mg PO BEDTIME [facility] Last Admin: 07/10/21 20:33 Dose: 5 mg Documented by: LILIANA Sodium Chloride (0.9 % Sodium Chloride Flush 3 Ml Syringe) 3 ml IVFLUSH QSHIFT [facility] Last Admin: 07/11/21 08:38 Dose: 3 ml Documented by: LYNDSAY Spironolactone (Spironolactone 25 Mg Tablet) 12.5 mg PO DAILY [facility]; Protocol Last Admin: 07/11/21 08:37 Dose: 12.5 mg Documented by: LYNDSAY Warfarin Sodium (Warfarin Sodium 2 Mg Tablet) 2 mg PO DAILY@1800 [facility] Labs CBC & Chem 7: 07/09/21 06:21 07/11/21 06:44 Labs: Laboratory Results - last 24 hr 07/11/21 07/11/21 07/11/21 06:44 06:44 06:44 PT 32.9 H INR 2.8 H Anion Gap 12 Estim Creat Clear Calc 22.5 Estimated GFR 29 Random Glucose 77 Calcium 8.9 B-Natriuretic Peptide 2676 H Assessment and Plan (1) Hypertrophic cardiomyopathy: Status: Acute (2) Acute respiratory failure with hypoxia: Status: Acute (3) Acute on chronic anemia: Status: Acute (4) Acute exacerbation of CHF (congestive heart failure): Status: Acute (5) COPD (chronic obstructive pulmonary disease): Status: Acute Plan this is a 75 yo F with hx of non-ischemic cardiomyopathy status post AICD, AFib on Coumadin who presents to the hospital with complaints of multiple falls as well as abnormal labs was found to have hypoxia in the ED # acute hypoxic respiratory failure # secondary to CHF exacerbation Echo showed normal EF with severe LVH and asymmetric septal hypertrophy with associated severe calcific mitral stenosis cardiology input appreciated, Changed to p.o. diuresis and Aldactone I\O start Bumex 2 mg daily Aldactone at 12.5 mg daily # acute on chronic anemia symptomatic with dyspnea, and syncope negative occult stool Low normal ferritin, B12, and folic acid hemoglobin of 9.5 after 1 unit transfusion # syncope multifactorial including secondary to anemia as well as CHF AICD interrogation monitor on telemetry # BRIONNA seems cardiorenal syndrome as creatinine improving with diuresis to 1.5 today follow BMP # mitral stenosis Appears significantly calcified and require further invasive evaluation as outpatient # fall PT evaluation # AFib continue Coumadin and metoprolol hold mexiletine and amiodarone # COPD Seems a case of chronic bronchitis To use duo nebs and steroid for short-term and monitor response DVT prophylaxis warfarin patient will require overnight hospital stay for treatment of CHF exacerbation pending safe discharge plan given High chance of decompensation. Quality Stroke Does the patient have a stroke diagnosis?: No VTE Prior VTE?: No VTE Risk Level:: Medical - moderate - high VTE Device Contraindication: N/A - Device Ordered VTE Drug Contraindication: Treatment Not Indicated
--- NOTE | 2021-07-11 13:17 | P.PNCA_ITS ---
Subjective Subjective Date of Service: 07/11/21 Principal diagnosis: CHF Interval history: Patient hemodynamically stable. Has diuresed although eyes and nose are not adequately charted. BNP has increased although creatinine is also increased with rising BUN. She is off oxygen and breathing much better. Review of Systems Review of Systems Yes all other systems are reviewed and are negative Physical Exam Vital Signs: Last Vital Signs Temp 98.0 F 07/11/21 11:12 Pulse 75 07/11/21 11:12 Resp 16 07/11/21 11:12 BP 117/54 L 07/11/21 11:12 Pulse Ox 96 07/11/21 11:12 BMI result Body Mass Index 25.3 Const General: cooperative, comfortable, no acute distress, alert and awake Nutritional Appearance: average body habitus Orientation/consciousness: patient oriented x3 Neck Neck: Yes trachea midline, Yes supple and Yes no JVD Resp Effort & Inspection: normal respiratory effort Auscultation: clear to auscultation bilaterally Cardio Palpation: normal PMI Rate: regular rate Rhythm: regular rhythm Heart sounds: S1 normal heart sound present, S2 normal heart sound present, no click, no gallops and Murmur heart sound present systolic at the left sternal border Skin General skin exam: no rashes or lesions noted Neuro General: patient oriented x3 Objective Labs and Meds Result diagrams: 07/09/21 06:21 07/11/21 06:44 Lab results: Laboratory Results - last 24 hr 07/11/21 07/11/21 07/11/21 06:44 06:44 06:44 PT 32.9 H INR 2.8 H Sodium 143 Potassium 4.2 Chloride 104 Carbon Dioxide 31 H Anion Gap 12 BUN 19 H Creatinine 1.71 H Estim Creat Clear Calc 22.5 Estimated GFR 29 Random Glucose 77 Calcium 8.9 B-Natriuretic Peptide 2676 H Progress Note: A&P Assessment and plan (1) Acute exacerbation of CHF (congestive heart failure): Status: Acute Assessment and Plan: Heart failure seems like clinically appears to be doing well. Hypoxia has resolved. Switch to p.o. Bumex 2 mg daily. Heart failure education to be provided. Additional Bumex at home with weight gain was discussed with her. S till require further evaluation for hemodynamics as well as evaluation for mitral stenosis as well as hypertrophic cardiomyopathy as outpatient. If she is stable by tomorrow can be discharged and will set up for follow-up as outpatient. (2) Permanent atrial fibrillation: Status: Acute Assessment and Plan: Permanent atrial fibrillation, status post AV shantel ablation. Rate is adequately controlled. Continue full oral anticoagulation, currently on warfarin. Target INR between 2 and 3. Continue monitor hematocrit as outpatient. (3) Mitral stenosis: Status: Acute Assessment and Plan: Calcific mitral stenosis which appears to be severe. Patient currently has improved with heart failure symptoms. Continue p.o. Bumex. Outpatient evaluation will mitral stenosis with hemodynamic evaluation. (4) Hypertrophic cardiomyopathy: Status: Acute Assessment and Plan: Prior history of hypertrophic cardiomyopathy significant LV thickness. Component of heart failure could be due to diastolic dysfunction and setting of pulmonary atrial fibrillation. Full hemodynamic evaluation as above. Status post ICD placement which is working well. On amiodarone therapy due to recurrent VT. No recurrent VT this time. Is off mexiletine at home due to insurance denial. Continue amiodarone therapy. Will sign of the case and follow up with her as outpatient Fall Risk Details Current Medications: Current Medications Acetaminophen (Acetaminophen 325 Mg Tablet) 650 mg PO Q6H PRN PRN Reason: Pain, Mild (Pain Scale 1-3) Last Admin: 07/11/21 04:43 Dose: 650 mg Documented by: Albuterol Sulfate (Albuterol Sulfate 90 Mcg 8 Gm Inhaler) 2 puff INHALE Q4H PRN PRN Reason: Shortness Of Breath Or Wheezing Albuterol/Ipratropium (Albuterol/Iprat 2.5/0.5mg 3 Ml Ampul.Neb) 3 ml INHALE RQ6H WHILE AWAKE [facility] Last Admin: 07/11/21 07:36 Dose: 3 ml Documented by: Atorvastatin Calcium (Atorvastatin Calcium 40 Mg Tablet) 40 mg PO BEDTIME [facility] Last Admin: 07/10/21 20:32 Dose: 40 mg Documented by: Benzonatate (Benzonatate 100 Mg Capsule) 100 mg PO TID [facility] Last Admin: 07/11/21 08:36 Dose: 100 mg Documented by: Bumetanide (Bumetanide 1 Mg Tablet) 2 mg PO DAILY [facility]; Protocol Last Admin: 07/11/21 12:21 Dose: 2 mg Documented by: Calcium Carbonate (Calcium Carbonate 500 Mg Tablet) 500 mg PO BID [facility] Last Admin: 07/11/21 08:36 Dose: 500 mg Documented by: Cilostazol (Cilostazol 100 Mg Tablet) 100 mg PO Q12H [facility] Last Admin: 07/11/21 05:45 Dose: 100 mg Documented by: Fluticasone Propionate (Fluticasone Propionate Nasal 16 Gm [place]) 1 spray NOSTRIL-B DAILY PRN PRN Reason: allergy symptoms Fluticasone/Vilanterol (Fluticasone/Vilanterol 100/25 Blst.W.Dev) 1 puff INHALE RDAILY [facility] Last Admin: 07/11/21 07:36 Dose: 1 puff Documented by: Guaifenesin (Guaifenesin La 600 Mg Tab.Er.12h) 600 mg PO BID [facility] Last Admin: 07/11/21 08:37 Dose: 600 mg Documented by: Levothyroxine Sodium (Levothyroxine Sodium 50 Mcg Tablet) 50 mcg PO DAILY@0600 [facility] Last Admin: 07/11/21 05:45 Dose: 50 mcg Documented by: Loratadine (Loratadine 10 Mg Tablet) 10 mg PO DAILY [facility] Last Admin: 07/11/21 08:36 Dose: 10 mg Documented by: Metoprolol Tartrate (Metoprolol Tartrate 25 Mg Tablet) 25 mg PO BID [facility]; Protocol Last Admin: 07/11/21 08:37 Dose: 25 mg Documented by: Multivitamins/Vitamin C (Multivitamin Tablet) 1 tab PO DAILY [facility] Last Admin: 07/11/21 08:37 Dose: 1 tab Documented by: Non-Formulary Medication (Olopatadine) 1 drop EYE-BOTH BID [facility] Potassium Chloride (Potassium Chloride Er 20 Meq Tab.Er.Prt) 20 meq PO BID [facility] Last Admin: 07/11/21 08:36 Dose: 20 meq Documented by: Prednisone (Prednisone 20 Mg Tablet) 40 mg PO DAILY [facility] Last Admin: 07/11/21 08:36 Dose: 40 mg Documented by: Ropinirole HCl (Ropinirole Hcl 1 Mg Tablet) 5 mg PO BEDTIME [facility] Last Admin: 07/10/21 20:33 Dose: 5 mg Documented by: Sodium Chloride (0.9 % Sodium Chloride Flush 3 Ml Syringe) 3 ml IVFLUSH QSHIFT [facility] Last Admin: 07/11/21 08:38 Dose: 3 ml Documented by: Spironolactone (Spironolactone 25 Mg Tablet) 12.5 mg PO DAILY [facility]; Protocol Last Admin: 07/11/21 08:37 Dose: 12.5 mg Documented by: Warfarin Sodium (Warfarin Sodium 2 Mg Tablet) 2 mg PO DAILY@1800 [facility] Time Spent With Patient Time: Total time spent is greater than 50% in coordination of care (as documented) at patient's floor/unit and/or counseling patient: Progress Note: Quality Stroke Does the patient have a stroke diagnosis?: No Procedures Date of Service Date of Service: 07/11/21
[2021-07-11] MEDS: Warfarin Sodium 2 MG TABLET PO (18:41)
[2021-07-11] MEDS: Atorvastatin Calcium 40 MG TABLET PO (20:36)
[2021-07-11] MEDS: rOPINIRole HCL 1 MG TABLET 5 MG PO (20:36)
[2021-07-12] MEDS: 0.9 % Sodium Chloride Flush 3 ML SYRINGE IVFLUSH (00:10)
[2021-07-12 03:20] VITALS: BP 125/63; PULSE 89; RESP 18; TEMP 36.1; O2SAT 97
[2021-07-12 05:32] VITALS: BMI 25.2
[2021-07-12] MEDS: Levothyroxine Sodium 50 MCG TABLET PO (06:22)
[2021-07-12] MEDS: cilostazoL 100 MG TABLET PO (06:22)
[2021-07-12] MEDS: Acetaminophen 325 MG TABLET 650 MG PO (06:24)
[2021-07-12] MEDS: guaiFENesin DM 100/10/5 ML 5 ML SYRUP PO (06:25)
[2021-07-12 06:36] LABS: Hematocrit 32.2 % (37.0-47.0); Hemoglobin 9.5 g/dl (12.0-16.0); Mean Corpuscular HGB Conc 29.5 g/dl (31.0-35.0); Mean Corpuscular Hemoglobin 21.3 pg (27.0-33.0); Mean Corpuscular Volume 72.4 fL (80.0-98.0); Mean Platelet Volume 9.2 fL (9.4-12.3); Platelet Count 353 X10*3/uL (160-400); Red Blood Count 4.45 X10*6/uL (4.20-5.50); Red Cell Distribution Width 22.8 % (11.0-16.0); White Blood Count 9.8 X10*3/uL (4.8-10.8)
[2021-07-12 06:41] LABS: INTERNATIONAL NORM RATIO 4.3 (0.9-1.1); Prothrombin Time 50.9 SEC (9.9-13.0)
[2021-07-12 06:55] LABS: B Type Natriuretic Peptide 2268 pg/mL (<100)
[2021-07-12 07:04] LABS: Anion Gap 12 (12-20); Blood Urea Nitrogen 21 mg/dL (9-16); Calcium 9.1 mg/dL (8.4-10.2); Carbon Dioxide 30 mmol/L (22-29); Chloride 106 mmol/L (96-108); Creatinine Clr Calc Pharmacy 22.6; Estimated Glomerular Filt Rate 29; Glucose Random 97 mg/dL (60-115); Potassium 5.1 mmol/L (3.3-5.1); Sodium 143 mmol/L (135-145)
[2021-07-12] MEDS: Fluticasone/Vilanterol 100/25 BLST.W.DEV 1 PUFF INHALE (07:32)
[2021-07-12] MEDS: Albuterol/Iprat 2.5/0.5MG 3 ML AMPUL.NEB INHALE (07:32)
[2021-07-12 07:34] VITALS: BP 142/82; PULSE 72; PULSE 74; RESP 18; RESP 19; TEMP 36.8; O2SAT 94
[2021-07-12] MEDS: Potassium Chloride ER 20 MEQ TAB.ER.PRT PO (09:32)
[2021-07-12] MEDS: predniSONE 20 MG TABLET 40 MG PO (09:32)
[2021-07-12] MEDS: Multivitamin TABLET 1 TAB PO (09:32)
[2021-07-12] MEDS: Spironolactone 25 MG TABLET 12.5 MG PO (09:33)
[2021-07-12] MEDS: Loratadine 10 MG TABLET PO (09:34)
[2021-07-12] MEDS: Benzonatate 100 MG CAPSULE PO (09:34)
[2021-07-12] MEDS: guaiFENesin LA 600 MG TAB.ER.12H PO (09:34)
[2021-07-12] MEDS: Bumetanide 1 MG TABLET 2 MG PO (09:34)
[2021-07-12] MEDS: Metoprolol Tartrate 25 MG TABLET PO (09:34)
[2021-07-12 09:59] VITALS: BP 142/82; PULSE 72; O2SAT 94
--- NOTE | 2021-07-12 11:07 | P.F2F_ITS ---
Service Date Service Date: 07/12/21 Encounter Date of encounter: 07/12/21 Reasons for Services Signs and symptoms assessed: Physical deconditioning, heart failure Reason for assisted: medication treatment and teach disease management Reason for physical therapy: home safety and mobility and therapeutic exercises Homebound: Leaving the home is medically contraindicated at this time without the asist of a device and/or another person due th the listed conditions above and below. Reason homebound: unsteady gait / fall risk Certification: Based on the above findings, I certify that this patient is confined to the home and needs intermittent assisted care, physical therapy and/or speech therapy, or continues to need occupational therapy. The patient is under my care, and I have initiated the establishment of the plan of care. The patient will be followed by a physician who will periodically review the plan of care.
[2021-07-12 11:13] VITALS: BP 145/69; PULSE 75; RESP 17; TEMP 36.9; O2SAT 94
--- NOTE | 2021-07-12 11:16 | P.DS_ITS ---
DS: Providers Provider Date of Service: 07/12/21 Date of admission: 07/08/21 05:25 Primary care physician: Farhan Molina PA-C Consults: 07/08/21 05:56 Consult to Cardiology Routine Consulting Provider: Ulysses Fernando Reason for consultation: CHF Has provider been notified: No DS: Diagnosis Discharge Diagnosis (1) Hypertrophic cardiomyopathy: Status: Acute (2) Acute respiratory failure with hypoxia: Status: Acute (3) Acute on chronic anemia: Status: Acute (4) Acute exacerbation of CHF (congestive heart failure): Status: Acute (5) COPD (chronic obstructive pulmonary disease): Status: Acute (6) BRIONNA (acute kidney injury): Status: Acute (7) Syncope: Status: Acute DS: Summary Hospital Course Hospital Course: admission note HPI This is a 75-year-old female past medical history of nonischemic cardiomyopathy, AFib on warfarin, AICD, history of breast cancer, COPD, who presents to the hospital after a fall.? Patient reports she had the lobe yesterday and she was called and told that she has anemia as well as BRIONNA.? Patient also reports that she has been falling for the past week with the most recent episode happening last night while she was sitting in bed.? Patient denies having loss of consciousness, but feels that she falls asleep as she sitting down as noticed by her daughter.? Patient reports that she also falls asleep on the kitchen table.? She reports that she fell back and hit her back but did not hit her head.? She denies dizziness, no change in vision, no chest pain, she complains of chronic shortness of breath with no recent worsening symptoms.? She has chronic cough and sputum production that has not worsened.? She denies any abdominal pains but reports nausea and vomiting episodes most recently happened today, she denies any diarrhea constipation, she reports urinary frequency and no lower extremity edema. While in the ED patient was noted to be hypoxic with oxygen level dropping to 80%.? Vital signs are otherwise unremarkable, currently on 2 L satting 93%.? Labs are significant for WBC count of 6.2, hemoglobin of 8.1 that dropped from 9.1 on July 06, it was 11.1 back in 2020, hematocrit 27.6, PT of 17, INR of 1.5, PTT of 20, BUN of 19, creatinine of 1.82, troponin of 204.6, increased to 227, BNP of [address] revealed small to moderate right pleural effusion Hospital course The patient was admitted to the hospital for evaluation of acute hypoxic respiratory failure secondary to CHF exacerbation as an echo showed normal EF with s evere LVH and asymmetric septal hypertrophy with associated severe calcific mitral stenosis. Evaluated by Cardiology juju who recommended changing diuresis 2 Bumex instead of Lasix and to start Aldactone With significant improvement as the patient was weaned off the oxygen was able to ambulate with physical therapy with no reported hypoxia. recommended discontinuation of mexiletine as well. She was also noted to have acute on chronic anemia with negative occult blood. Found to have low ferritin received 1 unit of blood with improvement of hemoglobin to 9.5. To be discharged on iron supplement. She had no recurrence of syncope which believed to be?multifactorial including secondary to anemia as well as CHF. She was monitored on telemetry with no significant abnormalities reported. monitor on telemetry Her kidney function was noted to be mildly injured at time of presentation which?seems cardiorenal syndrome as creatinine improving with diuresis to 1.5. Echo also reported significant mitral stenosis which cardiology Appears significantly calcified and require further invasive evaluation as outpatient seen by Physical therapy who recommended home PT. INR elevated to 4.9. Warfarin was held and the patient was last restarted by Monday. she did receive also treatment for chronic Bronchitis with steroids and nebulizers with good response. Discontinue Mexiletine and Lasix hold warfarin for now and restarted on Monday. Start Bumex 2 mg And spironolactone 12.5 mg daily Continue prednisone for 3 more days in use nebulizer as needed every 4-6 hours Start iron supplement monitor weight at home and follow up with Cardiology as outpatient. Time Spent with Patient Time attestation: Total time spent providing and/or coordinating discharge services: Discharge coordination time: Greater than 30 minutes Quality: Safe Use of Opioids Does Pt have an Active Cancer Diagnosis on the Problem List?: No Quality: Stroke Does the patient have a stroke diagnosis?: No Physical Exam Vital Signs: Vital Signs: Last Vital Signs Temp 98.5 F 07/12/21 11:13 Pulse 75 07/12/21 11:13 Resp 17 07/12/21 11:13 BP 145/69 H 07/12/21 11:13 Pulse Ox 94 07/12/21 11:13 BMI result Body Mass Index 25.2 Const: Other: Constitutional : Alert, oriented, not in distress Neck : Normal inspection, Supple Cardiovascular : RRR, no JVP, trace bilateral lower extremity edema Respiratory : fair bilateral air entry, decreased basal crackles, no wheezes or rhonchi Gastrointestinal: soft, lax, Normal bowel sounds, Non tender Skin : Warm, Dry Neurological : Alert & oriented x3, No focal deficit , CN 2-12 within normal DS: Data Data Completed and Pending Completed studies during hospitalization [Text1]: Procedures Drainage of Chest Wall, Percutaneous Approach (03/22/20) Labs on day of discharge: Laboratory Results - last 24 hr 07/12/21 07/12/21 07/12/21 06:12 06:12 06:12 WBC 9.8 RBC 4.45 Hgb 9.5 L Hct 32.2 L MCV 72.4 L MCH 21.3 L MCHC 29.5 L RDW 22.8 H Plt Count 353 MPV 9.2 L Absolute Nucleated RBC 0.000 Nucleated RBC % (auto) 0.0 PT 50.9 H INR 4.3 H Sodium 143 Potassium 5.1 D Chloride 106 Carbon Dioxide 30 H Anion Gap 12 BUN 21 H Creatinine 1.70 H Estim Creat Clear Calc 22.6 Estimated GFR 29 Random Glucose 97 Calcium 9.1 B-Natriuretic Peptide 07/12/21 06:12 WBC RBC Hgb Hct MCV MCH MCHC RDW Plt Count MPV Absolute Nucleated RBC Nucleated RBC % (auto) PT INR Sodium Potassium Chloride Carbon Dioxide Anion Gap BUN Creatinine Estim Creat Clear Calc Estimated GFR Random Glucose Calcium B-Natriuretic Peptide 2268 H Discharge Plan Discharge Patient Disposition: Home Health Service Discharge Diagnosis: acute heart failure exacerbation acute kidney injury acute on chronic anemia Referrals: [facility] [Outside] - 1 Week Farhan Molina PA-C [Primary Care Provider] - 1 Week Discharge Medications: New prednisone 20 mg Tablet 40 mg PO DAILY 3 Days Qty: 6 0RF spironolactone 25 mg Tablet 12.5 mg PO DAILY 30 Days Qty: 15 0RF Protocol: Hold for SBP< HOLD for SBP < : 90 bumetanide 1 mg Tablet 2 mg PO DAILY 30 Days Qty: 60 0RF Protocol: Hold for SBP< HOLD for SBP < : 90 ferrous sulfate 325 mg (65 mg iron) tablet 325 mg PO DAILY Qty: 30 0RF ipratropium-albuterol 0.5 mg-3 mg(2.5 mg base)/3 mL Solution For Nebulization 3 ml inhalation RQ6H WHILE AWAKE 30 Days 0RF (DME) nebulizers Mis See Rx Instructions .Route Qty: 1 0RF Rx Instructions: As directed Continued olopatadine 0.1 % drops 1 drp ophthalmic (eye) BID 15 Days Qty: 5 1RF Rx Instructions: separate doses by at least 6-8 hours ropinirole 5 mg tablet 5 mg PO BEDTIME Qty: 30 3RF amiodarone 200 mg tablet 200 mg PO DAILY 30 Days Qty: 30 1RF budesonide-formoterol [Symbicort] 160-4.5 mcg/actuation HFA aerosol inhaler 2 puff inhalation BID 0RF fluticasone propionate 50 mcg/actuation spray,suspension 1 spray intranasal DAILY PRN (Reason: allergy symptoms) Qty: 16 0RF loratadine 10 mg tablet 10 mg PO DAILY Qty: 20 0RF calcium carbonate 500 mg calcium (1,250 mg) tablet 500 mg PO BID 90 Days Qty: 180 1RF Trelegy Ellipta 100-62.5-25 mcg blister with device 1 inh inhalation DAILY 60 Days Qty: 60 0RF levothyroxine 50 mcg tablet 50 mcg PO DAILY 0RF multivitamin Tablet 1 tab PO DAILY 0RF metoprolol tartrate 25 mg tablet 25 mg PO BID 0RF atorvastatin 40 mg tablet 40 mg PO DAILY 0RF potassium chloride 20 mEq tablet,ER particles/crystals 20 meq PO BID 0RF albuterol sulfate 90 mcg/actuation HFA aerosol inhaler 2 puff inhalation Q4-6H PRN (Reason: Shortness Of Breath Or Wheezing) 0RF cilostazol 100 mg tablet 100 mg PO Q12H 0RF Held warfarin [Jantoven] 2 mg tablet 2 - 3 mg PO DAILY 0RF Hold Instructions: Resume on 07/14/21. Discontinued furosemide 40 mg tablet 40 mg PO BID 30 Days Qty: 60 1RF Discharge Orders: Discharge Order (Routine); Ordered 07/12/21 Ordered By: Yamila Méndez Diet: advance to usual diet and low salt diet Activity on Discharge: As tolerated Stand Alone Forms: Patient Portal Discharge page Care Plan Goals: Read below Health Concerns: Read below Plan of Treatment: Read below Assessment: you were admitted to the hospital for treatment of difficulty breathing. Found to be on heart failure exacerbation with associated worsening anemia requiring blood transfusion Of 1 unit and treatment with IV diuresis with good response as you were evaluated by control supervisor. Discontinue Mexiletine and Lasix hold warfarin for now and restarted on Monday. Start Bumex 2 mg And spironolactone 12.5 mg daily Continue prednisone for 3 more days in use nebulizer as needed every 4-6 hours Start iron supplement monitor weight at home and follow up with Cardiology as outpatient.
--- NOTE | 2021-07-12 11:39 | MHC.CM.PN ---
IMM 07/12/21 Female 75 DX Syncope Pleural effussion Patient is discharged to home today. [facility] will provide homecare services. Patient will travel via BLS. Her dtr has been notified dc supervisor dry paste time 2pm. Family will meet patient at her home.
--- NOTE | 2021-07-13 10:35 | PC.RT ---
pt was discharged yesterday. pt was given a prescription for a home nebulizer. The Respiratory therapy Department was never contacted yesterday prior to her discharge to have her set up with a DME company. I was contacted this am by case management and the patient went to [facility] to get a nebulizer However, this store is not a DME Company, therefore pt. could not get a nebulizer at home. I have contacted case management this am and I am following up on this matter. i also contacted one of our DME vendors, and they will be here at [facility] so we can get this to the patients home today. Thank You, Ck Leonard ELECTRONICS SPECIALIST [employer] Resp Therapy
== END 2021-07-12 14:29 | disposition home health service (06) | DRG 291 ==
LOC: HO.ED 04:03 → HO.EDOVER 05:30 → HO.IMC 07:23
PROVIDERS: Emergency Medicine Emergency Medical Services; Admitting Provider Internal Medicine; Emergency Provider Internal Medicine; PCP Physician Assistant; Visit Provider Student in an Organized Health Care Education/Training Program
DX: I50.33 Acute on chronic diastolic (congestive) heart failure (principal); J96.01 Acute respiratory failure with hypoxia; I42.8 Other cardiomyopathies; N17.9 Acute kidney failure, unspecified; I42.2 Other hypertrophic cardiomyopathy; I48.21 Permanent atrial fibrillation; E03.9 Hypothyroidism, unspecified; D64.9 Anemia, unspecified; I05.0 Rheumatic mitral stenosis; J42 Unspecified chronic bronchitis; Z85.3 Personal history of malignant neoplasm of breast; I25.2 Old myocardial infarction; Z20.822 Contact with and (suspected) exposure to COVID-19; Z95.810 Presence of automatic (implantable) cardiac defibrillator; Z87.891 Personal history of nicotine dependence; Z88.1 Allergy status to other antibiotic agents; Z79.01 Long term (current) use of anticoagulants; Z79.51 Long term (current) use of inhaled steroids; Z79.52 Long term (current) use of systemic steroids; Z79.890 Hormone replacement therapy; Z79.899 Other long term (current) drug therapy
CPT/HCPCS: 36415; 70450; 71250; 80048; 80053; 80076; 81003; 82272; 82607; 82728; 82746; 83540; 83735; 83880; 84484; 85025; 85027; 85610; 85730; 86850; 86900; 86901; 86923; 87635; 93005; 93306; 96360; 97116; 97162; 99284; 99285; J1940; P9016

== ENCOUNTER → 2021-08-12 10:16 | Outpatient (BNVA) | payer OTHER, SELFPAY | PROVIDERS: PCP Physician Assistant; Visit Provider Internal Medicine | DX: J43.2 Centrilobular emphysema (principal); R91.8 Other nonspecific abnormal finding of lung field; D64.9 Anemia, unspecified | CPT/HCPCS: 99202 ==

== ENCOUNTER 2021-08-17 12:17 | Outpatient (REF) | payer OTHER, SELFPAY ==
[2021-08-17 15:18] LABS: Mean Corpuscular HGB Conc 29.3 g/dl (31.0-35.0); Mean Corpuscular Hemoglobin 23.8 pg (27.0-33.0); Mean Corpuscular Volume 81.4 fL (80.0-98.0); Mean Platelet Volume 9.8 fL (9.4-12.3); Platelet Count 321 X10*3/uL (160-400); Red Blood Count 5.75 X10*6/uL (4.20-5.50)
[2021-08-17 15:22] LABS: Hematocrit 46.8 % (37.0-47.0); Hemoglobin 13.7 g/dl (12.0-16.0)
[2021-08-17 15:25] LABS: Anion Gap 15 (12-20); Blood Urea Nitrogen 15 mg/dL (9-16); Calcium 9.8 mg/dL (8.4-10.2); Carbon Dioxide 28 mmol/L (22-29); Chloride 101 mmol/L (96-108); Estimated Glomerular Filt Rate 22; Glucose Random 77 mg/dL (60-115); Potassium 4.4 mmol/L (3.3-5.1); Sodium 140 mmol/L (135-145)
[2021-08-17 15:30] LABS: B Type Natriuretic Peptide 1424 pg/mL (<100)
== END 2021-08-17 12:18 | disposition home or self-care (01) ==
LOC: HO.LAB 12:17
PROVIDERS: PCP Physician Assistant; Referring Provider Physician Assistant; Visit Provider Internal Medicine Cardiovascular Disease
DX: I50.9 Heart failure, unspecified (principal); I05.0 Rheumatic mitral stenosis; I42.2 Other hypertrophic cardiomyopathy; I48.0 Paroxysmal atrial fibrillation; Z95.810 Presence of automatic (implantable) cardiac defibrillator; Z87.891 Personal history of nicotine dependence; Z79.899 Other long term (current) drug therapy
CPT/HCPCS: 36415; 80048; 83880; 85027; 93005; 99212

== ENCOUNTER 2021-09-01 13:14 | Day surgery (SDC) | payer OTHER, SELFPAY ==
--- NOTE | 2021-08-19 09:38 | P.CONAN_ITS ---
Documented by User: Bridget Joe NP 08/31/21 10:13 HPI - Anesthesia Eval Consult details Narrative: 76yo F for Transesophageal Echocardiogram Pacer/ICD in situ Warfarin for afib PMFSH Active Problems Active Problems: All Active Problems (Updated 08/17/21 @ 13:22 by Ulysses Fernando MD) Mitral stenosis (Acute) Congestive heart failure (Acute) Cardiac defibrillator in place (Acute) Hypertrophic cardiomyopathy (Acute) Hypothyroidism (Acute) COPD (chronic obstructive pulmonary disease) (Acute) BRIONNA (acute kidney injury) (Acute) Anemia (Acute) Thyroid nodule (Acute) Frequent falls (Acute) Lower extremity weakness (Acute) Current use of anticoagulant therapy (Acute) Current use of anticoagulant therapy (Acute) Abscess of skin or subcutaneous tissue (Acute) Nonischemic cardiomyopathy (Acute) Lung nodules (Acute) History of lumpectomy of right breast (Acute) Encounter to establish care (Acute) Rhinitis (Acute) Cough (Acute) Allergic conjunctivitis (Acute) SOB (shortness of breath) on exertion (Acute) RLS (restless legs syndrome) (Acute) Afib (Acute) Vitamin D deficiency (Acute) Osteoporosis (Acute) Mucinous carcinoma of right breast (Acute) Multinodular thyroid (Acute) Past Medical History Medical History (Updated 08/26/21 @ 10:26 by Fara Cantu, RN) Fall History of breast cancer Mitral stenosis Non-ST elevation PA (NSTEMI) On anticoagulant therapy On beta bert at home Pleural effusion on right Presence of combination internal cardiac defibrillator (ICD) and pacemaker Family History Family History Father Thrombus Mother Heart disease Surgical History Surgical History (Updated 08/26/21 @ 10:26 by Fara Cantu, RN) AICD (automatic cardioverter/defibrillator) present History of automatic internal cardiac defibrillator (AICD) History of bilateral tubal ligation History of lumpectomy of right breast History of tubal ligation Social History Social History Household Members: None Housing: Apartment Do you presently have visiting nurse or other home services: No Alcohol intake: current Alcohol intake frequency: does not drink Patient Tobacco Use Status: Former Tobacco user Cigarette Packs Per Day: 3 Years Smoked: 30 e-Cigarette/Vaping Use: Never Used Second Hand Smoke Exposure: Yes Advance Directives: Yes Advance Directives on File: Yes Advance Directives Date on File: 07/23/20 service: No Current occupational status: retired Cognitive needs: No Hearing needs: No Vision needs: No Meds Allergies Allergy/AdvReac Type Severity Reaction Status Date / Time doxycycline AdvReac Vomiting Verified 08/26/21 10:10 Home Medications Medication Instructions Recorded Confirmed Last Taken Type atorvastatin 40 mg tablet 40 mg PO DAILY 02/03/20 08/26/21 07/07/21 21:00 History metoprolol tartrate 25 mg tablet 25 mg PO BID 02/03/20 08/26/21 Unknown History multivitamin 1 tab PO DAILY 02/03/20 08/26/21 Unknown History albuterol sulfate 90 mcg/actuation 2 puff inhalation Q4-6H PRN 08/24/20 08/26/21 Unknown History aerosol inhaler Shortness Of Breath Or Wheezing cilostazol 100 mg tablet 100 mg PO Q12H 08/24/20 08/26/21 07/07/21 21:00 History budesonide-formoterol HFA 160 2 puff inhalation BID 07/08/21 08/26/21 Unknown History mcg-4.5 mcg/actuation aerosol inhaler (Symbicort) warfarin 2 mg tablet (Jantoven) 2 - 3 mg PO DAILY 07/08/21 08/26/21 Unknown History potassium chloride 20 mEq 20 meq PO BID 08/17/21 08/26/21 Unknown History tablet,extended release(part/cryst) Exam Exam Date and Time: August 19, 2021 0938 Pertinent Lab Results Pertinent Lab Results: Laboratory Tests 08/17/21 08/17/21 13:54 13:54 WBC 5.0 Hgb 13.7 D Hct 46.8 D Plt Count 321 Sodium 140 Potassium 4.4 Chloride 101 Carbon Dioxide 28 BUN 15 Creatinine 2.23 H Narrative Narrative: EKG 07/2021 ventricularly paced rhythm Cardiac catheterization 08/03/2021 showed significantly elevated pulmonary capillary wedge pressure and difference with left ventricular end-diastolic pres sure although a was not clearly diagnostic for mitral stenosis but mitral valve calculated area was 0.97 consistent with severe mitral stenosis.? Low cardiac output was noted. ECHO 06/2021 Conclusions: - 1.? Normal LV systolic function with severe LVH and significant asymmetric septal hypertrophy without any clear evidence of? ? ? dynamic obstruction? 2. Markedly enlarged left atrium ? 3. Possibility of severe calcific mitral stenosis and mild-to? ? moderate mitral regurgitation? 4. Severely elevated right atrial pressures and moderate ? elevation of right ventricular systolic pressure ? ? Assessment and Plan Assessment Anesthesia Assessment: Chart Reviewed Documented by User: Ioana Willingham MD 09/01/21 13:56 PMFSH Past Medical History Medical History (Updated 08/26/21 @ 10:26 by Fara Cantu RN) Fall History of breast cancer Mitral stenosis Non-ST elevation PA (NSTEMI) On anticoagulant therapy On beta ebrt at home Pleural effusion on right Presence of combination internal cardiac defibrillator (ICD) and pacemaker Family History Family History Father Thrombus Mother Heart disease Family history of problems with anesthesia: No Surgical History Surgical History (Updated 08/26/21 @ 10:26 by Fara Cantu RN) AICD (automatic cardioverter/defibrillator) present History of automatic internal cardiac defibrillator (AICD) History of bilateral tubal ligation History of lumpectomy of right breast History of tubal ligation History of Problems with Anesthesia: No Social History Social History Household Members: None Housing: Apartment Do you presently have visiting nurse or other home services: No Alcohol intake: current Alcohol intake frequency: does not drink Patient Tobacco Use Status: Former Tobacco user Cigarette Packs Per Day: 3 Years Smoked: 30 e-Cigarette/Vaping Use: Never Used Second Hand Smoke Exposure: Yes Advance Directives: Yes Advance Directives on File: Yes Advance Directives Date on File: 07/23/20 service: No Current occupational status: retired Cognitive needs: No Hearing needs: No Vision needs: No Meds Allergies Allergy/AdvReac Type Severity Reaction Status Date / Time doxycycline AdvReac Vomiting Verified 08/26/21 10:10 Home Medications Medication Instructions Recorded Confirmed Last Taken Type atorvastatin 40 mg tablet 40 mg PO DAILY 02/03/20 08/26/21 07/07/21 21:00 History metoprolol tartrate 25 mg tablet 25 mg PO BID 02/03/20 08/26/21 Unknown History multivitamin 1 tab PO DAILY 02/03/20 08/26/21 Unknown History albuterol sulfate 90 mcg/actuation 2 puff inhalation Q4-6H PRN 08/24/20 08/26/21 Unknown History aerosol inhaler Shortness Of Breath Or Wheezing cilostazol 100 mg tablet 100 mg PO Q12H 08/24/20 08/26/21 07/07/21 21:00 History budesonide-formoterol HFA 160 2 puff inhalation BID 07/08/21 08/26/21 Unknown History mcg-4.5 mcg/actuation aerosol inhaler (Symbicort) warfarin 2 mg tablet (Jantoven) 2 - 3 mg PO DAILY 07/08/21 08/26/21 Unknown History potassium chloride 20 mEq 20 meq PO BID 08/17/21 08/26/21 Unknown History tablet,extended release(part/cryst) Exam Airway Mallampati Class: II (Poor dentition) TM Dist: >3cm Neck ROM: Full Heart: rrr Lungs: cta Assessment and Plan Assessment Anesthesia Assessment: Anesthesia Plan Discussed and Chart Reviewed Final Anesthetic Review Family History of Problems with Anesthesia: No History of Problems with Anesthesia: No NPO: Yes ASA Class: IV Final Preanesthetic Review: No Changes in Pt Med Stat, Meds/Allgs Chart Reviewed and Consent Obtained/Reviewed Patient Risk: Intermediate Procedure Risk: Intermediate Anesthetic Plan Anesthetic Plan: MAC: Disposition: Standard PACU
[2021-08-26 10:55] VITALS: BMI 22.6
[2021-09-01] VITALS (7 sets, daily range): BP systolic 89–123; BP diastolic 44–84; PULSE 70–84; RESP 16–21; TEMP 36.1–36.8; O2SAT 93–99; BMI 23.4
--- NOTE | 2021-09-01 13:51 | CA_ITS ---
Transesophageal Echocardiogram Patient (Last, First, Middle): Nishi Hernandez G Gender: Female Date of : 1945 Age: 76 Procedure Date: 09/01/2021 Procedure Type: Transesophageal Echocardiogram Location: OP Height: 149.86 cm Weight: 52.62 kg BSA: 1.46 m2 Heart Rate: 70 bpm Office Machine Technician: ALEXI Referring MD: Ulysses Fernando MD Vein Pumper: Ulysses Fernando MD Symptoms: I05.0 - Rheumatic mitral stenosis Conclusion: ??? 1. LV systolic function appears normal with suggestion of LVH 2. Severely dilated left atrium with no intracardiac shunting and then smoke formation in the left atrium 3. Moderate mitral stenosis and moderate mitral regurgitation due to calcific mitral valve disease 4. Moderate tricuspid regurgitation 5. No gross pericardial effusion Findings Procedure Information Consent was obtained prior to the procedure. Pre SIMI oral cavity was checked and revealed no overcrowding. The adult 3D probe was passed with minimal difficulty. Left Ventricle The left ventricle was not well visualized. Normal left ventricular cavity size. There is moderately increased left ventricular wall thickness. The left ventricular systolic function is normal. The visually estimated ejection fraction is between 55-60%. There is paradoxical septal motion consistent with a right ventricular pacemaker. The left ventricle was not well visualized on esophageal views due to significant artifact due to mitral annular calcification. Right Ventricle Normal right ventricular cavity size and systolic function. There is an ICD wire seen in the right ventricle. Atria The left atrium is severely dilated. There is no evidence of interatrial shunt. Left atrium is free of any thrombi or masses. There is dense smoke formation seen within left atrial appendage. The left atrial appendage was identified in multiple views and there are no clots seen. The left upper, right upper and right lower pulmonary vein drain normally into the left atrium. The right atrium is moderately dilated. IVC and SVC drain normally into the right atrium. There is a small eustachian valve noted. There is smoke formation seen with the right atrium. The SVC is minimally enlarged with slightly blunted pattern. Aortic Valve There is mild calcification of the aortic valve. There is mild thickening of the aortic valve. There is no aortic valve stenosis. There is no aortic valve regurgitation. Mitral Valve There is mild anterior and severe posterior mitral leaflet thickening. The posterior mitral leaflet is immobile. There is severe mitral annular calcification. There is moderate mitral valve regurgitation. There is moderate mitral valve stenosis. Calculated mitral valve area by PISA is 1.69 cm2, which is consistent with moderate mitral stenosis. Calculated regurgitant volume is 39 mL which is also consistent with moderate mitral regurgitation. Pulmonic Valve The pulmonic valve is likely normal. There is trace pulmonic valve regurgitation. Tricuspid Valve Normal tricuspid valve structure. There is moderate tricuspid valve regurgitation. Great Vessels There is no dilatation of the ascending aorta. Small plaque is seen in the ascending aorta. The visualized portions of the pulmonary artery and branches are normal. Venous The inferior vena cava is mildly dilated and collapses less than 50% with inspiration. Pericardium/Pleural There is no evidence of pericardial effusion. Prior Study Comparison No prior study available for comparison. Measurements Mitral Valve MV VTI: 0.41 MV Pk Escobar: 1.38 MV Mn Escobar: 0.90 MV Pk Grad: 8.00 MV Mn Grad: 4.00 MV Pk E: 1.62 MV Decel Time: 345.00 E'Medial: 2.55 E/E' Med: 63.50 PHT: 99.00 MVA PHT: 2.22 Decel Dyer: 4.39 MR Vol - PW Dopp: 92.61 MR VTI: 1.47 MR ERO: 63.00 MR Alias Escobar: 0.38 MR RAD: 1.10 Diastolic Function MV Pk E: 1.62 E'Medial: 2.55 E/E' Med: 63.50 Tricuspid Valve TR Pk Escobar: 2.95 TR Pk Grad: 35.00 Updated by Ulysses Fernando on 04:24 PM with Status of Final Ulysses Fernando MD electronically signed on 09/01/2021 4:24:49 PM with status of Final
[2021-09-01] MEDS: Lactated Ringers 1,000 ML 23 ML IVCONT (14:00)
[2021-09-01 14:03] LABS: INTERNATIONAL NORM RATIO 2.4 (0.9-1.1); Prothrombin Time 27.3 SEC (9.9-13.0)
[2021-09-01 14:27] LABS: Blood Urea Nitrogen 18 mg/dL (9-16); Creatinine Clr Calc Pharmacy 17.9; Estimated Glomerular Filt Rate 24
== END 2021-09-01 16:15 | disposition home or self-care (01) ==
PROVIDERS: Nurse Practitioner; PCP Physician Assistant; Visit Provider Internal Medicine Cardiovascular Disease
PROC: (CPT 93312; principal; 2021-09-01 13:30)
DX: I05.0 Rheumatic mitral stenosis (principal); I50.9 Heart failure, unspecified; I42.2 Other hypertrophic cardiomyopathy; Z95.810 Presence of automatic (implantable) cardiac defibrillator; I48.0 Paroxysmal atrial fibrillation; Z79.01 Long term (current) use of anticoagulants; D64.9 Anemia, unspecified; J44.9 Chronic obstructive pulmonary disease, unspecified; Z79.51 Long term (current) use of inhaled steroids; Z79.899 Other long term (current) drug therapy; Z88.1 Allergy status to other antibiotic agents; Z87.891 Personal history of nicotine dependence
CPT/HCPCS: 93312; 36415; 82565; 84520; 85610; J2250; J2370

== ENCOUNTER → 2021-09-23 11:55 | Outpatient (BNVA) | payer OTHER, SELFPAY | PROVIDERS: PCP Physician Assistant; Referring Provider Physician Assistant; Visit Provider Internal Medicine Cardiovascular Disease | DX: I50.9 Heart failure, unspecified (principal); I42.2 Other hypertrophic cardiomyopathy; I05.0 Rheumatic mitral stenosis; I48.0 Paroxysmal atrial fibrillation; Z79.01 Long term (current) use of anticoagulants; Z79.899 Other long term (current) drug therapy; Z95.810 Presence of automatic (implantable) cardiac defibrillator | CPT/HCPCS: 93005; 99212 ==

== ENCOUNTER 2021-11-29 09:19 | Outpatient (REF) | payer OTHER, SELFPAY ==
[2021-11-29 09:51] LABS: MANUAL DIFF FLAG NO
[2021-11-29 10:28] LABS: Basophils Absolute Auto 0.1 X10*3/uL (0.0-0.2); Basophils Percent Auto 1.7 % (0-2); Eosinophils Absolute Auto 0.4 X10*3/uL (0.0-0.4); Hemoglobin 14.5 g/dl (12.0-16.0); Lymphocytes Absolute Auto 0.9 X10*3/uL (1.2-4.9); Lymphocytes Percent Auto 19.4 % (20-40); Mean Corpuscular HGB Conc 32.2 g/dl (31.0-35.0); Mean Corpuscular Hemoglobin 29.2 pg (27.0-33.0); Mean Corpuscular Volume 90.5 fL (80.0-98.0); Mean Platelet Volume 10.2 fL (9.4-12.3); Monocytes Absolute Auto 0.5 X10*3/uL (0.1-1.2); Monocytes Percent Auto 9.7 % (2-11); Neutrophils Absolute Auto 2.9 x10*3/uL (2.0-8.3); Neutrophils Percent Auto 61.2 % (45-73); Platelet Count 209 X10*3/uL (160-400); Red Blood Count 4.97 X10*6/uL (4.20-5.50); Red Cell Distribution Width 15.2 % (11.0-16.0); White Blood Count 4.8 X10*3/uL (4.8-10.8)
[2021-11-29 10:41] LABS: Albumin Level 4.3 g/dL (3.5-5.0); Anion Gap 14 (12-20); Blood Urea Nitrogen 23 mg/dL (9-16); Calcium 9.5 mg/dL (8.4-10.2); Carbon Dioxide 28 mmol/L (22-29); Chloride 103 mmol/L (96-108); Estimated Glomerular Filt Rate 22; Magnesium 2.1 mg/dL (1.6-2.6); Phosphorus 4.2 mg/dL (2.7-4.5); Potassium 4.9 mmol/L (3.3-5.1); Sodium 140 mmol/L (135-145)
[2021-11-29 11:00] LABS: HBS Num1 2.07 mIU/mL (0-7.99); HBc Num1 0.07 S/CO (0.00-0.79); HBsAGNum1 0.19 S/CO (0.00-0.99); Hepatitis B Core Antibody Nonreactive (Nonreactive); Hepatitis B Surface Antigen Negative (Negative); ~HepC Num1 0.34 S/CO (0.00-0.79); ~Hepatitis B Surface Antibody NONREACTIVE (Nonreactive); ~Hepatitis C Antibody Nonreactive (Nonreactive)
[2021-11-29 11:01] LABS: Appearance Urine Clear; Color Urine Yellow; Glucose Urine UA Negative (Negative); Leukocyte Esterase Urine Moderate (2+) (Negative); Nitrite Urine Negative (Negative); Urine Blood Trace (Negative); Urine Ketones Trace mg/dL (Negative); Urine Protein 30 (1+) mg/dL (Neg-Trace)
[2021-11-29 11:04] LABS: Vitamin D 25-OH Total 32.4 ng/mL (>30)
[2021-11-29 11:08] LABS: Bacteria Urine 2+ (None Seen); Hyaline Casts Urine 0-2 /LPF (0-2); WBC Urine 21-50 /HPF (0-5)
[2021-11-29 11:09] LABS: UACC Culture Trigger YES
[2021-11-29 11:54] LABS: Microalbum/Creatinine Ratio Ur 18.8 ug/mg cr; Protein/Creatinine Ratio, Ur 0.15 (<0.2); Total Protein Urine Random 26 mg/dL (<12)
[2021-12-01 11:22] LABS: Complement C3 95 mg/dL (83-193)
[2021-12-01 13:33] LABS: Calcium (PTHI) 9.8 mg/dL (8.6-10.4); PTHI 125 pg/mL (16-77)
[2021-12-03 13:21] LABS: Anti Nuclear Antibody Screen POSITIVE (NEGATIVE); Anti Nuclear Antibody Titer 1:40 titer
[2021-12-03 17:38] LABS: Prot Elec - Albumin 4.1 g/dL (3.8-4.8); Prot Elec - Alpha1 0.3 g/dL (0.2-0.3); Prot Elec - Alpha2 0.8 g/dL (0.5-0.9); Prot Elec - Beta 1 0.4 g/dL (0.4-0.6); Prot Elec - Beta 2 0.3 g/dL (0.2-0.5); Prot Elec - Gamma 0.8 g/dL (0.8-1.7); Prot Elec - Total Protein 6.6 g/dL (6.1-8.1)
[2021-12-10 15:31] LABS: Kappa, Serum 214 mg/dL (176-443); Kappa/Lambda Ratio, Serum 1.88 (1.29-2.55); Lambda, Serum 114 mg/dL (91-240)
== END 2021-11-29 09:20 | disposition home or self-care (01) ==
LOC: HO.LAB 09:19
PROVIDERS: PCP Physician Assistant; Visit Provider Internal Medicine Nephrology
DX: I12.9 Hypertensive chronic kidney disease with stage 1 through stage 4 chronic kidney disease, or unspecified chronic kidney disease (principal); N18.4 Chronic kidney disease, stage 4 (severe); N25.0 Renal osteodystrophy
CPT/HCPCS: 36415; 80051; 81001; 81003; 82040; 82043; 82306; 82310; 82565; 83735; 83883; 83970; 84100; 84156; 84165; 84520; 85025; 86038; 86039; 86160; 86704; 86706; 86803; 87340

== ENCOUNTER → 2022-01-11 13:38 | Outpatient (BNVA) | payer OTHER, SELFPAY | PROVIDERS: PCP Physician Assistant; Referring Provider Physician Assistant; Visit Provider Internal Medicine Cardiovascular Disease | DX: I50.9 Heart failure, unspecified (principal); I42.2 Other hypertrophic cardiomyopathy; I05.0 Rheumatic mitral stenosis; I48.0 Paroxysmal atrial fibrillation; Z95.810 Presence of automatic (implantable) cardiac defibrillator | CPT/HCPCS: 93005; 99212 ==

== ENCOUNTER 2022-01-20 10:54 | Outpatient (REF) | payer OTHER, SELFPAY ==
--- NOTE | 2022-01-20 11:26 | P.BOP_ITS ---
Brief Operative Note Date of Service: 01/20/22 Pre-op diagnosis: Multinodular Thyroid Procedure: EXAMINATION: US THYROID CLINICAL INFORMATION: Multinodular Thyroid COMPARISON: Prior TECHNIQUE: Linear transducer canela-scale and color Doppler examination with attention to the region of the thyroid. FINDINGS: US of the thyroid was repeated and no nodules were identified. What was reported as a 1.7 cm isthmus nodule is solely an area of normal thyroid tissue t hat is encircled by a blood vessel, giving the appearance of a thyroid nodule. The area had decreased in size to 1.2 cm. This area was previously biopsied when measuring 1.0 cm and was benign. She was noted to have abberrant flow in her L internal jugular vein. This was compressible. She is complaining of L arm pain and also has AFib on Coumadin with what she reports as a subtherapeutic INR at her last check. I sent her to the ED for emergent evaluation. I also called and spoke with Dr. Tamayo in the ED and discussed these findings. Surgeon: Tali Hernandez, DO Was an Mate Fishing Vessel used for this Procedure?: No Estimated blood loss (mL): 0
== END 2022-01-20 10:55 | disposition home or self-care (01) ==
LOC: HO.US 10:54
PROVIDERS: Visit Provider Internal Medicine
DX: E04.1 Nontoxic single thyroid nodule (principal)
CPT/HCPCS: 76536

== ENCOUNTER 2022-01-20 11:29 | Emergency (ER) | payer OTHER, SELFPAY ==
--- NOTE | ~2022-01-20 | US_ITS ---
EXAMINATION: US VENOUS WITH DOPPLER UPPER EXTREMITY, LEFT CLINICAL INFORMATION: Abnormal follow seen on outpatient ultrasound. Evaluate for clot of IJ vein. COMPARISON: None TECHNIQUE: Ultrasound of the upper extremity is performed using compression sonography and color and pulse Doppler flow with assessment of augmentation of flow. There is also imaging and Doppler assessment of the jugular and subclavian veins. Spectral analysis with color-flow imaging is performed. FINDINGS: Color Doppler images with spectral waveforms show presence of flow within the left internal jugular, subclavian, axial and brachial veins. The cephalic and basilic veins are compressible. Within the forearm, the radial and ulnar veins are normal. There appears to be relatively slow flow of blood through the left internal jugular vein with visible echogenicity of blood traveling through the vein, Rouleaux flow. However, there is no abnormal thickening along the venous wall or thrombus along the wall. US/US venous duplex UE LT IMPRESSION: Although Rouleaux flow is observed in the left internal jugular vein, no specific cause of this finding is identified, and there is no evidence of deep vein thrombosis in the left upper extremity.
--- NOTE | ~2022-01-20 | CT_ITS ---
EXAMINATION: CT CHEST WITHOUT CONTRAST CLINICAL INFORMATION: Question left internal jugular clot or mass. Evaluate for compressive lung mass. COMPARISON: 07/08/2021 TECHNIQUE: Multidetector volumetric CT imaging of the chest was done. Axial MIP volume rendering provided. Sagittal and coronal reformatted images were obtained. This CT examination was performed using dose optimization techniques as appropriate, variously including the following: *Automated exposure control *Adjustment of mA and/or kV according to patient size (this includes techniques or standardized protocols for targeted exams where dose is matched to indication/reason for exam; i.e. extremities or head) *Use of iterative reconstruction technique DLP: 230 mGy-cm FINDINGS: BROOMMAKING SUPERVISOR: Prominent calcifications over the left heart. Right chest wall pacer. LUNGS: The central airways are patent. There is no dense consolidation. Minimal basilar atelectasis. Multiple 0.3 cm groundglass nodules in the left upper lobe, for instance on series 5 image 141. These are similar to previous. Additional scattered tiny nodules are unchanged throughout the lungs. For instance in the right middle lobe measuring 0.3 cm on series 5 image 258. No pulmonary mass. MEDIASTINUM: Enlarged heart. No pericardial effusion. Prominent coarse calcifications along the mitral annulus. Dense coronary artery calcifications. There is no mediastinal lymphadenopathy. There is a right chest wall pacer with the lead extending to the right ventricle. There is no external mass seen in the region of the left internal jugular vein. Cannot evaluate for patency of the vein on this noncontrast study. CORONARY ARTERY CALCIFICATION: Present. PLEURA: There is no pleural effusion. No pleural mass or thickening. No pneumothorax. AXILLA: No lymphadenopathy. UPPER ABDOMEN: Simple cyst in the left lobe of the liver. No acute findings in the visualized upper abdomen. Dense calcifications of the aorta. OSSEOUS STRUCTURES: No acute or suspicious osseous abnormality. Mild degenerative change throughout the spine. CT/CT chest wo IV con IMPRESSION: 1. No suspicious findings in the chest. No mass. No lymphadenopathy. 2. Multiple tiny pulmonary nodules are unchanged from previous imaging, suggesting benign etiology. 3. No external mass seen in the region of the left internal jugular vein. Cannot evaluate for patency of the vein on this noncontrast study. Fleischner guidelines were followed.
[2022-01-20 11:55] VITALS: BP 120/75; PULSE 75; RESP 18; TEMP 37.1; O2SAT 98; BMI 25.4
--- NOTE | 2022-01-20 11:59 | ECG_ITS ---
Test Reason : abn ultrasound Blood Pressure : / mmHG Vent. Rate : 083 BPM Atrial Rate : 093 BPM P-R Int : 000 ms QRS Dur : 222 ms QT Int : 514 ms P-R-T Axes : 000 -48 131 degrees QTc Int : 603 ms Ventricular-paced rhythm Abnormal ECG When compared with ECG of 08-JUL-2021 01:16, Vent. rate has increased BY 13 BPM Referred By: Generic ED Physician Electronically Signed By:LENA TOWNSEND MD
[2022-01-20 12:23] LABS: MANUAL DIFF FLAG NO
[2022-01-20 12:24] LABS: Basophils Absolute Auto 0.1 X10*3/uL (0.0-0.2); Basophils Percent Auto 1.6 % (0-2); Eosinophils Absolute Auto 0.4 X10*3/uL (0.0-0.4); Hematocrit 43.6 % (37.0-47.0); Imm Gran Abs Auto 0.01 X10*3/uL (0.00-0.03); Imm Gran Pct Auto 0.2 % (0.0-0.4); Lymphocytes Absolute Auto 0.8 X10*3/uL (1.2-4.9); Lymphocytes Percent Auto 19.2 % (20-40); Mean Corpuscular HGB Conc 32.1 g/dl (31.0-35.0); Mean Corpuscular Hemoglobin 30.4 pg (27.0-33.0); Mean Corpuscular Volume 94.6 fL (80.0-98.0); Mean Platelet Volume 9.7 fL (9.4-12.3); Monocytes Absolute Auto 0.3 X10*3/uL (0.1-1.2); Monocytes Percent Auto 7.9 % (2-11); Neutrophils Absolute Auto 2.7 x10*3/uL (2.0-8.3); Neutrophils Percent Auto 62.1 % (45-73); Platelet Count 197 X10*3/uL (160-400); Red Blood Count 4.61 X10*6/uL (4.20-5.50); Red Cell Distribution Width 14.6 % (11.0-16.0); White Blood Count 4.3 X10*3/uL (4.8-10.8)
[2022-01-20 12:30] LABS: INTERNATIONAL NORM RATIO 2.3 (0.9-1.1); Prothrombin Time 26.9 SEC (10.0-13.1)
[2022-01-20 12:33] LABS: Partial Thromboplastin Time 45.9 SEC (26.0-36.4)
[2022-01-20 12:42] LABS: Anion Gap 17 (12-20); Blood Urea Nitrogen 31 mg/dL (9-16); COVID-19 Test Negative (Negative); Carbon Dioxide 25 mmol/L (22-29); Chloride 104 mmol/L (96-108); Estimated Glomerular Filt Rate 23; Glucose Random 95 mg/dL (60-115); IDNOW Serial# 9DB6401D; Potassium 4.5 mmol/L (3.3-5.1); Sodium 141 mmol/L (135-145)
--- NOTE | 2022-01-20 13:50 | ED_ITS ---
HPI - General Adult General Chief complaint: General Medical Stated complaint: Sub Therapeutic INR Time Seen by Provider: 01/20/22 13:33 Source: patient Mode of arrival: wheelchair Limitations: no limitations History of Present Illness HPI narrative: 36-year-old female with a history of COPD, AFib on Coumadin, hypothyroidism, thyroid nodule who presents from a thyroid biopsy with an abnormal flow noted over the left IJ Per Endocrine note She was noted to have abberrant flow in her L internal jugular vein.? This was compressible.? She is complaining of L arm pain and also has AFib on Coumadin with what she reports as a subtherapeutic INR at her last check.? I sent her to the ED for emergent evaluation. Related Data Home Medications Medication Instructions Recorded Confirmed metoprolol tartrate 25 mg tablet 25 mg PO BID 02/03/20 01/11/22 multivitamin 1 tab PO DAILY 02/03/20 01/11/22 bumetanide 1 mg tablet 2 mg PO DAILY 01/11/22 01/11/22 Previous Rx's Medication Instructions Recorded fluticasone propionate 50 1 spray intranasal DAILY PRN 05/28/21 mcg/actuation nasal allergy symptoms #16 grams spray,suspension loratadine 10 mg tablet 10 mg PO DAILY #20 tabs 05/28/21 nebulizers #1 07/12/21 hospital bed #1 ea 07/13/21 miscellaneous medical supply 1 ea miscellaneous DAILY 99 days 07/13/21 #1 akbar sadler (Ultra-Light Rollator misc) #1 ea 07/13/21 miscellaneous medical supply 1 ea miscellaneous DAILY #1 ea 08/05/21 ipratropium 0.5 mg-albuterol 3 mg 3 ml inhalation RQ6H WHILE AWAKE 08/24/21 (2.5 mg base)/3 mL nebulization PRN shortness of breath or soln wheezing 30 days #180 mL warfarin 2 mg tablet (Jantoven) 2 mg PO DAILY 90 days #90 tabs 09/06/21 budesonide-formoterol HFA 160 2 puff inhalation BID 30 days 09/09/21 mcg-4.5 mcg/actuation aerosol #10.2 grams inhaler (Symbicort) albuterol sulfate 90 mcg/actuation 2 puff inhalation Q4-6H PRN 09/21/21 aerosol inhaler Shortness Of Breath Or Wheezing 30 days #8.5 grams amiodarone 200 mg tablet 200 mg PO DAILY 30 days #30 tabs 11/04/21 atorvastatin 40 mg tablet 40 mg PO DAILY #90 tabs 11/13/21 cilostazol 100 mg tablet 100 mg PO Q12H 90 days #180 tabs 11/16/21 calcium carbonate 500 mg calcium 500 mg PO BID 90 days #180 tabs 12/27/21 (1,250 mg) tablet potassium chloride 20 mEq 20 meq PO BID #60 tabs 12/28/21 tablet,extended release(part/cryst) ferrous sulfate 325 mg (65 mg 325 mg PO DAILY #30 tabs 01/10/22 iron) tablet levothyroxine 50 mcg tablet 50 mcg PO DAILY #30 tabs 01/10/22 ropinirole 5 mg tablet 5 mg PO BEDTIME #30 tabs 01/11/22 spironolactone 25 mg tablet 12.5 mg PO DAILY 30 days #15 tabs 01/11/22 Allergies Allergy/AdvReac Type Severity Reaction Status Date / Time doxycycline AdvReac Vomiting Verified 09/23/21 12:26 Review of Systems Review of Systems: Yes all other systems are reviewed and are negative Constitutional: Constitutional: Reports no additional constitutional complai nts, Denies body ache(s), Denies chills, Denies fever(s), Denies headache(s) and Denies weakness Eyes: Eyes: Reports no additional eye complaints and Denies change in vision ENT: Reports system reviewed and no additional complaints, except as documented, Denies dizziness, Denies headache(s), Denies nasal congestion, Denies nasal discharge and Reports neck pain Cardiovascular: Cardiovascular: Reports no additional cardiovascular complaints, Denies chest pain, Denies leg edema and Denies dyspnea Respiratory: Respiratory: Reports no additional respiratory complaints, Denies cough and Denies dyspnea Gastrointestinal: Gastrointestinal: Reports no additional gastrointestinal complaints, Denies abdominal pain, Denies diarrhea, Denies nausea and Denies vomiting Genitourinary: Genitourinary: Reports no additional female genitourinary complaints and Denies urinary incontinence Musculoskeletal: Musculoskeletal: Reports no additional musculoskeletal complaints, Denies back pain, Denies arthralgias, Denies joint swelling, Reports neck pain, Denies numbness and Denies tingling Integumentary/Breasts: Skin/Breast: Reports system reviewed and no additional complaints, except as docu and Denies rash Neurologic: Reports system reviewed and no additional complaints, except as documented, Denies dizziness, Denies headache(s), Denies numbness, Denies tingling and Denies weakness PMFSH Past Medical History Attestation statement: The following information was validated with the patient. Source: old records reviewed Medical History Afib Anemia Cardiac defibrillator in place COPD (chronic obstructive pulmonary disease) Fall History of breast cancer Hypertrophic cardiomyopathy Hypothyroidism Mitral stenosis Mucinous carcinoma of right breast Multinodular thyroid Non-ST elevation NE (NSTEMI) On anticoagulant therapy On beta bert at home Osteoporosis Pleural effusion on right Presence of combination internal cardiac defibrillator (ICD) and pacemaker Vitamin D deficiency Surgical History AICD (automatic cardioverter/defibrillator) present History of automatic internal cardiac defibrillator (AICD) History of bilateral tubal ligation History of lumpectomy of right breast History of tubal ligation Family History Family History Father Thrombus Mother Heart disease Social History Social History Household Members: None Housing: Apartment Do you presently have visiting nurse or other home services: No Alcohol intake: never Patient Tobacco Use Status: Former Tobacco user Quit Date: 2007 Years Smoked: 30 +/- Smoked in Last 30 Days: No e-Cigarette/Vaping Use: Never Used Second Hand Smoke Exposure: Yes Advance Directives: Yes Advance Directives on File: Yes Advance Directives Date on File: 07/23/20 service: No Current occupational status: retired Cognitive needs: No Hearing needs: No Vision needs: No Physical Exam ED Vital Signs: Vital Signs - 24 hr 01/20/22 11:55 01/20/22 14:17 Temperature 98.8 F Pulse Rate 75 70 Respiratory Rate 18 12 Blood Pressure 120/75 108/70 Pulse Oximetry 98 99 Oxygen Delivery Method Room Air Room Air BMI result Body Mass Index 25.4 Const General: cooperative, healthy appearing, comfortable and no acute distress Orientation/consciousness: patient oriented x3 Limitations: no limitations HENMT Head: Yes normal to inspection Ears: hearing grossly normal bilaterally and TM's normal bilaterally General nose exam: Normal external nose present Face and sinus: Yes normal facial exam Throat: Yes posterior oropharynx normal Eyes General: appearance normal, both eyes and all related structures Pupils: Equal, round and reactive pupils present Neck Other: No obvious swelling/thrill/bruit Neck: Yes normal visual inspection, Yes full ROM, Yes no lymphadenopathy and Yes no meningeal signs Chest Chest/axillae images: 1. pacemaker present 2. healed surgical incision Resp Effort & Inspection: normal respiratory effort Auscultation: clear to auscultation bilaterally Cardio Rate: regular rate Rhythm: regular rhythm Peripheral pulses: Peripheral pulses 2+ throughout GI Inspection: Yes normal to inspection Palpation (GI): Soft to palpation and nontender General: Yes no CVA tenderness Back/Spine/Pelvis Back: no CVA tenderness Thoracic/Lumbar Spine: thoracic and lumbar spine normal to inspection Skin General skin exam: no rashes or lesions noted Neuro General: patient oriented x3, moves all extremities and no meningeal signs Cranial nerves: Yes CN's II-XII intact bilaterally, Yes Equal, round and reactive pupils present, Yes Bilaterally intact EOM present, Yes Nystagmus not present, Yes Normal facial strength present and Yes Midline tongue present Cognition (Neuro): normal cognition Gait exam (Neuro): Normal gait present Motor exam (neuro): 5/5 motor strength present throughout Sensory Exam: Normal double simultaneous stimulation for sensation Extrem General: Yes normal to inspection, Yes no pedal edema and Yes no calf tenderness Course Course Course Narrative: Reviewed labs which show renal function at baseline. All other labs are unremarkable. Patient's INR is 2.3. She is on Coumadin. This is slightly subtherapeutic for her. She will likely need to increase her dose of Coumadin for the next few days. She tells me she will discuss this with her nurse. The patient's CT scan of her chest shows no acute finding. The venous ultrasound of her left IJ shows no DVT although rouleaux flow. Plan for discharge home. Reviewed worrisome signs symptoms of when to return to the emergency room. Comfortable discharge home Medical Decision Making MDM Narrative Medical decision making narrative: 76 yo female with history of afib on Coumadin here from a thyroid biopsy with ?abberant flow in her L IJ. Patient reports some mild discomfort on the left neck but there is no obvious swelling, bruising, bruit or thrill. There is full range of motion the neck. Patient denies any recent trauma or injury. She does have a pacemaker which was placed 3 years ago when the pacemaker/AICD on the left side was infected and removed. . No recent surgical procedure. She has shortness of breath which she tells me is chronic. It does not worsened from baseline. No chest pain, fevers, cough, leg swelling or leg pain. She does report compliance with Coumadin although her INR is low today however ?held for several days for biopsy. D/w with Dr Albert. Patient has CKD. Will obtain Venous studies of neck. CT chest w/o contrast to r/o compressive mass, labs, INR. Medical Records Medical records reviewed: Yes I reviewed the patient's medical records. Lab Data Lab results reviewed: Yes I reviewed the patient's lab results. Result diagrams: 01/20/22 12:12 01/20/22 12:12 Labs: Lab Results 01/20/22 01/20/22 01/20/22 Range/Units 12:12 12:12 12:12 WBC 4.3 L (4.8-10.8) X10*3/uL RBC 4.61 (4.20-5.50) X10*6/uL Hgb 14.0 (12.0-16.0) g/dl Hct 43.6 (37.0-47.0) % MCV 94.6 (80.0-98.0) fL MCH 30.4 (27.0-33.0) pg MCHC 32.1 (31.0-35.0) g/dl RDW 14.6 (11.0-16.0) % Plt Count 197 (160-400) X10*3/uL MPV 9.7 (9.4-12.3) fL Immature Gran % (Auto) 0.2 (0.0-0.4) % Neut % (Auto) 62.1 (45-73) % Lymph % (Auto) 19.2 L (20-40) % [place] % (Auto) 7.9 (2-11) % Eos % (Auto) 9.0 H (0-4) % Baso % (Auto) 1.6 (0-2) % Lymph # (Auto) 0.8 L (1.2-4.9) X10*3/uL [place] # (Auto) 0.3 (0.1-1.2) X10*3/uL Eos # (Auto) 0.4 (0.0-0.4) X10*3/uL Baso # (Auto) 0.1 (0.0-0.2) X10*3/uL Abs Immat Gran (auto) 0.01 (0.00-0.03) X10*3/uL Absolute Neuts (auto) 2.7 (2.0-8.3) x10*3/uL Absolute Nucleated RBC 0.000 (0.0-0.012) X10*3/uL Nucleated RBC % (auto) 0.0 (0.0-0.2) /100WBC PT 26.9 H (10.0-13.1) SEC INR 2.3 H (0.9-1.1) APTT 45.9 H (26.0-36.4) SEC Sodium 141 (135-145) mmol/L Potassium 4.5 (3.3-5.1) mmol/L Chloride 104 (96-108) mmol/L Carbon Dioxide 25 (22-29) mmol/L Anion Gap 17 (12-20) BUN 31 H (9-16) mg/dL Creatinine 2.10 H (0.5-1.4) mg/dL Estim Creat Clear Calc 18.0 Estimated GFR 23 Random Glucose 95 (60-115) mg/dL Calcium 9.0 (8.4-10.2) mg/dL COVID-19 ([facility]) (Negative) COVID-19 Clin Com 01/20/22 Range/Units 12:12 WBC (4.8-10.8) X10*3/uL RBC (4.20-5.50) X10*6/uL Hgb (12.0-16.0) g/dl Hct (37.0-47.0) % MCV (80.0-98.0) fL MCH (27.0-33.0) pg MCHC (31.0-35.0) g/dl RDW (11.0-16.0) % Plt Count (160-400) X10*3/uL MPV (9.4-12.3) fL Immature Gran % (Auto) (0.0-0.4) % Neut % (Auto) (45-73) % Lymph % (Auto) (20-40) % [place] % (Auto) (2-11) % Eos % (Auto) (0-4) % Baso % (Auto) (0-2) % Lymph # (Auto) (1.2-4.9) X10*3/uL [place] # (Auto) (0.1-1.2) X10*3/uL Eos # (Auto) (0.0-0.4) X10*3/uL Baso # (Auto) (0.0-0.2) X10*3/uL Abs Immat Gran (auto) (0.00-0.03) X10*3/uL Absolute Neuts (auto) (2.0-8.3) x10*3/uL Absolute Nucleated RBC (0.0-0.012) X10*3/uL Nucleated RBC % (auto) (0.0-0.2) /100WBC PT (10.0-13.1) SEC INR (0.9-1.1) APTT (26.0-36.4) SEC Sodium (135-145) mmol/L Potassium (3.3-5.1) mmol/L Chloride (96-108) mmol/L Carbon Dioxide (22-29) mmol/L Anion Gap (12-20) BUN (9-16) mg/dL Creatinine (0.5-1.4) mg/dL Estim Creat Clear Calc Estimated GFR Random Glucose (60-115) mg/dL Calcium (8.4-10.2) mg/dL COVID-19 ([facility]) Negative (Negative) COVID-19 Clin Com See Note Imaging Data Venous US: Attestation: I personally reviewed and interpreted this imaging study as follows: Radiologist's impression: [address] [address] Ultrasound Report Signed Patient: Nishi Hernandez MR#: [id number] : 1945 Acct:[id number] Age/Sex: 76 / F ADM Date: 01/20/22 Loc: HO.ED Attending Dr: Ordering Physician: Melvi Graff NP Date of Service: 01/20/22 Procedure(s): US venous duplex UE LT Accession Number(s): [id number] cc: Melvi Graff NP~ EXAMINATION:? US VENOUS WITH DOPPLER UPPER EXTREMITY, LEFT CLINICAL INFORMATION:? Abnormal follow seen on outpatient ultrasound. Evaluate for clot of IJ vein. COMPARISON:? None TECHNIQUE: Ultrasound of the upper extremity is performed using compression sonography and color and pulse Doppler flow with assessment of augmentation of flow. There is also imaging and Doppler assessment of the jugular and subclavian veins. Spectral analysis with color-flow imaging is performed. FINDINGS: Color Doppler images with spectral waveforms show presence of flow within the left internal jugular, subclavian, axial and brachial veins. The cephalic and basilic veins are compressible. Within the forearm, the radial and ulnar veins are normal. There appears to be relatively slow flow of blood through the left internal jugular vein with visible echogenicity of blood traveling through the vein, Rouleaux flow. However, there is no abnormal thickening along the venous wall or thrombus along the wall. US/US venous duplex UE LT IMPRESSION: Although Rouleaux flow is observed in the left internal jugular vein, no specific cause of this finding is identified, and there is no evidence of deep vein thrombosis in the left upper extremity. ? CT scan - chest: Attestation: I personally reviewed and interpreted this imaging study as follows: Radiologist's impression: FINDINGS: FINAL INSPECTOR AND TESTER: Prominent calcifications over the left heart. Right chest wall pacer. LUNGS: The central airways are patent. There is no dense consolidation. Minimal basilar atelectasis. Multiple 0.3 cm groundglass nodules in the left upper lobe, for instance on series 5 image 141. These are similar to previous. Additional scattered tiny nodules are unchanged throughout the lungs. For instance in the right middle lobe measuring 0.3 cm on series 5 image 258. No pulmonary mass. MEDIASTINUM: Enlarged heart. No pericardial effusion. Prominent coarse calcifications along the mitral annulus. Dense coronary artery calcifications. There is no mediastinal lymphadenopathy. There is a right chest wall pacer with the lead extending to the right ventricle. There is no external mass seen in the region of the left internal jugular vein. Cannot evaluate for patency of the vein on this noncontrast study.? CORONARY ARTERY CALCIFICATION: Present. PLEURA: There is no pleural effusion. No pleural mass or thickening. No pneumothorax. AXILLA: No lymphadenopathy.? UPPER ABDOMEN: Simple cyst in the left lobe of the liver. No acute findings in the visualized upper abdomen. Dense calcifications of the aorta.? OSSEOUS STRUCTURES: No acute or suspicious osseous abnormality. Mild degenerative change throughout the spine.? CT/CT chest wo IV con IMPRESSION: 1.? No suspicious findings in the chest. No mass. No lymphadenopathy. 2.? Multiple tiny pulmonary nodules are unchanged from previous imaging, suggesting benign etiology. 3.? No external mass seen in the region of the left internal jugular vein. Cannot evaluate for patency of the vein on this noncontrast study. ? Discharge Plan Discharge Clinical Impression: Neck and shoulder pain Patient Disposition: Home, Self-Care Instructions: Shoulder Pain (ED), Acute Neck Pain (ED) Additional Instructions: Your ultrasound showed no signs of blood clot Your INR is 2.3 Follow-up with your primary care doctor Reschedule your appointment for your biopsy Prescriptions: No Action miscellaneous medical supply [facility] 1 ea miscellaneous DAILY 99 Days Qty: 1 0RF (DME) hospital bed Kit See Rx Instructions .Route Qty: 1 0RF Rx Instructions: As directed ([facility] [place]) Ultra-Light Rollator [facility] See Rx Instructions .Route Qty: 1 0RF Rx Instructions: As directed miscellaneous medical supply [facility] 1 ea miscellaneous DAILY Qty: 1 0RF Rx Instructions: Air Mattress for Hospital Bed ipratropium-albuterol 0.5 mg-3 mg(2.5 mg base)/3 mL solution for nebulization 3 ml inhalation RQ6H WHILE AWAKE PRN (Reason: shortness of breath or wheezing) 30 Days Qty: 180 6RF warfarin [Jantoven] 2 mg tablet 2 mg PO DAILY 90 Days Qty: 90 4RF Hold Instructions: Resume on 07/14/21. budesonide-formoterol [Symbicort] 160-4.5 mcg/actuation HFA aerosol inhaler 2 puff inhalation BID 30 Days Qty: 10.2 2RF albuterol sulfate 90 mcg/actuation HFA aerosol inhaler 2 puff inhalation Q4-6H PRN (Reason: Shortness Of Breath Or Wheezing) 30 Days Qty: 8.5 3RF amiodarone 200 mg tablet 200 mg PO DAILY 30 Days Qty: 30 1RF atorvastatin 40 mg tablet 40 mg PO DAILY Qty: 90 1RF cilostazol 100 mg tablet 100 mg PO Q12H 90 Days Qty: 180 0RF calcium carbonate 500 mg calcium (1,250 mg) tablet 500 mg PO BID 90 Days Qty: 180 1RF potassium chloride 20 mEq tablet,ER particles/crystals 20 meq PO BID Qty: 60 5RF levothyroxine 50 mcg tablet 50 mcg PO DAILY Qty: 30 3RF ferrous sulfate 325 mg (65 mg iron) tablet 325 mg PO DAILY Qty: 30 3RF ropinirole 5 mg tablet 5 mg PO BEDTIME Qty: 30 6RF spironolactone 25 mg tablet 12.5 mg PO DAILY 30 Days Qty: 15 4RF Protocol: Hold for SBP< HOLD for SBP < : 90 (DME) nebulizers Misc See Rx Instructions .Route Qty: 1 0RF Rx Instructions: As directed fluticasone propionate 50 mcg/actuation spray,suspension 1 spray intranasal DAILY PRN (Reason: allergy symptoms) Qty: 16 0RF loratadine 10 mg tablet 10 mg PO DAILY Qty: 20 0RF multivitamin Tablet 1 tab PO DAILY metoprolol tartrate 25 mg tablet 25 mg PO BID bumetanide 1 mg tablet 2 mg PO DAILY Protocol: Hold for SBP< HOLD for SBP < : 90 Referrals: Farhan Molina PA-C [Primary Care Provider] - 5 days
[2022-01-20 14:17] VITALS: BP 108/70; PULSE 70; RESP 12; O2SAT 99
== END 2022-01-20 16:41 | disposition home or self-care (01) ==
PROVIDERS: Emergency Provider Emergency Medicine; PCP Physician Assistant
DX: M54.2 Cervicalgia (principal); M25.512 Pain in left shoulder; M79.602 Pain in left arm; R79.1 Abnormal coagulation profile; R06.02 Shortness of breath; Z20.822 Contact with and (suspected) exposure to COVID-19; I48.91 Unspecified atrial fibrillation; Z79.01 Long term (current) use of anticoagulants; Z95.0 Presence of cardiac pacemaker
CPT/HCPCS: 36415; 71250; 80048; 85025; 85610; 85730; 87635; 93005; 93971; 99284

== ENCOUNTER → 2022-02-16 12:18 | Outpatient (BNVA) | payer OTHER, MEDICAID, SELFPAY | PROVIDERS: PCP Physician Assistant; Visit Provider Internal Medicine | DX: E04.2 Nontoxic multinodular goiter (principal) | CPT/HCPCS: Q3014 ==

== ENCOUNTER → 2022-05-02 12:49 | Outpatient (BNVA) | payer OTHER, MEDICAID, SELFPAY | PROVIDERS: PCP Physician Assistant; Referring Provider Physician Assistant; Visit Provider Internal Medicine Cardiovascular Disease | DX: I50.9 Heart failure, unspecified (principal); I05.0 Rheumatic mitral stenosis; I42.2 Other hypertrophic cardiomyopathy; I48.0 Paroxysmal atrial fibrillation; R53.83 Other fatigue; Z45.018 Encounter for adjustment and management of other part of cardiac pacemaker; Z79.01 Long term (current) use of anticoagulants | CPT/HCPCS: 93005; 99212 ==

== ENCOUNTER 2022-05-12 02:18 | Inpatient (IN) | payer OTHER, SELFPAY ==
[2022-05-12] VITALS (9 sets, daily range): BP systolic 90–115; BP diastolic 41–57; PULSE 57–84; RESP 15–22; TEMP 36.6–36.7; O2SAT 93–97; BMI 24.2
--- NOTE | ~2022-05-12 | XR_ITS ---
EXAMINATION: XR CHEST CLINICAL INFORMATION: Cough COMPARISON: 01/20/2022 TECHNIQUE: Frontal view of the chest was obtained. FINDINGS: Right-sided AICD lead tip overlies the right ventricle. Lung volumes are symmetric. Central vasculature appears mildly prominent, without overt edema. No definite pulmonary consolidation. No evidence of pneumothorax or significant pleural effusion. Cardiac silhouette is enlarged. Redemonstrated prominent mitral annular calcification. Calcification is present at the aortic arch. No acute osseous findings are seen. XR/XR chest 1V IMPRESSION: Mildly prominent central vasculature without overt edema. Enlarged cardiac silhouette.
--- NOTE | 2022-05-12 05:11 | MHC.EDTECH ---
see paper chart
--- NOTE | 2022-05-12 05:51 | ED.SOB ---
HPI - SOB/Dyspnea General Chief Complaint: Dyspnea Time Seen by Provider: 05/12/22 05:50 Source: patient Mode of arrival: EMS Limitations: no limitations History of Present Illness HPI Narrative: Patient is 76 years old with history of hypertrophic cardiomyopathy, AFib on Coumadin and amiodarone, s/p AICD , history of breast cancer COPD ex-smoker with history of congestive heart failure, mitral stenosis comes in for increased cough shortness of breath for last 5 days patient does have chronic covered this time cough is with mucopurulent phlegm also has multiple episodes of diarrhea for last 3 days no fever no chills no nausea no vomiting no palpitation patient feels chest heavy as in the past. patient checked her INR was 2.6 last week Related Data Home Medications Medication Instructions Recorded Confirmed multivitamin 1 tab PO DAILY 02/03/20 05/02/22 Previous Rx's Medication Instructions Recorded fluticasone propionate 50 1 spray intranasal DAILY PRN 05/28/21 mcg/actuation nasal allergy symptoms #16 grams spray,suspension loratadine 10 mg tablet 10 mg PO DAILY #20 tabs 05/28/21 nebulizers #1 ea 07/12/21 hospital bed #1 ea 07/13/21 miscellaneous medical supply 1 ea miscellaneous DAILY 99 days 07/13/21 #1 akbar sadler (Ultra-Light Rollator mis) #1 ea 07/13/21 miscellaneous medical supply 1 ea miscellaneous DAILY #1 ea 08/05/21 ipratropium 0.5 mg-albuterol 3 mg 3 ml inhalation RQ6H WHILE AWAKE 08/24/21 (2.5 mg base)/3 mL nebulization PRN shortness of breath or soln wheezing 30 days #180 mL warfarin 2 mg tablet (Jantoven) 2 mg PO DAILY 90 days #90 tabs 09/06/21 budesonide-formoterol HFA 160 2 puff inhalation BID 30 days 09/09/21 mcg-4.5 mcg/actuation aerosol #10.2 grams inhaler (Symbicort) calcium carbonate 500 mg calcium 500 mg PO BID 90 days #180 tabs 12/27/21 (1,250 mg) tablet potassium chloride 20 mEq 20 meq PO BID #60 tabs 12/28/21 tablet,extended release(part/cryst) spironolactone 25 mg tablet 12.5 mg PO DAILY 30 days #15 tabs 01/11/22 cilostazol 100 mg tablet 100 mg PO Q12H 90 days #180 tabs 02/07/22 ferrous sulfate 325 mg (65 mg 325 mg PO DAILY #30 tabs 02/07/22 iron) tablet ropinirole 5 mg tablet 5 mg PO BEDTIME #30 tabs 02/07/22 amiodarone 200 mg tablet 200 mg PO DAILY 30 days #30 tabs 02/16/22 bumetanide 1 mg tablet 2 mg PO DAILY #60 tabs 02/16/22 albuterol sulfate 90 mcg/actuation 2 puff inhalation Q4-6H PRN 04/08/22 aerosol inhaler Shortness Of Breath Or Wheezing 30 days #8.5 grams metoprolol tartrate 25 mg tablet 25 mg PO Q12H #180 tabs 04/20/22 atorvastatin 40 mg tablet 40 mg PO DAILY #90 tabs 05/10/22 levothyroxine 50 mcg tablet 50 mcg PO DAILY #30 tabs 05/10/22 Allergies Allergy/AdvReac Type Severity Reaction Status Date / Time doxycycline AdvReac Vomiting Verified 02/16/22 12:49 Review of Systems Review of Systems: Yes all other systems are reviewed and are negative COUNTS INCLUDE 234 BEDS AT THE [facility] Past Medical History Medical History Afib Anemia Cardiac defibrillator in place COPD (chronic obstructive pulmonary disease) Fall History of breast cancer Hypertrophic cardiomyopathy Hypothyroidism Mitral stenosis Mucinous carcinoma of right breast Multinodular thyroid Non-ST elevation [place] (NSTEMI) On anticoagulant therapy On beta bert at home Osteoporosis Pleural effusion on right Presence of combination internal cardiac defibrillator (ICD) and pacemaker Vitamin D deficiency Surgical History AICD (automatic cardioverter/defibrillator) present History of automatic internal cardiac defibrillator (AICD) History of bilateral tubal ligation History of lumpectomy of right breast History of tubal ligation Family History Family History Father Thrombus Mother Heart disease Social History Social History Household Members: None Housing: Apartment Do you presently have visiting nurse or other home services: No Alcohol intake: never Patient Tobacco Use Status: Former Tobacco user Quit Date: 2007 Years Smoked: 30 +/- e-Cigarette/Vaping Use: Never Used Second Hand Smoke Exposure: Yes Advance Directives: Yes Advance Directives on File: Yes Advance Directives Date on File: 07/23/20 service: No Current occupational status: retired Cognitive needs: No Hearing needs: No Vision needs: No Physical Exam Vital Signs: Vital Signs: BMI result Body Mass Index 24.2 Appearance: Alert. Oriented X3. No acute distress. Eyes: PERRLA, No Nystagmus ENT: Pharynx normal. Oral Mucosa moist Neck: Normal inspection. Neck supple. CVS: Normal heart rate and rhythm. Pulses normal. Respiratory: Moderate respiratory distress. Equal air entry bilateral, bilateral wheezing prolonged expiration with diffuse rales Abdomen: Soft and nontender. Bowel sounds are present, no mass palpable, no CVA tenderness Skin: Skin warm and dry. Normal skin color. Normal skin turgor. Extremities: No lower extremity edema. No calf tenderness Neuro: Oriented X 3. No motor deficit. No sensory deficit.No cerebellar signs , cranial nerves II-XII intact Medications Administered Discontinued Medications Generic Name Dose Route Start Last Admin Trade Name Freq PRN Reason Stop Dose Admin Furosemide 20 mg 05/12/22 06:15 05/12/22 06:36 Furosemide 20 Mg/2 Ml Vial IVPUSH 05/12/22 06:16 20 mg ONCE ONE Administration Protocol Medical Decision Making Medical Decision Making [facility] Narrative: Patient with severe COPD with chronic congestive heart failure comes for increased shortness of breath clinically chronic bronchitis with poor lung reserve will admit patient for nebulizing treatment and IV diuresis no signs of infection at this time case discussed with hospitalist patient does have elevated troponin and BNP but is much better than before will do a repeat troponin no ischemic change in the EKG Consult Healthcare Provider Management of the patient was discussed with: Hospitalist Lab Data [facility] Lab Attestation statement: I reviewed the patient's lab results. 05/12/22 04:02 Labs: Lab Results 05/12/22 05/12/22 05/12/22 Range/Units 04:02 04:02 04:02 WBC (4.8-10.8) X10*3/uL RBC (4.20-5.50) X10*6/uL Hgb (12.0-16.0) g/dl Hct (37.0-47.0) % MCV (80.0-98.0) fL MCH (27.0-33.0) pg MCHC (31.0-35.0) g/dl RDW (11.0-16.0) % Plt Count (160-400) X10*3/uL MPV (9.4-12.3) fL Immature Gran % (Auto) (0.0-0.4) % Neut % (Auto) (45-73) % Lymph % (Auto) (20-40) % [place] % (Auto) (2-11) % Eos % (Auto) (0-4) % Baso % (Auto) (0-2) % Lymph # (Auto) (1.2-4.9) X10*3/uL [place] # (Auto) (0.1-1.2) X10*3/uL Eos # (Auto) (0.0-0.4) X10*3/uL Baso # (Auto) (0.0-0.2) X10*3/uL Abs Immat Gran (auto) (0.00-0.03) X10*3/uL Absolute Neuts (auto) (2.0-8.3) x10*3/uL Absolute Nucleated RBC (0.0-0.012) X10*3/uL Nucleated RBC % (auto) (0.0-0.2) /100WBC Sodium 138 (135-145) mmol/L Potassium 3.8 (3.3-5.1) mmol/L Chloride 103 (96-108) mmol/L Carbon Dioxide 21 L (22-29) mmol/L Anion Gap 18 (12-20) BUN 32 H (9-16) mg/dL Creatinine 2.53 H (0.5-1.4) mg/dL Estim Creat Clear Calc TNP Estimated GFR 19 Random Glucose 125 H (60-115) mg/dL Lactic Acid 1.4 (0.5-2.0) mmol/L Calcium 8.9 (8.4-10.2) mg/dL Total Bilirubin 1.3 H (0.0-1.0) mg/dL AST 90 H (5-31) U/L ALT 106 H (0-31) U/L Alkaline Phosphatase 90 (39-117) U/L Total Creatine Kinase 208 H (26-140) U/L Troponin I High Sens 143.2 H* (<3.5-17.0) ng/L B-Natriuretic Peptide (<100) pg/mL Total Protein 6.5 (6.5-8.0) g/dL Albumin 4.1 (3.5-5.0) g/dL 05/12/22 05/12/22 Range/Units 04:02 04:02 WBC 6.5 (4.8-10.8) X10*3/uL RBC 4.37 (4.20-5.50) X10*6/uL Hgb 13.5 (12.0-16.0) g/dl Hct 41.5 (37.0-47.0) % MCV 95.0 (80.0-98.0) fL MCH 30.9 (27.0-33.0) pg MCHC 32.5 (31.0-35.0) g/dl RDW 13.2 (11.0-16.0) % Plt Count 174 (160-400) X10*3/uL MPV 9.9 (9.4-12.3) fL Immature Gran % (Auto) 0.3 (0.0-0.4) % Neut % (Auto) 68.0 (45-73) % Lymph % (Auto) 18.8 L (20-40) % Cannon % (Auto) 11.4 H (2-11) % Eos % (Auto) 1.2 (0-4) % Baso % (Auto) 0.3 (0-2) % Lymph # (Auto) 1.2 (1.2-4.9) X10*3/uL Cannon # (Auto) 0.7 (0.1-1.2) X10*3/uL Eos # (Auto) 0.1 (0.0-0.4) X10*3/uL Baso # (Auto) 0.0 (0.0-0.2) X10*3/uL Abs Immat Gran (auto) 0.02 (0.00-0.03) X10*3/uL Absolute Neuts (auto) 4.4 (2.0-8.3) x10*3/uL Absolute Nucleated RBC 0.000 (0.0-0.012) X10*3/uL Nucleated RBC % (auto) 0.0 (0.0-0.2) /100WBC Sodium (135-145) mmol/L Potassium (3.3-5.1) mmol/L Chloride (96-108) mmol/L Carbon Dioxide (22-29) mmol/L Anion Gap (12-20) BUN (9-16) mg/dL Creatinine (0.5-1.4) mg/dL Estim Creat Clear Calc Estimated GFR Random Glucose (60-115) mg/dL Lactic Acid (0.5-2.0) mmol/L Calcium (8.4-10.2) mg/dL Total Bilirubin (0.0-1.0) mg/dL AST (5-31) U/L ALT (0-31) U/L Alkaline Phosphatase (39-117) U/L Total Creatine Kinase (26-140) U/L Troponin I High Sens (<3.5-17.0) ng/L B-Natriuretic Peptide 904 H (<100) pg/mL Total Protein (6.5-8.0) g/dL Albumin (3.5-5.0) g/dL Independent Interpretation I performed an independent interpretation of an: EKG Interpretation: Ventricularly paced rhythm with heart rate 76 beats per minute Discharge Plan Discharge Clinical Impression: Acute exacerbation of chronic obstructive airways disease, Congestive heart failure, Afib Patient Disposition: Admitted As Inpatient
[2022-05-12 06:17] LABS: Anion Gap 18 (12-20); Blood Urea Nitrogen 32 mg/dL (9-16); Calcium 8.9 mg/dL (8.4-10.2); Carbon Dioxide 21 mmol/L (22-29); Chloride 103 mmol/L (96-108); Estimated Glomerular Filt Rate 19; Glucose Random 125 mg/dL (60-115); Potassium 3.8 mmol/L (3.3-5.1); Sodium 138 mmol/L (135-145)
[2022-05-12 06:19] LABS: Alanine Aminotransferase 106 U/L (0-31); Albumin Level 4.1 g/dL (3.5-5.0); Alkaline Phosphatase 90 U/L (39-117); Aspartate Amino Transferase 90 U/L (5-31); Bilirubin Total 1.3 mg/dL (0.0-1.0); Total Protein 6.5 g/dL (6.5-8.0)
[2022-05-12 06:22] LABS: B Type Natriuretic Peptide 904 pg/mL (<100); Lactic Acid 1.4 mmol/L (0.5-2.0); Troponin-I High Sensitivity 143.2 ng/L (<3.5-17.0)
[2022-05-12 06:23] LABS: Basophils Percent Auto 0.3 % (0-2); Eosinophils Absolute Auto 0.1 X10*3/uL (0.0-0.4); Eosinophils Percent Auto 1.2 % (0-4); Hematocrit 41.5 % (37.0-47.0); Hemoglobin 13.5 g/dl (12.0-16.0); Imm Gran Abs Auto 0.02 X10*3/uL (0.00-0.03); Imm Gran Pct Auto 0.3 % (0.0-0.4); Lymphocytes Absolute Auto 1.2 X10*3/uL (1.2-4.9); Lymphocytes Percent Auto 18.8 % (20-40); MANUAL DIFF FLAG NO; Mean Corpuscular HGB Conc 32.5 g/dl (31.0-35.0); Mean Corpuscular Hemoglobin 30.9 pg (27.0-33.0); Mean Platelet Volume 9.9 fL (9.4-12.3); Monocytes Absolute Auto 0.7 X10*3/uL (0.1-1.2); Monocytes Percent Auto 11.4 % (2-11); Neutrophils Absolute Auto 4.4 x10*3/uL (2.0-8.3); Platelet Count 174 X10*3/uL (160-400); Red Blood Count 4.37 X10*6/uL (4.20-5.50); Red Cell Distribution Width 13.2 % (11.0-16.0); White Blood Count 6.5 X10*3/uL (4.8-10.8)
[2022-05-12] MEDS: Furosemide 20 MG/2 ML VIAL IVPUSH (06:36)
--- NOTE | 2022-05-12 07:17 | PC.NURSE ---
Patient AOx 4 neuros intact rhonchi throughout on auscultation. Reports being past smoker there are smokers in house. Paced on monitor to receive another breathing treatment. Tolerating IVF will CTM
[2022-05-12 07:35] LABS: COVID-19 Test Negative (Negative); IDNOW Serial# 16C4AD1C
[2022-05-12 07:38] LABS: Troponin-I High Sensitivity 126.5 ng/L (<3.5-17.0)
--- NOTE | 2022-05-12 07:44 | ECG_ITS ---
Test Reason : sob Blood Pressure : / mmHG Vent. Rate : 070 BPM Atrial Rate : 063 BPM P-R Int : 000 ms QRS Dur : 236 ms QT Int : 554 ms P-R-T Axes : 000 -40 140 degrees QTc Int : 598 ms Ventricular-paced rhythm Abnormal ECG When compared with ECG of 20-JAN-2022 12:00, No significant changes seen Referred By: Pepe Calhoun Electronically Signed By:SURJIT PICKENS
--- NOTE | 2022-05-12 07:56 | MHC.EDTECH ---
repeat EKG 07:49
[2022-05-12] MEDS: Albuterol Sulfate (0.083%) 2.5 MG/3 ML VIAL.NEB 5 MG INHALE (08:19)
--- NOTE | 2022-05-12 09:41 | PC.NURSE ---
LS some improvement continue to have rhonchi some clearing with cough per patient will CTM
--- NOTE | 2022-05-12 11:16 | P.HPHOSP_ITS ---
History of Present Illness Date of Service: 05/12/22 Attending physician on admission: Leland Garcia Chief Complaint: SOB Pt is a 76-year-old female with a PMH significant for?CHF, nonischemic c ardiomyopathy, mitral valve stenosis, AFib on warfarin and amiodarone, AICD, hx of breast cancer, and COPD who presents to the ED with?increasing SOB and persistent cough occasionally productive of white sputum x5 days. Patient states she is no longer able to do daily chores like make her bed without having to rest. Coughing has been so bad occasionally vomits; cough keeps her and the others in the house awake at night. Patient has also experienced diarrhea for the past 3 days with chills but no noticeable fever. Denies orthopnea and increase in lower leg edema. Patient denies chest pain/pressure, palpitations. No abdominal pain. Of note, pt seen by Dr. Fernando, who changed her meds from furosemide to Bumex and spironolactone a few months ago. In the ED patient was afebrile. Labs were significant for WBC WNL, creatinine elevated 2.53, mild transaminitis, initial troponin 143.2 with repeat down trending to 126.5, BNP elevated at 904. CXR showed mildly prominent central vasculature without overt edema. EKG demonstrated ventricular paced rhythm without evidence of ST elevations or depressions. Pt was treated with Ventolin inhaler and 20 mg of IV Lasix. Pt will be admitted to the hospital for treatment and further evaluation of COPD exacerbation. Review of Systems Review of Systems: SOB x5 days Persistent cough occasionally productive white sputum Diarrhea x3 days Chills No fever Denies lower leg edema No chest pain/pressure, palpitations Denies abdominal pain Yes all other systems are reviewed and are negative [facility] Medical History Afib Anemia Cardiac defibrillator in place COPD (chronic obstructive pulmonary disease) Fall History of breast cancer Hypertrophic cardiomyopathy Hypothyroidism Mitral stenosis Mucinous carcinoma of right breast Multinodular thyroid Non-ST elevation [place] (NSTEMI) On anticoagulant therapy On beta bert at home Osteoporosis Pleural effusion on right Presence of combination internal cardiac defibrillator (ICD) and pacemaker Vitamin D deficiency Family History Father Thrombus Mother Heart disease Surgical History AICD (automatic cardioverter/defibrillator) present History of automatic internal cardiac defibrillator (AICD) History of bilateral tubal ligation History of lumpectomy of right breast History of tubal ligation Social History Household Members: None Housing: Apartment Do you presently have visiting nurse or other home services: No Alcohol intake: never Patient Tobacco Use Status: Former Tobacco user Quit Date: 2007 Years Smoked: 30 +/- e-Cigarette/Vaping Use: Never Used Second Hand Smoke Exposure: Yes Advance Directives: Yes Advance Directives on File: Yes Advance Directives Date on File: 07/23/20 service: No Current occupational status: retired Cognitive needs: No Hearing needs: No Vision needs: No Meds Allergies Allergy/AdvReac Type Severity Reaction Status Date / Time doxycycline AdvReac Vomiting Verified 02/16/22 12:49 Home Medications Medication Instructions Recorded Confirmed Last Taken Type multivitamin 1 tab PO DAILY 02/03/20 05/12/22 Unknown History Physical Exam Vital Signs and Narrative: Vital Signs: Last Vital Signs Temp 97.8 F 05/12/22 09:49 Pulse 70 05/12/22 09:59 Resp 18 05/12/22 09:59 BP 94/48 L 05/12/22 09:59 Pulse Ox 95 05/12/22 09:59 O2 Del Method 05/12/22 09:59 O2 Flow Rate 2 05/12/22 09:49 BMI result Body Mass Index 24.2 Constitutional: Alert, in no acute distress. Mental Status: Oriented to person, place and time. Eyes: Pupils are equal, round, and reactive to light. Ear, Nose, and Throat: Oropharynx clear, mucous membranes dry. Ears and nose without deformities. Trachea midline. Respiratory: Diffuse expiratory wheezing bilaterally. Cardiovascular: S1, S2 regular. 2/6 diastolic murmur. Gastrointestinal: Abdomen soft, non-tender, non-distended. Normal bowel sounds. Neurologic: Cranial nerves II-XII are grossly intact. No focal neurological deficits. Moves all extremities spontaneously. Skin: No rashes or lesions noted. Musculoskeletal: No cyanosis or clubbing. Extremities: No lower leg edema. Psychiatric: Normal mood and affect. Results Labs 05/12/22 04:02 05/12/22 04:02 Labs: Laboratory Results - last 24 hr 05/12/22 05/12/22 05/12/22 04:02 04:02 04:02 MCV MCH MCHC RDW Plt Count MPV Immature Gran % (Auto) Neut % (Auto) Lymph % (Auto) [place] % (Auto) Eos % (Auto) Baso % (Auto) Lymph # (Auto) [place] # (Auto) Eos # (Auto) Baso # (Auto) Abs Immat Gran (auto) Absolute Neuts (auto) Absolute Nucleated RBC Nucleated RBC % (auto) Anion Gap 18 Estim Creat Clear Calc TNP Estimated GFR 19 Random Glucose 125 H Lactic Acid 1.4 Calcium 8.9 Total Bilirubin 1.3 H AST 90 H ALT 106 H Alkaline Phosphatase 90 Total Creatine Kinase 208 H Troponin I High Sens 143.2 H* B-Natriuretic Peptide Total Protein 6.5 Albumin 4.1 COVID-19 (SHELBY) COVID-[employer] 05/12/22 05/12/22 05/12/22 04:02 04:02 06:25 MCV 95.0 MCH 30.9 MCHC 32.5 RDW 13.2 Plt Count 174 MPV 9.9 Immature Gran % (Auto) 0.3 Neut % (Auto) 68.0 Lymph % (Auto) 18.8 L [place] % (Auto) 11.4 H Eos % (Auto) 1.2 Baso % (Auto) 0.3 Lymph # (Auto) 1.2 [place] # (Auto) 0.7 Eos # (Auto) 0.1 Baso # (Auto) 0.0 Abs Immat Gran (auto) 0.02 Absolute Neuts (auto) 4.4 Absolute Nucleated RBC 0.000 Nucleated RBC % (auto) 0.0 Anion Gap Estim Creat Clear Calc Estimated GFR Random Glucose Lactic Acid Calcium Total Bilirubin AST ALT Alkaline Phosphatase Total Creatine Kinase Troponin I High Sens 126.5 H* B-Natriuretic Peptide 904 H Total Protein Albumin COVID-19 (SHELBY) COVID-[employer] 05/12/22 07:15 MCV MCH MCHC RDW Plt Count MPV Immature Gran % (Auto) Neut % (Auto) Lymph % (Auto) [place] % (Auto) Eos % (Auto) Baso % (Auto) Lymph # (Auto) [place] # (Auto) Eos # (Auto) Baso # (Auto) Abs Immat Gran (auto) Absolute Neuts (auto) Absolute Nucleated RBC Nucleated RBC % (auto) Anion Gap Estim Creat Clear Calc Estimated GFR Random Glucose Lactic Acid Calcium Total Bilirubin AST ALT Alkaline Phosphatase Total Creatine Kinase Troponin I High Sens B-Natriuretic Peptide Total Protein Albumin COVID-19 (SHELBY) Negative COVID-19 Clin Com See Note Imaging Radiologist's Impressions: Impressions Chest X-Ray 05/12/22 04:10 IMPRESSION: Mildly prominent central vasculature without overt edema. Enlarged cardiac silhouette. Assessment and Plan (1) Acute exacerbation of chronic obstructive airways disease: Status: Acute Plan Pt is a 76-year-old female with a PMH significant for?CHF, nonischemic cardiomyopathy, mitral valve stenosis, AFib on warfarin and amiodarone, AICD, hx of breast cancer, and COPD who presents to the ED with?increasing SOB and persistent cough occasionally productive of white sputum x5 days. Acute COPD exacerbation Patient with increasing SOB and persistent cough productive of non purulent sputum x5 days Patient received DuoNeb in the ED, patient already notices less SOB and cough Solu-Medrol IV 40 mg b.i.d. DuoNebs Q 4 while awake Continue home maintenance inhalers Titrate O2 >92, wean as tolerated BRIONNA Patient's creatinine 2.53, above baseline of 2.00 Likely secondary to GI losses from diarrhea Patient received 1 L of IVF in ED Encourage oral hydration Follow CMP CHF Does not appear to be in acute exacerbation: BNP at 904 (was 2268 at time of l ast discharge on 05/14/21), CXR with no overt edema, no JVD, no lower leg edema; pt denies orthopnea Patient received 20 mg IV Lasix in ED Hold home diuretics for now d/t BRIONNA from possible dehydration Cardiology consult Elevated troponin Initial troponin 143.2 with repeat down trending to 126.5 EKG with no evidence of ST elevations or depressions Likely type 2 in the setting of demand ischemia Diarrhea Pt states she has had diarrhea x3 days, no diarrhea today at home or in hospital No obvious signs of infection: no fever, no leukocytosis, cough with non- purulent sputum If patient has diarrhea while at the hospital consider GI panel Transaminitis AST mildly elevated at 90 with ALT elevated at 106 Etiology unclear, trend labs tomorrow Follow CMP AFib Patient with AICD, ventricularly paced Continue amiodarone, metoprolol, warfarin Hypothyroidism Continue levothyroxine PVD Continue cilostazol Restless leg syndrome Continue ropinirole DNR/DNI Attending:?Dr. Garcia DVT Prophylaxis: On warfarin Pt will require a hospitalization of at least two nights for treatment of?acute COPD exacerbation with IV steroids and nebulizers. Time Spent With Patient Time: Total time managing care of this patient today ____ minutes. Quality Stroke Does the patient have a stroke diagnosis?: No VTE Prior VTE?: No VTE Risk Level:: Medical - moderate - high VTE Device Contraindication: Treatment Not Indicated VTE Drug Contraindication: N/A - Med Ordered
[2022-05-12] MEDS: methylPREDNISolone Sod Succ 40 MG/ML VIAL IVPUSH ×2 (13:41→23:51)
[2022-05-12 13:51] LABS: Alanine Aminotransferase 95 U/L (0-31); Albumin Level 3.7 g/dL (3.5-5.0); Alkaline Phosphatase 78 U/L (39-117); Anion Gap 18 (12-20); Aspartate Amino Transferase 75 U/L (5-31); Bilirubin Total 0.9 mg/dL (0.0-1.0); Blood Urea Nitrogen 34 mg/dL (9-16); Calcium 8.1 mg/dL (8.4-10.2); Carbon Dioxide 19 mmol/L (22-29); Chloride 103 mmol/L (96-108); Creatinine Clr Calc Pharmacy 13.9; Estimated Glomerular Filt Rate 18; Glucose Random 305 mg/dL (60-115); Sodium 136 mmol/L (135-145); Total Protein 5.7 g/dL (6.5-8.0)
--- NOTE | 2022-05-12 16:05 | PHA.MEDREC ---
Pharmacy Consult ? Medication Reconciliation Pharmacy has completed the medication reconciliation. Med rec completed by Mya Kc, unclear about current warfarin regimen.
[2022-05-12] MEDS: 0.9 % Sodium Chloride Flush 3 ML SYRINGE IVFLUSH ×2 (16:23→23:12)
--- NOTE | 2022-05-12 16:26 | PC.NURSE ---
Notified inpatient provider patient on llow side of hypotensive awaiting orders. Continues on O2 with no ill effect no distress noted inpatient phlepbotomy at bedside will CTM
[2022-05-12 16:49] LABS: INTERNATIONAL NORM RATIO 3.4 (0.9-1.1)
[2022-05-12] MEDS: Lactated Ringers 1,000 ML 80 ML IVCONT (20:02)
[2022-05-12] MEDS: Potassium Chloride ER 20 MEQ TAB.ER.PRT PO (21:17)
[2022-05-12] MEDS: cilostazoL 100 MG TABLET PO (21:17)
[2022-05-12] MEDS: Metoprolol Tartrate 25 MG TABLET PO (21:17)
--- NOTE | 2022-05-12 22:21 | MHC.CM.PN ---
IMM 05/12. CM met with admitted patient with bed assignment 470. A&Ox4. Lives with daughter, Ines. Somewhat independent. Uses cane/walker. Has no services. PCP Farhan Molina. HCP on file. Pt requests changes to be made. HCP #1/daughter Hilda Petit ([phone]) and new HCP#2/daughter Ines Wallace ([phone]). Uses cane/walker. No services. Pfizer x2/boosted x2. Is essentially independent at home. Cooks and cares for self. No access to car. Takes [employer] van and has arranged rides through [employer]. States needs to make appointments 72 hours in advance. Pt states she can take [employer] van home. Pt admitted with COPD exacerbation, may need Lyft. D/C plan: home w/o services. CM will follow for discharge needs.
[2022-05-12] MEDS: rOPINIRole HCL 2 MG TABLET 5 MG PO (23:09)
[2022-05-13] VITALS (12 sets, daily range): BP systolic 98–120; BP diastolic 53–62; PULSE 65–89; RESP 15–20; TEMP 36.2–36.9; O2SAT 91–97
[2022-05-13] MEDS: cilostazoL 100 MG TABLET PO ×2 (06:30→20:25)
[2022-05-13] MEDS: Levothyroxine Sodium 50 MCG TABLET PO (06:30)
[2022-05-13 07:36] LABS: INTERNATIONAL NORM RATIO 4.6 (0.9-1.1); Prothrombin Time 55.8 SEC (10.0-13.1)
[2022-05-13] MEDS: Metoprolol Tartrate 25 MG TABLET PO ×2 (09:06→20:25)
[2022-05-13] MEDS: Atorvastatin Calcium 40 MG TABLET PO (09:06)
[2022-05-13] MEDS: Loratadine 10 MG TABLET PO (09:07)
[2022-05-13] MEDS: Ferrous Sulfate 324 MG TABLET.DR PO (09:07)
[2022-05-13] MEDS: Multivitamin TABLET 1 TAB PO (09:07)
[2022-05-13] MEDS: Potassium Chloride ER 20 MEQ TAB.ER.PRT PO ×2 (09:07→20:25)
[2022-05-13] MEDS: Amiodarone HCL 200 MG TABLET PO (09:07)
[2022-05-13] MEDS: 0.9 % Sodium Chloride Flush 3 ML SYRINGE IVFLUSH (09:08)
[2022-05-13] MEDS: methylPREDNISolone Sod Succ 40 MG/ML VIAL IVPUSH (12:24)
[2022-05-13] MEDS: Furosemide 20 MG/2 ML VIAL IVPUSH (12:24)
--- NOTE | 2022-05-13 13:18 | MHC.CM.PN ---
DP is home no services. She will need assist with transportation home.
--- NOTE | 2022-05-13 14:30 | P.PNIM_ITS ---
Subjective Subjective Date of Service: 05/13/22 Interval History: the patient was seen and evaluated this morning Laying in bed, feels better but still on oxygen supplement Denies any fever, chills or shortness of breath No reported other overnight events. Systemic review: No fever, chills or weakness No chest pain, palpitation No shortness of breath or coughing No abdominal pain, nausea or vomiting No urinary symptoms No reported rash Physical Exam Vital Signs: Vital Signs: Last Vital Signs Temp 98.4 F 05/13/22 11:28 Pulse 89 05/13/22 12:14 Resp 18 05/13/22 12:14 BP 110/55 L 05/13/22 11:28 Pulse Ox 93 05/13/22 11:28 O2 Del Method 05/13/22 11:28 O2 Flow Rate 1 05/13/22 11:28 BMI result Body Mass Index 24.2 Const: Other: Constitutional : Awake, interactive, not in distress Neck : Normal inspection, Supple Cardiovascular : RRR, no JVP, trace lower extremity edema Respiratory : fair bilateral air entry, mild basal crackles,expiratory wheezes Gastrointestinal: soft, lax, Normal bowel sounds, Non tender Skin : Warm, Dry Neurological : Alert & oriented x3, No focal deficit Objective Data Active Medications Acetaminophen (Acetaminophen 325 Mg Tablet) 650 mg PO Q6H PRN PRN Reason: Pain, Mild (Pain Scale 1-3) Albuterol Sulfate (Albuterol Sulfate 90 Mcg 8 Gm Inhaler) 2 puff INHALE Q4H PRN PRN Reason: Shortness Of Breath Or Wheezing Amiodarone HCl (Amiodarone Hcl 200 Mg Tablet) 200 mg PO DAILY [facility] Last Admin: 05/13/22 09:07 Dose: 200 mg Documented By: SHELIA Atorvastatin Calcium (Atorvastatin Calcium 40 Mg Tablet) 40 mg PO DAILY [facility] Last Admin: 05/13/22 09:06 Dose: 40 mg Documented By: SHELIA Calcium Carbonate (Calcium Carbonate 500 Mg Tablet) 500 mg PO BID [facility] Last Admin: 05/13/22 09:07 Dose: 500 mg Documented By: SHELIA Cilostazol (Cilostazol 100 Mg Tablet) 100 mg PO Q12H [facility] Last Admin: 05/13/22 06:30 Dose: 100 mg Documented By: ALYSSA Albuterol Sulfate 2.5 mg/ (Ipratropium [place] 0.5 mg) 0 mg INHALE RQ4H WHILE AWAKE [facility] Last Admin: 05/13/22 12:13 Dose: 1 each Documented By: PEDRO Ferrous Sulfate (Ferrous Sulfate 324 Mg Tablet.Dr) 324 mg PO DAILY [facility] Last Admin: 05/13/22 09:07 Dose: 324 mg Documented By: SHELIA Fluticasone/Vilanterol (Fluticasone/Vilanterol 200/25 Blst.W.Dev) 1 puff INHALE RDAILY [facility] Last Admin: 05/13/22 11:55 Dose: Not Given Documented By: SHELIA Non-Admin Reason: RT? Levothyroxine Sodium (Levothyroxine Sodium 50 Mcg Tablet) 50 mcg PO DAILY@0600 [facility] Last Admin: 05/13/22 06:30 Dose: 50 mcg Documented By: ALYSSA Loratadine (Loratadine 10 Mg Tablet) 10 mg PO DAILY [facility] Last Admin: 05/13/22 09:07 Dose: 10 mg Documented By: SHELIA Methylprednisolone Sodium Succinate (Methylprednisolone Sod Succ 40 Mg/Ml Vial) 40 mg IVPUSH Q12H [facility] Last Admin: 05/13/22 12:24 Dose: 40 mg Documented By: SHELIA Metoprolol Tartrate (Metoprolol Tartrate 25 Mg Tablet) 25 mg PO Q12H [facility]; Protocol Last Admin: 05/13/22 09:06 Dose: 25 mg Documented By: SHELIA Multivitamins/Vitamin C (Multivitamin Tablet) 1 tab PO DAILY [facility] Last Admin: 05/13/22 09:07 Dose: 1 tab Documented By: SHELIA Potassium Chloride (Potassium Chloride Er 20 Meq Tab.Er.Prt) 20 meq PO BID [facility] Last Admin: 05/13/22 09:07 Dose: 20 meq Documented By: SHELIA Ropinirole HCl (Ropinirole Hcl 2 Mg Tablet) 5 mg PO BEDTIME [facility] Last Admin: 05/12/22 23:09 Dose: 5 mg Documented By: ALYSSA Sodium Chloride (0.9 % Sodium Chloride Flush 3 Ml Syringe) 3 ml IVFLUSH QSHIFT [facility] Last Admin: 05/13/22 09:08 Dose: 3 ml Documented By: SHELIA Warfarin Sodium (Warfarin Sodium 2 Mg Tablet) 2 mg PO DAILY@1800 [facility] Labs 05/12/22 04:02 05/12/22 13:04 Labs: Laboratory Results - last 24 hr 05/12/22 05/13/22 16:27 07:22 PT 41.0 H 55.8 H INR 3.4 H 4.6 H Microbiology Microbiology Results: Microbiology 05/12/22 04:18 Blood Culture - Preliminary Blood - Venous No growth after 24 hours. 05/12/22 04:18 Blood Culture - Preliminary Blood - Venous No growth after 24 hours. Assessment and Plan (1) Acute exacerbation of chronic obstructive airways disease: Status: Acute (2) Current use of anticoagulant therapy: Status: Acute (3) Congestive heart failure: Status: Acute Plan Pt is a 76-year-old female with a PMH significant for?CHF, nonischemic card iomyopathy, mitral valve stenosis, AFib on warfarin and amiodarone, AICD, hx of breast cancer, and COPD who presents to the ED with?increasing SOB and persistent cough occasionally productive of white sputum x5 days. Acute COPD exacerbation continue Solu-Medrol IV 40 mg b.i.d. DuoNebs Q 4 while awake Continue home maintenance inhalers Titrate O2 >92, wean as tolerated worsening CKD stage 4 Patient's creatinine 2.6 avoid nephrotoxic medications Encourage oral hydration Follow CMP Diastolic CHF w acute exacerbation Elevated BNP w prominent vascularity on CXR IV Lasix bid monitor I\O Elevated troponin Initial troponin 143.2 with repeat down trending to 126.5 EKG with no evidence of ST elevations or depressions Likely type 2 in the setting of demand ischemia Diarrhea no diarrhea since admission monitor the need for GI panel Transaminitis trending down, Follow CMP AFib Patient with AICD, ventricularly paced Continue amiodarone, metoprolol, warfarin Hypothyroidism Continue levothyroxine PVD Continue cilostazol Restless leg syndrome Continue ropinirole DNR/DNI Attending:?Dr. Garcia DVT Prophylaxis: On warfarin Pt will require overnight hospital stay for treatment of?acute COPD exacerbation with IV steroids and nebulizers. Time Spent With Patient Time: Total time managing care of this patient today ____ minutes. Quality Stroke Does the patient have a stroke diagnosis?: No VTE Prior VTE?: No VTE Risk Level:: Medical - moderate - high VTE Device Contraindication: Treatment Not Indicated VTE Drug Contraindication: N/A - Med Ordered
[2022-05-13] MEDS: rOPINIRole HCL 2 MG TABLET 5 MG PO (20:25)
[2022-05-14] VITALS (12 sets, daily range): BP systolic 100–137; BP diastolic 57–86; PULSE 70–96; RESP 16–20; TEMP 36.3–36.9; O2SAT 92–99
[2022-05-14] MEDS: methylPREDNISolone Sod Succ 40 MG/ML VIAL IVPUSH ×2 (00:22→14:24)
[2022-05-14] MEDS: 0.9 % Sodium Chloride Flush 3 ML SYRINGE IVFLUSH ×3 (00:22→09:14)
[2022-05-14] MEDS: cilostazoL 100 MG TABLET PO ×2 (06:12→22:05)
[2022-05-14] MEDS: Levothyroxine Sodium 50 MCG TABLET PO (06:12)
[2022-05-14 06:18] LABS: Prothrombin Time 67.8 SEC (10.0-13.1)
[2022-05-14 06:23] LABS: INTERNATIONAL NORM RATIO 5.5 (0.9-1.1)
[2022-05-14 06:37] LABS: Anion Gap 13 (12-20); Blood Urea Nitrogen 36 mg/dL (9-16); Calcium 8.6 mg/dL (8.4-10.2); Carbon Dioxide 20 mmol/L (22-29); Chloride 108 mmol/L (96-108); Creatinine Clr Calc Pharmacy 15.8; Estimated Glomerular Filt Rate 20; Glucose Random 174 mg/dL (60-115); Potassium 4.3 mmol/L (3.3-5.1); Sodium 137 mmol/L (135-145)
[2022-05-14] MEDS: Fluticasone/Vilanterol 200/25 BLST.W.DEV 1 PUFF INHALE (07:45)
[2022-05-14] MEDS: Loratadine 10 MG TABLET PO (08:59)
[2022-05-14] MEDS: Multivitamin TABLET 1 TAB PO (08:59)
[2022-05-14] MEDS: Ferrous Sulfate 324 MG TABLET.DR PO (09:00)
[2022-05-14] MEDS: Atorvastatin Calcium 40 MG TABLET PO (09:00)
[2022-05-14] MEDS: Potassium Chloride ER 20 MEQ TAB.ER.PRT PO ×2 (09:00→22:07)
[2022-05-14] MEDS: Metoprolol Tartrate 25 MG TABLET PO ×2 (09:00→22:07)
[2022-05-14] MEDS: Amiodarone HCL 200 MG TABLET PO (09:00)
[2022-05-14] MEDS: Bumetanide 1 MG/4 ML VIAL IVPUSH (09:00)
[2022-05-14] MEDS: Benzonatate 100 MG CAPSULE 200 MG PO ×3 (14:00→22:05)
--- NOTE | 2022-05-14 14:11 | P.PNIM_ITS ---
Subjective Subjective Date of Service: 05/14/22 Interval History: the patient was seen and evaluated this morning Laying in bed, reporting significant cough and dyspnea on exertion Denies any fever, chills or shortness of breath No reported other overnight events. Review of Systems Systemic review: No fever, chills or weakness No chest pain, palpitation Having dyspnea on exertion coughing No abdominal pain, nausea or vomiting No urinary symptoms No reported rash Physical Exam Vital Signs: Vital Signs: Last Vital Signs Temp 98.4 F 05/14/22 11:15 Pulse 75 05/14/22 11:21 Resp 16 05/14/22 11:21 BP 109/60 05/14/22 11:15 Pulse Ox 93 05/14/22 11:15 O2 Del Method 05/14/22 11:15 O2 Flow Rate 2 05/14/22 11:15 BMI result Body Mass Index 24.2 Const: Other: Constitutional : Awake, interactive, not in distress Neck : Normal inspection, Supple Cardiovascular : RRR, no JVP, trace lower extremity edema Respiratory : fair bilateral air entry, mild basal crackles,expiratory wheezes and rhonchi Gastrointestinal: soft, lax, Normal bowel sounds, Non tender Skin : Warm, Dry Neurological : Alert & oriented x3, No focal deficit Objective Data Active Medications Acetaminophen (Acetaminophen 325 Mg Tablet) 650 mg PO Q6H PRN PRN Reason: Pain, Mild (Pain Scale 1-3) Albuterol Sulfate (Albuterol Sulfate 90 Mcg 8 Gm Inhaler) 2 puff INHALE Q4H PRN PRN Reason: Shortness Of Breath Or Wheezing Amiodarone HCl (Amiodarone Hcl 200 Mg Tablet) 200 mg PO DAILY [facility] Last Admin: 05/14/22 09:00 Dose: 200 mg Documented By: JOSE ANTONIO Atorvastatin Calcium (Atorvastatin Calcium 40 Mg Tablet) 40 mg PO DAILY [facility] Last Admin: 05/14/22 09:00 Dose: 40 mg Documented By: JOSE ANTONIO Benzonatate (Benzonatate 100 Mg Capsule) 200 mg PO TID [facility] Bumetanide (Bumetanide 1 Mg/4 Ml Vial) 1 mg IVPUSH DAILY [facility]; Protocol Last Admin: 05/14/22 09:00 Dose: 1 mg Documented By: JOSE ANTONIO Calcium Carbonate (Calcium Carbonate 500 Mg Tablet) 500 mg PO BID [facility] Last Admin: 05/14/22 09:00 Dose: 500 mg Documented By: JOSE ANTONIO Cilostazol (Cilostazol 100 Mg Tablet) 100 mg PO Q12H [facility] Last Admin: 05/14/22 06:12 Dose: 100 mg Documented By: LENCHO Albuterol Sulfate 2.5 mg/ (Ipratropium [place] 0.5 mg) 0 mg INHALE RQ4H WHILE AWAKE [facility] Last Admin: 05/14/22 11:20 Dose: 2.5 each Documented By: CARLA Ferrous Sulfate (Ferrous Sulfate 324 Mg Tablet.Dr) 324 mg PO DAILY [facility] Last Admin: 05/14/22 09:00 Dose: 324 mg Documented By: JOSE ANTONIO Fluticasone/Vilanterol (Fluticasone/Vilanterol 200/25 Blst.W.Dev) 1 puff INHALE RDAILY [facility] Last Admin: 05/14/22 07:45 Dose: 1 puff Documented By: CARLA Guaifenesin (Guaifenesin La 600 Mg Tab.Er.12h) 600 mg PO BID [facility] Levothyroxine Sodium (Levothyroxine Sodium 50 Mcg Tablet) 50 mcg PO DAILY@0600 [facility] Last Admin: 05/14/22 06:12 Dose: 50 mcg Documented By: LENCHO Loratadine (Loratadine 10 Mg Tablet) 10 mg PO DAILY [facility] Last Admin: 05/14/22 08:59 Dose: 10 mg Documented By: JOSE ANTONIO Methylprednisolone Sodium Succinate (Methylprednisolone Sod Succ 40 Mg/Ml Vial) 40 mg IVPUSH Q12H [facility] Last Admin: 05/14/22 00:22 Dose: 40 mg Documented By: LENCHO Metoprolol Tartrate (Metoprolol Tartrate 25 Mg Tablet) 25 mg PO Q12H [facility]; Protocol Last Admin: 05/13/22 20:25 Dose: 25 mg Documented By: KATYA Multivitamins/Vitamin C (Multivitamin Tablet) 1 tab PO DAILY [facility] Last Admin: 05/14/22 08:59 Dose: 1 tab Documented By: JOSE ANTONIO Potassium Chloride (Potassium Chloride Er 20 Meq Tab.Er.Prt) 20 meq PO BID [facility] Last Admin: 05/14/22 09:00 Dose: 20 meq Documented By: JOSE ANTONIO Ropinirole HCl (Ropinirole Hcl 2 Mg Tablet) 5 mg PO BEDTIME [facility] Last Admin: 05/13/22 20:25 Dose: 5 mg Documented By: KATYA Sodium Chloride (0.9 % Sodium Chloride Flush 3 Ml Syringe) 3 ml IVFLUSH QSHIFT [facility] Last Admin: 05/14/22 09:14 Dose: 3 ml Documented By: JOSE ANTONIO Warfarin Sodium (Warfarin Sodium 2 Mg Tablet) 2 mg PO DAILY@1800 [facility] Labs 05/12/22 04:02 05/14/22 05:49 Labs: Laboratory Results - last 24 hr 05/14/22 05/14/22 05:49 05:49 PT 67.8 H INR 5.5 H* Anion Gap 13 Estim Creat Clear Calc 15.8 Estimated GFR 20 Random Glucose 174 H Calcium 8.6 D Microbiology Microbiology Results: Microbiology 05/12/22 04:18 Blood Culture - Preliminary Blood - Venous No growth after 48 hours. 05/12/22 04:18 Blood Culture - Preliminary Blood - Venous No growth after 48 hours. Assessment and Plan (1) Acute exacerbation of chronic obstructive airways disease: Status: Acute (2) Current use of anticoagulant therapy: Status: Acute Plan Pt is a 76-year-old female with a PMH significant for?CHF, nonischemic cardiomyopathy, mitral valve stenosis, AFib on warfarin and amiodarone, AICD, hx of breast cancer, and COPD who presents to the ED with?increasing SOB and persistent cough occasionally productive of white sputum x5 days. Acute COPD exacerbation continue Solu-Medrol IV 40 mg b.i.d. DuoNebs Q 4 while awake Cough medication Continue home maintenance inhalers Titrate O2 >92, wean as tolerated worsening CKD stage 4 Stable creatinine 2.6 avoid nephrotoxic medications Encourage oral hydration Follow CMP Diastolic CHF w acute exacerbation Elevated BNP w prominent vascularity on CXR Continue IV Bumex monitor I\O Elevated troponin Initial troponin 143.2 with repeat down trending to 126.5 EKG with no evidence of ST elevations or depressions Likely type 2 in the setting of demand ischemia Diarrhea no diarrhea since admission monitor the need for GI panel Transaminitis trending down, Follow CMP AFib Patient with AICD, ventricularly paced Continue amiodarone, metoprolol, warfarin Hypothyroidism Continue levothyroxine PVD Continue cilostazol Restless leg syndrome Continue ropinirole DNR/DNI Attending:?Dr. Garcia DVT Prophylaxis: On warfarin Pt will require overnight hospital stay for treatment of?acute COPD exacerbation with IV steroids and nebulizers. Time Spent With Patient Time: Total time managing care of this patient today ____ minutes. Quality Stroke Does the patient have a stroke diagnosis?: No VTE Prior VTE?: No VTE Risk Level:: Medical - moderate - high VTE Device Contraindication: Treatment Not Indicated VTE Drug Contraindication: N/A - Med Ordered
[2022-05-14] MEDS: guaiFENesin LA 600 MG TAB.ER.12H PO (22:07)
[2022-05-14] MEDS: rOPINIRole HCL 2 MG TABLET 5 MG PO (22:07)
[2022-05-14] MEDS: guaiFENesin DM 100/10/5 ML 5 ML SYRUP PO (22:15)
[2022-05-15] VITALS (8 sets, daily range): BP systolic 109–136; BP diastolic 58–80; PULSE 70–98; RESP 16–20; TEMP 36.2–37.2; O2SAT 92–97
[2022-05-15] MEDS: methylPREDNISolone Sod Succ 40 MG/ML VIAL IVPUSH ×2 (02:52→12:16)
[2022-05-15 07:14] LABS: Prothrombin Time 76.1 SEC (10.0-13.1)
[2022-05-15 07:55] LABS: INTERNATIONAL NORM RATIO 6.1 (0.9-1.1)
[2022-05-15] MEDS: Fluticasone/Vilanterol 200/25 BLST.W.DEV 1 PUFF INHALE (08:11)
[2022-05-15] MEDS: Bumetanide 1 MG/4 ML VIAL IVPUSH (08:14)
[2022-05-15] MEDS: Amiodarone HCL 200 MG TABLET PO (08:15)
[2022-05-15] MEDS: Multivitamin TABLET 1 TAB PO (08:15)
[2022-05-15] MEDS: Atorvastatin Calcium 40 MG TABLET PO (08:15)
[2022-05-15] MEDS: guaiFENesin LA 600 MG TAB.ER.12H PO ×2 (08:15→20:53)
[2022-05-15] MEDS: Ferrous Sulfate 324 MG TABLET.DR PO (08:15)
[2022-05-15] MEDS: Potassium Chloride ER 20 MEQ TAB.ER.PRT PO ×2 (08:15→20:52)
[2022-05-15] MEDS: cilostazoL 100 MG TABLET PO ×2 (08:15→20:53)
[2022-05-15] MEDS: Levothyroxine Sodium 50 MCG TABLET PO (08:16)
[2022-05-15] MEDS: Metoprolol Tartrate 25 MG TABLET PO ×2 (08:16→20:52)
[2022-05-15] MEDS: Loratadine 10 MG TABLET PO (08:16)
[2022-05-15] MEDS: Benzonatate 100 MG CAPSULE 200 MG PO ×3 (08:17→20:52)
[2022-05-15] MEDS: 0.9 % Sodium Chloride Flush 3 ML SYRINGE IVFLUSH ×2 (08:27→16:28)
[2022-05-15] MEDS: Loperamide HCl 2 MG CAPSULE PO (12:16)
--- NOTE | 2022-05-15 13:00 | P.PNIM_ITS ---
Subjective Subjective Date of Service: 05/15/22 Interval History: the patient was seen and evaluated this morning reporting significant cough and dyspnea on exertion Denies any fever, chills or shortness of breath No reported other overnight events. Review of Systems Systemic review: No fever, chills or weakness No chest pain, palpitation Having dyspnea on exertion coughing No abdominal pain, nausea or vomiting No urinary symptoms No reported rash Physical Exam Vital Signs: Vital Signs: Last Vital Signs Temp 97.6 F 05/15/22 11:23 Pulse 79 05/15/22 11:23 Resp 20 05/15/22 11:23 BP 128/77 05/15/22 11:23 Pulse Ox 94 05/15/22 11:23 O2 Del Method 05/15/22 11:23 O2 Flow Rate 2 05/14/22 11:15 BMI result Body Mass Index 24.2 Const: Other: Constitutional : Awake, interactive, not in distress Neck : Normal inspection, Supple Cardiovascular : RRR, no JVP, trace lower extremity edema Respiratory : fair bilateral air entry, mild basal crackles,expiratory wheezes and rhonchi Gastrointestinal: soft, lax, Normal bowel sounds, Non tender Skin : Warm, Dry Neurological : Alert & oriented x3, No focal deficit Objective Data Active Medications Acetaminophen (Acetaminophen 325 Mg Tablet) 650 mg PO Q6H PRN PRN Reason: Pain, Mild (Pain Scale 1-3) Albuterol Sulfate (Albuterol Sulfate 90 Mcg 8 Gm Inhaler) 2 puff INHALE Q4H PRN PRN Reason: Shortness Of Breath Or Wheezing Amiodarone HCl (Amiodarone Hcl 200 Mg Tablet) 200 mg PO DAILY [facility] Last Admin: 05/15/22 08:15 Dose: 200 mg Documented By: JOSE ANTONIO Atorvastatin Calcium (Atorvastatin Calcium 40 Mg Tablet) 40 mg PO DAILY [facility] Last Admin: 05/15/22 08:15 Dose: 40 mg Documented By: JOSE ANTONIO Benzonatate (Benzonatate 100 Mg Capsule) 200 mg PO TID [facility] Last Admin: 05/15/22 08:17 Dose: 200 mg Documented By: JOSE ANTONIO Bumetanide (Bumetanide 1 Mg/4 Ml Vial) 1 mg IVPUSH DAILY [facility]; Protocol Last Admin: 05/15/22 08:14 Dose: 1 mg Documented By: JOSE ANTONIO Calcium Carbonate (Calcium Carbonate 500 Mg Tablet) 500 mg PO BID [facility] Last Admin: 05/15/22 08:15 Dose: 500 mg Documented By: JOSE ANTONIO Cilostazol (Cilostazol 100 Mg Tablet) 100 mg PO Q12H [facility] Last Admin: 05/15/22 08:15 Dose: 100 mg Documented By: JOSE ANTONIO Albuterol Sulfate 2.5 mg/ (Ipratropium [place] 0.5 mg) 0 mg INHALE RQ4H WHILE AWAKE [facility] Last Admin: 05/15/22 11:56 Dose: Not Given Documented By: ETHAN Non-Admin Reason: pt unavail Ferrous Sulfate (Ferrous Sulfate 324 Mg Tablet.Dr) 324 mg PO DAILY [facility] Last Admin: 05/15/22 08:15 Dose: 324 mg Documented By: JOSE ANTONIO Fluticasone/Vilanterol (Fluticasone/Vilanterol 200/25 Blst.W.Dev) 1 puff INHALE RDAILY [facility] Last Admin: 05/15/22 08:11 Dose: 1 puff Documented By: CARLA Guaifenesin (Guaifenesin La 600 Mg Tab.Er.12h) 600 mg PO BID [facility] Last Admin: 05/15/22 08:15 Dose: 600 mg Documented By: JOSE ANTONIO Guaifenesin/Dextromethorphan (Guaifenesin Dm 100/10/5 Ml 5 Ml Syrup) 5 ml PO Q6H PRN PRN Reason: Cough Last Admin: 05/14/22 22:15 Dose: 5 ml Documented By: KATYA Levothyroxine Sodium (Levothyroxine Sodium 50 Mcg Tablet) 50 mcg PO DAILY@0600 [facility] Last Admin: 05/15/22 08:16 Dose: 50 mcg Documented By: JOSE ANTONIO Loperamide HCl (Loperamide Hcl 2 Mg Capsule) 2 mg PO Q4H PRN PRN Reason: Diarrhea Last Admin: 05/15/22 12:16 Dose: 2 mg Documented By: JOSE ANTONIO Loratadine (Loratadine 10 Mg Tablet) 10 mg PO DAILY [facility] Last Admin: 05/15/22 08:16 Dose: 10 mg Documented By: JOSE ANTONIO Methylprednisolone Sodium Succinate (Methylprednisolone Sod Succ 40 Mg/Ml Vial) 40 mg IVPUSH Q12H [facility] Last Admin: 05/15/22 12:16 Dose: 40 mg Documented By: JOSE ANTONIO Metoprolol Tartrate (Metoprolol Tartrate 25 Mg Tablet) 25 mg PO Q12H [facility]; Protocol Last Admin: 05/15/22 08:16 Dose: 25 mg Documented By: JOSE ANTONIO Multivitamins/Vitamin C (Multivitamin Tablet) 1 tab PO DAILY [facility] Last Admin: 05/15/22 08:15 Dose: 1 tab Documented By: JOSE ANTONIO Potassium Chloride (Potassium Chloride Er 20 Meq Tab.Er.Prt) 20 meq PO BID [facility] Last Admin: 05/15/22 08:15 Dose: 20 meq Documented By: JOSE ANTONIO Ropinirole HCl (Ropinirole Hcl 2 Mg Tablet) 5 mg PO BEDTIME [facility] Last Admin: 05/14/22 22:07 Dose: 5 mg Documented By: LOR-JOZEItz Sodium Chloride (0.9 % Sodium Chloride Flush 3 Ml Syringe) 3 ml IVFLUSH QSHIFT [facility] Last Admin: 05/15/22 08:27 Dose: 3 ml Documented By: JOSE ANTONIO Warfarin Sodium (Warfarin Sodium 2 Mg Tablet) 2 mg PO DAILY@1800 [facility] Labs 05/12/22 04:02 05/14/22 05:49 Labs: Laboratory Results - last 24 hr 05/15/22 06:41 PT 76.1 H INR 6.1 H* Microbiology Microbiology Results: Microbiology 05/12/22 04:18 Blood Culture - Preliminary Blood - Venous No growth after 48 hours. 05/12/22 04:18 Blood Culture - Preliminary Blood - Venous No growth after 48 hours. Assessment and Plan (1) Acute exacerbation of chronic obstructive airways disease: Status: Acute (2) Current use of anticoagulant therapy: Status: Acute (3) Congestive heart failure: Status: Acute Plan Pt is a 76-year-old female with a PMH significant for?CHF, nonischemic cardiomyopathy, mitral valve stenosis, AFib on warfarin and amiodarone, AICD, hx of breast cancer, and COPD who presents to the ED with?increasing SOB and persistent cough occasionally productive of white sputum x5 days. Diastolic CHF w acute exacerbation Elevated BNP w prominent vascularity on CXR Continue IV Bumex monitor I\O Acute COPD exacerbation continue Solu-Medrol IV 40 mg b.i.d. [place] Q 4 while awake Cough medication Continue home maintenance inhalers Titrate O2 >92, wean as tolerated worsening CKD stage 4 Stable creatinine 2.6 avoid nephrotoxic medications Encourage oral hydration Follow CMP supratherapeutic INR INR of 6.1 hold warfarin, no bleeding follow INR Diarrhea no diarrhea since admission monitor the need for GI panel Transaminitis trending down, Follow CMP AFib Patient with AICD, ventricularly paced Continue amiodarone, metoprolol, warfarin Hypothyroidism Continue levothyroxine PVD Continue cilostazol Restless leg syndrome Continue ropinirole DNR/DNI Attending:?Dr. Garcia DVT Prophylaxis: On warfarin Pt will require overnight hospital stay for treatment of?acute COPD and CHF exacerbations with IV steroids, diuretics and nebulizers. Time Spent With Patient Time: Total time managing care of this patient today ____ minutes. Quality Stroke Does the patient have a stroke diagnosis?: No VTE Prior VTE?: No VTE Risk Level:: Medical - moderate - high VTE Device Contraindication: Treatment Not Indicated VTE Drug Contraindication: N/A - Med Ordered
[2022-05-15] MEDS: rOPINIRole HCL 2 MG TABLET 5 MG PO (20:50)
[2022-05-16] MEDS: methylPREDNISolone Sod Succ 40 MG/ML VIAL IVPUSH ×2 (02:24→11:46)
[2022-05-16] MEDS: 0.9 % Sodium Chloride Flush 3 ML SYRINGE IVFLUSH ×2 (02:24→08:55)
[2022-05-16 04:00] VITALS: BP 126/68; PULSE 69; RESP 16; TEMP 36.3; O2SAT 96
[2022-05-16] MEDS: Levothyroxine Sodium 50 MCG TABLET PO (06:02)
[2022-05-16] MEDS: cilostazoL 100 MG TABLET PO (06:02)
[2022-05-16] MEDS: guaiFENesin DM 100/10/5 ML 5 ML SYRUP PO (06:04)
[2022-05-16 07:27] LABS: Prothrombin Time 63.6 SEC (10.0-13.1)
[2022-05-16 07:52] LABS: INTERNATIONAL NORM RATIO 5.2 (0.9-1.1)
[2022-05-16 08:00] VITALS: BP 119/67; PULSE 71; RESP 20; TEMP 36.6; O2SAT 93
[2022-05-16] MEDS: Fluticasone/Vilanterol 200/25 BLST.W.DEV 1 PUFF INHALE (08:21)
[2022-05-16 08:24] VITALS: PULSE 70; RESP 18; O2SAT 94
[2022-05-16] MEDS: Loratadine 10 MG TABLET PO (08:42)
[2022-05-16] MEDS: Metoprolol Tartrate 25 MG TABLET PO (08:42)
[2022-05-16] MEDS: Benzonatate 100 MG CAPSULE 200 MG PO (08:42)
[2022-05-16] MEDS: Multivitamin TABLET 1 TAB PO (08:43)
[2022-05-16] MEDS: Amiodarone HCL 200 MG TABLET PO (08:43)
[2022-05-16] MEDS: guaiFENesin LA 600 MG TAB.ER.12H PO (08:43)
[2022-05-16] MEDS: Atorvastatin Calcium 40 MG TABLET PO (08:43)
[2022-05-16] MEDS: Potassium Chloride ER 20 MEQ TAB.ER.PRT PO (08:43)
[2022-05-16] MEDS: Ferrous Sulfate 324 MG TABLET.DR PO (08:43)
[2022-05-16] MEDS: Bumetanide 1 MG/4 ML VIAL IVPUSH (08:43)
--- NOTE | 2022-05-16 11:40 | P.CDIC_ITS ---
CDI Concurrent Query Documentation Clarification: PHYSICIAN'S DOCUMENTATION REQUEST Date of Query: 05/16/22 1142 Patient Name: Nishi Hernandez Admit Date: 05/12/22 Dear Doctor, A review of the medical record indicates additional documentation may be needed. Please review below and update the documentation accordingly. Clinical Indicators: Risk Factors/Clinical Indicators/Treatments Atrial fibrillation with AICD, Warfarin and Amiodarone. If possible, please provide further specificity regarding atrial fibrillation, such as: * Paroxysmal atrial fibrillation: terminates spontaneously or with intervention within 7 days of onset. * Persistent atrial fibrillation: episodes of continuous AF that last more than 7 days and do not self-terminate. * Long lasting persistent atrial fibrillation: episodes of continuous AF that last more than 12 months, * Chronic or Permanent atrial fibrillation: when a decision has been made to accept the presence of AF and there is no further attempt to restore or maintain sinus rhythm. * Other (please specify) * Unable to determine Use of terms such as suspected, likely, concern for, or probable (associated with a specific diagnosis that is being evaluated, monitored, or treated as if it exists) are acceptable and can be coded in the inpatient setting, when documented at the time of discharge. Thank you, Katherine Chaney [facility], CDIS Extension: [phone] Please use your independent medical judgment in providing your response. THIS QUERY IS PART OF THE PERMANENT MEDICAL RECORD Provider Response: Other Other Diagnosis: Persistent atrial fibrillation
[2022-05-16 11:48] VITALS: PULSE 78; RESP 18; O2SAT 95
[2022-05-16 12:00] VITALS: BP 126/76; PULSE 74; RESP 18; TEMP 36.6
--- NOTE | 2022-05-16 12:30 | PM.DS ---
DS: Providers Provider Date of Service: 05/16/22 Date of admission: 05/12/22 12:28 Primary care physician: Farhan Molina PA-C DS: Diagnosis Discharge Diagnosis (1) Acute exacerbation of chronic obstructive airways disease: Status: Acute (2) Current use of anticoagulant therapy: Status: Acute (3) Congestive heart failure: Status: Acute (4) Supratherapeutic INR: Status: Acute DS: Summary Hospital Course Hospital Course: Admission note HPI Pt is a 76-year-old female with a PMH significant for?CHF, nonischemic cardiomyopathy, mitral valve stenosis, AFib on warfarin and amiodarone, AICD, hx of breast cancer, and COPD who presents to the ED with?increasing SOB and persistent cough occasionally productive of white sputum x5 days.? Patient states she is no longer able to do daily chores like make her bed without having to rest. Coughing has been so bad occasionally vomits; cough keeps her and the others in the house awake at night.? Patient has also experienced diarrhea for the past 3 days with chills but no noticeable fever. Denies orthopnea and increase in lower leg edema.? Patient denies chest pain/pressure, palpitations.? No abdominal pain.? Of note, pt seen by Dr. Fernando, who changed her meds from furosemide to Bumex and spironolactone a few months ago.? In the ED patient was afebrile. Labs were significant for WBC WNL, creatinine elevated 2.53, mild transaminitis, initial troponin 143.2 with repeat down trending to 126.5, BNP elevated at 904. CXR showed mildly prominent central vasculature without overt edema. EKG demonstrated ventricular paced rhythm without evidence of ST elevations or depressions. Pt was treated with Ventolin inhaler and 20 mg of IV Lasix. Pt will be admitted to the hospital for treatment and further evaluation of COPD exacerbation. Hospital course The patient was admitted ofr evaluation of dyspnea and cough. found to be in heart failure exacerbation with elevated BNP and fluid overload on CXR. treated with IV lasix then Bumex with good response. she was noted to have wheezing and coughing spells related to acute COPD exacerbation responded well to steroids, nebulizers as she was titrated off oxygen supplement and became able to ambulate on room air with no reported dyspnea. noted to have elevated INR (highest of 6.1) during hospital stay, warfarin was held. she has INR monitor at home and will follow the readings before restarting warfarin again. Continue Prednisone for 3 more days Couge medicine as needed low salt diet follow with PCP in 1 week Time Spent with Patient Time attestation: Total time managing care of this patient today ____ minutes. Discharge coordination time: Greater than 30 minutes Quality: Safe Use of Opioids Does Pt have an Active Cancer Diagnosis on the Problem List?: No Quality: Stroke Does the patient have a stroke diagnosis?: No Physical Exam Vital Signs: Vital Signs: Last Vital Signs Temp 97.9 F 05/16/22 12:00 Pulse 74 05/16/22 12:00 Resp 18 05/16/22 12:00 BP 126/76 05/16/22 12:00 Pulse Ox 93 05/16/22 08:00 O2 Del Method 05/16/22 08:00 O2 Flow Rate 2 05/14/22 11:15 BMI result Body Mass Index 24.2 Const: Other: Constitutional : Awake, interactive, not in distress Neck : Normal inspection, Supple Cardiovascular : RRR, no JVP, trace lower extremity edema Respiratory : fair bilateral air entry, no crackles, bilateral scattered expiratory wheezes Gastrointestinal: soft, lax, Normal bowel sounds, Non tender Skin : Warm, Dry Neurological : Alert & oriented x3, No focal deficit DS: Data Data Completed and Pending Completed studies during hospitalization [Text1]: Procedures Drainage of Chest Wall, Percutaneous Approach (03/22/20) Transfusion of Nonautologous Red Blood Cells into Peripheral Vein, Percutaneous Approach (07/08/21) Labs on day of discharge: Laboratory Results - last 24 hr 05/16/22 06:15 PT 63.6 H INR 5.2 H* Preliminary micro results at discharge 05/12/22 04:18 Blood Culture - Preliminary Blood - Venous No growth after 48 hours. 05/12/22 04:18 Blood Culture - Preliminary Blood - Venous No growth after 48 hours. Imaging Chest x-ray: Radiologist's impression: ITS Impressions Chest X-Ray 05/12/22 04:10 IMPRESSION: Mildly prominent central vasculature without overt edema. Enlarged cardiac silhouette. Discharge Plan Discharge Anticipated Discharge Date/Time: 05/16/22 12:19 Patient Disposition: Home, Self-Care Discharge Diagnosis: COPD and heart failure exacerbation Referrals: Farhan Molina PA-C [Primary Care Provider] - 1 Week Discharge Medications: New benzonatate 100 mg Capsule 200 mg PO TID Qty: 30 0RF guaifenesin [Mucinex] 600 mg Tablet Extended Release 12hr 600 mg PO BID Qty: 14 0RF prednisone 20 mg tablet 40 mg PO DAILY Qty: 6 0RF Continued (DME) hospital bed Kit See Rx Instructions .Route Qty: 1 0RF Rx Instructions: As directed (DME) Ultra-Light Rollator Misc See Rx Instructions .Route Qty: 1 0RF Rx Instructions: As directed ipratropium-albuterol 0.5 mg-3 mg(2.5 mg base)/3 mL solution for nebulization 3 ml inhalation RQ6H WHILE AWAKE PRN (Reason: shortness of breath or wheezing) 30 Days Qty: 180 6RF warfarin [Jantoven] 2 mg tablet 2 mg PO DAILY 90 Days Qty: 90 4RF Hold Instructions: Resume on 07/14/21. budesonide-formoterol [Symbicort] 160-4.5 mcg/actuation HFA aerosol inhaler 2 puff inhalation BID 30 Days Qty: 10.2 2RF calcium carbonate 500 mg calcium (1,250 mg) tablet 500 mg PO BID 90 Days Qty: 180 1RF potassium chloride 20 mEq tablet,ER particles/crystals 20 meq PO BID Qty: 60 5RF spironolactone 25 mg tablet 12.5 mg PO DAILY 30 Days Qty: 15 4RF Protocol: Hold for SBP< HOLD for SBP < : 90 cilostazol 100 mg tablet 100 mg PO Q12H 90 Days Qty: 180 2RF ferrous sulfate 325 mg (65 mg iron) tablet 325 mg PO DAILY Qty: 30 6RF ropinirole 5 mg tablet 5 mg PO BEDTIME Qty: 30 6RF bumetanide 1 mg tablet 2 mg PO DAILY Qty: 60 6RF Protocol: Hold for SBP< HOLD for SBP < : 90 amiodarone 200 mg tablet 200 mg PO DAILY 30 Days Qty: 30 6RF albuterol sulfate 90 mcg/actuation HFA aerosol inhaler 2 puff inhalation Q4-6H PRN (Reason: Shortness Of Breath Or Wheezing) 30 Days Qty: 8.5 3RF metoprolol tartrate 25 mg tablet 25 mg PO Q12H Qty: 180 0RF levothyroxine 50 mcg tablet 50 mcg PO DAILY Qty: 30 3RF atorvastatin 40 mg tablet 40 mg PO DAILY Qty: 90 1RF (DME) nebulizers Misc See Rx Instructions .Route Qty: 1 0RF Rx Instructions: As directed fluticasone propionate 50 mcg/actuation spray,suspension 1 spray intranasal DAILY PRN (Reason: allergy symptoms) Qty: 16 0RF loratadine 10 mg tablet 10 mg PO DAILY Qty: 20 0RF multivitamin Tablet 1 tab PO DAILY Discharge Orders: Discharge Order (Routine); Ordered 05/16/22 Ordered By: Yamila Méndez Diet: Advance to usual diet Activity on Discharge: As tolerated Stand Alone Forms: Patient Portal Discharge page Care Plan Goals: Read below Health Concerns: Read below Plan of Treatment: Read below Assessment: you were admitted to the hospital for heart failure and COPD exacerbation reposnded well to treatment with diuretics, steroids and nebulizers. Continue Prednisone for 3 more days Couge medicine as needed low salt diet follow with PCP in 1 week
--- NOTE | 2022-05-16 12:55 | MHC.CM.PN ---
Addendum entered by Ania Tolbert 05/16/22 13:20: IMM DELIVERED Original Note: DP: PT HAS BEEN MEDICALLY CLEARED FOR DC HOME, NO SERVICES. RN AWARE. PT WILL TAKE [facility] SHUTTLE HOME.
== END 2022-05-16 14:02 | disposition home or self-care (01) | DRG 190 ==
LOC: HO.ED 06:33 → HO.EDOVER 12:36 → HO.IMC 19:30
PROVIDERS: Admitting Provider Student in an Organized Health Care Education/Training Program; Emergency Provider Internal Medicine; PCP Physician Assistant; Visit Provider Student in an Organized Health Care Education/Training Program
DX: J44.1 Chronic obstructive pulmonary disease with (acute) exacerbation (principal); I50.33 Acute on chronic diastolic (congestive) heart failure; N17.9 Acute kidney failure, unspecified; N18.4 Chronic kidney disease, stage 4 (severe); I48.19 Other persistent atrial fibrillation; I24.8 Other forms of acute ischemic heart disease; G25.81 Restless legs syndrome; R79.1 Abnormal coagulation profile; Z66 Do not resuscitate; I73.9 Peripheral vascular disease, unspecified; E03.9 Hypothyroidism, unspecified; E86.0 Dehydration; Z20.822 Contact with and (suspected) exposure to COVID-19; Z95.810 Presence of automatic (implantable) cardiac defibrillator; I25.2 Old myocardial infarction; Z87.891 Personal history of nicotine dependence; Z79.01 Long term (current) use of anticoagulants; Z79.51 Long term (current) use of inhaled steroids; Z79.890 Hormone replacement therapy; Z79.899 Other long term (current) drug therapy
CPT/HCPCS: 36415; 71045; 80048; 80053; 82550; 83605; 83880; 84484; 85025; 85610; 87040; 87635; 93005; 99285; J1940; J2920

== ENCOUNTER 2022-06-30 08:26 | Outpatient (REF) | payer OTHER, MEDICAID, SELFPAY ==
--- NOTE | ~2022-06-30 | US_ITS ---
EXAMINATION: US RETROPERITONEAL LIMITED (RENAL ONLY) CLINICAL INFORMATION: Hypertension, chronic kidney disease. COMPARISON: CT abdomen and pelvis 08/11/2014. TECHNIQUE: Real-time imaging of the kidneys. FINDINGS: RIGHT KIDNEY: 9.0 x 3.7 x 4.0 cm (SAG x AP x TRV). Small kidney with thinned parenchyma consistent with chronic medical renal disease. No renal calculi or hydronephrosis. Tiny subcentimeter Bosniak 1 simple cysts. No imaging follow-up is recommended. LEFT KIDNEY: 7.5 x 3.7 x 3.3 cm (SAG x AP x TRV). Small kidney with thinned parenchyma consistent with chronic medical renal disease. No calculi or focal parenchymal lesions. No hydronephrosis. US/US renal BI IMPRESSION: Small kidneys with parenchymal thinning consistent with chronic medical renal disease. No hydronephrosis.
== END 2022-06-30 08:27 | disposition home or self-care (01) ==
LOC: HO.US 08:26
PROVIDERS: PCP Physician Assistant; Visit Provider Internal Medicine Nephrology
DX: N18.4 Chronic kidney disease, stage 4 (severe) (principal)
CPT/HCPCS: 76775

== ENCOUNTER → 2022-11-16 08:34 | Outpatient (REF) | payer OTHER, MEDICAID, SELFPAY ==
--- NOTE | 2022-11-16 08:37 | CA_ITS ---
Transthoracic Echocardiogram Patient (Last, First, Middle): Nishi Hernandez G Gender: Female Date of : 1945 Age: 77 Procedure Date: 11/16/2022 Procedure Type: Transthoracic Echocardiogram Location: OP Height: 149.86 cm Weight: 56.7 kg BSA: 1.51 m2 Heart Rate: 86 bpm BP: 108 / 68 mmHg Decker Operator: SB Referring MD: Ulysses Fernando MD Symptoms: I05.0 - Rheumatic mitral stenosis Study Quality: Adequate ECG Rhythm: Paced Conclusions: - 1. Normal measured LV ejection fraction at 55-60% with mild LVH and at least moderate asymmetric septal hypertrophy without any clear obstruction 2. Severely dilated left atrium 3. Calcific mitral valve disease with at least moderate mitral stenosis with mean gradient of 8 mmHg and a [id number] mitral regurgitation 4. Calcific aortic valve disease with early mild aortic stenosis 5. Normal RV systolic pressure 6. Mildly dilated ascending aorta at 3.7 cm 7. No gross pericardial effusion Findings Left Ventricle Normal left ventricular cavity size. There is mildly increased left ventricular wall thickness. The left ventricular systolic function is normal. The visually estimated ejection fraction is between 55-60%. Regional wall motion abnormalities can not be excluded due to suboptimal endocardial definition. Diastolic function is indeterminate on the basis of available data. There is moderate septal asymmetric hypertrophy. Right Ventricle Normal right ventricular cavity size and systolic function. There is an ICD wire seen in the right ventricle. Atria The left atrium is severely dilated. Interatrial shunt cannot be excluded. The right atrium is normal in size. Aortic Valve There is mild calcification of the aortic valve. There is mild thickening of the aortic valve. There is mild aortic valve stenosis. There is no aortic valve regurgitation. Mitral Valve There is moderate anterior and posterior mitral leaflet thickening. The posterior mitral leaflet is immobile. There is severe mitral annular calcification. There is mild to moderate mitral valve regurgitation. There is moderate mitral valve stenosis. Pulmonic Valve The pulmonic valve was not well visualized. Tricuspid Valve Likely normal tricuspid valve structure and function. There is mild tricuspid valve regurgitation. The right ventricular systolic pressure is normal. The right ventricular systolic pressure is 28 mmHg. Normal right atrial pressure. There is no evidence of pulmonary hypertension. Great Vessels The pulmonary artery was not well visualized. There is mild dilatation of the ascending aorta measuring 3.70 cm. Venous The inferior vena cava is mildly dilated and collapses greater than 50% with inspiration. Pericardium/Pleural There is no evidence of pericardial effusion. Prior Study Comparison No significant change compared to prior study dated: 09/01/2021. Measurements 2D Linear Measurements IVSd: 1.75 0.6-0.9/0.6-1.0 cm LVIDd: 2.48 3.9-5.3/4.2-5.9 cm LVIDd Index: 1.64 2.4-3.2/2.2-3.1 cm/m2 LVIDs: 1.67 2.0-3.6 cm LVPWd: 1.43 0.7-1.1 cm Ao Root: 3.30 2.1-3.5 cm LA Diam: 5.90 2.7-3.8/3.0-4.0 cm LAIDs Index: 3.91 1.5-2.3 cm/m2 LV Mass: 172.71 67-162/88-224 g LV Mass Index: 114.38 43-95/49-115 g/m2 LVOT Diam: 2.30 3.0+(-)1.3 cm 2D Systolic Function EF 2C: 53.90 >55% Mitral Valve MV VTI: 0.50 MV Pk Escobar: 2.01 MV Mn Escobar: 1.17 MV Pk Grad: 16.00 MV Mn Grad: 7.00 MV Pk E: 1.64 MV Decel Time: 350.00 PHT: 98.00 MVA PHT: 2.24 MVA Continuity: 1.40 Decel Upson: 4.91 MR VTI: 1.43 Aortic Valve AoV Pk Escobar: 1.85 AoV Mn Escobar: 1.26 AoV VTI: 0.30 AoV Pk Grad: 14.00 Aov Mn Grad: 8.00 JAGRUTI Cont.VTI: 2.34 LVOT LVOT Pk Escobar: 1.02 LVOT Mn Escboar: 0.63 LVOT VTI: 0.17 LVOT Pk Grad: 4.00 LVOT Mn Grad: 2.00 LVOT Diam: 2.30 LVOT Area: 4.15 Diastolic Function MV Pk E: 1.64 Right Ventricle TAPSE (mm): 20.90 TVS' Escobar: 11.10 Tricuspid Valve TR Pk Escobar: 2.50 TR Pk Grad: 25.00 RA Press: 3.00 RVSP: 28.00 Great Vessels Aorta Ao Root-2D: 3.30 2.0-3.7 cm Sinus of Valsalva: 3.30 2.0-3.5 cm Ao Asc: 3.70 2.1-3.4 cm Pulmonary Valve PV Pk Escobar: 0.88 Peak PV Grad: 3.00 Updated in Other Vendor System with Status of Final Ulysses Fernando MD electronically signed on 11/18/2022 8:18:43 AM with status of Final
== END ==
LOC: HO.CARD 08:34
PROVIDERS: PCP Physician Assistant; Visit Provider Internal Medicine Cardiovascular Disease
DX: I05.0 Rheumatic mitral stenosis (principal)
CPT/HCPCS: 93306

== ENCOUNTER → 2022-11-16 08:37 | Outpatient (BNV) | payer OTHER, MEDICAID, SELFPAY | PROVIDERS: PCP Physician Assistant; Visit Provider Internal Medicine Cardiovascular Disease | DX: I34.0 Nonrheumatic mitral (valve) insufficiency (principal); I34.2 Nonrheumatic mitral (valve) stenosis | CPT/HCPCS: 93306 ==

== ENCOUNTER 2022-11-28 11:04 | Outpatient (AMB) | payer OTHER, MEDICAID, SELFPAY ==
[2022-11-28 11:27] VITALS: BP 110/72; PULSE 83; BMI 24.0
--- NOTE | 2022-11-28 11:27 | MHC.OFFVIS ---
Intake Vital Signs 11/28/22 11:27 Height 4 ft 11 in Weight 119 lb 0.794 oz BMI 24.0 BP 110/72 Blood Pressure Location Lt brachial Position Sitting Pulse 83 Intake Visit Reasons: 6 mth fu after echo w/ medtronic Intake Note: 6 month follow-up after echo with ekg and medtronic c/o some palpitations but brief when it happens Club Attendant Required: No Allergies doxycycline Adverse Reaction (Verified 06/07/22 10:25) Vomiting Medication List - Last Reconciled 11/28/22 by Ulysses Fernando MD albuterol sulfate 90 mcg/actuation 2 puffs inhalation Q4-6H PRN 30 days amiodarone 200 mg PO DAILY 30 days atorvastatin 40 mg PO DAILY budesonide-formoterol 160-4.5 mcg/actuation (Symbicort) 2 puffs inhalation BID 30 days bumetanide 2 mg See Protocol PO DAILY calcium carbonate 500 mg PO BID 90 days cilostazol 100 mg PO Q12H 90 days ferrous sulfate 325 mg PO DAILY fluticasone propionate 50 mcg/actuation 1 spray intranasal DAILY PRN guaifenesin ER (Mucinex) 600 mg PO BID 10 days hospital bed As directed ipratropium-albuterol 0.5 mg-3 mg(2.5 mg base)/3 mL 3 mL inhalation RQ6H WHILE AWAKE PRN 30 days levothyroxine 50 mcg PO DAILY loratadine 10 mg PO DAILY metoprolol tartrate 25 mg PO Q12H multivitamin 1 tab PO DAILY nebulizers As directed potassium chloride ER 20 mEq PO BID prednisone 40 mg (2 x 20 mg) PO DAILY 4 days ropinirole 5 mg PO BEDTIME spironolactone 12.5 mg See Protocol PO DAILY 30 days walker (Ultra-Light Rollator misc) As directed warfarin (Jantoven) 2 mg PO DAILY 90 days HPI HPI Comments History of Present Illness Details Nishi comes for follow-up of her pacemaker, mitral valve disease and hypertrophic cardiomyopathy. She has had no hospitalization the last 6 months. Occasionally has jabbing pain in the left thoracic cage. These are not exertion related. Denies any prolonged palpitations, irregular heartbeat, lightheadedness, syncope. No is clear significant worsening orthopnea, PND. She does not monitor weight on a regular basis. Has limitations to exercise due to her balance issues. Takes all her medications. No bleeding issues or neurologic events. Her INRs have remained stable. [facility] Medical History (Updated 11/28/22 @ 12:18 by Ulysses Fernando MD) Chronic heart failure with preserved ejection fraction (HFpEF) Mitral valve disease Presence of combination internal cardiac defibrillator (ICD) and pacemaker On anticoagulant therapy On beta bert at home Congestive heart failure Hypertrophic cardiomyopathy Anemia Non-ST elevation [place] (NSTEMI) Pleural effusion on right Fall Cardiac defibrillator in place COPD (chronic obstructive pulmonary disease) Afib History of breast cancer Hypothyroidism Vitamin D deficiency Osteoporosis Mucinous carcinoma of right breast Multinodular thyroid Current use of anticoagulant therapy Surgical History History of bilateral tubal ligation History of lumpectomy of right breast AICD (automatic cardioverter/defibrillator) present History of tubal ligation History of automatic internal cardiac defibrillator (AICD) Family History Father Thrombus Mother Heart disease Social History Household Members: Family Housing: Apartment Do you presently have visiting nurse or other home services: No Alcohol intake: never Patient Tobacco Use Status: Former Tobacco user Quit Date: 2007 Years Smoked: 30 +/- e-Cigarette/Vaping Use: Never Used Second Hand Smoke Exposure: Yes Advance Directives Date on File: 07/23/20 service: No Current occupational status: retired Cognitive needs: Yes Hearing needs: No Vision needs: Yes Review of Systems Const Denies chills, Denies fatigue, Denies fever(s), Denies frequent falls, Denies weakness, Denies weight gain and Denies weight loss ENT Denies dizziness Card Denies chest pain, Denies leg edema, Denies lightheadedness, Denies palpitations, Denies dyspnea, Denies dyspnea on exertion, Denies orthopnea and Denies other (loss of consciousness) Resp Denies cough, Denies dyspnea and Denies dyspnea on exertion GI Denies hematochezia and Denies change in stool character Musc Denies abnormal gait, Denies muscle weakness, Denies numbness, Denies radiating pain into limb and Denies tingling Neuro Denies abnormal gait, Denies dizziness, Denies frequent falls, Denies numbness, Denies tingling and Denies weakness Endo Denies fatigue and Denies palpitations Physical Exam Vital Signs: Last Vital Signs Pulse 83 11/28/22 11:27 BP 110/72 11/28/22 11:27 BMI result Body Mass Index 24.0 Const General: cooperative, comfortable, no acute distress, alert and awake Nutritional Appearance: thin Orientation/consciousness: patient oriented x3 Limitations: ambulation with cane Neck Neck: Yes trachea midline, Yes supple and Yes no JVD Resp Effort & Inspection: normal respiratory effort Auscultation: clear to auscultation bilaterally Cardio Jugular venous distension: other (Prominent V-waves) Palpation: normal PMI Rate: regular rate Rhythm: regular rhythm Heart sounds: S1 normal heart sound present, S2 normal heart sound present, no click, no gallops and no murmurs GI Auscultation: normal bowel sounds Skin General skin exam: no rashes or lesions noted and ecchymosis Neuro General: patient oriented x3 and no focal motor deficits Extrem General: Yes no clubbing, cyanosis or edema Office Procedures Cardiac Device Check Cardiac Device Check Details: Single-chamber Medtronic ICD in place. Programmed in VVI are at 70 beats per minute. Ventricularly pacer dependent. No arrhythmias detected. Battery life is excellent at a 0.4 years. Ventricular sensing is adequate. Pacing and shock lead impedance is stable. Ventricular pacing thresholds adequate [id number] Cardiac Device Check, single lead implantable defibrillator Procedure code (CPT) selection complete EKG Details: EKG shows ventricular paced rhythm at 83 beats per minute [id number], Complete Assessment & Plan Assessment & Plan (1) Chronic heart failure with preserved ejection fraction (HFpEF): Code(s): I50.32 - Chronic diastolic (congestive) heart failure Plan: Heart failure preserved ejection fraction, multifactorial related diastolic dysfunction related to hypertrophic cardiomyopathy and chronic atrial fibrillation. Clinically has remained stable without any hospitalization for heart failure. We discussed about management. Continue current diuretic regimen. She has done well with bumetanide therapy. Addition bumetanide with weight gain suddenly in a day or 2 or worsening symptoms were discussed. She knows how to [place] thighs bumetanide. Low-salt diet was discussed importance of daily weight monitoring was discussed. Recommend increase activity as tolerated. Continue neurohormonal modulation with spironolactone (2) Mitral valve disease: Code(s): I05.9 - Rheumatic mitral valve disease, unspecified Plan: Mixed mitral valve disease, calcific with moderate mitral stenosis as well as jaau-jw-adixrids mitral regurgitation. Stable. No interventions required per se for the same. Continue monitor by echocardiogram on annual basis. He (3) Afib: Code(s): I48.91 - Unspecified atrial fibrillation Qualifiers: Atrial fibrillation type: longstanding persistent Qualified Code(s): I48.11 - Longstanding persistent atrial fibrillation Plan: Chronic atrial fibrillation status post ablation. Currently pacer dependent. Continue full oral anticoagulation, currently on warfarin therapy. Maintain target INR between 2 and 3. (4) Cardiac defibrillator in place: Code(s): Z95.810 - Presence of automatic (implantable) cardiac defibrillator Plan: ICD in place for secondary prevention of hypertrophic cardiomyopathy. ICD is working well. Will follow remotely every 3 months. Continue amiodarone therapy to reduce risk of ventricular arrhythmias. This is been going on for many years. Continue check for amiodarone toxicity on a yearly basis. (5) Hypertrophic cardiomyopathy: Comment: Foll'd By Dr. Fernando Code(s): I42.2 - Other hypertrophic cardiomyopathy Plan: Hypertrophic cardiomyopathy without any obstructive physiology. This has remained stable. No interventions required per se for hypertrophic cardiomyopathy. Will follow up in the clinic in 6 months time, sooner p.r.n.. Thank you for allowing me to partake in the care. Greater than 40 minutes was spent in managing her complex care Coding Level of Care Code Est Pt Level 5 (32677) Diagnoses Chronic heart failure with preserved ejection fraction (HFpEF) I50.32 Mitral valve disease I05.9 Longstanding persistent atrial fibrillation I48.11 Atrial fibrillation type: longstanding persistent Cardiac defibrillator in place Z95.810 Hypertrophic cardiomyopathy I42.2 CPT Codes Cardiac Device Check - Cardiac Device 4: [id number] Cardiac Device Check, single lead implantable defibrillator ([id number]) EKG - CPT: 38659-[id number], Complete ([id number])
== END 2022-11-28 11:50 | disposition home or self-care (01) ==
PROVIDERS: PCP Physician Assistant; Referring Provider Physician Assistant; Visit Provider Internal Medicine Cardiovascular Disease
DX: I50.32 Chronic diastolic (congestive) heart failure (principal); I05.9 Rheumatic mitral valve disease, unspecified; I48.11 Longstanding persistent atrial fibrillation; I42.2 Other hypertrophic cardiomyopathy; Z95.810 Presence of automatic (implantable) cardiac defibrillator
CPT/HCPCS: 93282; 99214

== ENCOUNTER → 2022-11-28 11:04 | Outpatient (BNVA) | payer OTHER, MEDICAID, SELFPAY | PROVIDERS: PCP Physician Assistant; Referring Provider Physician Assistant; Visit Provider Internal Medicine Cardiovascular Disease | DX: I50.32 Chronic diastolic (congestive) heart failure (principal); I05.9 Rheumatic mitral valve disease, unspecified; I48.11 Longstanding persistent atrial fibrillation; I42.2 Other hypertrophic cardiomyopathy; Z79.01 Long term (current) use of anticoagulants; Z79.899 Other long term (current) drug therapy; Z45.02 Encounter for adjustment and management of automatic implantable cardiac defibrillator | CPT/HCPCS: 93005; 99212 ==

== ENCOUNTER → 2022-12-14 23:59 | Outpatient (BNV) | payer OTHER, MEDICAID, SELFPAY ==
--- NOTE | 2022-12-15 09:33 | MHC.OFFVIS ---
Intake Intake Visit Reasons: Remote ICD Check- Medtronic Allergies doxycycline Adverse Reaction (Verified 06/07/22 10:25) Vomiting PFSH Medical History (Updated 11/28/22 @ 12:18 by Ulysses Fernando MD) Chronic heart failure with preserved ejection fraction (HFpEF) Mitral valve disease Presence of combination internal cardiac defibrillator (ICD) and pacemaker On anticoagulant therapy On beta bert at home Congestive heart failure Hypertrophic cardiomyopathy Anemia Non-ST elevation [place] (NSTEMI) Pleural effusion on right Fall Cardiac defibrillator in place COPD (chronic obstructive pulmonary disease) Afib History of breast cancer Hypothyroidism Vitamin D deficiency Osteoporosis Mucinous carcinoma of right breast Multinodular thyroid Current use of anticoagulant therapy Surgical History History of bilateral tubal ligation History of lumpectomy of right breast AICD (automatic cardioverter/defibrillator) present History of tubal ligation History of automatic internal cardiac defibrillator (AICD) Family History Father Thrombus Mother Heart disease Social History Household Members: Family Housing: Apartment Do you presently have visiting nurse or other home services: No Alcohol intake: never Patient Tobacco Use Status: Former Tobacco user Quit Date: 2007 Years Smoked: 30 +/- e-Cigarette/Vaping Use: Never Used Second Hand Smoke Exposure: Yes Advance Directives Date on File: 07/23/20 service: No Current occupational status: retired Cognitive needs: Yes Hearing needs: No Vision needs: Yes Office Procedures Cardiac Device Check Cardiac Device Check Details: Remote ICD report generated 12/14/2022. ICD function is adequate [id number] Cardiac Interrogation, implant defibrillator w/interim Procedure code (CPT) selection complete Coding Level of Care Code Procedure Only CPT Codes Cardiac Device Check - Cardiac Device 13: [id number] Cardiac Interrogation, implant defibrillator w/interim ([id number])
== END ==
PROVIDERS: PCP Physician Assistant; Visit Provider Internal Medicine Cardiovascular Disease
DX: I48.92 Unspecified atrial flutter (principal); Z95.810 Presence of automatic (implantable) cardiac defibrillator
CPT/HCPCS: 93295

== ENCOUNTER → 2023-03-15 23:59 | Outpatient (BNV) | payer OTHER, MEDICAID, SELFPAY ==
--- NOTE | 2023-03-21 08:26 | MHC.OFFVIS ---
Intake Intake Visit Reasons: Remote ICD Check- [employer] Allergies doxycycline Adverse Reaction (Verified 06/07/22 10:25) Vomiting [facility] Medical History (Updated 01/09/23 @ 07:34 by Farhan Molina PA-C) Chronic heart failure with preserved ejection fraction (HFpEF) Mitral valve disease Presence of combination internal cardiac defibrillator (ICD) and pacemaker On anticoagulant therapy On beta bert at home Congestive heart failure Hypertrophic cardiomyopathy Anemia Non-ST elevation [place] (NSTEMI) Pleural effusion on right Fall Cardiac defibrillator in place COPD (chronic obstructive pulmonary disease) Afib History of breast cancer Hypothyroidism Vitamin D deficiency Osteoporosis Mucinous carcinoma of right breast Multinodular thyroid Current use of anticoagulant therapy Surgical History History of bilateral tubal ligation History of lumpectomy of right breast AICD (automatic cardioverter/defibrillator) present History of tubal ligation History of automatic internal cardiac defibrillator (AICD) Family History Father Thrombus Mother Heart disease Social History Household Members: Family Housing: Apartment Do you presently have visiting nurse or other home services: No Alcohol intake: never Patient Tobacco Use Status: Former Tobacco user Quit Date: 2007 Years Smoked: 30 +/- e-Cigarette/Vaping Use: Never Used Second Hand Smoke Exposure: Yes Advance Directives Date on File: 07/23/20 service: No Current occupational status: retired Cognitive needs: Yes Hearing needs: No Vision needs: Yes Office Procedures Cardiac Device Check Cardiac Device Check Details: Remote ICD report generated 03/15/2023. ICD function is adequate [id number] Cardiac Interrogation, implant defibrillator w/interim Procedure code (CPT) selection complete Assessment & Plan Assessment & Plan (1) Cardiac defibrillator in place: Code(s): Z95.810 - Presence of automatic (implantable) cardiac defibrillator Plan: See above Coding Level of Care Code Procedure Only Diagnoses Cardiac defibrillator in place Z95.810 CPT Codes Cardiac Device Check - Cardiac Device 13: [id number] Cardiac Interrogation, implant defibrillator w/interim ([id number])
== END ==
PROVIDERS: PCP Physician Assistant; Visit Provider Internal Medicine Cardiovascular Disease
DX: I50.32 Chronic diastolic (congestive) heart failure (principal); Z95.810 Presence of automatic (implantable) cardiac defibrillator
CPT/HCPCS: 93295

== ENCOUNTER 2023-04-20 21:32 | Inpatient (IN) | payer OTHER, SELFPAY ==
--- NOTE | ~2023-04-20 | XR_ITS ---
EXAMINATION: XR CHEST CLINICAL INFORMATION: Generalized weakness and cough. COMPARISON: Chest 05/12/2022 TECHNIQUE: Frontal view of the chest was obtained. FINDINGS: There is moderate cardiomegaly with dense mitral valve calcification. Mild calcification of aortic arch is noted as well. There is solitary pacer electrode in the right ventricle. The pulmonary vascularity is increased suggestive of CHF. The lungs are expanded without consolidation or pleural effusion. XR/XR chest 1V IMPRESSION: 1. Moderate cardiomegaly with mild CHF. 2. Dense mitral valve calcification. No change in the calcification from previous chest x-ray 05/12/2022.
--- NOTE | 2023-04-20 21:43 | ECG_ITS ---
Test Reason : SOB Blood Pressure : / mmHG Vent. Rate : 074 BPM Atrial Rate : 065 BPM P-R Int : 000 ms QRS Dur : 226 ms QT Int : 532 ms P-R-T Axes : 000 -46 133 degrees QTc Int : 590 ms Ventricular-paced rhythm Abnormal ECG When compared with ECG of 12-MAY-2022 07:49, Vent. rate has increased BY 4 BPM Referred By: Salma Chino Electronically Signed By:ROSI CHU MD
--- NOTE | 2023-04-20 21:44 | ED.GENADULT ---
HPI - General Adult General Chief complaint: Upper Respiratory Symptoms Stated complaint: FEELING SICK XFEW WKS,N/V EVERY NIGHT,WHEEZING Time Seen by Provider: 04/20/23 21:36 Source: patient and EMS Mode of arrival: EMS Limitations: no limitations History of Present Illness HPI narrative: A 77-year-old female came in by EMS seeking medical evaluation for generalized weakness, fatigue, shortness of breath for the past week. No chest pain, patient was exposed to 2 family member who were sick with COVID, patient took a home test last week COVID. Patient been having exertional dyspnea even with few steps, no PND, no lower extremity swelling or edema unless she drinks too much fluid, Patient still sustaining nonproductive cough and shortness of breath. No chills, no chest pain, no extremities redness. Patient takes warfarin for atrial fibrillation. Related Data Home Medications Medication Instructions Recorded Confirmed multivitamin 1 tab PO DAILY 02/03/20 11/28/22 Previous Rx's Medication Instructions Recorded fluticasone propionate 50 1 spray intranasal DAILY PRN 05/28/21 mcg/actuation nasal allergy symptoms #16 grams spray,suspension loratadine 10 mg tablet 10 mg PO DAILY #20 tabs 05/28/21 nebulizers #1 ea 07/12/21 walker (Ultra-Light Rollator misc) #1 ea 07/13/21 ipratropium 0.5 mg-albuterol 3 mg 3 ml inhalation RQ6H WHILE AWAKE 08/24/21 (2.5 mg base)/3 mL nebulization PRN shortness of breath or soln wheezing 30 days #180 mL albuterol sulfate 90 mcg/actuation 2 puff inhalation Q4-6H PRN 04/08/22 aerosol inhaler Shortness Of Breath Or Wheezing 30 days #8.5 grams atorvastatin 40 mg tablet 40 mg PO DAILY #90 tabs 05/16/22 guaifenesin 600 mg tablet, 600 mg PO BID 10 days #20 tabs 06/07/22 extended release 12 hr (Mucinex) warfarin 2 mg tablet (Jantoven) 2 mg PO DAILY 90 days #90 tabs 10/11/22 hospital bed #1 ea 10/24/22 cilostazol 100 mg tablet 100 mg PO Q12H 90 days #180 tabs 11/07/22 levothyroxine 50 mcg tablet 50 mcg PO DAILY #30 tabs 01/07/23 budesonide-formoterol HFA 160 2 puff inhalation BID 30 days 01/08/23 mcg-4.5 mcg/actuation aerosol #10.2 grams inhaler (Symbicort) amoxicillin 500 mg capsule 500 mg PO Q8H 5 days #15 caps 01/09/23 prednisone 20 mg tablet 40 mg (2 x 20 mg) PO DAILY 4 days 01/09/23 #8 tabs bumetanide 1 mg tablet 2 mg PO DAILY #60 tabs 02/06/23 ferrous sulfate 325 mg (65 mg 325 mg PO DAILY #30 tabs 02/06/23 iron) tablet ropinirole 5 mg tablet 5 mg PO BEDTIME #30 tabs 02/06/23 amiodarone 200 mg tablet 200 mg PO DAILY 30 days #30 tabs 04/07/23 spironolactone 25 mg tablet 12.5 mg PO DAILY 30 days #15 tabs 04/07/23 metoprolol tartrate 25 mg tablet 25 mg PO Q12H #180 tabs 04/10/23 calcium carbonate 500 mg calcium 500 mg PO BID 90 days #180 tabs 04/11/23 (1,250 mg) tablet potassium chloride 20 mEq 20 meq PO BID #60 tabs 04/11/23 tablet,extended release(part/cryst) Allergies Allergy/AdvReac Type Severity Reaction Status Date / Time doxycycline AdvReac Vomiting Verified 04/20/23 21:54 Review of Systems Review of Systems: All other systems are reviewed and are negative Constitutional: Reports as per HPI and Reports no additional constitutional complaints Eyes: Reports as per HPI and Reports no additional eye complaints Reports system reviewed and no additional complaints, except as documented Cardiovascular: Reports as per HPI and Reports no additional cardiovascular complaints Respiratory: Reports as per HPI and Reports no additional respiratory complaints Gastrointestinal: Reports as per HPI and Reports no additional gastrointestinal complaints Genitourinary: Reports no additional female genitourinary complaints Musculoskeletal: Reports no additional musculoskeletal complaints Skin/Breast: Reports system reviewed and no additional complaints, except as docu Psychiatric: Reports no additional psychiatric complaints Endocrine: Reports no additional endocrine complaints Hematologic/Lymphatic: Reports no additional hematologic/lymphatic complaints Allergic/Immunologic: Reports no additional allergic/immunologic complaints Reports system reviewed and no additional complaints, except as documented and Reports Abnormal speech present [facility] Past Medical History Medical History Chronic heart failure with preserved ejection fraction (HFpEF) Mitral valve disease Presence of combination internal cardiac defibrillator (ICD) and pacemaker On anticoagulant therapy On beta bert at home Congestive heart failure Hypertrophic cardiomyopathy Anemia Non-ST elevation [place] (NSTEMI) Pleural effusion on right Fall Cardiac defibrillator in place COPD (chronic obstructive pulmonary disease) Afib History of breast cancer Hypothyroidism Vitamin D deficiency Osteoporosis Mucinous carcinoma of right breast Multinodular thyroid Current use of anticoagulant therapy Surgical History History of bilateral tubal ligation History of lumpectomy of right breast AICD (automatic cardioverter/defibrillator) present History of tubal ligation History of automatic internal cardiac defibrillator (AICD) Family History Family History Father Thrombus Mother Heart disease Social History Social History Household Members: Family Housing: Apartment Do you presently have visiting nurse or other home services: No Alcohol intake: never Patient Tobacco Use Status: Former Tobacco user Quit Date: 2007 Smoked: 30 +/- e-Cigarette/Vaping Use: Never Used Second Hand Smoke Exposure: Yes Advance Directives: Yes Advance Directives on File: Yes Advance Directives Date on File: 07/23/20 service: No Current occupational status: retired Cognitive needs: Yes Hearing needs: No Vision needs: Yes Physical Exam ED Vital Signs: Vital Signs - 24 hr 04/20/23 21:54 04/20/23 22:22 04/21/23 01:50 Temperature 98.7 F 98.3 F Pulse Rate 72 72 72 Respiratory Rate 22 H 14 18 Blood Pressure 95/65 90/48 L Pulse Oximetry 93 92 Oxygen Delivery Method Room Air Room Air BMI result Body Mass Index 28.1 Vital signs have been reviewed and appear to be correct. Blood pressure elevated. Heart rate normal. Respiratory rate normal. Temperature normal. Oxygen saturation normal. Appearance: Alert. Oriented X3. No acute distress. Head: Normal external exam. Normocephalic. Atraumatic. No Romero signs noted. No raccoon eyes noted Eyes: PERRLA. EOMI. Conjunctiva and sclera normal. Eyelids normal. ENT: TM's Normal. Pharynx normal. Uvula midline. Moist mucous membranes. No trismus noted. No drooling noted. No muffled voice noted. Neck: Normal inspection. Neck supple. FROM. No adenopathy. Thyroid Normal. No meningeal signs. No neck mass noted. CVS: Normal heart rate and rhythm. Heart sound normal. No murmurs noted. Pulses normal throughout. Respiratory: No respiratory distress. Painless inspiration. Breath sounds normal. Bilateral expiratory wheezing with prolonged expiration with bilateral basilar rales. Chest nontender. No accessory muscle usage noted or decreased air movement noted. Abdomen: Soft and nontender. Bowel sounds normal in all 4 quadrants. No distention noted. No organomegaly noted. No visible injury noted. Back: No CVA tenderness. Full range of motion noted. Skin: Skin warm and dry. Normal skin color. Normal skin turgor. No rashes/lesions/lacerations noted. Extremities: No lower extremity edema. Extremities exhibit normal range of motion. Extremities nontender. Neuro: Oriented X 3. Cranial nerve exam: II-XII are grossly intact No motor deficit. No sensory deficit. Reflexes normal. Course Reevaluation(s) Reevaluation #1: Patient with exertional dyspnea and borderline normal O2 sat on air. 1. Positive COVID infection, will admit for isolation. 2. Congestive heart failure gentle diuresis for borderline low blood pressure. 3. Chronic troponin elevation likely secondary to CKD. Will admit. Time: 02:26 Medications Administered Discontinued Medications Generic Name Dose Route Start Last Admin Trade Name Freq PRN Reason Stop Dose Admin Albuterol Sulfate 2.5 mg/ 5 mg 04/20/23 22:11 04/20/23 22:21 Albuterol Sulfate 2.5 mg INHALE 04/20/23 22:12 5 mg ONCE ONE Administration Furosemide 40 mg 04/20/23 23:12 04/20/23 23:40 Furosemide 40 Mg/4 Ml Vial IVPUSH 04/20/23 23:13 40 mg ONCE ONE Administration Protocol Medical Decision Making Differential Diagnosis Differential Diagnoses: The differential diagnosis associated with the presentation includes (Congestive heart failure, ACS, chronic troponin elevation, COVID infection, influenza, pneumonia, pneumothorax, pleural effusion, electrolyte abnormality, severe anemia.) Admission/Observation Consideration of admission/observation: Escalation of care including admission/observation considered Consult Healthcare Provider Management of the patient was discussed with: Hospitalist (Dr. Arias) Lab Data MDM Lab Attestation statement: I reviewed the patient's lab results. 04/20/23 22:16 04/20/23 22:16 Labs: Lab Results 04/20/23 04/20/23 04/21/23 Range/Units 22:07 22:16 01:49 WBC 2.3 L (4.8-10.8) X10*3/uL RBC 4.30 (4.20-5.50) X10*6/uL Hgb 13.2 (12.0-16.0) g/dl Hct 39.5 (37.0-47.0) % MCV 91.9 (80.0-98.0) fL MCH 30.7 (27.0-33.0) pg MCHC 33.4 (31.0-35.0) g/dl RDW 14.5 (11.0-16.0) % Plt Count 119 L D (160-400) X10*3/uL MPV 10.8 (9.4-12.3) fL Immature Gran % (Auto) 0.4 (0.0-0.4) % Neut % (Auto) 63.1 (45-73) % Lymph % (Auto) 20.2 (20-40) % [place] % (Auto) 14.2 H (2-11) % Eos % (Auto) 1.7 (0-4) % Baso % (Auto) 0.4 (0-2) % Lymph # (Auto) 0.5 L (1.2-4.9) X10*3/uL [place] # (Auto) 0.3 (0.1-1.2) X10*3/uL Eos # (Auto) 0.0 (0.0-0.4) X10*3/uL Baso # (Auto) 0.0 (0.0-0.2) X10*3/uL Abs Immat Gran (auto) 0.01 (0.00-0.03) X10*3/uL Absolute Neuts (auto) 1.5 L (2.0-8.3) x10*3/uL Absolute Nucleated RBC 0.000 (0.0-0.012) X10*3/uL Nucleated RBC % (auto) 0.0 (0.0-0.2) /100WBC Smear Tech's Comments VERIFIED PT 61.4 H (11.1-13.3) SEC INR 5.0 H* (0.9-1.1) Sodium 140 (135-145) mmol/L Potassium 3.7 (3.3-5.1) mmol/L Chloride 106 (96-108) mmol/L Carbon Dioxide 25 (22-29) mmol/L Anion Gap 13 (12-20) BUN 19 H (9-16) mg/dL Creatinine 2.34 H (0.5-1.4) mg/dL Estim Creat Clear Calc 16.7 Estimated GFR 20 Random Glucose 101 (60-115) mg/dL Calcium 8.3 L (8.4-10.2) mg/dL Total Bilirubin 0.7 (0.0-1.0) mg/dL Direct Bilirubin 0.4 (0.0-0.5) mg/dL AST 56 H (5-31) U/L ALT 57 H (0-31) U/L Alkaline Phosphatase 93 (39-117) U/L Troponin I High Sens 230.6 H* D 220.1 H* (<3.5-17.0) ng/L B-Natriuretic Peptide 776 H (<100) pg/mL Total Protein 6.3 L (6.5-8.0) g/dL Albumin 3.9 (3.5-5.0) g/dL Lipase 10 (8-78) U/L Influenza Type A (PCR) NEGATIVE (Negative) Influenza Type B (PCR) NEGATIVE (Negative) RSV RNA Qual (PCR) NEGATIVE (Negative) SARS-CoV-2 RNA (RT-PCR) POSITIVE A (Negative) Independent Interpretation I performed an independent interpretation of an: EKG (VENTRICULAR PACED RHYTHM AT 74 Bpm.) and Plain X-Ray (Chest:. Moderate cardiomegaly with mild CHF. 2. Dense mitral valve calcification. No change in the calcification from previous chest x-ray 05/12/2022. ) Radiology Impression Discussion of test interpretation with radiology: I have reviewed the radiologist's reading. Chronic Conditions Patient?s care impacted by: Other (CKD, CHF.) Critical Care Time Critical Care Time Critical Care Time: Yes Total Critical Care Time: 45 Attestation: I spent 45 minutes providing critical care service to the patient, this including time spent at the bedside to evaluate the patient, reassess the patient, monitoring vital signs, review labs, and radiographic studies, counseling the patient/family, discussing the case with consultants, disposition the patient. Discharge Plan Discharge Clinical Impression: Supratherapeutic INR, Elevated troponin, COVID-19 virus infection, Congestive heart failure Patient Disposition: Admitted As Inpatient
[2023-04-20 21:54] VITALS: BP 148/88; BP 95/65; PULSE 72; PULSE 97; RESP 22; TEMP 37.1; O2SAT 93; O2SAT 97; BMI 28.1
[2023-04-20] MEDS: Albuterol Sulfate 2.5 MG, Albuterol Sulfate (0.083%) 2.5 MG 5 MG INHALE (22:21)
[2023-04-20 22:22] VITALS: PULSE 72; RESP 14; O2SAT 93
[2023-04-20 22:40] LABS: Basophils Percent Auto 0.4 % (0-2); Eosinophils Percent Auto 1.7 % (0-4); Hematocrit 39.5 % (37.0-47.0); Hemoglobin 13.2 g/dl (12.0-16.0); Imm Gran Abs Auto 0.01 X10*3/uL (0.00-0.03); Imm Gran Pct Auto 0.4 % (0.0-0.4); Lymphocytes Absolute Auto 0.5 X10*3/uL (1.2-4.9); Lymphocytes Percent Auto 20.2 % (20-40); MANUAL DIFF FLAG SCAN; Mean Corpuscular HGB Conc 33.4 g/dl (31.0-35.0); Mean Corpuscular Hemoglobin 30.7 pg (27.0-33.0); Mean Corpuscular Volume 91.9 fL (80.0-98.0); Mean Platelet Volume 10.8 fL (9.4-12.3); Monocytes Absolute Auto 0.3 X10*3/uL (0.1-1.2); Monocytes Percent Auto 14.2 % (2-11); Neutrophils Absolute Auto 1.5 x10*3/uL (2.0-8.3); Neutrophils Percent Auto 63.1 % (45-73); Platelet Count 119 X10*3/uL (160-400); Red Cell Distribution Width 14.5 % (11.0-16.0); SCAN SMEAR FLAG 1; White Blood Count 2.3 X10*3/uL (4.8-10.8)
[2023-04-20 22:43] LABS: Alanine Aminotransferase 57 U/L (0-31); Albumin Level 3.9 g/dL (3.5-5.0); Alkaline Phosphatase 93 U/L (39-117); Anion Gap 13 (12-20); Aspartate Amino Transferase 56 U/L (5-31); Bilirubin Direct 0.4 mg/dL (0.0-0.5); Bilirubin Total 0.7 mg/dL (0.0-1.0); Blood Urea Nitrogen 19 mg/dL (9-16); Calcium 8.3 mg/dL (8.4-10.2); Carbon Dioxide 25 mmol/L (22-29); Chloride 106 mmol/L (96-108); Creatinine Clr Calc Pharmacy 16.7; Estimated Glomerular Filt Rate 20; Glucose Random 101 mg/dL (60-115); Lipase 10 U/L (8-78); Potassium 3.7 mmol/L (3.3-5.1); Sodium 140 mmol/L (135-145); Total Protein 6.3 g/dL (6.5-8.0)
[2023-04-20 22:46] LABS: B Type Natriuretic Peptide 776 pg/mL (<100)
[2023-04-20 22:48] LABS: Prothrombin Time 61.4 SEC (11.1-13.3)
[2023-04-20 22:56] LABS: Troponin-I High Sensitivity 230.6 ng/L (<3.5-17.0)
[2023-04-20 22:59] LABS: SLIDE REVIEW VERIFIED
[2023-04-20 23:17] LABS: Influenza A PCR NEGATIVE (Negative); Influenza B PCR NEGATIVE (Negative); Resp Syncy Virus RNA Qual PCR NEGATIVE (Negative); SARS COV2 PCR INHOUSE POSITIVE (Negative)
[2023-04-20] MEDS: Furosemide 40 MG/4 ML VIAL IVPUSH (23:40)
--- NOTE | 2023-04-20 23:56 | PC.NURSE ---
Pt brought in by EMS with report of increase in productive cough with frothy white phlegm. EKG, labs and SARS swab sent. IV placed #20 L-AC. IV lasix given per MAR
[2023-04-21] VITALS (14 sets, daily range): BP systolic 87–134; BP diastolic 48–77; PULSE 66–95; RESP 16–30; TEMP 36.4–37.2; O2SAT 87–99; BMI 24.7
[2023-04-21 02:21] LABS: Troponin-I High Sensitivity 220.1 ng/L (<3.5-17.0)
--- NOTE | 2023-04-21 02:53 | P.HPHOSP_ITS ---
History of Present Illness Date of Service: 04/21/23 Chief Complaint: Dyspnea This is a 77-year-old female with pertinent history of congestive heart failure with preserved ejection fraction, COPD not on home oxygen, chronic kidney disease, atrial fibrillation on Coumadin, hypothyroidism, peripheral vascular disease, restless leg syndrome who presents to the emergency department for evaluation of dyspnea and cough. Patient states that her symptoms started 1 week prior to presentation. She has been having dyspnea which is worse with progression. Also complains of dry cough that has been ongoing for the last 1 week. Admits orthopnea. States 2 family members at home were sick with COVID and patient also tested positive for COVID about 1 week ago. She has been having generalized weakness and fatigability. No fever, chills, chest discomfort, palpitations, abdominal pain, changes in urinary or bowel habits. In the emergency department, imaging with mild pulmonary edema and BNP found to be elevated. Also tested positive for COVID-19. Review of Systems 2 Constitutional: Constitutional: Reports fatigue, Reports lethargy, Reports malaise and Reports weakness Cardiovascular: Cardiovascular: Reports dyspnea on exertion and Reports orthopnea Respiratory: Respiratory: Reports cough, Reports dyspnea on exertion and Reports wheezing Neurologic: Reports weakness Endocrine: Endocrine: Reports fatigue Allergic/Immunologic: Allergic/Immunologic: Reports wheezing [facility] Medical History Chronic heart failure with preserved ejection fraction (HFpEF) Mitral valve disease Presence of combination internal cardiac defibrillator (ICD) and pacemaker On anticoagulant therapy On beta bert at home Congestive heart failure Hypertrophic cardiomyopathy Anemia Non-ST elevation [place] (NSTEMI) Pleural effusion on right Fall Cardiac defibrillator in place COPD (chronic obstructive pulmonary disease) Afib History of breast cancer Hypothyroidism Vitamin D deficiency Osteoporosis Mucinous carcinoma of right breast Multinodular thyroid Current use of anticoagulant therapy Family History Father Thrombus Mother Heart disease Surgical History History of bilateral tubal ligation History of lumpectomy of right breast AICD (automatic cardioverter/defibrillator) present History of tubal ligation History of automatic internal cardiac defibrillator (AICD) Social History Household Members: Family Housing: Apartment Do you presently have visiting nurse or other home services: No Alcohol intake: never Patient Tobacco Use Status: Former Tobacco user Quit Date: 2007 Years Smoked: 30 +/- e-Cigarette/Vaping Use: Never Used Second Hand Smoke Exposure: Yes Advance Directives: Yes Advance Directives on File: Yes Advance Directives Date on File: 07/23/20 service: No Current occupational status: retired Cognitive needs: Yes Hearing needs: No Vision needs: Yes Meds Allergies Allergy/AdvReac Type Severity Reaction Status Date / Time doxycycline AdvReac Vomiting Verified 04/20/23 21:54 Home Medications Medication Instructions Recorded Confirmed Last Taken Type multivitamin 1 tab PO DAILY 02/03/20 11/28/22 Unknown History Physical Exam 2 Vital Signs and Narrative: Vital Signs: Last Vital Signs Temp 98.3 F 04/21/23 01:50 Pulse 72 04/21/23 01:50 Resp 18 04/21/23 01:50 BP 90/48 L 04/21/23 01:50 Pulse Ox 92 04/21/23 01:50 O2 Del Method Room Air 04/21/23 01:50 BMI result Body Mass Index 28.1 Elderly female lying in bed in mild distress Neck supple Regular rate and rhythm, S1-S2 heard Bilateral wheezing and crackles Abdomen soft nontender, no guarding, no rigidity Patient is awake, alert and oriented to self, place, time and person ; no focal motor deficit Psych: Normal mood No pedal edema Results Labs 04/20/23 22:16 04/20/23 22:16 Labs: Laboratory Results - last 24 hr 04/20/23 04/20/23 22:07 22:16 MCV 91.9 MCH 30.7 MCHC 33.4 RDW 14.5 Plt Count 119 L D MPV 10.8 Immature Gran % (Auto) 0.4 Neut % (Auto) 63.1 Lymph % (Auto) 20.2 [place] % (Auto) 14.2 H Eos % (Auto) 1.7 Baso % (Auto) 0.4 Lymph # (Auto) 0.5 L [place] # (Auto) 0.3 Eos # (Auto) 0.0 Baso # (Auto) 0.0 Abs Immat Gran (auto) 0.01 Absolute Neuts (auto) 1.5 L Absolute Nucleated RBC 0.000 Nucleated RBC % (auto) 0.0 Smear Tech's Comments VERIFIED PT 61.4 H INR 5.0 H* Anion Gap 13 Estim Creat Clear Calc 16.7 Estimated GFR 20 Random Glucose 101 Calcium 8.3 L Total Bilirubin 0.7 Direct Bilirubin 0.4 AST 56 H ALT 57 H Alkaline Phosphatase 93 B-Natriuretic Peptide 776 H Total Protein 6.3 L Albumin 3.9 Lipase 10 Influenza Type A (PCR) NEGATIVE Influenza Type B (PCR) NEGATIVE RSV RNA Qual (PCR) NEGATIVE SARS-CoV-2 RNA (RT-PCR) POSITIVE A Imaging Radiologist's Impressions: Impressions Chest X-Ray 04/20/23 21:55 IMPRESSION: 1. Moderate cardiomegaly with mild CHF. 2. Dense mitral valve calcification. No change in the calcification from previous chest x-ray 05/12/2022. Assessment and Plan (1) Congestive heart failure: Status: Acute Plan This is a 77-year-old female with pertinent history of congestive heart failure with preserved ejection fraction, COPD not on home oxygen, chronic kidney disease, atrial fibrillation on Coumadin, hypothyroidism, peripheral vascular disease, restless leg syndrome who presents to the emergency department for evaluation of dyspnea and cough. #. Acute respiratory distress due to acute exacerbation of congestive heart failure with preserved ejection fraction: Will admit patient and initiate IV diuresis. Strict I's and O's. Low-salt diet. Reviewed recent echocardiogram. #. Acute mild exacerbation of COPD in the setting of COVID-19: Initiating IV steroids. Scheduled and p.r.n. DuoNebs. Continue home inhaler #. COVID-19 infection: Defer Decadron as patient is not hypoxemic #. Chronic kidney disease: Creatinine at baseline. Continue to monitor with diuresis #. Atrial fibrillation: On Coumadin, amiodarone and metoprolol. Rate controlled in the ER #. Restless leg syndrome: On ropinirole #. Peripheral vascular disease: On cilostazol #. Mixed hyperlipidemia: On statin #. Hypothyroidism: On Synthroid Med rec pending DVT prophylaxis: On Coumadin DNR/DNI Quality Stroke Does the patient have a stroke diagnosis?: No VTE Prior VTE?: No VTE Risk Level:: Medical - moderate - high VTE Device Contraindication: Treatment Not Indicated VTE Drug Contraindication: N/A - Med Ordered
[2023-04-21 06:20] LABS: PLT CLUMP 1
[2023-04-21 06:22] LABS: Anion Gap 12 (12-20); Blood Urea Nitrogen 18 mg/dL (9-16); Calcium 7.8 mg/dL (8.4-10.2); Carbon Dioxide 23 mmol/L (22-29); Chloride 106 mmol/L (96-108); Creatinine Clr Calc Pharmacy 17.1; Estimated Glomerular Filt Rate 21; Glucose Random 97 mg/dL (60-115); Hematocrit 35.2 % (37.0-47.0); Hemoglobin 11.8 g/dl (12.0-16.0); Mean Corpuscular HGB Conc 33.5 g/dl (31.0-35.0); Mean Corpuscular Hemoglobin 30.9 pg (27.0-33.0); Mean Corpuscular Volume 92.1 fL (80.0-98.0); Mean Platelet Volume 11.1 fL (9.4-12.3); Potassium 3.3 mmol/L (3.3-5.1); Red Blood Count 3.82 X10*6/uL (4.20-5.50); Red Cell Distribution Width 14.3 % (11.0-16.0); Sodium 138 mmol/L (135-145)
[2023-04-21 06:27] LABS: Platelet Count 110 X10*3/uL (160-400); White Blood Count 2.3 X10*3/uL (4.8-10.8)
--- NOTE | 2023-04-21 07:00 | CA_ITS ---
Transthoracic Echocardiogram Patient (Last, First, Middle): Nishi Hernandez G Gender: Female Date of : 1945 Age: 77 Procedure Date: 04/21/2023 Procedure Type: Transthoracic Echocardiogram Location: [facility] [place] Height: 149.86 cm Weight: 63.05 kg BSA: 1.58 m2 Heart Rate: 72 bpm BP: 94 / 50 mmHg Genetic Technologist: SB Referring MD: Tyler Crawford MD Animal Shelter Supervisor: Ulysses Fernando MD Symptoms: HF Study Quality: Adequate ECG Rhythm: Paced Conclusions: - 1. Normal LV ejection fraction 55-60% with severe left ventricular hypertrophy 2. Severely dilated left atrium 3. Moderate mitral stenosis, calcific with [id number] mitral regurgitation 4. Mild aortic stenosis 5. Mildly elevated right ventricular systolic pressure and right atrial pressures 6. Mildly dilated ascending aorta 7. Trivial pericardial effusion Findings Left Ventricle Normal left ventricular cavity size. There is severely increased left ventricular wall thickness. The left ventricular systolic function is normal. The visually estimated ejection fraction is between 55-60%. Diastolic function is indeterminate on the basis of available data. Right Ventricle Moderately increased right ventricular cavity size. There is normal right ventricular systolic function. There is a pacemaker wire seen in the right ventricle. Atria The left atrium is severely dilated. Interatrial shunt cannot be excluded. The right atrium is moderately dilated. Aortic Valve There is mild calcification of the aortic valve. There is mild thickening of the aortic valve. There is mild aortic valve stenosis. There is no aortic valve regurgitation. Mitral Valve There is mild anterior and severe posterior mitral leaflet thickening. There is severe mitral annular calcification. There is mild to moderate mitral valve regurgitation. There is moderate mitral valve stenosis. Pulmonic Valve The pulmonic valve was not well visualized. Tricuspid Valve Likely normal tricuspid valve structure and function. There is mild to moderate tricuspid valve regurgitation. Mildly elevated right atrial pressure. Severe pulmonary hypertension is present. Great Vessels The pulmonary artery was not well visualized. There is mild dilatation of the ascending aorta. Venous The inferior vena cava is severely dilated and collapses less than 50% with inspiration. Pericardium/Pleural There is a trivial pericardial effusion. There is a left sided pleural effusion. Prior Study Comparison Changes noted compared to prior study dated: 11/16/2022. RV systolic pressure is mildly elevated Measurements 2D Linear Measurements IVSd: 2.16 0.6-0.9/0.6-1.0 cm LVIDd: 2.98 3.9-5.3/4.2-5.9 cm LVIDd Index: 1.89 2.4-3.2/2.2-3.1 cm/m2 LVIDs: 1.88 2.0-3.6 cm LA Diam: 5.90 2.7-3.8/3.0-4.0 cm LAIDs Index: 3.73 1.5-2.3 cm/m2 LVOT Diam: 1.90 3.0+(-)1.3 cm Mitral Valve MV VTI: 0.58 MV Pk Escobar: 2.16 MV Mn Escobar: 1.24 MV Pk Grad: 19.00 MV Mn Grad: 8.00 MV Pk E: 1.93 MV Decel Time: 313.00 E'Lateral: 3.57 E'Medial: 2.40 E/E' Med: 80.40 E/E' Lat: 54.10 PHT: 92.00 MVA PHT: 2.39 MVA Continuity: 1.30 Decel [place]: 6.17 Aortic Valve AoV Pk Escobar: 2.43 AoV Mn Escobar: 1.61 AoV VTI: 0.37 AoV Pk Grad: 24.00 Aov Mn Grad: 12.00 JAGRUTI Cont.VTI: 2.04 LVOT LVOT Pk Escobar: 1.74 LVOT Mn Escobar: 1.04 LVOT VTI: 0.27 LVOT Pk Grad: 12.00 LVOT Mn Grad: 6.00 LVOT Diam: 1.90 LVOT Area: 2.84 Diastolic Function MV Pk E: 1.93 E'Medial: 2.40 E/E' Med: 80.40 E' Laterial: 3.57 E/E' Lat: 54.10 Right Ventricle TAPSE (mm): 17.50 TVS' Escobar: 12.70 Tricuspid Valve TR Pk Escobar: 2.69 TR Pk Grad: 29.00 RA Press: 15.00 RVSP: 44.00 Great Vessels Aorta Sinus of Valsalva: 3.30 2.0-3.5 cm Ao Asc: 3.70 2.1-3.4 cm Pulmonary Valve PV Pk Escobar: 0.99 Peak PV Grad: 4.00 Updated in Other Vendor System with Status of Final Ulysses Fernando MD electronically signed on 04/21/2023 4:21:51 PM with status of Final
[2023-04-21] MEDS: methylPREDNISolone Sod Succ 40 MG/ML VIAL IVPUSH ×2 (07:10→17:06)
[2023-04-21] MEDS: 0.9 % Sodium Chloride Flush 3 ML SYRINGE IVFLUSH ×3 (07:34→21:08)
[2023-04-21] MEDS: Bumetanide 1 MG/4 ML VIAL 2 MG IVPUSH (07:34)
[2023-04-21] MEDS: Albuterol/Iprat 2.5/0.5MG 3 ML AMPUL.NEB INHALE ×4 (08:02→19:07)
[2023-04-21 08:14] LABS: C Reactive Protein 2.54 mg/dL (< or = 0.50)
[2023-04-21 11:02] LABS: Prothrombin Time 68.2 SEC (11.1-13.3)
[2023-04-21 11:05] LABS: INTERNATIONAL NORM RATIO 5.6 (0.9-1.1)
--- NOTE | 2023-04-21 11:27 | PM.EVENT ---
Event Note Date of Service: 04/21/23 Event Note: Day hospitalist update S: Wheezing but not hypoxic. No chest pain. O: Temp Pulse Resp BP Pulse Ox O2 Del Method O2 Flow Rate 98.9 F 70 18 110/77 95 Nasal Cannula 1 04/21/23 07:30 04/21/23 11:24 04/21/23 11:24 04/21/23 07:30 04/21/23 10:09 04/21/23 10:09 04/21/23 10:09 Gen: in no acute distress HEENT: sclera anicteric, moist mucus membranes Neck: supple Lungs: bibasilar inspiratory crackles, expiratory wheezes throughout Heart: regular rate and rhythm, no murmurs Abd: soft, non-tender, non-distended Ext: no edema Skin: warm/well-perfused Neuro: alert and oriented x3, no focal findings Psych: appropriate affect A/P: d1 77yo F with HFpEF [TTE 11/16/22], COPD not on home O2, CKD4, AF on warfarin, hypothyroidism, PVD, RLS presenting with dyspnea and cough, onset of Covid-19 symptoms 04/12/23 acute/chronic HFpEF - IV bumetanide, monitor BNP/BMP/Mg/I+O/wt. Continue KCl, spironolactone, metoprolol tartrate acute COPD exac - IV methylprednisolone, nebs, home ICS/LABA Covid-19 infection - out of window for remdesivir, continue isolation CKD4 - monitor Cr with diuresis; currently at baseline AF - metoprolol tartrate + amiodarone; warfarin as below supratherapeutic INR - monitor daily, hold warfarin RLS - ropinirole PVD - cilostazol HLD - statin hypothyroidism - continue LT4 VTE ppx - warfarin on hold dispo - TBD In my clinical judgment, the patient requires continued hospitalization for the following reasons: IV diuresis Time Spent With Patient Time: Total time managing care of this patient today ____ minutes.
--- NOTE | 2023-04-21 11:36 | PC.NURSE ---
this RN resumed care of pt a tthis time. a&ox4. vss and up to date aside from remaining hypotensive. BP taken on UE bilaterally. admitting provider Dr. Crawford notified of results at this time. nsr on the monitor technician - pacemaker spikes displayed. pt receiving breathing treatment via RT at this time. pt denies pain - has no complaints aside from stating that she is uncomfortable in this bed. no sob/wob noted at this time. wheezing noted throughout upon auscultation. resting comfortably in no apparent distress. respirations even and unlabored. call zayas placed within reach.
--- NOTE | 2023-04-21 11:49 | MHC.CM.PN ---
PATIENT IS INDEPENDENT AT BASELINE. SHE USES A CANE WHEN SHE RUNS ERRANDS. NO VNA, ELDER SERVICES, OR HOME O2. PCP IS MAURO MOFFETT SHE LIVES WITH DAUGHTER AND GRANDSON. HCP IS ON FILE AND VERIFIED. SAINI 04/21 IN CHART
[2023-04-21] MEDS: 0.9 % Sodium Chloride 250 ML IVCONT (11:54)
[2023-04-21] MEDS: Atorvastatin Calcium 40 MG TABLET PO (12:07)
[2023-04-21] MEDS: Amiodarone HCL 200 MG TABLET PO (12:07)
[2023-04-21] MEDS: Potassium Chloride ER 20 MEQ TAB.ER.PRT PO ×2 (12:07→21:08)
[2023-04-21] MEDS: Levothyroxine Sodium 50 MCG TABLET PO (12:07)
--- NOTE | 2023-04-21 12:08 | PC.NURSE ---
medication administered per provider order. diuretic held per dr. hawthorne order d/t pt being hypotensive. NS administered via pump d/t hx of CHF. will reassess BP post IVF administration. respirations remain even and unlabored. call zayas placed within reach.
[2023-04-21] MEDS: cilostazoL 100 MG TABLET PO (12:35)
--- NOTE | 2023-04-21 12:35 | PC.NURSE ---
medication delivered from pharmacy/administered at this time. pt waiting for transportation upstairs at this time.
--- NOTE | 2023-04-21 12:37 | MHC.CM.PN ---
PATIENT NOW INPATIENT STATUS. IMM 2 IN CHART
[2023-04-21] MEDS: Benzonatate 100 MG CAPSULE 200 MG PO ×2 (13:57→17:06)
[2023-04-21] MEDS: Acetaminophen 325 MG TABLET 650 MG PO (13:57)
[2023-04-21 14:17] LABS: Immature Retic Fraction 6.2 % (3.0-15.9); Retic HGB Equivalent 32.5 pg (30.0-35.0); Reticulocyte Percent 0.5 % (0.5-1.8); Reticulocytes Absolute 0.019 X10*6/uL (0.026-0.095)
[2023-04-21 14:21] LABS: Fibrinogen 424 MG/DL (259-690)
[2023-04-21 14:36] LABS: Partial Thromboplastin Time 72.1 SEC (26.0-36.8)
[2023-04-21 15:10] LABS: Bilirubin Total 0.6 mg/dL (0.0-1.0)
[2023-04-21 15:40] LABS: Lactate Dehydrogenase 288 U/L (122-220)
[2023-04-21] MEDS: Fluticasone/Vilanterol 200/25 BLST.W.DEV 1 PUFF INHALE (17:14)
[2023-04-21 19:54] LABS: Haptoglobin 179 MG/DL ((30-200))
[2023-04-22] VITALS (10 sets, daily range): BP systolic 96–120; BP diastolic 50–70; PULSE 71–94; RESP 15–21; TEMP 36.2–36.8; O2SAT 93–98; BMI 24.9
[2023-04-22] MEDS: methylPREDNISolone Sod Succ 40 MG/ML VIAL IVPUSH ×2 (05:34→15:29)
[2023-04-22] MEDS: Benzonatate 100 MG CAPSULE 200 MG PO ×3 (05:41→23:41)
[2023-04-22 06:40] LABS: Anion Gap 14 (12-20); B Type Natriuretic Peptide 1590 pg/mL (<100); Blood Urea Nitrogen 26 mg/dL (9-16); Calcium 8.5 mg/dL (8.4-10.2); Carbon Dioxide 22 mmol/L (22-29); Chloride 106 mmol/L (96-108); Creatinine Clr Calc Pharmacy 14.8; Estimated Glomerular Filt Rate 19; Glucose Random 135 mg/dL (60-115); Magnesium 1.7 mg/dL (1.6-2.6); Potassium 3.9 mmol/L (3.3-5.1); Sodium 138 mmol/L (135-145)
[2023-04-22 06:51] LABS: Prothrombin Time 82.5 SEC (11.1-13.3)
[2023-04-22 06:56] LABS: INTERNATIONAL NORM RATIO 6.8 (0.9-1.1)
[2023-04-22 07:01] LABS: Hematocrit 35.5 % (37.0-47.0); Hemoglobin 12.1 g/dl (12.0-16.0); IG%MD 0.3 %; Lymph%MD 8.7 %; Mean Corpuscular HGB Conc 34.1 g/dl (31.0-35.0); Mean Corpuscular Hemoglobin 31.1 pg (27.0-33.0); Mean Corpuscular Volume 91.3 fL (80.0-98.0); Mean Platelet Volume 10.9 fL (9.4-12.3); Mono%MD 6.9 %; Neut%MD 84.1 %; Platelet Count 126 X10*3/uL (160-400); Red Blood Count 3.89 X10*6/uL (4.20-5.50); Red Cell Distribution Width 14.2 % (11.0-16.0); White Blood Count 3.9 X10*3/uL (4.8-10.8)
[2023-04-22 07:52] LABS: Band Neutrophils Percent 2 % (3-5); Lymphocytes Absolute Manual 0.2 X10*3/uL (1.2-4.9); Lymphocytes Percent Manual 4 % (20-40); Monocytes Absolute Manual 0.2 X10*3/uL (0.1-1.2); Monocytes Percent Manual 6 % (2-11); Neutrophils Absolute Manual 3.5 X10*3/uL (2.0-8.3); Neutrophils Percent Manual 88 % (45-73); RBC Morphology NOTED
[2023-04-22 07:54] LABS: Acanthocytes 3+ (>5) /OIF; Ovalocytes 1+ (5-14) /OIF; Schistocytes 3+ (>5) /OIF
[2023-04-22 07:55] LABS: Platelet Estimate SLIGHTLY DECREASED (NORMAL); Platelet Morphology Comment NORMAL
[2023-04-22 07:56] LABS: Burr Cells 2+ (3-5) /OIF
[2023-04-22] MEDS: Fluticasone/Vilanterol 200/25 BLST.W.DEV 1 PUFF INHALE (08:20)
[2023-04-22] MEDS: Albuterol/Iprat 2.5/0.5MG 3 ML AMPUL.NEB INHALE ×4 (08:20→19:50)
[2023-04-22] MEDS: Phytonadione (Vit K1) Oral 10 MG/ML AMPUL 5 MG PO (08:32)
[2023-04-22] MEDS: 0.9 % Sodium Chloride Flush 3 ML SYRINGE IVFLUSH ×3 (08:32→23:44)
[2023-04-22] MEDS: Bumetanide 1 MG/4 ML VIAL 2 MG IVPUSH (08:36)
[2023-04-22] MEDS: Amiodarone HCL 200 MG TABLET PO (08:36)
[2023-04-22] MEDS: Potassium Chloride ER 20 MEQ TAB.ER.PRT PO ×2 (08:37→21:44)
[2023-04-22] MEDS: Multivitamin TABLET 1 TAB PO (08:37)
[2023-04-22] MEDS: Spironolactone 25 MG TABLET 12.5 MG PO (08:37)
[2023-04-22] MEDS: Loratadine 10 MG TABLET PO (08:37)
[2023-04-22] MEDS: Ferrous Sulfate 324 MG TABLET.DR PO (08:37)
[2023-04-22] MEDS: Levothyroxine Sodium 50 MCG TABLET PO (08:37)
[2023-04-22] MEDS: Atorvastatin Calcium 40 MG TABLET PO (08:37)
--- NOTE | 2023-04-22 09:59 | HO.PM.IMPN ---
Subjective Subjective Date of Service: 04/22/23 Interval History: Wheezing Dyspnea improved No fever Review of Systems Review of Systems: Yes all other systems are reviewed and are negative Physical Exam Vital Signs: Vital Signs: Last Vital Signs Temp 97.2 F 04/22/23 07:57 Pulse 71 04/22/23 08:21 Resp 15 04/22/23 08:21 BP 110/61 04/22/23 07:57 Pulse Ox 98 04/22/23 07:57 O2 Del Method Nasal Cannula 04/22/23 07:57 O2 Flow Rate 2 04/22/23 07:57 BMI result Body Mass Index 24.9 Gen: in no acute distress HEENT: sclera anicteric, moist mucus membranes Neck: supple Lungs: bibasilar inspiratory crackles, expiratory wheezes throughout, prolonged expiratory phase Heart: regular rate and rhythm, no murmurs Abd: soft, non-tender, non-distended Ext: no edema Skin: warm/well-perfused Neuro: alert and oriented x3, no focal findings Psych: appropriate affect Objective Data Active Medications Acetaminophen (Acetaminophen 325 Mg Tablet) 650 mg PO Q6H PRN PRN Reason: Pain, Mild (Pain Scale 1-3) Last Admin: 04/21/23 13:57 Dose: 650 mg Documented By: GILBERT Albuterol Sulfate (Albuterol Sulfate 90 Mcg 8 Gm Inhaler) 2 puff INHALE Q4H PRN PRN Reason: Shortness Of Breath Or Wheezing Albuterol/Ipratropium (Albuterol/Iprat 2.5/0.5mg 3 Ml Ampul.Neb) 3 ml INHALE RQ4H WHILE AWAKE [facility] Last Admin: 04/22/23 08:20 Dose: 3 ml Documented By: ADDISON Albuterol/Ipratropium (Albuterol/Iprat 2.5/0.5mg 3 Ml Ampul.Neb) 3 ml INHALE Q4H PRN PRN Reason: Wheezing Amiodarone HCl (Amiodarone Hcl 200 Mg Tablet) 200 mg PO DAILY [facility] Last Admin: 04/22/23 08:36 Dose: 200 mg Documented By: ELIZABETH Atorvastatin Calcium (Atorvastatin Calcium 40 Mg Tablet) 40 mg PO DAILY [facility] Last Admin: 04/22/23 08:37 Dose: 40 mg Documented By: ELIZABETH Benzonatate (Benzonatate 100 Mg Capsule) 200 mg PO TID PRN PRN Reason: Cough Last Admin: 04/22/23 05:41 Dose: 200 mg Documented By: ELDER Bumetanide (Bumetanide 1 Mg/4 Ml Vial) 2 mg IVPUSH DAILY [facility]; Protocol Last Admin: 04/22/23 08:36 Dose: 2 mg Documented By: ELIZABETH Calcium Carbonate (Calcium Carbonate 500 Mg Tablet) 500 mg PO BID [facility] Last Admin: 04/22/23 08:37 Dose: 500 mg Documented By: ELIZABETH Cilostazol (Cilostazol 100 Mg Tablet) 100 mg PO Q12H [facility] Last Admin: 04/21/23 23:15 Dose: Not Given Documented By: ELDER Non-Admin Reason: Physician Held Med Ferrous Sulfate (Ferrous Sulfate 324 Mg Tablet.Dr) 324 mg PO DAILY [facility] Last Admin: 04/22/23 08:37 Dose: 324 mg Documented By: ELIZABETH Fluticasone Propionate (Fluticasone Propionate Nasal 16 Gm [place]) 1 spray NOSTRIL-B DAILY PRN PRN Reason: allergy symptoms Fluticasone/Vilanterol (Fluticasone/Vilanterol 200/25 Blst.W.Dev) 1 puff INHALE RDAILY [facility] Last Admin: 04/22/23 08:20 Dose: 1 puff Documented By: ADDISON Levothyroxine Sodium (Levothyroxine Sodium 50 Mcg Tablet) 50 mcg PO DAILY [facility] Last Admin: 04/22/23 08:37 Dose: 50 mcg Documented By: ELIZABETH Loratadine (Loratadine 10 Mg Tablet) 10 mg PO DAILY [facility] Last Admin: 04/22/23 08:37 Dose: 10 mg Documented By: ELIZABETH Melatonin (Melatonin 3 Mg Tablet) 6 mg PO BEDTIME PRN PRN Reason: Insomnia Methylprednisolone Sodium Succinate (Methylprednisolone Sod Succ 40 Mg/Ml Vial) 40 mg IVPUSH Q12H [facility] Last Admin: 04/22/23 05:34 Dose: 40 mg Documented By: ELDER Metoprolol Tartrate (Metoprolol Tartrate 25 Mg Tablet) 25 mg PO Q12H [facility]; Protocol Last Admin: 04/21/23 12:08 Dose: Not Given Documented By: PEDRO Non-Admin Reason: Physician Held Med Multivitamins/Vitamin C (Multivitamin Tablet) 1 tab PO DAILY [facility] Last Admin: 04/22/23 08:37 Dose: 1 tab Documented By: ELIZABETH Ondansetron HCl (Ondansetron Hcl 4 Mg/2 Ml Vial) 4 mg IVPUSH Q8H PRN PRN Reason: Nausea and Vomiting Potassium Chloride (Potassium Chloride Er 20 Meq Tab.Er.Prt) 20 meq PO BID [facility] Last Admin: 04/22/23 08:37 Dose: 20 meq Documented By: ELIZABETH Ropinirole HCl (Ropinirole Hcl 5 Mg Tablet) 5 mg PO BEDTIME [facility] Last Admin: 04/21/23 21:07 Dose: 5 mg Documented By: ELDER Sodium Chloride (0.9 % Sodium Chloride Flush 3 Ml Syringe) 3 ml IVFLUSH QSHIFT [facility] Last Admin: 04/22/23 08:32 Dose: 3 ml Documented By: ELIZABETH Spironolactone (Spironolactone 25 Mg Tablet) 12.5 mg PO DAILY [facility]; Protocol Last Admin: 04/22/23 08:37 Dose: 12.5 mg Documented By: ELIZABETH Labs 04/22/23 06:06 04/22/23 06:06 Labs: Laboratory Results - last 24 hr 04/20/23 04/21/23 04/21/23 22:16 05:43 10:13 MCV MCH MCHC RDW Plt Count MPV Absolute Nucleated RBC Nucleated RBC % (auto) Neutrophils % (Manual) Band Neutrophils % Lymphocytes % (Manual) Monocytes % (Manual) Abs Neuts (Manual) Lymphocytes # (Manual) Monocytes # (Manual) Platelet Estimate Plt Morphology Comment RBC Morphology Ovalocytes Anderson Cells Acanthocytes (Spur) Schistocytes Smear Path Review SEE NOTE Absolute Retic Percent Retic Immature Retic Fraction Retic Hgb Equivalent Haptoglobin PT 68.2 H INR 5.6 H* APTT Cancelled Fibrinogen Cancelled Anion Gap Estim Creat Clear Calc Estimated GFR Random Glucose Calcium Magnesium Total Bilirubin Lactate Dehydrogenase B-Natriuretic Peptide ROCIO, Polyspecific NEGATIVE Positive ROCIO Work-up TNP 04/21/23 04/22/23 14:07 06:06 MCV 91.3 MCH 31.1 MCHC 34.1 RDW 14.2 Plt Count 126 L MPV 10.9 Absolute Nucleated RBC 0.000 Nucleated RBC % (auto) 0.0 Neutrophils % (Manual) 88 H Band Neutrophils % 2 L Lymphocytes % (Manual) 4 L Monocytes % (Manual) 6 Abs Neuts (Manual) 3.5 Lymphocytes # (Manual) 0.2 L Monocytes # (Manual) 0.2 Platelet Estimate SLIGHTLY DECREASED Plt Morphology Comment NORMAL RBC Morphology NOTED Ovalocytes 1+ (5-14) Anderson Cells 2+ (3-5) Acanthocytes (Spur) 3+ (>5) Schistocytes 3+ (>5) Smear Path Review Absolute Retic 0.019 L Percent Retic 0.5 Immature Retic Fraction 6.2 Retic Hgb Equivalent 32.5 Haptoglobin 179 PT 82.5 H D INR 6.8 H* APTT 72.1 H* Fibrinogen 424 Anion Gap 14 Estim Creat Clear Calc 14.8 Estimated GFR 19 Random Glucose 135 H Calcium 8.5 D Magnesium 1.7 Total Bilirubin 0.6 Lactate Dehydrogenase 288 H B-Natriuretic Peptide 1590 H ROCIO, Polyspecific Positive ROCIO Work-up Assessment and Plan (1) Acute exacerbation of chronic obstructive airways disease: Status: Resolved (2) Current use of anticoagulant therapy: Status: Inactive (3) Congestive heart failure: Status: Inactive Plan d2 77yo F with HFpEF [TTE 11/16/22], COPD not on home O2, CKD4, AF on warfarin, hypothyroidism, PVD, RLS presenting with dyspnea and cough, onset of Covid-19 symptoms 04/12/23 acute/chronic HFpEF - resume IV bumetanide [held yesterday due to low BP], monitor BNP/BMP/Mg/I+O/wt. Continue KCl, spironolactone, metoprolol tartrate. Cardiology consult - TTE 04/21/23: 1. Normal LV ejection fraction 55-60% with severe left ventricular hypertrophy 2. Severely dilated left atrium 3. Moderate mitral stenosis, calcific with [id number] mitral regurgitation 4. Mild aortic stenosis 5. Mildly elevated right ventricular systolic pressure and right atrial pressures 6. Mildly dilated ascending aorta 7. Trivial pericardial effusion acute COPD exacerbation - IV methylprednisolone /-, nebs, home ICS/LABA Covid-19 infection - out of window for remdesivir, continue isolation CKD4 - monitor Cr with diuresis; currently close to baseline AF - metoprolol tartrate + amiodarone; warfarin as below supratherapeutic INR - give PO vit K 5 mg today, recheck INR daily, hold warfarin until INR <3 RLS - ropinirole PVD - cilostazol HLD - statin hypothyroidism - continue LT4 VTE ppx - warfarin on hold dispo - TBD In my clinical judgment, the patient requires continued hospitalization for the following reasons: IV diuresis, COPD Total time managing care of this patient today: 35 minutes. Quality Stroke Does the patient have a stroke diagnosis?: No VTE Prior VTE?: No VTE Risk Level:: Medical - moderate - high VTE Device Contraindication: Treatment Not Indicated VTE Drug Contraindication: N/A - Med Ordered
--- NOTE | 2023-04-22 11:08 | P.CDIM_ITS ---
PROVIDER RESPONSE TEXT: To clarify, the appropriate diagnosis supported by the clinical indicators: Paroxysmal atrial fibrillation: terminates spontaneously or with intervention within 7 days of onset QUERY TEXT: PHYSICIAN'S DOCUMENTATION REQUEST Date of Query: 04/21/2023 11:43 AM EST Patient Name: Nishi Hernandez Admit Date: 04/21/2023 Dear Tyler Crawford, A review of the medical record indicates additional documentation may be needed. Please review below and update the documentation accordingly. Clinical Indicators: PN: Atrial fibrillation on Coumadin, amiodarone and metoprolol. Rate controlled in the ED. S/P AICD If possible, please provide further specificity regarding atrial fibrillation, such as: Paroxysmal atrial fibrillation: terminates spontaneously or with intervention within 7 days of onset Persistent atrial fibrillation: episodes of continuous AF that last more than 7 days and do not self- terminate Long lasting persistent atrial fibrillation: episodes of continuous AF that last more than 12 months Chronic or Permanent atrial fibrillation: when a decision has been made to accept the presence of AF and there is no further attempt to restore or maintain sinus rhythm Other (explain) Clinically unable to determine (explain) Thank you, Katherine Chaney, CCS, CDIS Use of terms such as suspected, likely, concern for, or probable (associated with a specific diagnosi s that is being evaluated, monitored, or treated as if it exists) are acceptable and can be coded in the inpatient se tting, when documented at the time of discharge. Please use your independent medical judgment in providing your response. THIS QUERY IS PART OF THE PERMANENT MEDICAL RECORD
--- NOTE | 2023-04-22 11:23 | P.CONCA_ITS ---
History of Present Illness History of Present Illness Date of Service: 04/22/23 Requesting physician: Tyler Crawford Consult reason: congestive heart failure Chief complaint: Dyspnea Narrative: I was consulted to see Nishi in cardiology consultation today as she presented with cough related to COVID and shortness of breath and hypoxemia with CHF exacerbation. She has a complicated past medical history with history of hypertrophic cardiomyopathy status post ICD placement for primary prevention as well as mitral valve disease with mitral stenosis, chronic atrial fibrillation, on chronic anticoagulation as well as COPD. Patient also has history of diastolic heart failure as well as chronic kidney disease. Patient presented to the hospital with increasing shortness of breath and cough as mentioned above, multiple members in her family having COVID. She tested herself for COVID but was negative and subsequently because of symptoms and persistent generalized weakness and fatigability came to the hospital. She was tested positive for COVID in the ER as well as noted to have elevated BNP and mild pulmonary edema. She was admitted for hypoxemic respiratory failure, has diuresed although negative balance is noted only at -70 cc, unclear if this is accurate. Patient currently using oxygen appears to be short of breath. Coughing consistently. Being treated as well for bronchitis and COPD exacerbation. Echocardiogram done yesterday showed normal LV ejection fraction with severe LVH with severely dilated left atrium with moderate mitral stenosis and [id number] mitral regurgitation as well as mild aortic stenosis and mildly elevated right atrial pressures. Review of Systems 2 Constitutional: Constitutional: Reports fatigue, Reports lethargy, Reports weakness and Denies weight gain Eyes: Eyes: Reports no additional eye complaints Cardiovascular: Cardiovascular: Denies chest pain, Denies syncope, Denies leg edema, Denies palpitations and Reports dyspnea Respiratory: Respiratory: Reports cough and Reports dyspnea Gastrointestinal: Gastrointestinal: Reports no additional gastrointestinal complaints Neurologic: Denies syncope and Reports weakness Psychiatric: Psychiatric: Reports no additional psychiatric complaints Endocrine: Endocrine: Reports no additional endocrine complaints, Reports fatigue and Denies palpitations Hematologic/Lymphatic: Hematologic/Lymphatic: Reports no additional hematologic/lymphatic complaints [facility] Past Medical History Medical History Chronic heart failure with preserved ejection fraction (HFpEF) Mitral valve disease Presence of combination internal cardiac defibrillator (ICD) and pacemaker On anticoagulant therapy On beta bert at home Congestive heart failure Hypertrophic cardiomyopathy Anemia Non-ST elevation [place] (NSTEMI) Pleural effusion on right Fall Cardiac defibrillator in place COPD (chronic obstructive pulmonary disease) Afib History of breast cancer Hypothyroidism Vitamin D deficiency Osteoporosis Mucinous carcinoma of right breast Multinodular thyroid Current use of anticoagulant therapy Family History Family History Father Thrombus Mother Heart disease Surgical History Surgical History History of bilateral tubal ligation History of lumpectomy of right breast AICD (automatic cardioverter/defibrillator) present History of tubal ligation History of automatic internal cardiac defibrillator (AICD) Social History Social History Household Members: Family Housing: Assisted Living Facility Do you presently have visiting nurse or other home services: Yes Alcohol intake: never Patient Tobacco Use Status: Former Tobacco user Quit Date: 2007 Smoked: 30 +/- Smoked in Last 30 Days: No e-Cigarette/Vaping Use: Never Used Second Hand Smoke Exposure: Yes Use of substances other than those prescribed or required for medical reasons: No Currently Displaying Signs/Symptoms of Drug Intoxication Withdrawal: No Any prior treatment program specific to substance use: No Have you been hit, kicked, punched, or otherwise hurt by someone within the past year? If so, by whom?: No Do you feel safe in your current relationship?: No Current Relationship Is there a partner from a previous relationship who is making you feel unsafe now?: No Are you made to feel afraid or neglected: No Advance Directives: Yes Advance Directives on File: Yes Advance Directives Date on File: 07/23/20 Do you have thoughts of harming others: None Do you have a plan to hurt others: No Plan Recently lost weight without trying: No Eating poorly because of decreased appetite: No Nutrition Risks: No Nutritional Risk Patient : No service: No Current occupational status: retired Cognitive needs: Yes Hearing needs: No Vision needs: Yes Meds Allergies Allergy/AdvReac Type Severity Reaction Status Date / Time doxycycline AdvReac Vomiting Verified 04/20/23 21:54 Active Medications: Current Medications Acetaminophen (Acetaminophen 325 Mg Tablet) 650 mg PO Q6H PRN PRN Reason: Pain, Mild (Pain Scale 1-3) Last Admin: 04/21/23 13:57 Dose: 650 mg Albuterol Sulfate (Albuterol Sulfate 90 Mcg 8 Gm Inhaler) 2 puff INHALE Q4H PRN PRN Reason: Shortness Of Breath Or Wheezing Albuterol/Ipratropium (Albuterol/Iprat 2.5/0.5mg 3 Ml Ampul.Neb) 3 ml INHALE RQ4H WHILE AWAKE [facility] Last Admin: 04/22/23 11:09 Dose: 3 ml Albuterol/Ipratropium (Albuterol/Iprat 2.5/0.5mg 3 Ml Ampul.Neb) 3 ml INHALE Q4H PRN PRN Reason: Wheezing Amiodarone HCl (Amiodarone Hcl 200 Mg Tablet) 200 mg PO DAILY [facility] Last Admin: 04/22/23 08:36 Dose: 200 mg Atorvastatin Calcium (Atorvastatin Calcium 40 Mg Tablet) 40 mg PO DAILY [facility] Last Admin: 04/22/23 08:37 Dose: 40 mg Benzonatate (Benzonatate 100 Mg Capsule) 200 mg PO TID PRN PRN Reason: Cough Last Admin: 04/22/23 05:41 Dose: 200 mg Bumetanide (Bumetanide 1 Mg/4 Ml Vial) 2 mg IVPUSH DAILY [facility]; Protocol Last Admin: 04/22/23 08:36 Dose: 2 mg Calcium Carbonate (Calcium Carbonate 500 Mg Tablet) 500 mg PO BID [facility] Last Admin: 04/22/23 08:37 Dose: 500 mg Cilostazol (Cilostazol 100 Mg Tablet) 100 mg PO Q12H [facility] Last Admin: 04/21/23 23:15 Dose: Not Given Ferrous Sulfate (Ferrous Sulfate 324 Mg Tablet.Dr) 324 mg PO DAILY [facility] Last Admin: 04/22/23 08:37 Dose: 324 mg Fluticasone Propionate (Fluticasone Propionate Nasal 16 Gm [place]) 1 spray NOSTRIL-B DAILY PRN PRN Reason: allergy symptoms Fluticasone/Vilanterol (Fluticasone/Vilanterol 200/25 Blst.W.Dev) 1 puff INHALE RDAILY [facility] Last Admin: 04/22/23 08:20 Dose: 1 puff Levothyroxine Sodium (Levothyroxine Sodium 50 Mcg Tablet) 50 mcg PO DAILY [facility] Last Admin: 04/22/23 08:37 Dose: 50 mcg Loratadine (Loratadine 10 Mg Tablet) 10 mg PO DAILY [facility] Last Admin: 04/22/23 08:37 Dose: 10 mg Melatonin (Melatonin 3 Mg Tablet) 6 mg PO BEDTIME PRN PRN Reason: Insomnia Methylprednisolone Sodium Succinate (Methylprednisolone Sod Succ 40 Mg/Ml Vial) 40 mg IVPUSH Q12H [facility] Last Admin: 04/22/23 05:34 Dose: 40 mg Metoprolol Tartrate (Metoprolol Tartrate 25 Mg Tablet) 25 mg PO Q12H [facility]; Protocol Last Admin: 04/21/23 12:08 Dose: Not Given Multivitamins/Vitamin C (Multivitamin Tablet) 1 tab PO DAILY [facility] Last Admin: 04/22/23 08:37 Dose: 1 tab Ondansetron HCl (Ondansetron Hcl 4 Mg/2 Ml Vial) 4 mg IVPUSH Q8H PRN PRN Reason: Nausea and Vomiting Potassium Chloride (Potassium Chloride Er 20 Meq Tab.Er.Prt) 20 meq PO BID [facility] Last Admin: 04/22/23 08:37 Dose: 20 meq Ropinirole HCl (Ropinirole Hcl 5 Mg Tablet) 5 mg PO BEDTIME [facility] Last Admin: 04/21/23 21:07 Dose: 5 mg Sodium Chloride (0.9 % Sodium Chloride Flush 3 Ml Syringe) 3 ml IVFLUSH QSHIFT [facility] Last Admin: 04/22/23 08:32 Dose: 3 ml Spironolactone (Spironolactone 25 Mg Tablet) 12.5 mg PO DAILY [facility]; Protocol Last Admin: 04/22/23 08:37 Dose: 12.5 mg Home Medications Medication Instructions Recorded Confirmed Last Taken Type multivitamin 1 tab PO DAILY 02/03/20 04/21/23 04/20/23 History Physical Exam 2 Vital Signs: Vital Signs: Last Vital Signs Temp 97.2 F 04/22/23 07:57 Pulse 78 04/22/23 11:09 Resp 17 04/22/23 11:09 BP 110/61 04/22/23 07:57 Pulse Ox 98 04/22/23 07:57 O2 Del Method Nasal Cannula 04/22/23 07:57 O2 Flow Rate 2 04/22/23 07:57 BMI result Body Mass Index 24.9 Const: General: cooperative, alert, awake and in distress mild Nutritional Appearance: average body habitus Orientation/consciousness: patient oriented x3 HEENT: Head: Yes normocephalic and Yes atraumatic Neck: Neck: Yes trachea midline, Yes supple and Yes no JVD Resp: Effort & Inspection: normal respiratory effort Auscultation: crackles and wheezes Cardio: Jugular venous distension: no JVD Rate: regular rate Rhythm: r egular rhythm Heart sounds: S1 normal heart sound present, S2 normal heart sound present, no click, no gallops and Murmur heart sound present systolic early GI: Auscultation: normal bowel sounds Skin: General skin exam: no rashes or lesions noted Neuro: General: patient oriented x3 and no focal motor deficits Extrem: General: Yes no clubbing, cyanosis or edema Objective Labs and Meds 04/22/23 06:06 04/22/23 06:06 Lab results: Laboratory Results - last 24 hr 04/20/23 04/21/23 04/21/23 22:16 05:43 10:13 WBC RBC Hgb Hct MCV MCH MCHC RDW Plt Count MPV Absolute Nucleated RBC Nucleated RBC % (auto) Neutrophils % (Manual) Band Neutrophils % Lymphocytes % (Manual) Monocytes % (Manual) Abs Neuts (Manual) Lymphocytes # (Manual) Monocytes # (Manual) Platelet Estimate Plt Morphology Comment RBC Morphology Ovalocytes Hernandez Cells Acanthocytes (Spur) Schistocytes Smear Path Review SEE NOTE Absolute Retic Percent Retic Immature Retic Fraction Retic Hgb Equivalent Haptoglobin PT INR APTT Cancelled Fibrinogen Cancelled Sodium Potassium Chloride Carbon Dioxide Anion Gap BUN Creatinine Estim Creat Clear Calc Estimated GFR Random Glucose Calcium Magnesium Total Bilirubin Lactate Dehydrogenase B-Natriuretic Peptide ROCIO, Polyspecific NEGATIVE Positive ROCIO Work-up TNP 04/21/23 04/22/23 14:07 06:06 WBC 3.9 L RBC 3.89 L Hgb 12.1 Hct 35.5 L MCV 91.3 MCH 31.1 MCHC 34.1 RDW 14.2 Plt Count 126 L MPV 10.9 Absolute Nucleated RBC 0.000 Nucleated RBC % (auto) 0.0 Neutrophils % (Manual) 88 H Band Neutrophils % 2 L Lymphocytes % (Manual) 4 L Monocytes % (Manual) 6 Abs Neuts (Manual) 3.5 Lymphocytes # (Manual) 0.2 L Monocytes # (Manual) 0.2 Platelet Estimate SLIGHTLY DECREASED Plt Morphology Comment NORMAL RBC Morphology NOTED Ovalocytes 1+ (5-14) Hernandez Cells 2+ (3-5) Acanthocytes (Spur) 3+ (>5) Schistocytes 3+ (>5) Smear Path Review Absolute Retic 0.019 L Percent Retic 0.5 Immature Retic Fraction 6.2 Retic Hgb Equivalent 32.5 Haptoglobin 179 PT 82.5 H D INR 6.8 H* APTT 72.1 H* Fibrinogen 424 Sodium 138 Potassium 3.9 Chloride 106 Carbon Dioxide 22 Anion Gap 14 BUN 26 H Creatinine 2.50 H Estim Creat Clear Calc 14.8 Estimated GFR 19 Random Glucose 135 H Calcium 8.5 D Magnesium 1.7 Total Bilirubin 0.6 Lactate Dehydrogenase 288 H B-Natriuretic Peptide 1590 H ROCIO, Polyspecific Positive ROCIO Work-up Assessment and Plan (1) Acute exacerbation of CHF (congestive heart failure): Status: Resolved CHF exacerbation in this elderly woman with multiple cardiac comorbidities most likely related to COVID infection and pulmonary inflammation and distress. Clinically today does appear to be significantly fluid overloaded but can give 1 more day of IV diuresis. Better intake and output chart needs to be pursued. Will trend her renal function as well as BNP tomorrow. If her BNP is down trended to a baseline can switch to oral Bumex therapy. Continue supportive care for COVID and COPD exacerbation. Continue the cardiac medications at this point time. Her elevated troponins are most likely due to hypertrophic cardiomyopathy and exacerbation of CHF as well as hypoxemia. Unlikely to represent acute coronary syndrome. Continue other medications. On chronic anticoagulation warfarin for chronic atrial fibrillation. Maintain target INR between 2 and 3. At this point time will sign of the case. Thank you for allowing me to partake in her care Procedures Date of Service Date of Service: 04/22/23
[2023-04-22] MEDS: Metoprolol Tartrate 25 MG TABLET PO ×2 (11:35→23:41)
[2023-04-22] MEDS: cilostazoL 100 MG TABLET PO ×2 (11:35→23:41)
[2023-04-22] MEDS: Melatonin 3 MG TABLET 6 MG PO (23:41)
[2023-04-23] VITALS (11 sets, daily range): BP systolic 86–127; BP diastolic 48–79; PULSE 74–95; RESP 20–22; TEMP 36.2–36.7; O2SAT 90–100; BMI 25.8
[2023-04-23] MEDS: Acetaminophen 325 MG TABLET 650 MG PO ×3 (03:26→16:48)
[2023-04-23] MEDS: methylPREDNISolone Sod Succ 40 MG/ML VIAL IVPUSH ×2 (06:07→16:48)
[2023-04-23 06:25] LABS: Hematocrit 36.3 % (37.0-47.0); Mean Corpuscular HGB Conc 33.1 g/dl (31.0-35.0); Mean Corpuscular Volume 90.8 fL (80.0-98.0); Mean Platelet Volume 10.6 fL (9.4-12.3); Platelet Count 164 X10*3/uL (160-400); Red Cell Distribution Width 14.2 % (11.0-16.0); White Blood Count 9.4 X10*3/uL (4.8-10.8)
[2023-04-23 06:30] LABS: INTERNATIONAL NORM RATIO 1.6 (0.9-1.1); Prothrombin Time 19.4 SEC (11.1-13.3)
[2023-04-23 06:36] LABS: Anion Gap 13 (12-20); Blood Urea Nitrogen 32 mg/dL (9-16); C Reactive Protein 0.98 mg/dL (< or = 0.50); Calcium 8.7 mg/dL (8.4-10.2); Carbon Dioxide 22 mmol/L (22-29); Chloride 108 mmol/L (96-108); Creatinine Clr Calc Pharmacy 12.6; Estimated Glomerular Filt Rate 15; Glucose Random 123 mg/dL (60-115); Magnesium 1.9 mg/dL (1.6-2.6); Potassium 4.2 mmol/L (3.3-5.1); Sodium 139 mmol/L (135-145)
[2023-04-23 06:43] LABS: B Type Natriuretic Peptide 1186 pg/mL (<100)
[2023-04-23] MEDS: Fluticasone/Vilanterol 200/25 BLST.W.DEV 1 PUFF INHALE (07:46)
[2023-04-23] MEDS: Albuterol/Iprat 2.5/0.5MG 3 ML AMPUL.NEB INHALE ×4 (07:48→19:07)
[2023-04-23] MEDS: Bumetanide 1 MG/4 ML VIAL 2 MG IVPUSH (08:31)
[2023-04-23] MEDS: Atorvastatin Calcium 40 MG TABLET PO (08:32)
[2023-04-23] MEDS: Amiodarone HCL 200 MG TABLET PO (08:32)
[2023-04-23] MEDS: Loratadine 10 MG TABLET PO (08:33)
[2023-04-23] MEDS: Potassium Chloride ER 20 MEQ TAB.ER.PRT PO ×2 (08:33→20:52)
[2023-04-23] MEDS: Levothyroxine Sodium 50 MCG TABLET PO (08:33)
[2023-04-23] MEDS: Spironolactone 25 MG TABLET 12.5 MG PO (08:33)
[2023-04-23] MEDS: Ferrous Sulfate 324 MG TABLET.DR PO (08:33)
[2023-04-23] MEDS: Benzonatate 100 MG CAPSULE 200 MG PO (08:34)
[2023-04-23] MEDS: 0.9 % Sodium Chloride Flush 3 ML SYRINGE IVFLUSH ×3 (08:34→20:56)
[2023-04-23] MEDS: Metoprolol Tartrate 25 MG TABLET PO (10:07)
[2023-04-23] MEDS: Multivitamin TABLET 1 TAB PO (10:07)
[2023-04-23] MEDS: cilostazoL 100 MG TABLET PO (10:08)
--- NOTE | 2023-04-23 13:00 | HO.PM.IMPN ---
Subjective Subjective Date of Service: 04/23/23 Interval History: Feeling better denies shortness of breath complaining of intermittent cough with right-sided chest pain worse with coughing and deep breathing, denies PND, no orthopnea, no nausea, no vomiting, no other acute issues overnight, BNP trending down. Review of Systems All other system reviewed and negative. Physical Exam Vital Signs: Vital Signs: Last Vital Signs Temp 97.4 F 04/23/23 08:00 Pulse 88 04/23/23 11:02 Resp 22 H 04/23/23 11:02 BP 110/55 L 04/23/23 08:00 Pulse Ox 90 L 04/23/23 08:45 O2 Del Method Room Air 04/23/23 08:45 O2 Flow Rate 2 04/23/23 08:00 BMI result Body Mass Index 25.8 Const: Other: Gen: in no acute distress HEENT: sclera anicteric, moist mucus membranes Neck: supple,no jvd Lungs: no crackles, prolonged expiratory phase Heart: regular rate and rhythm, no murmurs Abd: soft, non-tender, non-distended Ext: no edema Skin: warm/well-perfused Neuro: alert and oriented x3, no focal findings Psych: appropriate affect Objective Data Active Medications Acetaminophen (Acetaminophen 325 Mg Tablet) 650 mg PO Q6H PRN PRN Reason: Pain, Mild (Pain Scale 1-3) Last Admin: 04/23/23 10:07 Dose: 650 mg Documented By: ELIZABETH Albuterol Sulfate (Albuterol Sulfate 90 Mcg 8 Gm Inhaler) 2 puff INHALE Q4H PRN PRN Reason: Shortness Of Breath Or Wheezing Albuterol/Ipratropium (Albuterol/Iprat 2.5/0.5mg 3 Ml Ampul.Neb) 3 ml INHALE RQ4H WHILE AWAKE [facility] Last Admin: 04/23/23 11:02 Dose: 3 ml Documented By: ADDISON Albuterol/Ipratropium (Albuterol/Iprat 2.5/0.5mg 3 Ml Ampul.Neb) 3 ml INHALE Q4H PRN PRN Reason: Wheezing Amiodarone HCl (Amiodarone Hcl 200 Mg Tablet) 200 mg PO DAILY [facility] Last Admin: 04/23/23 08:32 Dose: 200 mg Documented By: ELIZABETH Atorvastatin Calcium (Atorvastatin Calcium 40 Mg Tablet) 40 mg PO DAILY [facility] Last Admin: 04/23/23 08:32 Dose: 40 mg Documented By: ELIZABETH Benzonatate (Benzonatate 100 Mg Capsule) 200 mg PO TID PRN PRN Reason: Cough Last Admin: 04/23/23 08:34 Dose: 200 mg Documented By: ELIZABETH Bumetanide (Bumetanide 1 Mg/4 Ml Vial) 2 mg IVPUSH DAILY [facility]; Protocol Last Admin: 04/23/23 08:31 Dose: 2 mg Documented By: ELIZABETH Calcium Carbonate (Calcium Carbonate 500 Mg Tablet) 500 mg PO BID [facility] Last Admin: 04/23/23 08:32 Dose: 500 mg Documented By: ELIZABETH Cilostazol (Cilostazol 100 Mg Tablet) 100 mg PO Q12H [facility] Last Admin: 04/23/23 10:08 Dose: 100 mg Documented By: ELIZABETH Ferrous Sulfate (Ferrous Sulfate 324 Mg Tablet.Dr) 324 mg PO DAILY [facility] Last Admin: 04/23/23 08:33 Dose: 324 mg Documented By: ELIZABETH Fluticasone Propionate (Fluticasone Propionate Nasal 16 Gm [place]) 1 spray NOSTRIL-B DAILY PRN PRN Reason: allergy symptoms Fluticasone/Vilanterol (Fluticasone/Vilanterol 200/25 Blst.W.Dev) 1 puff INHALE RDAILY [facility] Last Admin: 04/23/23 07:46 Dose: 1 puff Documented By: ADDISON Levothyroxine Sodium (Levothyroxine Sodium 50 Mcg Tablet) 50 mcg PO DAILY [facility] Last Admin: 04/23/23 08:33 Dose: 50 mcg Documented By: ELIZABETH Loratadine (Loratadine 10 Mg Tablet) 10 mg PO DAILY [facility] Last Admin: 04/23/23 08:33 Dose: 10 mg Documented By: ELIZABETH Melatonin (Melatonin 3 Mg Tablet) 6 mg PO BEDTIME PRN PRN Reason: Insomnia Last Admin: 04/22/23 23:41 Dose: 6 mg Documented By: ELDER Methylprednisolone Sodium Succinate (Methylprednisolone Sod Succ 40 Mg/Ml Vial) 40 mg IVPUSH Q12H [facility] Last Admin: 04/23/23 06:07 Dose: 40 mg Documented By: ELDER Metoprolol Tartrate (Metoprolol Tartrate 25 Mg Tablet) 25 mg PO Q12H [facility]; Protocol Last Admin: 04/23/23 10:07 Dose: 25 mg Documented By: ELIZABETH Multivitamins/Vitamin C (Multivitamin Tablet) 1 tab PO DAILY [facility] Last Admin: 04/23/23 10:07 Dose: 1 tab Documented By: ELIZABETH Ondansetron HCl (Ondansetron Hcl 4 Mg/2 Ml Vial) 4 mg IVPUSH Q8H PRN PRN Reason: Nausea and Vomiting Potassium Chloride (Potassium Chloride Er 20 Meq Tab.Er.Prt) 20 meq PO BID [facility] Last Admin: 04/23/23 08:33 Dose: 20 meq Documented By: ELIZABETH Ropinirole HCl (Ropinirole Hcl 5 Mg Tablet) 5 mg PO BEDTIME [facility] Last Admin: 04/22/23 21:44 Dose: 5 mg Documented By: ELDER Sodium Chloride (0.9 % Sodium Chloride Flush 3 Ml Syringe) 3 ml IVFLUSH QSHIFT [facility] Last Admin: 04/23/23 08:34 Dose: 3 ml Documented By: ELIZABETH Sodium Chloride (Sodium Chloride 0.65 % Nasal 44 Ml Sprbtl) 1 spray NOSTRIL-B Q1H PRN PRN Reason: Dryness Spironolactone (Spironolactone 25 Mg Tablet) 12.5 mg PO DAILY [facility]; Protocol Last Admin: 04/23/23 08:33 Dose: 12.5 mg Documented By: ELIZABETH Labs 04/23/23 06:11 04/23/23 06:11 Labs: Laboratory Results - last 24 hr 04/23/23 06:11 MCV 90.8 MCH 30.0 MCHC 33.1 RDW 14.2 Plt Count 164 D MPV 10.6 Absolute Nucleated RBC 0.000 Nucleated RBC % (auto) 0.0 PT 19.4 H D INR 1.6 H D Anion Gap 13 Estim Creat Clear Calc 12.6 Estimated GFR 15 Random Glucose 123 H Calcium 8.7 Magnesium 1.9 C-Reactive Protein 0.98 H B-Natriuretic Peptide 1186 H Assessment and Plan (1) Acute exacerbation of chronic obstructive airways disease: Status: Resolved (2) Current use of anticoagulant therapy: Status: Inactive (3) Congestive heart failure: Status: Inactive Plan 77yo F with HFpEF [TTE 8/30/23], COPD not on home O2, CKD4, AF on warfarin, hypothyroidism, PVD, RLS presenting with dyspnea and cough, onset of Covid-19 symptoms 04/12/23 acute/chronic HFpEF - appears euvolemic, will DC IV Bumex and transition to oral Bumex BNP trending down , normal potassium, creatinine bumped to 2.9 monitor BNP/BMP/Mg/I+O/wt. Continue KCl, spironolactone, metoprolol tartrate. Case discussed with Cardiology they agree with above treatment plan - TTE 04/21/23: 1. Normal LV ejection fraction 55-60% with severe left ventricular hypertrophy 2. Severely dilated left atrium 3. Moderate mitral stenosis, calcific with [id number] mitral regurgitation 4. Mild aortic stenosis 5. Mildly elevated right ventricular systolic pressure and right atrial pressures 6. Mildly dilated ascending aorta 7. Trivial pericardial effusion Acute hypoxic respiratory failure due to acute COPD exacerbation and COVID-19 -on IV methylprednisolone 04/21-, nebs, home ICS/LABA, will transition to oral prednisone, add scheduled cough medication [id number] infection -supportive care, out of window for remdesivir, continue isolation CKD4 -worsening creatinine, monitor Cr with diuresis, avoid nephrotoxins follow creatinine AF - metoprolol tartrate + amiodarone; resume warfarin INR dropped to 1.6 supratherapeutic INR - s/p PO vit K 5 mg 04/22/23 , INR 1.6 today will resume warfarin, INR goal 2-3, recheck INR daily, hold warfarin until INR <3 RLS - ropinirole PVD - cilostazol HLD - statin hypothyroidism - continue LT4 VTE ppx - resume warfarin In my clinical judgment, the patient requires continued hospitalization for the following reasons: hypoxia /COPD exac and CHF requiring close electrolyte monitoring Total time managing care of this patient today: 35 minutes. Quality Stroke Does the patient have a stroke diagnosis?: No VTE Prior VTE?: No VTE Risk Level:: Medical - moderate - high VTE Device Contraindication: Treatment Not Indicated VTE Drug Contraindication: N/A - Med Ordered
[2023-04-23] MEDS: guaiFENesin DM 100/10/5 ML 5 ML SYRUP 10 ML PO ×2 (16:49→20:53)
[2023-04-23] MEDS: Warfarin Sodium 2 MG TABLET PO (16:49)
[2023-04-23] MEDS: traMADoL HCL 50 MG TABLET PO (21:05)
[2023-04-24] VITALS (11 sets, daily range): BP systolic 96–166; BP diastolic 55–83; PULSE 70–79; RESP 17–20; TEMP 36.4–37.2; O2SAT 88–96; BMI 25.6
[2023-04-24] MEDS: cilostazoL 100 MG TABLET PO ×2 (00:14→10:52)
[2023-04-24] MEDS: Acetaminophen 325 MG TABLET 650 MG PO ×2 (00:15→06:18)
[2023-04-24] MEDS: Benzonatate 100 MG CAPSULE 200 MG PO ×3 (00:17→21:30)
[2023-04-24] MEDS: methylPREDNISolone Sod Succ 40 MG/ML VIAL IVPUSH ×2 (05:49→16:19)
--- NOTE | 2023-04-24 07:59 | PHA.MEDREC ---
Pharmacy Consult ? Medication Reconciliation Pharmacy has completed the medication reconciliation.
[2023-04-24] MEDS: Fluticasone/Vilanterol 200/25 BLST.W.DEV 1 PUFF INHALE (08:07)
[2023-04-24] MEDS: Albuterol/Iprat 2.5/0.5MG 3 ML AMPUL.NEB INHALE ×4 (08:07→19:19)
[2023-04-24] MEDS: Levothyroxine Sodium 50 MCG TABLET PO (08:35)
[2023-04-24] MEDS: Loratadine 10 MG TABLET PO (08:35)
[2023-04-24] MEDS: Potassium Chloride ER 20 MEQ TAB.ER.PRT PO (08:35)
[2023-04-24] MEDS: guaiFENesin DM 100/10/5 ML 5 ML SYRUP 10 ML PO (08:35)
[2023-04-24] MEDS: Spironolactone 25 MG TABLET 12.5 MG PO (08:35)
[2023-04-24] MEDS: Amiodarone HCL 200 MG TABLET PO (08:35)
[2023-04-24] MEDS: Ferrous Sulfate 324 MG TABLET.DR PO (08:36)
[2023-04-24] MEDS: Atorvastatin Calcium 40 MG TABLET PO (08:36)
[2023-04-24] MEDS: Multivitamin TABLET 1 TAB PO (08:36)
[2023-04-24] MEDS: traMADoL HCL 50 MG TABLET PO (08:37)
[2023-04-24 08:43] LABS: INTERNATIONAL NORM RATIO 1.5 (0.9-1.1); Prothrombin Time 17.7 SEC (11.1-13.3)
[2023-04-24 08:53] LABS: Anion Gap 15 (12-20); Blood Urea Nitrogen 40 mg/dL (9-16); Calcium 9.2 mg/dL (8.4-10.2); Carbon Dioxide 20 mmol/L (22-29); Chloride 108 mmol/L (96-108); Creatinine Clr Calc Pharmacy 10.7; Estimated Glomerular Filt Rate 13; Glucose Random 123 mg/dL (60-115); Sodium 138 mmol/L (135-145)
[2023-04-24] MEDS: guaiFEN/Codeine SF 200/20/10ML 10 ML LIQUID PO ×3 (10:52→21:32)
[2023-04-24] MEDS: Ascorbic Acid 500 MG TABLET PO (10:52)
[2023-04-24] MEDS: Metoprolol Tartrate 25 MG TABLET PO (10:52)
--- NOTE | 2023-04-24 11:42 | PC.NURSE ---
md informed pt RR 30's, increased pain d/t coughing. md assessed pt at bedside. RT informed by MD and working w/ pt as well. per administer 500cc NS once at 100cc/hr
[2023-04-24] MEDS: 0.9 % Sodium Chloride 500 ML 100 ML IVCONT (12:00)
--- NOTE | 2023-04-24 12:02 | HO.PM.IMPN ---
Subjective Subjective Date of Service: 04/24/23 Interval History: Complaining of persistent shortness of breath and cough with right-sided chest discomfort, denies fever,chills , no nausea no vomiting tolerating diet, oxygenation stable on room air. Review of Systems All other system reviewed and negative. Physical Exam Vital Signs: Vital Signs: Last Vital Signs Temp 98.2 F 04/24/23 11:47 Pulse 71 04/24/23 11:47 Resp 18 04/24/23 11:47 BP 137/76 04/24/23 11:47 Pulse Ox 96 04/24/23 11:47 O2 Del Method Nasal Cannula 04/24/23 11:47 O2 Flow Rate 2 04/24/23 11:47 BMI result Body Mass Index 25.6 Const: Other: Gen: in no acute distress HEENT: sclera anicteric, moist mucus membranes Neck: supple,no jvd Lungs: Bilateral rhonchi, no crackles, prolonged expiratory phase Heart: regular rate and rhythm, no murmurs Abd: soft, non-tender, non-distended Ext: no edema Skin: warm/well-perfused Neuro: alert and oriented x3, no focal findings Psych: appropriate affect Objective Data Active Medications Acetaminophen (Acetaminophen 325 Mg Tablet) 650 mg PO Q6H PRN PRN Reason: Pain, Mild (Pain Scale 1-3) Last Admin: 04/24/23 06:18 Dose: 650 mg Documented By: ARTURO Albuterol Sulfate (Albuterol Sulfate 90 Mcg 8 Gm Inhaler) 2 puff INHALE Q4H PRN PRN Reason: Shortness Of Breath Or Wheezing Albuterol/Ipratropium (Albuterol/Iprat 2.5/0.5mg 3 Ml Ampul.Neb) 3 ml INHALE RQ4H WHILE AWAKE [facility] Last Admin: 04/24/23 11:42 Dose: 3 ml Documented By: PEDRO Albuterol/Ipratropium (Albuterol/Iprat 2.5/0.5mg 3 Ml Ampul.Neb) 3 ml INHALE Q4H PRN PRN Reason: Wheezing Amiodarone HCl (Amiodarone Hcl 200 Mg Tablet) 200 mg PO DAILY [facility] Last Admin: 04/24/23 08:35 Dose: 200 mg Documented By: SUEFAPayton Ascorbic Acid (Ascorbic Acid 500 Mg Tablet) 500 mg PO DAILY [facility] Last Admin: 04/24/23 10:52 Dose: 500 mg Documented By: ELIF Atorvastatin Calcium (Atorvastatin Calcium 40 Mg Tablet) 40 mg PO DAILY [facility] Last Admin: 04/24/23 08:36 Dose: 40 mg Documented By: CLOVIS Benzonatate (Benzonatate 100 Mg Capsule) 200 mg PO TID PRN PRN Reason: Cough Last Admin: 04/24/23 08:52 Dose: 200 mg Documented By: CLOVIS Calcium Carbonate (Calcium Carbonate 500 Mg Tablet) 500 mg PO BID [facility] Last Admin: 04/24/23 08:35 Dose: 500 mg Documented By: CLOVIS Cilostazol (Cilostazol 100 Mg Tablet) 100 mg PO Q12H [facility] Last Admin: 04/24/23 10:52 Dose: 100 mg Documented By: ELIF Ferrous Sulfate (Ferrous Sulfate 324 Mg Tablet.Dr) 324 mg PO DAILY [facility] Last Admin: 04/24/23 08:36 Dose: 324 mg Documented By: CLOVIS Fluticasone Propionate (Fluticasone Propionate Nasal 16 Gm [place]) 1 spray NOSTRIL-B DAILY PRN PRN Reason: allergy symptoms Fluticasone/Vilanterol (Fluticasone/Vilanterol 200/25 Blst.W.Dev) 1 puff INHALE RDAILY [facility] Last Admin: 04/24/23 08:07 Dose: 1 puff Documented By: PEDRO Guaifenesin/Codeine Phosphate (Guaifen/Codeine Sf 200/20/10ml 10 Ml Liquid) 10 ml PO TID [facility] Last Admin: 04/24/23 10:52 Dose: 10 ml Documented By: ELIF Sodium Chloride (Ns) 500 mls @ 100 mls/hr IVCONT .Q5H [facility] Stop: 04/24/23 16:44 Last Admin: 04/24/23 12:00 Dose: 100 mls/hr Documented By: CLOVIS Levothyroxine Sodium (Levothyroxine Sodium 50 Mcg Tablet) 50 mcg PO DAILY [facility] Last Admin: 04/24/23 08:35 Dose: 50 mcg Documented By: CLOVIS Loratadine (Loratadine 10 Mg Tablet) 10 mg PO DAILY [facility] Last Admin: 04/24/23 08:35 Dose: 10 mg Documented By: CLOVIS Melatonin (Melatonin 3 Mg Tablet) 6 mg PO BEDTIME PRN PRN Reason: Insomnia Last Admin: 04/22/23 23:41 Dose: 6 mg Documented By: ELDER Methylprednisolone Sodium Succinate (Methylprednisolone Sod Succ 40 Mg/Ml Vial) 40 mg IVPUSH Q12H [facility] Last Admin: 04/24/23 05:49 Dose: 40 mg Documented By: ARTURO Metoprolol Tartrate (Metoprolol Tartrate 25 Mg Tablet) 25 mg PO Q12H [facility]; Protocol Last Admin: 04/24/23 10:52 Dose: 25 mg Documented By: ELIF Multivitamins/Vitamin C (Multivitamin Tablet) 1 tab PO DAILY [facility] Last Admin: 04/24/23 08:36 Dose: 1 tab Documented By: CLOVIS Ondansetron HCl (Ondansetron Hcl 4 Mg/2 Ml Vial) 4 mg IVPUSH Q8H PRN PRN Reason: Nausea and Vomiting Ropinirole HCl (Ropinirole Hcl 5 Mg Tablet) 5 mg PO BEDTIME [facility] Last Admin: 04/23/23 20:51 Dose: 5 mg Documented By: ARTURO Sodium Chloride (0.9 % Sodium Chloride Flush 3 Ml Syringe) 3 ml IVFLUSH QSHIFT [facility] Last Admin: 04/24/23 07:39 Dose: Not Given Documented By: CLOVIS Non-Admin Reason: See Note Sodium Chloride (Sodium Chloride 0.65 % Nasal 44 Ml Sprbtl) 1 spray NOSTRIL-B Q1H PRN PRN Reason: Dryness Tramadol HCl (Tramadol Hcl 50 Mg Tablet) 50 mg PO Q6H PRN PRN Reason: Pain, Moderate(Pain Scale 4-6) Last Admin: 04/24/23 08:37 Dose: 50 mg Documented By: CLOVIS Labs 04/23/23 06:11 04/24/23 08:13 Labs: Laboratory Results - last 24 hr 04/24/23 08:13 Hold Purple Top SEE NOTE PT 17.7 H INR 1.5 H Anion Gap 15 Estim Creat Clear Calc 10.7 Estimated GFR 13 Random Glucose 123 H Calcium 9.2 Assessment and Plan (1) Acute exacerbation of chronic obstructive airways disease: Status: Resolved (2) Current use of anticoagulant therapy: Status: Inactive (3) Congestive heart failure: Status: Inactive Plan 77yo F with HFpEF [TTE 11/16/22], COPD not on home O2, CKD4, AF on warfarin, hypothyroidism, PVD, RLS presenting with dyspnea and cough, onset of Covid-19 symptoms 04/12/23 acute/chronic HFpEF - appears euvolemic, will hold diuretics BNP trending down , normal potassium, creatinine bumped from 2.5 to 2.9 to 3.5 today monitor BNP/BMP/Mg/I+O/wt. Will DC KCl,and spironolactone, Continue metoprolol tartrate. - TTE 04/21/23: 1. Normal LV ejection fraction 55-60% with severe left ventricular hypertrophy 2. Severely dilated left atrium 3. Moderate mitral stenosis, calcific with [id number] mitral regurgitation 4. Mild aortic stenosis 5. Mildly elevated right ventricular systolic pressure and right atrial pressures 6. Mildly dilated ascending aorta 7. Trivial pericardial effusion Acute hypoxic respiratory failure due to acute COPD exacerbation and COVID-19. -on IV methylprednisolone 04/21-, nebs, home ICS/LABA, add scheduled cough medication with codeine Continue current treatment, Ultram for msk chest pain with coughing. -supportive care, out of window for remdesivir, continue isolation Acute on CKD4 -worsening creatinine, likely due to over-diuresis, DC all diuretics avoid hypotension, avoid nephrotoxins follow creatinine, give 500 mL fluids consult nephrology if not better AF - metoprolol tartrate + amiodarone; continue warfarin 2 mg follow PT INR daily supratherapeutic INR - s/p PO vit K 5 mg 04/22/23 , INR 1.5 today continue warfarin, INR goal 2-3, recheck INR daily. RLS - ropinirole PVD - cilostazol HLD - statin hypothyroidism - continue LT4 VTE ppx - warfarin In my clinical judgment, the patient requires continued hospitalization for the following reasons: hypoxia /COPD exac and CHF requiring close electrolyte monitoring Total time managing care of this patient today: 35 minutes. Quality Stroke Does the patient have a stroke diagnosis?: No VTE Prior VTE?: No VTE Risk Level:: Medical - moderate - high VTE Device Contraindication: Treatment Not Indicated VTE Drug Contraindication: N/A - Med Ordered
--- NOTE | 2023-04-24 13:05 | MHC.CM.PN ---
EMR REVIEWED, PT W/PERSISTENT SOB AND WORSENING CREATININE, REMAINS ON SUPPLEMENTAL O2 NC, NO PLAN FOR DC AT THIS TIME, CM WILL CONT TO FOLLOW DC NEEDS.
[2023-04-24] MEDS: Melatonin 3 MG TABLET 6 MG PO (21:32)
[2023-04-24] MEDS: 0.9 % Sodium Chloride Flush 3 ML SYRINGE IVFLUSH (21:33)
[2023-04-25] VITALS (10 sets, daily range): BP systolic 105–138; BP diastolic 59–78; PULSE 51–75; RESP 16–21; TEMP 36.2–36.8; O2SAT 92–97
[2023-04-25] MEDS: Metoprolol Tartrate 25 MG TABLET PO ×2 (00:47→10:14)
[2023-04-25] MEDS: cilostazoL 100 MG TABLET PO ×2 (00:47→10:14)
[2023-04-25] MEDS: methylPREDNISolone Sod Succ 40 MG/ML VIAL IVPUSH ×2 (05:37→15:46)
[2023-04-25 06:40] LABS: Anion Gap 13 (12-20); Blood Urea Nitrogen 42 mg/dL (9-16); Calcium 9.1 mg/dL (8.4-10.2); Carbon Dioxide 22 mmol/L (22-29); Chloride 109 mmol/L (96-108); Estimated Glomerular Filt Rate 13; Glucose Random 129 mg/dL (60-115); Potassium 5.5 mmol/L (3.3-5.1); Sodium 138 mmol/L (135-145)
[2023-04-25 07:04] LABS: INTERNATIONAL NORM RATIO 2.2 (0.9-1.1); Prothrombin Time 26.2 SEC (11.1-13.3)
[2023-04-25] MEDS: Fluticasone/Vilanterol 200/25 BLST.W.DEV 1 PUFF INHALE (07:56)
[2023-04-25] MEDS: Albuterol/Iprat 2.5/0.5MG 3 ML AMPUL.NEB INHALE ×4 (07:56→20:32)
[2023-04-25] MEDS: Loratadine 10 MG TABLET PO (10:14)
[2023-04-25] MEDS: Ferrous Sulfate 324 MG TABLET.DR PO (10:14)
[2023-04-25] MEDS: Multivitamin TABLET 1 TAB PO (10:14)
[2023-04-25] MEDS: Atorvastatin Calcium 40 MG TABLET PO (10:14)
[2023-04-25] MEDS: Levothyroxine Sodium 50 MCG TABLET PO (10:14)
[2023-04-25] MEDS: Ascorbic Acid 500 MG TABLET PO (10:14)
[2023-04-25] MEDS: Amiodarone HCL 200 MG TABLET PO (10:14)
[2023-04-25] MEDS: 0.9 % Sodium Chloride Flush 3 ML SYRINGE IVFLUSH ×2 (10:15→15:46)
[2023-04-25] MEDS: guaiFEN/Codeine SF 200/20/10ML 10 ML LIQUID PO ×3 (10:15→22:10)
[2023-04-25] MEDS: Sodium Zirconium Cyclosilicate 5 GM POWD.PACK PO (11:05)
--- NOTE | 2023-04-25 13:40 | P.CONNP_ITS ---
History of Present Illness Reason for Consult Consult date: 04/25/23 Reason for consult: BRIONNA Chief Complaint Chief complaint: Dyspnea History of Present Illness Narrative: 77-year-old female with pertinent history of congestive heart failure with preserved ejection fraction, COPD not on home oxygen, chronic kidney disease, atrial fibrillation on Coumadin, hypothyroidism, peripheral vascular disease, restless leg syndrome who presents to the emergency department for evaluation of dyspnea and cough. Patient states that her symptoms started 1 week prior to presentation. She has been having dyspnea which is worse with progression. Also complains of dry cough that has been ongoing for the last 1 week. Admits orthopnea. She is underlying chronic kidney disease Baseline creatinine is 2.3 mg/dL. During this admission creatinine is bumped up to 3.3. She also has hyperkalemia. She was on spironolactone along with potassium supplementation. Review of Systems Constitutional: Reports as per HPI, Denies anorexia, Denies fatigue, Denies fever(s) and Denies headache(s) Eyes: Denies blurry vision Denies headache(s) Cardiovascular: Denies pedal edema Respiratory: Denies cough and Denies hemoptysis Gastrointestinal: Denies diarrhea, Denies nausea and Denies vomiting Genitourinary: Denies hematuria, Denies urinary frequency and Denies urinary hesitancy Denies confusion, Denies headache(s) and Denies focal weakness Psychiatric: Denies confusion Endocrine: Denies cold intolerance, Denies fatigue and Denies polyuria PMFSH Past Medical History Medical History Chronic heart failure with preserved ejection fraction (HFpEF) Mitral valve disease Presence of combination internal cardiac defibrillator (ICD) and pacemaker On anticoagulant therapy On beta bert at home Congestive heart failure Hypertrophic cardiomyopathy Anemia Non-ST elevation [place] (NSTEMI) Pleural effusion on right Fall Cardiac defibrillator in place COPD (chronic obstructive pulmonary disease) Afib History of breast cancer Hypothyroidism Vitamin D deficiency Osteoporosis Mucinous carcinoma of right breast Multinodular thyroid Current use of anticoagulant therapy Family History Family History Father Thrombus Mother Heart disease Surgical History Surgical History History of bilateral tubal ligation History of lumpectomy of right breast AICD (automatic cardioverter/defibrillator) present History of tubal ligation History of automatic internal cardiac defibrillator (AICD) Social History Social History Household Members: Family Housing: Assisted Living Facility Do you presently have visiting nurse or other home services: Yes Alcohol intake: never Patient Tobacco Use Status: Former Tobacco user Quit Date: 2007 Smoked: 30 +/- Smoked in Last 30 Days: No e-Cigarette/Vaping Use: Never Used Second Hand Smoke Exposure: Yes Use of substances other than those prescribed or required for medical reasons: No Currently Displaying Signs/Symptoms of Drug Intoxication Withdrawal: No Any prior treatment program specific to substance use: No Have you been hit, kicked, punched, or otherwise hurt by someone within the past year? If so, by whom?: No Do you feel safe in your current relationship?: No Current Relationship Is there a partner from a previous relationship who is making you feel unsafe now?: No Are you made to feel afraid or neglected: No Advance Directives: Yes Advance Directives on File: Yes Advance Directives Date on File: 07/23/20 Do you have thoughts of harming others: None Do you have a plan to hurt others: No Plan Recently lost weight without trying: No Eating poorly because of decreased appetite: No Nutrition Risks: No Nutritional Risk Patient : No service: No Current occupational status: retired Cognitive needs: Yes Hearing needs: No Vision needs: Yes Meds Allergies Allergy/AdvReac Type Severity Reaction Status Date / Time doxycycline AdvReac Vomiting Verified 04/20/23 21:54 Active Medications: Current Medications Acetaminophen (Acetaminophen 325 Mg Tablet) 650 mg PO Q6H PRN PRN Reason: Pain, Mild (Pain Scale 1-3) Last Admin: 04/24/23 06:18 Dose: 650 mg Albuterol Sulfate (Albuterol Sulfate 90 Mcg 8 Gm Inhaler) 2 puff INHALE Q4H PRN PRN Reason: Shortness Of Breath Or Wheezing Albuterol/Ipratropium (Albuterol/Iprat 2.5/0.5mg 3 Ml Ampul.Neb) 3 ml INHALE RQ4H WHILE AWAKE [facility] Last Admin: 04/25/23 11:34 Dose: 3 ml Albuterol/Ipratropium (Albuterol/Iprat 2.5/0.5mg 3 Ml Ampul.Neb) 3 ml INHALE Q4H PRN PRN Reason: Wheezing Amiodarone HCl (Amiodarone Hcl 200 Mg Tablet) 200 mg PO DAILY [facility] Last Admin: 04/25/23 10:14 Dose: 200 mg Ascorbic Acid (Ascorbic Acid 500 Mg Tablet) 500 mg PO DAILY [facility] Last Admin: 04/25/23 10:14 Dose: 500 mg Atorvastatin Calcium (Atorvastatin Calcium 40 Mg Tablet) 40 mg PO DAILY [facility] Last Admin: 04/25/23 10:14 Dose: 40 mg Benzonatate (Benzonatate 100 Mg Capsule) 200 mg PO TID PRN PRN Reason: Cough Last Admin: 04/24/23 21:30 Dose: 200 mg Calcium Carbonate (Calcium Carbonate 500 Mg Tablet) 500 mg PO BID [facility] Last Admin: 04/25/23 10:14 Dose: 500 mg Cilostazol (Cilostazol 100 Mg Tablet) 100 mg PO Q12H [facility] Last Admin: 04/25/23 10:14 Dose: 100 mg Ferrous Sulfate (Ferrous Sulfate 324 Mg Tablet.Dr) 324 mg PO DAILY [facility] Last Admin: 04/25/23 10:14 Dose: 324 mg Fluticasone Propionate (Fluticasone Propionate Nasal 16 Gm [place]) 1 spray NOSTRIL-B DAILY PRN PRN Reason: allergy symptoms Fluticasone/Vilanterol (Fluticasone/Vilanterol 200/25 Blst.W.Dev) 1 puff INHALE RDAILY [facility] Last Admin: 04/25/23 07:56 Dose: 1 puff Guaifenesin/Codeine Phosphate (Guaifen/Codeine Sf 200/20/10ml 10 Ml Liquid) 10 ml PO TID [facility] Last Admin: 04/25/23 10:15 Dose: 10 ml Levothyroxine Sodium (Levothyroxine Sodium 50 Mcg Tablet) 50 mcg PO DAILY [facility] Last Admin: 04/25/23 10:14 Dose: 50 mcg Loratadine (Loratadine 10 Mg Tablet) 10 mg PO DAILY [facility] Last Admin: 04/25/23 10:14 Dose: 10 mg Melatonin (Melatonin 3 Mg Tablet) 6 mg PO BEDTIME PRN PRN Reason: Insomnia Last Admin: 04/24/23 21:32 Dose: 6 mg Methylprednisolone Sodium Succinate (Methylprednisolone Sod Succ 40 Mg/Ml Vial) 40 mg IVPUSH Q12H [facility] Last Admin: 04/25/23 05:37 Dose: 40 mg Metoprolol Tartrate (Metoprolol Tartrate 25 Mg Tablet) 25 mg PO Q12H [facility]; Protocol Last Admin: 04/25/23 10:14 Dose: 25 mg Multivitamins/Vitamin C (Multivitamin Tablet) 1 tab PO DAILY [facility] Last Admin: 04/25/23 10:14 Dose: 1 tab Ondansetron HCl (Ondansetron Hcl 4 Mg/2 Ml Vial) 4 mg IVPUSH Q8H PRN PRN Reason: Nausea and Vomiting Ropinirole HCl (Ropinirole Hcl 5 Mg Tablet) 5 mg PO BEDTIME [facility] Last Admin: 04/24/23 21:33 Dose: 5 mg Sodium Chloride (0.9 % Sodium Chloride Flush 3 Ml Syringe) 3 ml IVFLUSH QSHIFT [facility] Last Admin: 04/25/23 10:15 Dose: 3 ml Sodium Chloride (Sodium Chloride 0.65 % Nasal 44 Ml Sprbtl) 1 spray NOSTRIL-B Q1H PRN PRN Reason: Dryness Tramadol HCl (Tramadol Hcl 50 Mg Tablet) 50 mg PO Q6H PRN PRN Reason: Pain, Moderate(Pain Scale 4-6) Last Admin: 04/24/23 08:37 Dose: 50 mg Home Medications Medication Instructions Recorded Confirmed Last Taken Type multivitamin 1 tab PO DAILY 02/03/20 04/21/23 04/20/23 History Physical Exam Vital Signs: Last Vital Signs Temp 97.1 F 04/25/23 10:51 Pulse 73 04/25/23 11:36 Resp 19 04/25/23 11:36 BP 124/72 04/25/23 10:51 Pulse Ox 92 04/25/23 10:51 O2 Del Method Room Air 04/25/23 10:51 O2 Flow Rate 2 04/25/23 07:38 BMI result Body Mass Index 25.6 Const General: No confusion Nutritional Appearance: well nourished Orientation/consciousness: No confusion HEENT Head: No normal to inspection Mouth: moist mucous membranes Neck Neck: Yes supple and Yes no JVD Resp Auscultation: rhonchi Cardio Jugular venous distension: no JVD Palpation: no palpable S3 and no palpable S4 Heart sounds: no rubs GI Palpation (GI): Soft to palpation and nontender Percussion: No Fluid wave present General: Yes no CVA tenderness Back/Spine/Pelvis Back: no CVA tenderness Skin General skin exam: no rashes or lesions noted Neuro General: No confusion Extrem General: Yes no pedal edema and No clubbing Results Lab Results 04/23/23 06:11 04/25/23 05:41 Lab results: Chemistry 04/23/23 04/24/23 04/25/23 06:11 08:13 05:41 Sodium 139 138 138 Potassium 4.2 5.0 5.5 H Carbon Dioxide 22 20 L 22 BUN 32 H 40 H 42 H Creatinine 2.99 H 3.50 H 3.41 H Calcium 8.7 9.2 9.1 Hematology 04/23/23 06:11 WBC 9.4 Hgb 12.0 Plt Count 164 D Assessment and Plan (1) BRIONNA (acute kidney injury): Status: Acute (2) Hyperkalemia: Status: Acute Plan BRIONNA superimposed on CKD. BRIONNA is mostly due to hypoperfusion. No evidence of obstruction. Reason sediments or bland and no evidence of ATN or AIN. She is underlying chronic kidney disease stage 3 with a baseline creatinine 2.3. Hyperkalemia due to the combination of spironolactone and potassium supplementation setting of renal failure. Recommendation hold diuretics including spironolactone. Discontinue potassium supplementation Lokelma x1 dose. For now keep intake more than output and avoid hypotension. No indication for dialysis We will follow closely along with the team. Thank you Procedures Date of Service Date of Service: 04/25/23
--- NOTE | 2023-04-25 15:10 | HO.PM.IMPN ---
Subjective Subjective Date of Service: 04/25/23 Interval History: Feeling better this morning, slept good, Robitussin with codeine is helping with cough, still with shortness of breath and dry cough, no fevers no chills, no other acute issues overnight. Review of Systems All other system reviewed and negative Physical Exam Vital Signs: Vital Signs: Last Vital Signs Temp 97.1 F 04/25/23 10:51 Pulse 73 04/25/23 11:36 Resp 19 04/25/23 11:36 BP 124/72 04/25/23 10:51 Pulse Ox 92 04/25/23 10:51 O2 Del Method Room Air 04/25/23 10:51 O2 Flow Rate 2 04/25/23 07:38 BMI result Body Mass Index 25.6 Const: Other: Gen: Awake alert x3, in no acute distress HEENT: sclera anicteric, moist mucus membranes Neck: supple,no jvd Lungs: Bilateral rhonchi, no crackles, no use of accessory muscles Heart: regular rate and rhythm, no murmurs Abd: soft, non-tender, non-distended, bowel sounds audible Ext: no edema Skin: warm/well-perfused Neuro: alert and oriented x3, no focal findings. Psych: appropriate affect Objective Data Active Medications Acetaminophen (Acetaminophen 325 Mg Tablet) 650 mg PO Q6H PRN PRN Reason: Pain, Mild (Pain Scale 1-3) Last Admin: 04/24/23 06:18 Dose: 650 mg Documented By: ARTURO Albuterol Sulfate (Albuterol Sulfate 90 Mcg 8 Gm Inhaler) 2 puff INHALE Q4H PRN PRN Reason: Shortness Of Breath Or Wheezing Albuterol/Ipratropium (Albuterol/Iprat 2.5/0.5mg 3 Ml Ampul.Neb) 3 ml INHALE RQ4H WHILE AWAKE [facility] Last Admin: 04/25/23 11:34 Dose: 3 ml Documented By: PEDRO Albuterol/Ipratropium (Albuterol/Iprat 2.5/0.5mg 3 Ml Ampul.Neb) 3 ml INHALE Q4H PRN PRN Reason: Wheezing Amiodarone HCl (Amiodarone Hcl 200 Mg Tablet) 200 mg PO DAILY [facility] Last Admin: 04/25/23 10:14 Dose: 200 mg Documented By: BLAINE Ascorbic Acid (Ascorbic Acid 500 Mg Tablet) 500 mg PO DAILY [facility] Last Admin: 04/25/23 10:14 Dose: 500 mg Documented By: BLAINE Atorvastatin Calcium (Atorvastatin Calcium 40 Mg Tablet) 40 mg PO DAILY [facility] Last Admin: 04/25/23 10:14 Dose: 40 mg Documented By: BLAINE Benzonatate (Benzonatate 100 Mg Capsule) 200 mg PO TID PRN PRN Reason: Cough Last Admin: 04/24/23 21:30 Dose: 200 mg Documented By: ARTURO Calcium Carbonate (Calcium Carbonate 500 Mg Tablet) 500 mg PO BID [facility] Last Admin: 04/25/23 10:14 Dose: 500 mg Documented By: BLAINE Cilostazol (Cilostazol 100 Mg Tablet) 100 mg PO Q12H [facility] Last Admin: 04/25/23 10:14 Dose: 100 mg Documented By: BLAINE Ferrous Sulfate (Ferrous Sulfate 324 Mg Tablet.) 324 mg PO DAILY [facility] Last Admin: 04/25/23 10:14 Dose: 324 mg Documented By: BLAINE Fluticasone Propionate (Fluticasone Propionate Nasal 16 Gm [place]) 1 spray NOSTRIL-B DAILY PRN PRN Reason: allergy symptoms Fluticasone/Vilanterol (Fluticasone/Vilanterol 200/25 Blst.W.Dev) 1 puff INHALE RDAILY [facility] Last Admin: 04/25/23 07:56 Dose: 1 puff Documented By: PEDRO Guaifenesin/Codeine Phosphate (Guaifen/Codeine Sf 200/20/10ml 10 Ml Liquid) 10 ml PO TID [facility] Last Admin: 04/25/23 10:15 Dose: 10 ml Documented By: BLAINE Levothyroxine Sodium (Levothyroxine Sodium 50 Mcg Tablet) 50 mcg PO DAILY [facility] Last Admin: 04/25/23 10:14 Dose: 50 mcg Documented By: BLAINE Loratadine (Loratadine 10 Mg Tablet) 10 mg PO DAILY [facility] Last Admin: 04/25/23 10:14 Dose: 10 mg Documented By: BLAINE Melatonin (Melatonin 3 Mg Tablet) 6 mg PO BEDTIME PRN PRN Reason: Insomnia Last Admin: 04/24/23 21:32 Dose: 6 mg Documented By: ARTURO Methylprednisolone Sodium Succinate (Methylprednisolone Sod Succ 40 Mg/Ml Vial) 40 mg IVPUSH Q12H [facility] Last Admin: 04/25/23 05:37 Dose: 40 mg Documented By: ARTURO Metoprolol Tartrate (Metoprolol Tartrate 25 Mg Tablet) 25 mg PO Q12H [facility]; Protocol Last Admin: 04/25/23 10:14 Dose: 25 mg Documented By: BLAINE Multivitamins/Vitamin C (Multivitamin Tablet) 1 tab PO DAILY [facility] Last Admin: 04/25/23 10:14 Dose: 1 tab Documented By: BLAINE Ondansetron HCl (Ondansetron Hcl 4 Mg/2 Ml Vial) 4 mg IVPUSH Q8H PRN PRN Reason: Nausea and Vomiting Ropinirole HCl (Ropinirole Hcl 5 Mg Tablet) 5 mg PO BEDTIME [facility] Last Admin: 04/24/23 21:33 Dose: 5 mg Documented By: ARTURO Sodium Chloride (0.9 % Sodium Chloride Flush 3 Ml Syringe) 3 ml IVFLUSH QSHIFT [facility] Last Admin: 04/25/23 10:15 Dose: 3 ml Documented By: BLAINE Sodium Chloride (Sodium Chloride 0.65 % Nasal 44 Ml Sprbtl) 1 spray NOSTRIL-B Q1H PRN PRN Reason: Dryness Tramadol HCl (Tramadol Hcl 50 Mg Tablet) 50 mg PO Q6H PRN PRN Reason: Pain, Moderate(Pain Scale 4-6) Last Admin: 04/24/23 08:37 Dose: 50 mg Documented By: CHAYOA Labs 04/23/23 06:11 04/25/23 05:41 Labs: Laboratory Results - last 24 hr 04/25/23 05:41 Hold Purple Top SEE NOTE PT 26.2 H D INR 2.2 H Anion Gap 13 Estim Creat Clear Calc 11.0 Estimated GFR 13 Random Glucose 129 H Calcium 9.1 Assessment and Plan (1) Acute exacerbation of chronic obstructive airways disease: Status: Resolved (2) Current use of anticoagulant therapy: Status: Inactive (3) Congestive heart failure: Status: Inactive Plan 77yo F with HFpEF [TTE 11/16/22], COPD not on home O2, CKD4, AF on warfarin, hypothyroidism, PVD, RLS presenting with dyspnea and cough, onset of Covid-19 symptoms 04/12/23 acute/chronic HFpEF - appears euvolemic, will hold diuretics BNP trending down , normal potassium, creatinine bumped from 2.5 to 2.9 to 3.5 and 3.4 today monitor BNP/BMP/Mg/I+O/wt. All diuretics and potassium supplement on hold the wound Continue metoprolol tartrate. Follow clinical course. - TTE 04/21/23: 1. Normal LV ejection fraction 55-60% with severe left ventricular hypertrophy 2. Severely dilated left atrium 3. Moderate mitral stenosis, calcific with [id number] mitral regurgitation 4. Mild aortic stenosis 5. Mildly elevated right ventricular systolic pressure and right atrial pressures 6. Mildly dilated ascending aorta 7. Trivial pericardial effusion Acute hypoxic respiratory failure due to acute COPD exacerbation and COVID-19. -on IV methylprednisolone 04/21-, nebs, home ICS/LABA, scheduled cough medication with codeine Continue current treatment, Ultram for msk chest pain with coughing. -supportive care, out of window for remdesivir, continue isolation Acute on CKD4 -worsening creatinine, likely due to over-diuresis, DC all diuretics avoid hypotension, avoid nephrotoxins follow creatinine, give 500 mL fluids Nephro consulted case discussed with Dr. Hoover he recommend repeat IV fluids 500 mL Acute hyperkalemia due to BRIONNA will give Lokelma follow BMP AF - metoprolol tartrate + amiodarone; continue warfarin will give 1 mg, INR 2.2 today ,follow PT INR daily supratherapeutic INR - s/p PO vit K 5 mg 04/22/23 , INR 2.2 today continue warfarin, INR goal 2-3, recheck INR daily. RLS - ropinirole PVD - cilostazol HLD - statin hypothyroidism - continue LT4 VTE ppx - warfarin In my clinical judgment, the patient requires continued hospitalization for the following reasons: hypoxia /COPD exac and CHF requiring close electrolyte monitoring Total time managing care of this patient today: 35 minutes. Quality Stroke Does the patient have a stroke diagnosis?: No VTE Prior VTE?: No VTE Risk Level:: Medical - moderate - high VTE Device Contraindication: Treatment Not Indicated VTE Drug Contraindication: N/A - Med Ordered
[2023-04-25] MEDS: 0.9 % Sodium Chloride 500 ML 100 ML IVCONT (15:46)
[2023-04-25] MEDS: Acetaminophen 325 MG TABLET 650 MG PO (22:10)
[2023-04-26] VITALS (11 sets, daily range): BP systolic 116–143; BP diastolic 58–80; PULSE 70–94; RESP 17–20; TEMP 36.1–36.6; O2SAT 91–96; BMI 26.3
[2023-04-26] MEDS: cilostazoL 100 MG TABLET PO ×3 (00:15→23:43)
[2023-04-26] MEDS: Metoprolol Tartrate 25 MG TABLET PO ×3 (00:15→23:43)
[2023-04-26] MEDS: 0.9 % Sodium Chloride Flush 3 ML SYRINGE IVFLUSH ×4 (00:20→21:11)
[2023-04-26] MEDS: methylPREDNISolone Sod Succ 40 MG/ML VIAL IVPUSH ×2 (06:03→16:23)
[2023-04-26] MEDS: Acetaminophen 325 MG TABLET 650 MG PO ×2 (06:03→21:04)
[2023-04-26 07:42] LABS: Anion Gap 13 (12-20); Blood Urea Nitrogen 45 mg/dL (9-16); Carbon Dioxide 23 mmol/L (22-29); Chloride 108 mmol/L (96-108); Creatinine Clr Calc Pharmacy 13.4; Estimated Glomerular Filt Rate 16; Glucose Random 106 mg/dL (60-115); Potassium 5.5 mmol/L (3.3-5.1); Sodium 138 mmol/L (135-145)
[2023-04-26 07:43] LABS: INTERNATIONAL NORM RATIO 1.9 (0.9-1.1); Prothrombin Time 22.8 SEC (11.1-13.3)
[2023-04-26] MEDS: Fluticasone/Vilanterol 200/25 BLST.W.DEV 1 PUFF INHALE (08:23)
[2023-04-26] MEDS: Albuterol/Iprat 2.5/0.5MG 3 ML AMPUL.NEB INHALE ×4 (08:23→19:42)
[2023-04-26] MEDS: Ascorbic Acid 500 MG TABLET PO (09:08)
[2023-04-26] MEDS: Ferrous Sulfate 324 MG TABLET.DR PO (09:08)
[2023-04-26] MEDS: Atorvastatin Calcium 40 MG TABLET PO (09:08)
[2023-04-26] MEDS: Levothyroxine Sodium 50 MCG TABLET PO (09:09)
[2023-04-26] MEDS: Loratadine 10 MG TABLET PO (09:09)
[2023-04-26] MEDS: Multivitamin TABLET 1 TAB PO (09:09)
[2023-04-26] MEDS: guaiFEN/Codeine SF 200/20/10ML 10 ML LIQUID PO ×3 (09:09→21:03)
[2023-04-26] MEDS: Amiodarone HCL 200 MG TABLET PO (09:09)
[2023-04-26] MEDS: Sodium Chloride 0.65 % Nasal 44 ML SPRBTL 1 SPRAY NOSTRIL-B (09:14)
--- NOTE | 2023-04-26 10:51 | P.PNNP_ITS ---
Subjective Subjective Date of Service: 04/27/23 Interval history: Events noted Still with cough Physical Exam 2 Vital Signs: Vital Signs: Last Vital Signs Temp 97.4 F 04/26/23 07:07 Pulse 74 04/26/23 08:23 Resp 18 04/26/23 08:23 BP 136/80 04/26/23 07:07 Pulse Ox 94 04/26/23 07:07 O2 Del Method Nasal Cannula 04/26/23 07:07 O2 Flow Rate 2 04/26/23 03:17 BMI result Body Mass Index 26.3 Const: General: No confusion Nutritional Appearance: well nourished O rientation/consciousness: No confusion HEENT: Head: No normal to inspection Mouth: moist mucous membranes Neck: Neck: Yes supple and Yes no JVD Resp: Auscultation: rhonchi Cardio: Jugular venous distension: no JVD Palpation: no palpable S3 and no palpable S4 Heart sounds: no rubs GI: Palpation (GI): Soft to palpation and nontender Percussion: No Fluid wave present : General: Yes no CVA tenderness Back/Spine/Pelvis: Back: no CVA tenderness Skin: General skin exam: no rashes or lesions noted Neuro: General: No confusion Extrem: General: Yes no pedal edema and No clubbing Objective Data Labs 04/23/23 06:11 04/27/23 06:59 Labs: Laboratory Results - last 24 hr 04/26/23 06:19 PT 22.8 H INR 1.9 H Sodium 138 Potassium 5.5 H Chloride 108 Carbon Dioxide 23 Anion Gap 13 BUN 45 H Creatinine 2.82 H Estim Creat Clear Calc 13.4 Estimated GFR 16 Random Glucose 106 Calcium 9.0 Procedures Date of Service Date of Service: 04/27/23 Assessment & Plan Assessment and plan (1) BRIONNA (acute kidney injury): Status: Acute (2) Hyperkalemia: Status: Acute Plan BRIONNA superimposed on CKD. BRIONNA is mostly due to hypoperfusion. No evidence of obstruction. Reason sediments or bland and no evidence of ATN or AIN. She is underlying chronic kidney disease stage 3 with a baseline creatinine 2.3. Hyperkalemia due to the combination of spironolactone and potassium supplementation setting of renal failure. Creatinine is trending down Recommendation hold diuretics including spironolactone. No need for potassium supplementation Lokelma x1 dose again today For now keep intake more than output and avoid hypotension. No indication for dialysis We will follow closely along with the team. Thank you Time Spent With Patient Time: Total time managing care of this patient today ____ minutes. Progress Note: Quality Stroke Does the patient have a stroke diagnosis?: No
[2023-04-26] MEDS: Sodium Zirconium Cyclosilicate 10 GM POWD.PACK PO (12:50)
--- NOTE | 2023-04-26 12:52 | MHC.CM.PN ---
Pt. is not yet ready for DC, she requires continued treatment for hypoxia /COPD exacerbation and CHF. DC plan is home, self care. CM will follow and assist with DC plan.
--- NOTE | 2023-04-26 15:49 | P.PNIM_ITS ---
Subjective Subjective Date of Service: 04/26/23 Interval History: Complaining of persistent shortness of breath and cough, sleeping better with current cough medications, grandson at bedside, does not want grandmother to be on oxygen since family member smokes, living and all apartment to not have outlet to use O2. Review of Systems All other system reviewed and negative. Physical Exam 2 Vital Signs: Vital Signs: Last Vital Signs Temp 97.4 F 04/26/23 15:32 Pulse 70 04/26/23 15:32 Resp 17 04/26/23 15:32 BP 116/63 04/26/23 15:32 Pulse Ox 95 04/26/23 15:32 O2 Del Method Room Air 04/26/23 15:32 O2 Flow Rate 2 04/26/23 03:17 BMI result Body Mass Index 26.3 Const: Other: Gen: Awake alert x3, in no acute distress HEENT: sclera anicteric, moist mucus membranes Neck: supple,no jvd Lungs: Bilateral persistent rhonchi, no crackles, no use of accessory muscles Heart: regular rate and rhythm, no murmurs Abd: soft, non-tender, non-distended, bowel sounds audible Ext: no edema Skin: warm/well-perfused Neuro: alert and oriented x3, no focal findings. Psych: appropriate affect Objective Data Active Medications Acetaminophen (Acetaminophen 325 Mg Tablet) 650 mg PO Q6H PRN PRN Reason: Pain, Mild (Pain Scale 1-3) Last Admin: 04/26/23 06:03 Dose: 650 mg Documented By: ELDER Albuterol Sulfate (Albuterol Sulfate 90 Mcg 8 Gm Inhaler) 2 puff INHALE Q4H PRN PRN Reason: Shortness Of Breath Or Wheezing Albuterol/Ipratropium (Albuterol/Iprat 2.5/0.5mg 3 Ml Ampul.Neb) 3 ml INHALE RQ4H WHILE AWAKE [facility] Last Admin: 04/26/23 15:30 Dose: 3 ml Documented By: ISELA Albuterol/Ipratropium (Albuterol/Iprat 2.5/0.5mg 3 Ml Ampul.Neb) 3 ml INHALE Q4H PRN PRN Reason: Wheezing Amiodarone HCl (Amiodarone Hcl 200 Mg Tablet) 200 mg PO DAILY [facility] Last Admin: 04/26/23 09:09 Dose: 200 mg Documented By: CLINTON Ascorbic Acid (Ascorbic Acid 500 Mg Tablet) 500 mg PO DAILY [facility] Last Admin: 04/26/23 09:08 Dose: 500 mg Documented By: CLINTON Atorvastatin Calcium (Atorvastatin Calcium 40 Mg Tablet) 40 mg PO DAILY [facility] Last Admin: 04/26/23 09:08 Dose: 40 mg Documented By: CLINTON Benzonatate (Benzonatate 100 Mg Capsule) 200 mg PO TID PRN PRN Reason: Cough Last Admin: 04/24/23 21:30 Dose: 200 mg Documented By: ARTURO Calcium Carbonate (Calcium Carbonate 500 Mg Tablet) 500 mg PO BID [facility] Last Admin: 04/26/23 09:09 Dose: 500 mg Documented By: CLINTON Cilostazol (Cilostazol 100 Mg Tablet) 100 mg PO Q12H [facility] Last Admin: 04/26/23 11:12 Dose: 100 mg Documented By: CLINTON Ferrous Sulfate (Ferrous Sulfate 324 Mg Tablet.Dr) 324 mg PO DAILY [facility] Last Admin: 04/26/23 09:08 Dose: 324 mg Documented By: CLINTON Fluticasone Propionate (Fluticasone Propionate Nasal 16 Gm [place]) 1 spray NOSTRIL-B DAILY PRN PRN Reason: allergy symptoms Fluticasone/Vilanterol (Fluticasone/Vilanterol 200/25 Blst.W.Dev) 1 puff INHALE RDAILY [facility] Last Admin: 04/26/23 08:23 Dose: 1 puff Documented By: ISELA Guaifenesin/Codeine Phosphate (Guaifen/Codeine Sf 200/20/10ml 10 Ml Liquid) 10 ml PO TID [facility] Last Admin: 04/26/23 14:35 Dose: 10 ml Documented By: CLINTON Levothyroxine Sodium (Levothyroxine Sodium 50 Mcg Tablet) 50 mcg PO DAILY [facility] Last Admin: 04/26/23 09:09 Dose: 50 mcg Documented By: CLINTON Loratadine (Loratadine 10 Mg Tablet) 10 mg PO DAILY [facility] Last Admin: 04/26/23 09:09 Dose: 10 mg Documented By: CLINTON Melatonin (Melatonin 3 Mg Tablet) 6 mg PO BEDTIME PRN PRN Reason: Insomnia Last Admin: 04/24/23 21:32 Dose: 6 mg Documented By: ARTURO Methylprednisolone Sodium Succinate (Methylprednisolone Sod Succ 40 Mg/Ml Vial) 40 mg IVPUSH Q12H [facility] Last Admin: 04/26/23 06:03 Dose: 40 mg Documented By: ELDER Metoprolol Tartrate (Metoprolol Tartrate 25 Mg Tablet) 25 mg PO Q12H [facility]; Protocol Last Admin: 04/26/23 11:12 Dose: 25 mg Documented By: CLINTON Multivitamins/Vitamin C (Multivitamin Tablet) 1 tab PO DAILY [facility] Last Admin: 04/26/23 09:09 Dose: 1 tab Documented By: CLINTON Ondansetron HCl (Ondansetron Hcl 4 Mg/2 Ml Vial) 4 mg IVPUSH Q8H PRN PRN Reason: Nausea and Vomiting Ropinirole HCl (Ropinirole Hcl 5 Mg Tablet) 5 mg PO BEDTIME [facility] Last Admin: 04/25/23 22:10 Dose: 5 mg Documented By: ELDER Sodium Chloride (0.9 % Sodium Chloride Flush 3 Ml Syringe) 3 ml IVFLUSH QSHIFT [facility] Last Admin: 04/26/23 09:09 Dose: 3 ml Documented By: CLINTON Sodium Chloride (Sodium Chloride 0.65 % Nasal 44 Ml Sprbtl) 1 spray NOSTRIL-B Q1H PRN PRN Reason: Dryness Last Admin: 04/26/23 09:14 Dose: 1 spray Documented By: CLINTON Tramadol HCl (Tramadol Hcl 50 Mg Tablet) 50 mg PO Q6H PRN PRN Reason: Pain, Moderate(Pain Scale 4-6) Last Admin: 04/24/23 08:37 Dose: 50 mg Documented By: CLOVIS Warfarin Sodium (Warfarin Sodium 1 Mg Tablet) 1 mg PO DAILY@1800 [facility] Labs 04/23/23 06:11 04/26/23 06:19 Labs: Laboratory Results - last 24 hr 04/26/23 06:19 PT 22.8 H INR 1.9 H Anion Gap 13 Estim Creat Clear Calc 13.4 Estimated GFR 16 Random Glucose 106 Calcium 9.0 Assessment and Plan (1) Acute exacerbation of chronic obstructive airways disease: Status: Resolved (2) Current use of anticoagulant therapy: Status: Inactive (3) Congestive heart failure: Status: Inactive Plan 77yo F with HFpEF [TTE 11/16/22], COPD not on home O2, CKD4, AF on warfarin, hypothyroidism, PVD, RLS presenting with dyspnea and cough, onset of Covid-19 symptoms 04/12/23 acute/chronic HFpEF - appears euvolemic, all diuretics and potassium supplements on hold BNP trending down , normal potassium, creatinine bumped from 2.5 to 2.9 to 3.5 and now trending down monitor BNP/BMP/Mg/I+O/wt. Continue metoprolol tartrate. Follow clinical course. - TTE 04/21/23: Showed normal EF 55-60%, severe left ventricular hypertrophy, severe dilated left atrium, moderate mitral stenosis, [id number] regurgitation Acute hypoxic respiratory failure due to acute COPD exacerbation and COVID-19. -persistent shortness of breath cough, dyspnea on exertion -on IV methylprednisolone 04/21-, nebs, home ICS/LABA, scheduled cough medication with codeine Continue current treatment, Ultram for msk chest pain with coughing. -supportive care, out of window for remdesivir, continue isolation Acute on CKD4 -creatinine trending down today, BRIONNA likely due to over-diuresis, all diuretics on hold status post 1 L of IV fluids encourage by mouth intake Nephro consulted case discussed with Dr. Hoover he recommend repeat IV fluids 500 mL Acute hyperkalemia due to BRIONNA potassium 5.5 will give Lokelma, follow BMP AF-continue metoprolol tartrate + amiodarone; continue warfarin will give 1 mg, INR 1.9 today ,follow PT INR daily supratherapeutic INR - s/p PO vit K 5 mg 04/22/23 , INR trended down as above RLS - ropinirole PVD - cilostazol HLD - statin hypothyroidism - continue LT4 VTE ppx - warfarin In my clinical judgment, the patient requires continued hospitalization for the following reasons: COPD exac, CHF and acute kidney injury requiring close electrolyte monitoring Total time managing care of this patient today: 35 minutes. Quality Stroke Does the patient have a stroke diagnosis?: No VTE Prior VTE?: No VTE Risk Level:: Medical - moderate - high VTE Device Contraindication: Treatment Not Indicated VTE Drug Contraindication: N/A - Med Ordered
[2023-04-26] MEDS: Warfarin Sodium 1 MG TABLET PO (18:06)
[2023-04-26] MEDS: Benzonatate 100 MG CAPSULE 200 MG PO (18:08)
[2023-04-27] VITALS (10 sets, daily range): BP systolic 110–167; BP diastolic 60–77; PULSE 68–80; RESP 18–20; TEMP 36.3–37.1; O2SAT 92–95; BMI 26.7
[2023-04-27] MEDS: methylPREDNISolone Sod Succ 40 MG/ML VIAL IVPUSH ×2 (04:04→17:28)
[2023-04-27 07:25] LABS: INTERNATIONAL NORM RATIO 1.7 (0.9-1.1); Prothrombin Time 21.2 SEC (11.1-13.3)
[2023-04-27 07:30] LABS: Anion Gap 11 (12-20); Blood Urea Nitrogen 47 mg/dL (9-16); Calcium 8.7 mg/dL (8.4-10.2); Carbon Dioxide 21 mmol/L (22-29); Chloride 109 mmol/L (96-108); Creatinine Clr Calc Pharmacy 15.8; Estimated Glomerular Filt Rate 20; Glucose Random 120 mg/dL (60-115); Potassium 4.9 mmol/L (3.3-5.1); Sodium 136 mmol/L (135-145)
[2023-04-27] MEDS: Fluticasone/Vilanterol 200/25 BLST.W.DEV 1 PUFF INHALE (07:49)
[2023-04-27] MEDS: Albuterol/Iprat 2.5/0.5MG 3 ML AMPUL.NEB INHALE ×2 (07:49→15:27)
[2023-04-27] MEDS: guaiFEN/Codeine SF 200/20/10ML 10 ML LIQUID PO ×3 (08:28→23:40)
[2023-04-27] MEDS: Atorvastatin Calcium 40 MG TABLET PO (08:28)
[2023-04-27] MEDS: Levothyroxine Sodium 50 MCG TABLET PO (08:28)
[2023-04-27] MEDS: Multivitamin TABLET 1 TAB PO (08:28)
[2023-04-27] MEDS: Amiodarone HCL 200 MG TABLET PO (08:28)
[2023-04-27] MEDS: Loratadine 10 MG TABLET PO (08:28)
[2023-04-27] MEDS: Ascorbic Acid 500 MG TABLET PO (08:28)
[2023-04-27] MEDS: Ferrous Sulfate 324 MG TABLET.DR PO (08:28)
[2023-04-27] MEDS: 0.9 % Sodium Chloride Flush 3 ML SYRINGE IVFLUSH ×3 (08:34→23:39)
--- NOTE | 2023-04-27 10:28 | P.PNNP_ITS ---
Subjective Subjective Date of Service: 04/27/23 Interval history: Complaining of persistent shortness of breath and cough, sleeping better with current cough medications, grandson at bedside, does not want grandmother to be on oxygen since family member smokes, living and all apartment to not have outlet to use O2. Physical Exam 2 Vital Signs: Vital Signs: Last Vital Signs Temp 97.6 F 04/27/23 08:00 Pulse 71 04/27/23 08:00 Resp 20 04/27/23 08:00 BP 115/63 04/27/23 08:48 Pulse Ox 92 04/27/23 08:00 O2 Del Method Room Air 04/27/23 08:00 O2 Flow Rate 2 04/27/23 03:57 BMI result Body Mass Index 26.7 Const: General: No confusion Nutritional Appearance: well nourished O rientation/consciousness: No confusion HEENT: Head: No normal to inspection Mouth: moist mucous membranes Neck: Neck: Yes supple and Yes no JVD Resp: Auscultation: rhonchi Cardio: Jugular venous distension: no JVD Palpation: no palpable S3 and no palpable S4 Heart sounds: no rubs GI: Palpation (GI): Soft to palpation and nontender Percussion: No Fluid wave present : General: Yes no CVA tenderness Back/Spine/Pelvis: Back: no CVA tenderness Skin: General skin exam: no rashes or lesions noted Neuro: General: No confusion Extrem: General: Yes no pedal edema and No clubbing Objective Data Labs 04/23/23 06:11 04/27/23 06:59 Labs: Laboratory Results - last 24 hr 04/27/23 06:59 PT 21.2 H INR 1.7 H Sodium 136 Potassium 4.9 Chloride 109 H Carbon Dioxide 21 L Anion Gap 11 L BUN 47 H Creatinine 2.41 H Estim Creat Clear Calc 15.8 Estimated GFR 20 Random Glucose 120 H Calcium 8.7 Procedures Date of Service Date of Service: 04/27/23 Assessment & Plan Assessment and plan (1) BRIONNA (acute kidney injury): Status: Acute (2) Hyperkalemia: Status: Acute Plan BRIONNA superimposed on CKD. BRIONNA is mostly due to hypoperfusion. No evidence of obstruction. Reason sediments or bland and no evidence of ATN or AIN. She is underlying chronic kidney disease stage 3 with a baseline creatinine 2.3. Hyperkalemia due to the combination of spironolactone and potassium supplementation setting of renal failure. Creatinine is trending down Close to baseline K normalized with Lokelma after discontinuing KCL Recommendation hold diuretics including spironolactone. No need for potassium supplementation For now keep intake more than output and avoid hypotension. No indication for dialysis We will follow closely along with the team. Thank you Time Spent With Patient Time: Total time managing care of this patient today ____ minutes. Progress Note: Quality Stroke Does the patient have a stroke diagnosis?: No
[2023-04-27] MEDS: Metoprolol Tartrate 25 MG TABLET PO ×2 (11:13→23:40)
[2023-04-27] MEDS: cilostazoL 100 MG TABLET PO ×2 (11:13→23:40)
--- NOTE | 2023-04-27 15:34 | HO.PM.IMPN ---
Subjective Subjective Date of Service: 04/27/23 Interval History: Feeling better still coughing and short of breath with minimal activity has been mostly in bed and able to talk in full sentences without coughing, tolerating diet no nausea no vomiting no abdominal pain no diarrhea, no fevers, no chills. Review of Systems All other system reviewed and negative. Physical Exam Vital Signs: Vital Signs: Last Vital Signs Temp 97.6 F 04/27/23 11:05 Pulse 71 04/27/23 15:27 Resp 20 04/27/23 15:27 BP 127/63 04/27/23 11:05 Pulse Ox 92 04/27/23 11:05 O2 Del Method Room Air 04/27/23 11:05 O2 Flow Rate 2 04/27/23 03:57 BMI result Body Mass Index 26.7 Const: Other: Gen: Awake alert x3, in no acute distress HEENT: sclera anicteric, moist mucus membranes Neck: supple,no jvd Lungs: Bilateral rhonchi, good air movement, lung sounds improved, no crackles, no use of accessory muscles Heart: regular rate and rhythm, no murmurs Abd: soft, non-tender, non-distended, bowel sounds audible Ext: no edema Skin: warm/well-perfused Neuro: alert and oriented x3, no focal findings. Psych: appropriate affect Objective Data Active Medications Acetaminophen (Acetaminophen 325 Mg Tablet) 650 mg PO Q6H PRN PRN Reason: Pain, Mild (Pain Scale 1-3) Last Admin: 04/26/23 21:04 Dose: 650 mg Documented By: ELDER Albuterol Sulfate (Albuterol Sulfate 90 Mcg 8 Gm Inhaler) 2 puff INHALE Q4H PRN PRN Reason: Shortness Of Breath Or Wheezing Albuterol/Ipratropium (Albuterol/Iprat 2.5/0.5mg 3 Ml Ampul.Neb) 3 ml INHALE RQ4H WHILE AWAKE [facility] Last Admin: 04/27/23 15:27 Dose: 3 ml Documented By: FATMATA Albuterol/Ipratropium (Albuterol/Iprat 2.5/0.5mg 3 Ml Ampul.Neb) 3 ml INHALE Q4H PRN PRN Reason: Wheezing Amiodarone HCl (Amiodarone Hcl 200 Mg Tablet) 200 mg PO DAILY [facility] Last Admin: 04/27/23 08:28 Dose: 200 mg Documented By: CLINTON Ascorbic Acid (Ascorbic Acid 500 Mg Tablet) 500 mg PO DAILY [facility] Last Admin: 04/27/23 08:28 Dose: 500 mg Documented By: CLINTON Atorvastatin Calcium (Atorvastatin Calcium 40 Mg Tablet) 40 mg PO DAILY [facility] Last Admin: 04/27/23 08:28 Dose: 40 mg Documented By: CLINTON Benzonatate (Benzonatate 100 Mg Capsule) 200 mg PO TID PRN PRN Reason: Cough Last Admin: 04/26/23 18:08 Dose: 200 mg Documented By: CLINTON Calcium Carbonate (Calcium Carbonate 500 Mg Tablet) 500 mg PO BID [facility] Last Admin: 04/27/23 08:28 Dose: 500 mg Documented By: CLINTON Cilostazol (Cilostazol 100 Mg Tablet) 100 mg PO Q12H [facility] Last Admin: 04/27/23 11:13 Dose: 100 mg Documented By: CLINTON Ferrous Sulfate (Ferrous Sulfate 324 Mg Tablet.Dr) 324 mg PO DAILY [facility] Last Admin: 04/27/23 08:28 Dose: 324 mg Documented By: CLINTON Fluticasone Propionate (Fluticasone Propionate Nasal 16 Gm [place]) 1 spray NOSTRIL-B DAILY PRN PRN Reason: allergy symptoms Fluticasone/Vilanterol (Fluticasone/Vilanterol 200/25 Blst.W.Dev) 1 puff INHALE RDAILY [facility] Last Admin: 04/27/23 07:49 Dose: 1 puff Documented By: FATMATA Guaifenesin/Codeine Phosphate (Guaifen/Codeine Sf 200/20/10ml 10 Ml Liquid) 10 ml PO TID [facility] Last Admin: 04/27/23 14:58 Dose: 10 ml Documented By: CLINTON Levothyroxine Sodium (Levothyroxine Sodium 50 Mcg Tablet) 50 mcg PO DAILY [facility] Last Admin: 04/27/23 08:28 Dose: 50 mcg Documented By: CLINTON Loratadine (Loratadine 10 Mg Tablet) 10 mg PO DAILY [facility] Last Admin: 04/27/23 08:28 Dose: 10 mg Documented By: CLINTON Melatonin (Melatonin 3 Mg Tablet) 6 mg PO BEDTIME PRN PRN Reason: Insomnia Last Admin: 04/24/23 21:32 Dose: 6 mg Documented By: RATURO Methylprednisolone Sodium Succinate (Methylprednisolone Sod Succ 40 Mg/Ml Vial) 40 mg IVPUSH Q12H [facility] Last Admin: 04/27/23 04:04 Dose: 40 mg Documented By: ELDER Metoprolol Tartrate (Metoprolol Tartrate 25 Mg Tablet) 25 mg PO Q12H [facility]; Protocol Last Admin: 04/27/23 11:13 Dose: 25 mg Documented By: CLINTON Multivitamins/Vitamin C (Multivitamin Tablet) 1 tab PO DAILY [facility] Last Admin: 04/27/23 08:28 Dose: 1 tab Documented By: CLINTON Ondansetron HCl (Ondansetron Hcl 4 Mg/2 Ml Vial) 4 mg IVPUSH Q8H PRN PRN Reason: Nausea and Vomiting Ropinirole HCl (Ropinirole Hcl 5 Mg Tablet) 5 mg PO BEDTIME [facility] Last Admin: 04/26/23 21:03 Dose: 5 mg Documented By: ELDER Sodium Chloride (0.9 % Sodium Chloride Flush 3 Ml Syringe) 3 ml IVFLUSH QSHIFT [facility] Last Admin: 04/27/23 08:34 Dose: 3 ml Documented By: CLINTON Sodium Chloride (Sodium Chloride 0.65 % Nasal 44 Ml Sprbtl) 1 spray NOSTRIL-B Q1H PRN PRN Reason: Dryness Last Admin: 04/26/23 09:14 Dose: 1 spray Documented By: CLINTON Tramadol HCl (Tramadol Hcl 50 Mg Tablet) 50 mg PO Q6H PRN PRN Reason: Pain, Moderate(Pain Scale 4-6) Last Admin: 04/24/23 08:37 Dose: 50 mg Documented By: CLOVIS Warfarin Sodium (Warfarin Sodium 1 Mg Tablet) 1 mg PO DAILY@1800 [facility] Last Admin: 04/26/23 18:06 Dose: 1 mg Documented By: CLINTON Labs 04/23/23 06:11 04/27/23 06:59 Labs: Laboratory Results - last 24 hr 04/27/23 06:59 PT 21.2 H INR 1.7 H Anion Gap 11 L Estim Creat Clear Calc 15.8 Estimated GFR 20 Random Glucose 120 H Calcium 8.7 Assessment and Plan (1) Acute exacerbation of chronic obstructive airways disease: Status: Resolved (2) Current use of anticoagulant therapy: Status: Inactive (3) Congestive heart failure: Status: Inactive Plan 77yo F with HFpEF [TTE 11/16/22], COPD not on home O2, CKD4, AF on warfarin, hypothyroidism, PVD, RLS presenting with dyspnea and cough, onset of Covid-19 symptoms 04/12/23 acute/chronic HFpEF - appears euvolemic, all diuretics and potassium supplements on hold BNP chronically elevated , normal potassium, creatinine returned to baseline from 3.5-2.4 today Continue metoprolol tartrate. Follow clinical course. TTE 04/21/23: Showed normal EF 55-60%, severe left ventricular hypertrophy, severe dilated left atrium, moderate mitral stenosis, [id number] regurgitation On Bumex 2 mg and spironolactone 12.5 mg at home, will discuss diuretics with Nephrology upon discharge Follow BMP Acute hypoxic respiratory failure due to acute COPD exacerbation and COVID-19. -persistent shortness of breath cough, dyspnea on exertion -on IV methylprednisolone 04/21-, nebs, home ICS/LABA, scheduled cough medication with codeine Continue current treatment, Ultram for msk chest pain with coughing. -supportive care, out of window for remdesivir, continue isolation -oxygenation improved currently 91 92% on room air -if continue to make progress will transition to by mouth prednisone at a.m. Acute on CKD4 -creatinine trended down to baseline, BRIONNA likely due to over-diuresis, all diuretics on hold status post 1 L of IV fluids encourage by mouth intake Being followed by Nephrology no evidence of ATN or AIN Acute hyperkalemia due to BRIONNA potassium normalized after Lokelma AF-continue metoprolol tartrate + amiodarone she is; continue warfarin will give 1 mg daily, INR 1.7 today , will give additional 0.5 mg today follow PT INR daily Patient not a candidate for Eliquis due to fluctuating creatinine clearance less than 15. supratherapeutic INR - s/p PO vit K 5 mg 04/22/23 , INR trended down as above RLS - ropinirole PVD - cilostazol HLD - statin hypothyroidism - continue LT4 VTE ppx - warfarin Disposition recommend out of bed to chair and ambulation obtain PT eval question pulmonary rehab. In my clinical judgment, the patient requires continued hospitalization for the following reasons: COPD exac, CHF and acute kidney injury requiring close electrolyte monitoring Total time managing care of this patient today: 35 minutes. Quality Stroke Does the patient have a stroke diagnosis?: No VTE Prior VTE?: No VTE Risk Level:: Medical - moderate - high VTE Device Contraindication: Treatment Not Indicated VTE Drug Contraindication: N/A - Med Ordered
[2023-04-27] MEDS: Benzonatate 100 MG CAPSULE 200 MG PO (17:31)
[2023-04-27] MEDS: Warfarin Sodium 1 MG TABLET PO (17:40)
[2023-04-27] MEDS: traMADoL HCL 50 MG TABLET PO (23:42)
[2023-04-28] VITALS (8 sets, daily range): BP systolic 110–141; BP diastolic 62–80; PULSE 71–76; RESP 16–18; TEMP 36.1–36.6; O2SAT 91–94; BMI 25.5
[2023-04-28] MEDS: Albuterol/Iprat 2.5/0.5MG 3 ML AMPUL.NEB INHALE ×2 (00:02→07:33)
[2023-04-28] MEDS: methylPREDNISolone Sod Succ 40 MG/ML VIAL IVPUSH (05:45)
[2023-04-28 07:07] LABS: INTERNATIONAL NORM RATIO 1.7 (0.9-1.1); Prothrombin Time 20.4 SEC (11.1-13.3)
[2023-04-28 07:19] LABS: Anion Gap 13 (12-20); Blood Urea Nitrogen 49 mg/dL (9-16); Calcium 8.7 mg/dL (8.4-10.2); Carbon Dioxide 23 mmol/L (22-29); Chloride 108 mmol/L (96-108); Creatinine Clr Calc Pharmacy 17.8; Estimated Glomerular Filt Rate 23; Glucose Random 118 mg/dL (60-115); Potassium 4.8 mmol/L (3.3-5.1); Sodium 139 mmol/L (135-145)
[2023-04-28] MEDS: Fluticasone/Vilanterol 200/25 BLST.W.DEV 1 PUFF INHALE (07:33)
[2023-04-28] MEDS: Atorvastatin Calcium 40 MG TABLET PO (09:54)
[2023-04-28] MEDS: Sodium Chloride 0.65 % Nasal 44 ML SPRBTL 1 SPRAY NOSTRIL-B (09:54)
[2023-04-28] MEDS: Ascorbic Acid 500 MG TABLET PO (09:54)
[2023-04-28] MEDS: Levothyroxine Sodium 50 MCG TABLET PO (09:54)
[2023-04-28] MEDS: guaiFEN/Codeine SF 200/20/10ML 10 ML LIQUID PO ×3 (09:55→20:34)
[2023-04-28] MEDS: cilostazoL 100 MG TABLET PO ×2 (09:55→23:57)
[2023-04-28] MEDS: Loratadine 10 MG TABLET PO (09:55)
[2023-04-28] MEDS: Ferrous Sulfate 324 MG TABLET.DR PO (09:55)
[2023-04-28] MEDS: Amiodarone HCL 200 MG TABLET PO (09:55)
[2023-04-28] MEDS: Multivitamin TABLET 1 TAB PO (09:55)
[2023-04-28] MEDS: Benzonatate 100 MG CAPSULE 200 MG PO (09:56)
--- NOTE | 2023-04-28 11:58 | MHC.CM.PN ---
IMM 04/28/23, PER HOSPITALIST ANTIC PT WILL BE ME MEDICALLY CLEARED W/NEW [facility] FOR SN/PT AND INR MONITORING ON SATURDAY 04/29, FAMILY TO PROVIDE TRANSPORT.
[2023-04-28] MEDS: 0.9 % Sodium Chloride Flush 3 ML SYRINGE IVFLUSH ×3 (12:55→20:34)
--- NOTE | 2023-04-28 14:31 | HO.PM.IMPN ---
Subjective Subjective Date of Service: 04/28/23 Interval History: seen and examined this morning follow up for respiratory failure feeling better at rest, hasn't been walking around much still with significant coughing Review of Systems Review of Systems: Yes all other systems are reviewed and are negative Constitutional Constitutional: Denies chills and Denies fever(s) Cardiovascular Cardiovascular: Reports dyspnea on exertion Respiratory Respiratory: Reports cough and Reports dyspnea on exertion Gastrointestinal Gastrointestinal: Denies abdominal pain Physical Exam Vital Signs: Vital Signs: Last Vital Signs Temp 97.2 F 04/28/23 11:58 Pulse 71 04/28/23 11:58 Resp 18 04/28/23 11:58 BP 121/62 04/28/23 11:58 Pulse Ox 91 L 04/28/23 11:58 O2 Del Method Room Air 04/28/23 11:58 O2 Flow Rate 92 04/28/23 07:29 BMI result Body Mass Index 25.5 Const: General: cooperative, comfortable, no acute distress, alert and awake Nutritional Appearance: average body habitus Orientation/consciousness: patient oriented x3 Resp: Other: b/l rhochi, no rales Effort & Inspection: normal respiratory effort, able to speak in complete sentences, no respiratory distress and no use of accessory muscles Cardio: Rate: regular rate GI: Inspection: No distended Palpation (GI): Soft to palpation and nontender Neuro: General: patient oriented x3, moves all extremities and CN's II-XI intact bilaterally Extrem: General: Yes no pedal edema Objective Data Active Medications Acetaminophen (Acetaminophen 325 Mg Tablet) 650 mg PO Q6H PRN PRN Reason: Pain, Mild (Pain Scale 1-3) Last Admin: 04/26/23 21:04 Dose: 650 mg Documented By: ELDER Albuterol Sulfate (Albuterol Sulfate 90 Mcg 8 Gm Inhaler) 2 puff INHALE Q4H PRN PRN Reason: Shortness Of Breath Or Wheezing Amiodarone HCl (Amiodarone Hcl 200 Mg Tablet) 200 mg PO DAILY [facility] Last Admin: 04/28/23 09:55 Dose: 200 mg Documented By: JOSE ANTONIO Ascorbic Acid (Ascorbic Acid 500 Mg Tablet) 500 mg PO DAILY [facility] Last Admin: 04/28/23 09:54 Dose: 500 mg Documented By: JOSE ANTONIO Atorvastatin Calcium (Atorvastatin Calcium 40 Mg Tablet) 40 mg PO DAILY [facility] Last Admin: 04/28/23 09:54 Dose: 40 mg Documented By: JOSE ANTONIO Benzonatate (Benzonatate 100 Mg Capsule) 200 mg PO TID PRN PRN Reason: Cough Last Admin: 04/28/23 09:56 Dose: 200 mg Documented By: JOSE ANTONIO Calcium Carbonate (Calcium Carbonate 500 Mg Tablet) 500 mg PO BID [facility] Last Admin: 04/28/23 09:55 Dose: 500 mg Documented By: JOSE ANTONIO Cilostazol (Cilostazol 100 Mg Tablet) 100 mg PO Q12H [facility] Last Admin: 04/28/23 09:55 Dose: 100 mg Documented By: JOSE ANTONIO Ferrous Sulfate (Ferrous Sulfate 324 Mg Tablet.Dr) 324 mg PO DAILY [facility] Last Admin: 04/28/23 09:55 Dose: 324 mg Documented By: JOSE ANTONIO Fluticasone Propionate (Fluticasone Propionate Nasal 16 Gm [place]) 1 spray NOSTRIL-B DAILY PRN PRN Reason: allergy symptoms Fluticasone/Vilanterol (Fluticasone/Vilanterol 200/25 Blst.W.Dev) 1 puff INHALE RDAILY [facility] Last Admin: 04/28/23 07:33 Dose: 1 puff Documented By: ADDISON Guaifenesin/Codeine Phosphate (Guaifen/Codeine Sf 200/20/10ml 10 Ml Liquid) 10 ml PO TID [facility] Last Admin: 04/28/23 09:55 Dose: 10 ml Documented By: JOSE ANTONIO Levothyroxine Sodium (Levothyroxine Sodium 50 Mcg Tablet) 50 mcg PO DAILY [facility] Last Admin: 04/28/23 09:54 Dose: 50 mcg Documented By: JOSE ANTONIO Loratadine (Loratadine 10 Mg Tablet) 10 mg PO DAILY [facility] Last Admin: 04/28/23 09:55 Dose: 10 mg Documented By: JOSE ANTONIO Melatonin (Melatonin 3 Mg Tablet) 6 mg PO BEDTIME PRN PRN Reason: Insomnia Last Admin: 04/24/23 21:32 Dose: 6 mg Documented By: ARTURO Metoprolol Tartrate (Metoprolol Tartrate 25 Mg Tablet) 25 mg PO Q12H [facility]; Protocol Last Admin: 04/28/23 12:56 Dose: Not Given Documented By: JOSE ANTONIO Non-Admin Reason: Unable to Scan Barcode Multivitamins/Vitamin C (Multivitamin Tablet) 1 tab PO DAILY [facility] Last Admin: 04/28/23 09:55 Dose: 1 tab Documented By: JOSE ANTONIO Ondansetron HCl (Ondansetron Hcl 4 Mg/2 Ml Vial) 4 mg IVPUSH Q8H PRN PRN Reason: Nausea and Vomiting Prednisone (Prednisone 20 Mg Tablet) 40 mg PO DAILY [facility] Ropinirole HCl (Ropinirole Hcl 5 Mg Tablet) 5 mg PO BEDTIME [facility] Last Admin: 04/27/23 23:40 Dose: 5 mg Documented By: KATINA Sodium Chloride (0.9 % Sodium Chloride Flush 3 Ml Syringe) 3 ml IVFLUSH QSHIFT [facility] Last Admin: 04/28/23 12:55 Dose: 3 ml Documented By: JOSE ANTONIO Sodium Chloride (Sodium Chloride 0.65 % Nasal 44 Ml Sprbtl) 1 spray NOSTRIL-B Q1H PRN PRN Reason: Dryness Last Admin: 04/28/23 09:54 Dose: 1 spray Documented By: JOSE ANTONIO Tramadol HCl (Tramadol Hcl 50 Mg Tablet) 50 mg PO Q6H PRN PRN Reason: Pain, Moderate(Pain Scale 4-6) Last Admin: 04/27/23 23:42 Dose: 50 mg Documented By: KATINA Warfarin Sodium (Warfarin Sodium 1 Mg Tablet) 1 mg PO DAILY@1800 [facility] Last Admin: 04/27/23 17:40 Dose: 1 mg Documented By: CLINTON Labs 04/23/23 06:11 04/28/23 06:31 Labs: Laboratory Results - last 24 hr 04/28/23 06:31 Hold Purple Top SEE NOTE PT 20.4 H INR 1.7 H Anion Gap 13 Estim Creat Clear Calc 17.8 Estimated GFR 23 Random Glucose 118 H Calcium 8.7 Assessment and Plan (1) Hyperkalemia: Status: Acute (2) Congestive heart failure: Status: Acute (3) COVID-19 virus infection: Status: Acute Plan 77yo F with HFpEF [TTE 11/16/22], COPD not on home O2, CKD4, AF on warfarin, hypothyroidism, PVD, RLSpresenting with dyspnea and cough, onset of Covid-19 symptoms 04/12/23 acute on chronic HFpEF initially treated with IV bumex now appears euvolemic, all diuretics and potassium supplements on hold BNP chronically elevated, normal potassium Continue metoprolol tartrate TTE 04/21/23: Showed normal EF 55-60%, severe left ventricular hypertrophy, severe dilated left atrium, moderate mitral stenosis, [id number] regurgitation On Bumex 2 mg and spironolactone 12.5 mg at home, plan to resume bumex in 1-2 days per nephrology rec Follow BMP Acute hypoxic respiratory failure due to acute COPD exacerbation and COVID-19. persistent shortness of breath, cough, dyspnea on exertion Continue current treatment, Ultram for msk chest pain with coughing supportive care, out of window for remdesivir oxygenation improved currently 91 92% on room air s/p IV solumedrol, will transition to by mouth prednisone at a.m. Acute on CKD4 creatinine trended down to baseline, BRIONNA likely due to over-diuresis, all diuretics on hold status post 1 L of IV fluids encourage by mouth intake Being followed by Nephrology no evidence of ATN or AIN Acute hyperkalemia due to BRIONNA potassium normalized after Lokelma AF-continue metoprolol tartrate + amiodarone continue warfarin will give 1 mg daily, INR 1.7 today follow PT INR daily Patient not a candidate for Eliquis due to fluctuating creatinine clearance less than 15. had supratherapeutic INR - s/p PO vit K 5 mg 04/22/23 , INR trended down as above RLS - ropinirole PVD - cilostazol HLD - statin hypothyroidism - continue sunthroid VTE ppx - warfarin Disposition recommend out of bed to chair and ambulation obtain PT eval -rec home with services when medically ready In my clinical judgment, the patient requires continued hospitalization for the following reasons: COPD exac, CHF and acute kidney injury requiring close electrolyte monitoring Quality Stroke Does the patient have a stroke diagnosis?: No VTE Prior VTE?: No VTE Risk Level:: Medical - moderate - high VTE Device Contraindication: Treatment Not Indicated VTE Drug Contraindication: N/A - Med Ordered
[2023-04-28] MEDS: Warfarin Sodium 1 MG TABLET PO (18:22)
--- NOTE | 2023-04-28 19:26 | PM.PNNEP ---
Subjective Subjective Date of Service: 04/28/23 Interval history: seen and examined this morning; Serum creatinine back to baseline Physical Exam Vital Signs: Vital Signs: Last Vital Signs Temp 97.1 F 04/28/23 16:00 Pulse 73 04/28/23 16:00 Resp 18 04/28/23 16:00 BP 110/66 04/28/23 16:00 Pulse Ox 93 04/28/23 16:00 O2 Del Method Room Air 04/28/23 16:00 O2 Flow Rate 92 04/28/23 07:29 BMI result Body Mass Index 25.5 Const: General: comfortable and no acute distress Orientation/consciousness: patient oriented x3 HEENT: Head: Yes normocephalic Mouth: Normal oral and palatal mucosa present Eyes: EOM: EOMs intact bilaterally Neck: Neck: Yes supple Resp: Auscultation: rhonchi and diminished lung sounds Cardio: Jugular venous distension: no JVD Rate: regular rate GI: Palpation (GI): Soft to palpation Auscultation: normal bowel sounds : General: Yes no CVA tenderness Back/Spine/Pelvis: Back: no CVA tenderness Skin: General skin exam: no rashes or lesions noted Neuro: General: patient oriented x3 and moves all extremities Extrem: General: Yes no pedal edema Objective Data Labs 04/23/23 06:11 04/28/23 06:31 Labs: Laboratory Results - last 24 hr 04/28/23 06:31 Hold Purple Top SEE NOTE PT 20.4 H INR 1.7 H Sodium 139 Potassium 4.8 Chloride 108 Carbon Dioxide 23 Anion Gap 13 BUN 49 H Creatinine 2.10 H Estim Creat Clear Calc 17.8 Estimated GFR 23 Random Glucose 118 H Calcium 8.7 Procedures Date of Service Date of Service: 04/28/23 Assessment & Plan Assessment and plan (1) BRIONNA (acute kidney injury): Status: Acute Plan BRIONNA superimposed on CKD due to tubular injury No evidence of obstruction. Has a baseline creatinine of 2.3. Hyperkalemia due to the combination of spironolactone and potassium supplementation setting of renal failure. Serum creatinine back to baseline; NO Spironolactone for now Should be able to start diuretics in 48 hours Needs close F/U with [facility]rology( [facility]) after hospital D/C Progress Note: Quality Stroke Does the patient have a stroke diagnosis?: No
[2023-04-28] MEDS: Metoprolol Tartrate 25 MG TABLET PO (23:56)
[2023-04-29] VITALS (7 sets, daily range): BP systolic 107–152; BP diastolic 63–83; PULSE 70–78; RESP 18–22; TEMP 36–36.7; O2SAT 6–95; BMI 25.6
[2023-04-29 06:55] LABS: INTERNATIONAL NORM RATIO 1.7 (0.9-1.1); Prothrombin Time 20.8 SEC (11.1-13.3)
[2023-04-29] MEDS: Fluticasone/Vilanterol 200/25 BLST.W.DEV 1 PUFF INHALE (07:57)
[2023-04-29] MEDS: guaiFEN/Codeine SF 200/20/10ML 10 ML LIQUID PO ×3 (08:12→21:36)
[2023-04-29] MEDS: Multivitamin TABLET 1 TAB PO (08:12)
[2023-04-29] MEDS: predniSONE 20 MG TABLET 40 MG PO (08:12)
[2023-04-29] MEDS: Atorvastatin Calcium 40 MG TABLET PO (08:12)
[2023-04-29] MEDS: Loratadine 10 MG TABLET PO (08:13)
[2023-04-29] MEDS: Amiodarone HCL 200 MG TABLET PO (08:13)
[2023-04-29] MEDS: Levothyroxine Sodium 50 MCG TABLET PO (08:13)
[2023-04-29] MEDS: Ferrous Sulfate 324 MG TABLET.DR PO (08:13)
[2023-04-29] MEDS: Ascorbic Acid 500 MG TABLET PO (08:13)
[2023-04-29] MEDS: cilostazoL 100 MG TABLET PO ×2 (12:51→22:53)
[2023-04-29] MEDS: Metoprolol Tartrate 25 MG TABLET PO ×2 (12:51→22:53)
[2023-04-29] MEDS: 0.9 % Sodium Chloride Flush 3 ML SYRINGE IVFLUSH ×3 (12:52→21:36)
--- NOTE | 2023-04-29 14:42 | HO.PM.IMPN ---
Subjective Subjective Date of Service: 04/29/23 Interval History: seen and examined this morning follow up for respiratory failure still intermittently feeling like she needs oxygen; some sob with exertion slowly improving Review of Systems Review of Systems: Yes all other systems are reviewed and are negative Constitutional Constitutional: Denies chills and Denies fever(s) Physical Exam Vital Signs: Vital Signs: Last Vital Signs Temp 97.8 F 04/29/23 11:24 Pulse 75 04/29/23 13:33 Resp 20 04/29/23 11:24 BP 152/83 H 04/29/23 11:24 Pulse Ox 93 04/29/23 13:33 O2 Del Method Nasal Cannula 04/29/23 11:24 O2 Flow Rate 2 04/29/23 11:24 BMI result Body Mass Index 25.6 Const: General: cooperative, comfortable, no acute distress, alert and awake Nutritional Appearance: average body habitus Orientation/consciousness: patient oriented x3 Resp: Other: b/l rhochi, no rales Effort & Inspection: normal respiratory effort, able to speak in complete sentences, no respiratory distress and no use of accessory muscles Cardio: Rate: regular rate GI: Inspection: No distended Palpation (GI): Soft to palpation and nontender Neuro: General: patient oriented x3, moves all extremities and CN's II-XI intact bilaterally Extrem: General: Yes no pedal edema Objective Data Active Medications Acetaminophen (Acetaminophen 325 Mg Tablet) 650 mg PO Q6H PRN PRN Reason: Pain, Mild (Pain Scale 1-3) Last Admin: 04/26/23 21:04 Dose: 650 mg Documented By: ELDER Albuterol Sulfate (Albuterol Sulfate 90 Mcg 8 Gm Inhaler) 2 puff INHALE Q4H PRN PRN Reason: Shortness Of Breath Or Wheezing Amiodarone HCl (Amiodarone Hcl 200 Mg Tablet) 200 mg PO DAILY [facility] Last Admin: 04/29/23 08:13 Dose: 200 mg Documented By: ELIZABETH Ascorbic Acid (Ascorbic Acid 500 Mg Tablet) 500 mg PO DAILY [facility] Last Admin: 04/29/23 08:13 Dose: 500 mg Documented By: ELIZABETH Atorvastatin Calcium (Atorvastatin Calcium 40 Mg Tablet) 40 mg PO DAILY [facility] Last Admin: 04/29/23 08:12 Dose: 40 mg Documented By: ELIZABETH Benzonatate (Benzonatate 100 Mg Capsule) 200 mg PO TID PRN PRN Reason: Cough Last Admin: 04/28/23 09:56 Dose: 200 mg Documented By: JOSE ANTONIO Calcium Carbonate (Calcium Carbonate 500 Mg Tablet) 500 mg PO BID [facility] Last Admin: 04/29/23 08:12 Dose: 500 mg Documented By: ELIZABETH Cilostazol (Cilostazol 100 Mg Tablet) 100 mg PO Q12H [facility] Last Admin: 04/29/23 12:51 Dose: 100 mg Documented By: ELIZABETH Ferrous Sulfate (Ferrous Sulfate 324 Mg Tablet.Dr) 324 mg PO DAILY [facility] Last Admin: 04/29/23 08:13 Dose: 324 mg Documented By: ELIZABETH Fluticasone Propionate (Fluticasone Propionate Nasal 16 Gm [place]) 1 spray NOSTRIL-B DAILY PRN PRN Reason: allergy symptoms Fluticasone/Vilanterol (Fluticasone/Vilanterol 200/25 Blst.W.Dev) 1 puff INHALE RDAILY [facility] Last Admin: 04/29/23 07:57 Dose: 1 puff Documented By: ETHAN Guaifenesin/Codeine Phosphate (Guaifen/Codeine Sf 200/20/10ml 10 Ml Liquid) 10 ml PO TID [facility] Last Admin: 04/29/23 08:12 Dose: 10 ml Documented By: ELIZABETH Levothyroxine Sodium (Levothyroxine Sodium 50 Mcg Tablet) 50 mcg PO DAILY [facility] Last Admin: 04/29/23 08:13 Dose: 50 mcg Documented By: ELIZABETH Loratadine (Loratadine 10 Mg Tablet) 10 mg PO DAILY [facility] Last Admin: 04/29/23 08:13 Dose: 10 mg Documented By: ELIZABETH Melatonin (Melatonin 3 Mg Tablet) 6 mg PO BEDTIME PRN PRN Reason: Insomnia Last Admin: 04/24/23 21:32 Dose: 6 mg Documented By: ARTURO Metoprolol Tartrate (Metoprolol Tartrate 25 Mg Tablet) 25 mg PO Q12H [facility]; Protocol Last Admin: 04/29/23 12:51 Dose: 25 mg Documented By: ELIZABETH Multivitamins/Vitamin C (Multivitamin Tablet) 1 tab PO DAILY [facility] Last Admin: 04/29/23 08:12 Dose: 1 tab Documented By: ELIZABETH Ondansetron HCl (Ondansetron Hcl 4 Mg/2 Ml Vial) 4 mg IVPUSH Q8H PRN PRN Reason: Nausea and Vomiting Prednisone (Prednisone 20 Mg Tablet) 40 mg PO DAILY [facility] Last Admin: 04/29/23 08:12 Dose: 40 mg Documented By: ELIZABETH Ropinirole HCl (Ropinirole Hcl 5 Mg Tablet) 5 mg PO BEDTIME [facility] Last Admin: 04/28/23 20:34 Dose: 5 mg Documented By: DINORAH Sodium Chloride (0.9 % Sodium Chloride Flush 3 Ml Syringe) 3 ml IVFLUSH QSHIFT [facility] Last Admin: 04/29/23 12:52 Dose: 3 ml Documented By: ELIZABETH Sodium Chloride (Sodium Chloride 0.65 % Nasal 44 Ml Sprbtl) 1 spray NOSTRIL-B Q1H PRN PRN Reason: Dryness Last Admin: 04/28/23 09:54 Dose: 1 spray Documented By: JOSE ANTONIO Tramadol HCl (Tramadol Hcl 50 Mg Tablet) 50 mg PO Q6H PRN PRN Reason: Pain, Moderate(Pain Scale 4-6) Last Admin: 04/27/23 23:42 Dose: 50 mg Documented By: KATINA Warfarin Sodium (Warfarin Sodium 1 Mg Tablet) 1 mg PO DAILY@1800 [facility] Last Admin: 04/28/23 18:22 Dose: 1 mg Documented By: JOSE ANTONIO Labs 04/23/23 06:11 04/28/23 06:31 Labs: Laboratory Results - last 24 hr 04/29/23 06:02 PT 20.8 H INR 1.7 H Assessment and Plan (1) COVID-19 virus infection: Status: Acute (2) Congestive heart failure: Status: Acute Plan 77yo F with HFpEF [TTE 11/16/22], COPD not on home O2, CKD4, AF on warfarin, hypothyroidism, PVD, RLS presenting with dyspnea and cough, onset of Covid-19 symptoms 04/12/23 acute on chronic HFpEF initially treated with IV bumex now appears euvolemic, all diuretics and potassium supplements on hold BNP chronically elevated, normal potassium Continue metoprolol tartrate TTE 04/21/23: Showed normal EF 55-60%, severe left ventricular hypertrophy, severe dilated left atrium, moderate mitral stenosis, [id number] regurgitation On Bumex 2 mg and spironolactone 12.5 mg at home, plan to resume bumex in 1-2 days per nephrology rec Follow BMP Acute hypoxic respiratory failure due to acute COPD exacerbation and COVID-19. persistent cough, dyspnea on exertion. slowly improving Continue current treatment, Ultram for msk chest pain with coughing supportive care, out of window for remdesivir oxygenation improved currently 91 92% on room air s/p IV solumedrol, transitioned to by mouth prednisone at a.m. Acute on CKD4 creatinine trended down to baseline, BRIONNA likely due to over-diuresis, all diuretics on hold status post 1 L of IV fluids Being followed by Nephrology no evidence of ATN or AIN outpatient follow up with nephrology can resume home bumex tomorrow Acute hyperkalemia due to BRIONNA and spironolactone potassium normalized after Lokelma AF-continue metoprolol tartrate + amiodarone continue warfarin INR 1.7 again today, will increase dose to 2 mg follow PT INR daily Patient not a candidate for Eliquis due to fluctuating creatinine clearance less than 15. had supratherapeutic INR - s/p PO vit K 5 mg 04/22/23 , INR trended down as above RLS - ropinirole PVD - cilostazol HLD - statin hypothyroidism - continue synthroid VTE ppx - warfarin Disposition recommend out of bed to chair and ambulation obtain PT eval -rec home with services when medically ready In my clinical judgment, the patient requires continued hospitalization for the following reasons: COPD exac, CHF and acute kidney injury requiring close electrolyte monitoring Quality Stroke Does the patient have a stroke diagnosis?: No VTE Prior VTE?: No VTE Risk Level:: Medical - moderate - high VTE Device Contraindication: Treatment Not Indicated VTE Drug Contraindication: N/A - Med Ordered
--- NOTE | 2023-04-29 16:22 | MHC.CM.PN ---
PT now recommends STR, referrals placed, no bed offers at this time, will continue to follow.
[2023-04-29] MEDS: Warfarin Sodium 2 MG TABLET PO (17:18)
--- NOTE | 2023-04-29 18:34 | PC.NURSE ---
1455: Patient son reported she had an episode of blocking out while ambulating. ERASMO Galicia was seen holding patient to prevent her from falling chair was provided, patient sat, appeared weak, this development writer and RN Santi assisted back in bed, placed in trendelenburg position, v/s taken BP 205/93, HR 93, SPO2 98% RA, Resp 18bpm. Manual BP obtained 158/80mmHg, EKG obtained, seen by MD Sincere Ventura, plan EEG to r/o seizure, patient should remain in bed, no cardiac arrhythmias noted on tele monitor or EKG.
[2023-04-30] VITALS (8 sets, daily range): BP systolic 103–132; BP diastolic 57–83; PULSE 69–81; RESP 16–20; TEMP 36.2–36.6; O2SAT 93–95
[2023-04-30 06:23] LABS: INTERNATIONAL NORM RATIO 1.6 (0.9-1.1); Prothrombin Time 19.7 SEC (11.1-13.3)
[2023-04-30 06:40] LABS: Anion Gap 10 (12-20); Blood Urea Nitrogen 43 mg/dL (9-16); Calcium 8.5 mg/dL (8.4-10.2); Carbon Dioxide 22 mmol/L (22-29); Chloride 111 mmol/L (96-108); Creatinine Clr Calc Pharmacy 23.3; Estimated Glomerular Filt Rate 31; Glucose Random 87 mg/dL (60-115); Potassium 4.2 mmol/L (3.3-5.1); Sodium 139 mmol/L (135-145)
[2023-04-30] MEDS: Fluticasone/Vilanterol 200/25 BLST.W.DEV 1 PUFF INHALE (08:06)
[2023-04-30] MEDS: Levothyroxine Sodium 50 MCG TABLET PO (09:41)
[2023-04-30] MEDS: guaiFEN/Codeine SF 200/20/10ML 10 ML LIQUID PO ×3 (09:41→21:48)
[2023-04-30] MEDS: Multivitamin TABLET 1 TAB PO (09:41)
[2023-04-30] MEDS: Metoprolol Tartrate 25 MG TABLET PO ×2 (09:41→21:48)
[2023-04-30] MEDS: Atorvastatin Calcium 40 MG TABLET PO (09:41)
[2023-04-30] MEDS: Bumetanide 1 MG TABLET 2 MG PO (09:41)
[2023-04-30] MEDS: Loratadine 10 MG TABLET PO (09:41)
[2023-04-30] MEDS: cilostazoL 100 MG TABLET PO ×2 (09:41→21:48)
[2023-04-30] MEDS: predniSONE 20 MG TABLET 40 MG PO (09:42)
[2023-04-30] MEDS: Ascorbic Acid 500 MG TABLET PO (09:42)
[2023-04-30] MEDS: Amiodarone HCL 200 MG TABLET PO (09:42)
[2023-04-30] MEDS: Ferrous Sulfate 324 MG TABLET.DR PO (09:42)
[2023-04-30] MEDS: 0.9 % Sodium Chloride Flush 3 ML SYRINGE IVFLUSH ×2 (09:42→17:49)
--- NOTE | 2023-04-30 10:17 | HO.PM.IMPN ---
Subjective Subjective Date of Service: 04/30/23 Interval History: seen and examined this morning follow up for respiratory failure intermittent oxygen use, sob with ambulation no overnight events Review of Systems Review of Systems: Yes all other systems are reviewed and are negative Constitutional Constitutional: Denies chills and Denies fever(s) Cardiovascular Cardiovascular: Denies chest pain, Denies palpitations and Denies dyspnea Respiratory Respiratory: Denies cough and Denies dyspnea Endocrine Endocrine: Denies palpitations Physical Exam Vital Signs: Vital Signs: Last Vital Signs Temp 97.5 F 04/30/23 07:32 Pulse 73 04/30/23 08:09 Resp 18 04/30/23 08:09 BP 130/79 04/30/23 07:32 Pulse Ox 94 04/30/23 07:32 O2 Del Method Nasal Cannula 04/30/23 07:32 O2 Flow Rate 2 04/30/23 07:32 BMI result Body Mass Index 25.6 Const: General: cooperative, comfortable, no acute distress, alert and awake Nutritional Appearance: average body habitus Orientation/consciousness: patient oriented x3 Resp: Other: b/l rhochi, no rales, no wheezing Effort & Inspection: normal respiratory effort, able to speak in complete sentences, no respiratory distress and no use of accessory muscles Cardio: Rate: regular rate GI: Inspection: No distended Palpation (GI): Soft to palpation and nontender Neuro: General: patient oriented x3, moves all extremities and CN's II-XI intact bilaterally Extrem: General: Yes no pedal edema Objective Data Active Medications Acetaminophen (Acetaminophen 325 Mg Tablet) 650 mg PO Q6H PRN PRN Reason: Pain, Mild (Pain Scale 1-3) Last Admin: 04/26/23 21:04 Dose: 650 mg Documented By: ELDER Albuterol Sulfate (Albuterol Sulfate 90 Mcg 8 Gm Inhaler) 2 puff INHALE Q4H PRN PRN Reason: Shortness Of Breath Or Wheezing Amiodarone HCl (Amiodarone Hcl 200 Mg Tablet) 200 mg PO DAILY [facility] Last Admin: 04/30/23 09:42 Dose: 200 mg Documented By: JOSE ANTONIO Ascorbic Acid (Ascorbic Acid 500 Mg Tablet) 500 mg PO DAILY [facility] Last Admin: 04/30/23 09:42 Dose: 500 mg Documented By: JOSE ANTONIO Atorvastatin Calcium (Atorvastatin Calcium 40 Mg Tablet) 40 mg PO DAILY [facility] Last Admin: 04/30/23 09:41 Dose: 40 mg Documented By: JOSE ANTONIO Benzonatate (Benzonatate 100 Mg Capsule) 200 mg PO TID PRN PRN Reason: Cough Last Admin: 04/28/23 09:56 Dose: 200 mg Documented By: JOSE ANTONIO Bumetanide (Bumetanide 1 Mg Tablet) 2 mg PO DAILY [facility]; Protocol Last Admin: 04/30/23 09:41 Dose: 2 mg Documented By: JOSE ANTONIO Calcium Carbonate (Calcium Carbonate 500 Mg Tablet) 500 mg PO BID [facility] Last Admin: 04/30/23 09:41 Dose: 500 mg Documented By: JOSE ANTONIO Cilostazol (Cilostazol 100 Mg Tablet) 100 mg PO Q12H [facility] Last Admin: 04/30/23 09:41 Dose: 100 mg Documented By: JOSE ANTONIO Ferrous Sulfate (Ferrous Sulfate 324 Mg Tablet.Dr) 324 mg PO DAILY [facility] Last Admin: 04/30/23 09:42 Dose: 324 mg Documented By: JOSE ANTONIO Fluticasone Propionate (Fluticasone Propionate Nasal 16 Gm [place]) 1 spray NOSTRIL-B DAILY PRN PRN Reason: allergy symptoms Fluticasone/Vilanterol (Fluticasone/Vilanterol 200/25 Blst.W.Dev) 1 puff INHALE RDAILY [facility] Last Admin: 04/30/23 08:06 Dose: 1 puff Documented By: FATMATA Guaifenesin/Codeine Phosphate (Guaifen/Codeine Sf 200/20/10ml 10 Ml Liquid) 10 ml PO TID [facility] Last Admin: 04/30/23 09:41 Dose: 10 ml Documented By: JOSE ANTONIO Levothyroxine Sodium (Levothyroxine Sodium 50 Mcg Tablet) 50 mcg PO DAILY [facility] Last Admin: 04/30/23 09:41 Dose: 50 mcg Documented By: JOSE ANTONIO Loratadine (Loratadine 10 Mg Tablet) 10 mg PO DAILY [facility] Last Admin: 04/30/23 09:41 Dose: 10 mg Documented By: JOSE ANTONIO Melatonin (Melatonin 3 Mg Tablet) 6 mg PO BEDTIME PRN PRN Reason: Insomnia Last Admin: 04/24/23 21:32 Dose: 6 mg Documented By: ARTURO Metoprolol Tartrate (Metoprolol Tartrate 25 Mg Tablet) 25 mg PO Q12H [facility]; Protocol Last Admin: 04/30/23 09:41 Dose: 25 mg Documented By: JOSE ANTONIO Multivitamins/Vitamin C (Multivitamin Tablet) 1 tab PO DAILY [facility] Last Admin: 04/30/23 09:41 Dose: 1 tab Documented By: JOSE ANTONIO Ondansetron HCl (Ondansetron Hcl 4 Mg/2 Ml Vial) 4 mg IVPUSH Q8H PRN PRN Reason: Nausea and Vomiting Prednisone (Prednisone 20 Mg Tablet) 40 mg PO DAILY [facility] Stop: 05/04/23 08:59 Last Admin: 04/30/23 09:42 Dose: 40 mg Documented By: JOSE ANTONIO Ropinirole HCl (Ropinirole Hcl 5 Mg Tablet) 5 mg PO BEDTIME [facility] Last Admin: 04/29/23 21:36 Dose: 5 mg Documented By: DINORAH Sodium Chloride (0.9 % Sodium Chloride Flush 3 Ml Syringe) 3 ml IVFLUSH QSHIFT [facility] Last Admin: 04/30/23 09:42 Dose: 3 ml Documented By: JOSE ANTONIO Sodium Chloride (Sodium Chloride 0.65 % Nasal 44 Ml Sprbtl) 1 spray NOSTRIL-B Q1H PRN PRN Reason: Dryness Last Admin: 04/28/23 09:54 Dose: 1 spray Documented By: JOSE ANTONIO Tramadol HCl (Tramadol Hcl 50 Mg Tablet) 50 mg PO Q6H PRN PRN Reason: Pain, Moderate(Pain Scale 4-6) Last Admin: 04/27/23 23:42 Dose: 50 mg Documented By: KATINA Warfarin Sodium (Warfarin Sodium 2 Mg Tablet) 2 mg PO DAILY@1800 [facility] Last Admin: 04/29/23 17:18 Dose: 2 mg Documented By: ELIZABETH Labs 04/23/23 06:11 04/30/23 05:49 Labs: Laboratory Results - last 24 hr 04/30/23 05:49 Hold Purple Top SEE NOTE PT 19.7 H INR 1.6 H Anion Gap 10 L Estim Creat Clear Calc 23.3 Estimated GFR 31 Random Glucose 87 Calcium 8.5 Assessment and Plan (1) Congestive heart failure: Status: Acute (2) COVID-19 virus infection: Status: Acute Plan 77yo F with HFpEF [TTE 11/16/22], COPD not on home O2, CKD4, AF on warfarin, hypothyroidism, PVD, RLS presenting with dyspnea and cough, onset of Covid-19 symptoms 04/12/23 acute on chronic HFpEF initially treated with IV bumex now appears euvolemic, then diuretics and potassium supplements placed on hold for BRIONNA TTE 04/21/23: Showed normal EF 55-60%, severe left ventricular hypertrophy, severe dilated left atrium, moderate mitral stenosis, [id number] regurgitation On Bumex 2 mg and spironolactone 12.5 mg at home, will resume bumex, do not resume spironolactone per nephrology Acute hypoxic respiratory failure due to acute COPD exacerbation and COVID-19. persistent cough, dyspnea on exertion. slowly improving Continue current treatment, Ultram for msk chest pain with coughing supportive care, out of window for remdesivir oxygenation improved currently 91 92% on room air s/p IV solumedrol, transitioned to by mouth prednisone at a.m. Acute on CKD4 resolved BRIONNA likely due to over-diuresis, all diuretics on hold status post 1 L of IV fluids no evidence of ATN or AIN outpatient follow up with nephrology Acute hyperkalemia due to BRIONNA and spironolactone potassium normalized after Lokelma and stopping spironolactone paroxysmal atrial fibrillation continue metoprolol tartrate + amiodarone continue warfarin, INR remains low, dose increased to 2 mg 04/29 follow PT INR daily Patient not a candidate for Eliquis due to fluctuating creatinine clearance less than 15. had supratherapeutic INR - s/p PO vit K 5 mg 04/22/23 , INR trended down as above RLS - ropinirole PVD - cilostazol HLD - statin hypothyroidism - continue synthroid VTE ppx - warfarin Disposition recommend out of bed to chair and ambulation obtain PT eval -rec STR In my clinical judgment, the patient requires continued hospitalization for the following reasons: safe disposition, close montoring of respiratory status Quality Stroke Does the patient have a stroke diagnosis?: No VTE Prior VTE?: No VTE Risk Level:: Medical - moderate - high VTE Device Contraindication: Treatment Not Indicated VTE Drug Contraindication: N/A - Med Ordered
[2023-04-30] MEDS: Warfarin Sodium 2 MG TABLET PO (17:48)
[2023-05-01] VITALS (7 sets, daily range): BP systolic 107–131; BP diastolic 62–76; PULSE 67–75; RESP 16–20; TEMP 36–36.9; O2SAT 90–97; BMI 25.2
[2023-05-01 06:41] LABS: INTERNATIONAL NORM RATIO 1.5 (0.9-1.1); Prothrombin Time 18.1 SEC (11.1-13.3)
[2023-05-01] MEDS: Fluticasone/Vilanterol 200/25 BLST.W.DEV 1 PUFF INHALE (07:58)
[2023-05-01] MEDS: Levothyroxine Sodium 50 MCG TABLET PO (09:47)
[2023-05-01] MEDS: Metoprolol Tartrate 25 MG TABLET PO (09:47)
[2023-05-01] MEDS: Bumetanide 1 MG TABLET 2 MG PO (09:47)
[2023-05-01] MEDS: Ascorbic Acid 500 MG TABLET PO (09:47)
[2023-05-01] MEDS: 0.9 % Sodium Chloride Flush 3 ML SYRINGE IVFLUSH ×2 (09:47→15:57)
[2023-05-01] MEDS: Multivitamin TABLET 1 TAB PO (09:47)
[2023-05-01] MEDS: predniSONE 20 MG TABLET 40 MG PO (09:47)
[2023-05-01] MEDS: Ferrous Sulfate 324 MG TABLET.DR PO (09:47)
[2023-05-01] MEDS: cilostazoL 100 MG TABLET PO (09:47)
[2023-05-01] MEDS: Atorvastatin Calcium 40 MG TABLET PO (09:47)
[2023-05-01] MEDS: Amiodarone HCL 200 MG TABLET PO (09:47)
[2023-05-01] MEDS: Loratadine 10 MG TABLET PO (09:47)
[2023-05-01] MEDS: guaiFEN/Codeine SF 200/20/10ML 10 ML LIQUID PO ×3 (09:48→20:28)
--- NOTE | 2023-05-01 10:45 | P.PNIM_ITS ---
Subjective Subjective Date of Service: 05/01/23 Interval History: seen and examined this morning follow up for respiratory failure sob with ambulation no overnight events Review of Systems Review of Systems: Yes all other systems are reviewed and are negative Constitutional Constitutional: Denies chills and Denies fever(s) Cardiovascular Cardiovascular: Denies chest pain, Denies palpitations and Denies dyspnea Respiratory Respiratory: Denies cough and Denies dyspnea Endocrine Endocrine: Denies palpitations Physical Exam 2 Vital Signs: Vital Signs: Last Vital Signs Temp 97.4 F 05/01/23 07:32 Pulse 72 05/01/23 08:00 Resp 18 05/01/23 08:00 BP 121/66 05/01/23 07:32 Pulse Ox 97 05/01/23 07:32 O2 Del Method Nasal Cannula 05/01/23 07:32 O2 Flow Rate 2 05/01/23 07:32 BMI result Body Mass Index 25.2 Appearing in no acute distress lung sounds are clear to auscultation heart regular rate rhythm, clear S1, S2 positive bowel sounds, abdomen is soft, nontender neuro patient is alert x3, no focal deficits Objective Data Active Medications Acetaminophen (Acetaminophen 325 Mg Tablet) 650 mg PO Q6H PRN PRN Reason: Pain, Mild (Pain Scale 1-3) Last Admin: 04/26/23 21:04 Dose: 650 mg Documented By: ELDER Albuterol Sulfate (Albuterol Sulfate 90 Mcg 8 Gm Inhaler) 2 puff INHALE Q4H PRN PRN Reason: Shortness Of Breath Or Wheezing Amiodarone HCl (Amiodarone Hcl 200 Mg Tablet) 200 mg PO DAILY [facility] Last Admin: 05/01/23 09:47 Dose: 200 mg Documented By: BLAINE Ascorbic Acid (Ascorbic Acid 500 Mg Tablet) 500 mg PO DAILY [facility] Last Admin: 05/01/23 09:47 Dose: 500 mg Documented By: BLAINE Atorvastatin Calcium (Atorvastatin Calcium 40 Mg Tablet) 40 mg PO DAILY [facility] Last Admin: 05/01/23 09:47 Dose: 40 mg Documented By: BLAINE Benzonatate (Benzonatate 100 Mg Capsule) 200 mg PO TID PRN PRN Reason: Cough Last Admin: 04/28/23 09:56 Dose: 200 mg Documented By: JOSE ANTONIO Bumetanide (Bumetanide 1 Mg Tablet) 2 mg PO DAILY [facility]; Protocol Last Admin: 05/01/23 09:47 Dose: 2 mg Documented By: BLAINE Calcium Carbonate (Calcium Carbonate 500 Mg Tablet) 500 mg PO BID [facility] Last Admin: 05/01/23 09:47 Dose: 500 mg Documented By: BLAINE Cilostazol (Cilostazol 100 Mg Tablet) 100 mg PO Q12H [facility] Last Admin: 05/01/23 09:47 Dose: 100 mg Documented By: BLAINE Ferrous Sulfate (Ferrous Sulfate 324 Mg Tablet.Dr) 324 mg PO DAILY [facility] Last Admin: 05/01/23 09:47 Dose: 324 mg Documented By: BLAINE Fluticasone Propionate (Fluticasone Propionate Nasal 16 Gm [place]) 1 spray NOSTRIL-B DAILY PRN PRN Reason: allergy symptoms Fluticasone/Vilanterol (Fluticasone/Vilanterol 200/25 Blst.W.Dev) 1 puff INHALE RDAILY [facility] Last Admin: 05/01/23 07:58 Dose: 1 puff Documented By: ZEINAB Guaifenesin/Codeine Phosphate (Guaifen/Codeine Sf 200/20/10ml 10 Ml Liquid) 10 ml PO TID [facility] Last Admin: 05/01/23 09:48 Dose: 10 ml Documented By: BLAINE Levothyroxine Sodium (Levothyroxine Sodium 50 Mcg Tablet) 50 mcg PO DAILY [facility] Last Admin: 05/01/23 09:47 Dose: 50 mcg Documented By: BLAINE Loratadine (Loratadine 10 Mg Tablet) 10 mg PO DAILY [facility] Last Admin: 05/01/23 09:47 Dose: 10 mg Documented By: BLAINE Melatonin (Melatonin 3 Mg Tablet) 6 mg PO BEDTIME PRN PRN Reason: Insomnia Last Admin: 04/24/23 21:32 Dose: 6 mg Documented By: ARTURO Metoprolol Tartrate (Metoprolol Tartrate 25 Mg Tablet) 25 mg PO Q12H [facility]; Protocol Last Admin: 05/01/23 09:47 Dose: 25 mg Documented By: BLAINE Multivitamins/Vitamin C (Multivitamin Tablet) 1 tab PO DAILY [facility] Last Admin: 05/01/23 09:47 Dose: 1 tab Documented By: BLAINE Ondansetron HCl (Ondansetron Hcl 4 Mg/2 Ml Vial) 4 mg IVPUSH Q8H PRN PRN Reason: Nausea and Vomiting Prednisone (Prednisone 20 Mg Tablet) 40 mg PO DAILY [facility] Stop: 05/04/23 08:59 Last Admin: 05/01/23 09:47 Dose: 40 mg Documented By: BLAINE Ropinirole HCl (Ropinirole Hcl 5 Mg Tablet) 5 mg PO BEDTIME [facility] Last Admin: 04/30/23 21:48 Dose: 5 mg Documented By: RADHA Sodium Chloride (0.9 % Sodium Chloride Flush 3 Ml Syringe) 3 ml IVFLUSH QSHIFT [facility] Last Admin: 05/01/23 09:47 Dose: 3 ml Documented By: BLAINE Sodium Chloride (Sodium Chloride 0.65 % Nasal 44 Ml Sprbtl) 1 spray NOSTRIL-B Q1H PRN PRN Reason: Dryness Last Admin: 04/28/23 09:54 Dose: 1 spray Documented By: JOSE ANTONIO Tramadol HCl (Tramadol Hcl 50 Mg Tablet) 50 mg PO Q6H PRN PRN Reason: Pain, Moderate(Pain Scale 4-6) Last Admin: 04/27/23 23:42 Dose: 50 mg Documented By: KATINA Warfarin Sodium (Warfarin Sodium 2 Mg Tablet) 2 mg PO DAILY@1800 [facility] Warfarin Sodium (Warfarin Sodium 5 Mg Tablet) 5 mg PO ONCE@1800 [facility] Stop: 05/01/23 18:01 Labs 04/23/23 06:11 04/30/23 05:49 Labs: Laboratory Results - last 24 hr 05/01/23 06:11 PT 18.1 H INR 1.5 H Assessment and Plan (1) Congestive heart failure: Status: Acute (2) COVID-19 virus infection: Status: Acute Plan 77yo F with HFpEF [TTE 11/16/22], COPD not on home O2, CKD4, AF on warfarin, hypothyroidism, PVD, RLS presenting with dyspnea and cough, onset of Covid-19 symptoms 04/12/23 Acute on chronic HFpEF initially treated with IV bumex now appears euvolemic, then diuretics and potassium supplements placed on hold for BRIONNA TTE 04/21/23: Showed normal EF 55-60%, severe left ventricular hypertrophy, severe dilated left atrium, moderate mitral stenosis, [id number] regurgitation Resume oral Bumex 2 mg continue to hold spironolactone 12.5 mg as per nephrology Acute hypoxic respiratory failure due to acute COPD exacerbation and COVID-19. persistent cough, dyspnea on exertion. slowly improving Continue current treatment Ultram for msk chest pain with coughing supportive care, out of window for remdesivir s/p IV solumedrol, transitioned to by mouth prednisone Acute on CKD4 resolved BRIONNA likely due to over-diuresis no evidence of ATN or AIN outpatient follow up with nephrology Acute hyperkalemia due to BRIONNA and spironolactone potassium normalized after Lokelma and stopping spironolactone Paroxysmal atrial fibrillation continue metoprolol tartrate + amiodarone continue warfarin, INR remains low, dose increased to 5 mg follow PT INR daily Patient not a candidate for Eliquis due to fluctuating creatinine clearance less than 15. RLS ropinirole PVD cilostazol HLD statin hypothyroidism continue synthroid VTE ppx - warfarin Attending Dr. Garcia Disposition PT eval -rec STR In my clinical judgment, the patient requires continued hospitalization for the following reasons: safe disposition, close montoring of respiratory status Quality Stroke Does the patient have a stroke diagnosis?: No VTE Prior VTE?: No VTE Risk Level:: Medical - moderate - high VTE Device Contraindication: Treatment Not Indicated VTE Drug Contraindication: N/A - Med Ordered
--- NOTE | 2023-05-01 11:10 | MHC.CM.PN ---
EMR REVIEWED, PER HOSPITALIST ANTIC PT WILL BE MEDICALLY CLEARED TOMORROW, DISPO PENDING P.T. EVAL, [facility] REFERRAL PLACED AND CM WILL CONT TO FOLLOW DC NEEDS.
--- NOTE | 2023-05-01 14:56 | MHC.CM.PN ---
Cm met w/pt who reports she will give str a try, pt prefers [facility] however they no longer have a bed and pt agreeable to [facility], [facility] will go for auth and cm will cont to follow.
[2023-05-01] MEDS: Warfarin Sodium 5 MG TABLET PO (17:24)
[2023-05-02] MEDS: cilostazoL 100 MG TABLET PO ×2 (00:31→11:10)
[2023-05-02] MEDS: 0.9 % Sodium Chloride Flush 3 ML SYRINGE IVFLUSH ×2 (00:31→08:24)
[2023-05-02] MEDS: Metoprolol Tartrate 25 MG TABLET PO ×2 (00:31→11:13)
[2023-05-02 03:17] VITALS: BP 115/71; PULSE 65; RESP 18; TEMP 36; O2SAT 91
[2023-05-02 05:45] VITALS: BMI 25.2
[2023-05-02 07:13] LABS: INTERNATIONAL NORM RATIO 1.7 (0.9-1.1); Prothrombin Time 20.2 SEC (11.1-13.3)
[2023-05-02 07:31] VITALS: BP 120/66; PULSE 78; RESP 18; TEMP 36.3; O2SAT 98
[2023-05-02] MEDS: Multivitamin TABLET 1 TAB PO (08:24)
[2023-05-02] MEDS: Levothyroxine Sodium 50 MCG TABLET PO (08:24)
[2023-05-02] MEDS: Amiodarone HCL 200 MG TABLET PO (08:24)
[2023-05-02] MEDS: Atorvastatin Calcium 40 MG TABLET PO (08:24)
[2023-05-02] MEDS: Bumetanide 1 MG TABLET 2 MG PO (08:24)
[2023-05-02] MEDS: guaiFEN/Codeine SF 200/20/10ML 10 ML LIQUID PO ×2 (08:24→14:09)
[2023-05-02] MEDS: Ascorbic Acid 500 MG TABLET PO (08:24)
[2023-05-02] MEDS: predniSONE 20 MG TABLET 40 MG PO (08:24)
[2023-05-02] MEDS: Loratadine 10 MG TABLET PO (08:24)
[2023-05-02] MEDS: Ferrous Sulfate 324 MG TABLET.DR PO (08:24)
[2023-05-02] MEDS: Fluticasone/Vilanterol 200/25 BLST.W.DEV 1 PUFF INHALE (08:30)
[2023-05-02 08:32] VITALS: PULSE 78; RESP 18; O2SAT 95
--- NOTE | 2023-05-02 10:08 | P.PNNP_ITS ---
Subjective Subjective Date of Service: 05/02/23 Interval history: Events noted. All recent data reviewed. D/W Hospitalist Physical Exam 2 Vital Signs: Vital Signs: Last Vital Signs Temp 97.4 F 05/02/23 07:31 Pulse 78 05/02/23 08:32 Resp 18 05/02/23 08:32 BP 120/66 05/02/23 07:31 Pulse Ox 98 05/02/23 07:31 O2 Del Method Nasal Cannula 05/02/23 07:31 O2 Flow Rate 2 05/02/23 07:31 BMI result Body Mass Index 25.2 Const: General: comfortable and no acute distress O rientation/consciousness: patient oriented x3 HEENT: Head: Yes normocephalic Mouth: Normal oral and palatal mucosa present Eyes: EOM: EOMs intact bilaterally Neck: Neck: Yes supple Resp: Auscultation: diminished lung sounds Cardio: Jugular venous distension: no JVD Rate: regular rate GI: Palpation (GI): Soft to palpation Auscultation: normal bowel sounds : General: Yes no CVA tenderness Back/Spine/Pelvis: Back: no CVA tenderness Skin: General skin exam: no rashes or lesions noted Neuro: General: patient oriented x3 and moves all extremities Extrem: General: Yes no pedal edema Objective Data Labs 04/23/23 06:11 04/30/23 05:49 Labs: Laboratory Results - last 24 hr 05/02/23 06:37 Hold Purple Top SEE NOTE PT 20.2 H INR 1.7 H Procedures Date of Service Date of Service: 05/02/23 Assessment & Plan Assessment and plan (1) BRIONNA (acute kidney injury): Status: Acute (2) CKD (chronic kidney disease) stage 3, GFR 30-59 ml/min: Status: Acute Plan BRIONNA superimposed on CKD due to tubular injury( resolved) No evidence of obstruction. Has a baseline CKD 3 Hyperkalemia due to the combination of spironolactone and potassium supplementation setting of renal failure. NO Spironolactone for now; C/W rest of current supportive management Needs close [place] [facility] after hospital D/C Progress Note: Quality Stroke Does the patient have a stroke diagnosis?: No
[2023-05-02 11:13] VITALS: BP 118/61; PULSE 70; RESP 17; TEMP 36.3; O2SAT 92
--- NOTE | 2023-05-02 11:43 | MHC.CM.PN ---
Addendum entered by Anaid Regalado RN 05/02/23 13:46: PT HAD HOME O2 EVAL, WALKED 140FT ON ROOM AIR AND O2 91%, PT WILL DC HOME WITHOUT NEED FOR HOME O2. Addendum entered by Anaid Regalado RN 05/02/23 12:13: PER HOSPITALIST KENJI TO SET UP [facility] TRANSPORT AT 5PM. Original Note: CM RECEIVED MESSAGE THAT PT'S DTR CAN ACCOMMODATE PT'S NEW HOME O2, CM CONTACTED ASHLYN AT 11:40AM TO CONFIRM AT NUMBER ON FILE, ASHLYN REPORTS SHE AND HER SON WILL NO LONGER SMOKE IN THE APT AND WILL SMOKE OUTSIDE, ASHLYN ALSO REPORTS THAT SHE WILL MOVE THINGS AROUND SO SHE CAN HAVE HER O2 CONCENTRATOR PLUGGED IN. ASHLYN REPORTS PT CAN COME HOME TODAY AND WILL NEED [facility] HOME AND PT CAN CALL HER ONCE SHE GETS CLOSE TO HOME AND SHE WILL MEET HER AND ASSIST HER GETTING INSIDE.
--- NOTE | 2023-05-02 12:20 | PM.DS ---
DS: Providers Provider Date of Service: 05/02/23 Date of admission: 04/21/23 11:54 Primary care physician: Farhan Molina PA-C Consults: 04/21/23 11:38 Consult to Cardiology Routine Consulting Provider: [facility] Reason for consultation: HF 04/25/23 07:53 Consult to Nephrology Routine Consulting Provider: [facility] Reason for consultation: brionna on ckd Has provider been notified: No DS: Diagnosis Discharge Diagnosis (1) BRIONNA (acute kidney injury): Status: Acute (2) CKD (chronic kidney disease) stage 3, GFR 30-59 ml/min: Status: Acute DS: Summary Hospital Course Hospital Course: History and physical as per admitting provider. This is a 77-year-old female with pertinent history of congestive heart failure with preserved ejection fraction, COPD not on home oxygen, chronic kidney disease, atrial fibrillation on Coumadin, hypothyroidism, peripheral vascular disease, restless leg syndrome who presents to the emergency department for evaluation of dyspnea and cough. Patient states that her symptoms started 1 week prior to presentation. She has been having dyspnea which is worse with progression. Also complains of dry cough that has been ongoing for the last 1 week. Admits orthopnea. States 2 family members at home were sick with COVID and patient also tested positive for COVID about 1 week ago. She has been having generalized weakness and fatigability. No fever, chills, chest discomfort, palpitations, abdominal pain, changes in urinary or bowel habits.In the emergency department, imaging with mild pulmonary edema and BNP found to be elevated. Also tested positive for COVID-19. 77-year-old woman treated for acute hypoxic respiratory failure secondary to COPD exacerbation, COVID-19 and heart failure with preserved ejection fraction. Patient had a persistent cough with dyspnea on exertion. She was treated with supplemental oxygen, IV Solu-Medrol, scheduled DuoNebs. She had required oxygen up to the day prior to discharge. She had a home oxygen evaluation which showed that she was 91% on room air therefore not requiring home oxygen. In terms of her heart failure she was treated with IV Bumex, she became euvolemic and then developed BRIONNA therefore diuretics were on hold. TTE showed normal EF of 55-60% with severe left ventricular hypertrophy, dilated left atrium, moderate mitral stenosis and [id number] regurgitation. Her Bumex has since been resumed and she will continue to hold her spironolactone on discharge as per Nephrology. BRIONNA superimposed on CKD due to tubular injury which did resolve. Patient also had subtherapeutic INR, last INR 05/02/2023: 1.7. Patient does have machine at home and cause her primary care provider for doses adjustments. She will be sent home on 5 mg of warfarin to take daily. Plan is for patient be discharged home with family. Encouraged family not to smoke in the home around patient. Had episode of acute hyperkalemia due to BRIONNA and spironolactone. Treated with Lokelma and spironolactone stopped. Paroxysmal atrial fibrillation. On metoprolol and amiodarone. Warfarin increased to 5 mg, continue this and continue checking warfarin Restless leg syndrome. Continue allopurinol Peripheral vascular disease. Continue cilostazol Hyperlipidemia. Continue statin number next hypothyroidism. Continue Synthroid Time Attestation Discharge coordination time: Greater than 30 minutes Quality: Safe Use of Opioids Does Pt have an Active Cancer Diagnosis on the Problem List?: No Quality: Stroke Does the patient have a stroke diagnosis?: No Physical Exam Vital Signs: Vital Signs: Last Vital Signs Temp 97.3 F 05/02/23 11:13 Pulse 70 05/02/23 11:13 Resp 17 05/02/23 11:13 BP 118/61 05/02/23 11:13 Pulse Ox 92 05/02/23 11:13 O2 Del Method Nasal Cannula 05/02/23 11:13 O2 Flow Rate 2 05/02/23 11:13 BMI result Body Mass Index 25.2 Appearing in no acute distress head is normocephalic atraumatic eyes pupils are PERRLA sclera is anicteric mouth throat mucous membranes are intact and moist neck is supple no lymphadenopathy, no JVD noted lung sounds are clear to auscultation heart regular rate rhythm, clear S1, S2 positive bowel sounds, abdomen is soft, nontender neuro patient is alert x3, no focal deficits DS: Data Data Completed and Pending Completed studies during hospitalization [Text1]: Procedures Drainage of Chest Wall, Percutaneous Approach (03/22/20) Transfusion of Nonautologous Red Blood Cells into Peripheral Vein, Percutaneous Approach (07/08/21) Labs on day of discharge: Laboratory Results - last 24 hr 05/02/23 06:37 Hold Purple Top SEE NOTE PT 20.2 H INR 1.7 H Discharge Plan Discharge Anticipated Discharge Date/Time: 05/02/23 12:20 Patient Disposition: Home Health Service Discharge Diagnosis: Acute on chronic heart failure with preserved ejection fraction Acute hypoxic respiratory failure COPD exacerbation COVID-19 BRIONNA on CKD stage 4 Hyperkalemia Referrals: [facility] [Outside] - 1 Day (A NURSE WILL REACH OUT TO YOU TO ARRANGE FIRST VISIT WITHIN 48 HRS OF DISCHARGE. ) Farhan Molina PA-C [Primary Care Provider] - 1 Week Discharge Medications: New prednisone 20 mg Tablet 40 mg PO DAILY Qty: 4 0RF benzonatate 100 mg Capsule 200 mg PO TID PRN (Reason: Cough) Qty: 12 0RF warfarin 5 mg tablet 5 mg PO DAILY Qty: 20 0RF Continued (DME) Ultra-Light Rollator Misc See Rx Instructions .Route Qty: 1 0RF Rx Instructions: As directed ipratropium-albuterol 0.5 mg-3 mg(2.5 mg base)/3 mL solution for nebulization 3 ml inhalation RQ6H WHILE AWAKE PRN (Reason: shortness of breath or wheezing) 30 Days Qty: 180 6RF albuterol sulfate 90 mcg/actuation HFA aerosol inhaler 2 puff inhalation Q4-6H PRN (Reason: Shortness Of Breath Or Wheezing) 30 Days Qty: 8.5 3RF atorvastatin 40 mg tablet 40 mg PO DAILY Qty: 90 1RF (DME) hospital bed Kit See Rx Instructions .Route Qty: 1 0RF Rx Instructions: As directed cilostazol 100 mg tablet 100 mg PO Q12H 90 Days Qty: 180 2RF levothyroxine 50 mcg tablet 50 mcg PO DAILY Qty: 30 3RF budesonide-formoterol [Symbicort] 160-4.5 mcg/actuation HFA aerosol inhaler 2 puff inhalation BID 30 Days Qty: 10.2 0RF bumetanide 1 mg tablet 2 mg PO DAILY Qty: 60 6RF Protocol: Hold for SBP< HOLD for SBP < : 90 ropinirole 5 mg tablet 5 mg PO BEDTIME Qty: 30 6RF ferrous sulfate 325 mg (65 mg iron) tablet 325 mg PO DAILY Qty: 30 6RF amiodarone 200 mg tablet 200 mg PO DAILY 30 Days Qty: 30 6RF metoprolol tartrate 25 mg tablet 25 mg PO Q12H Qty: 180 2RF potassium chloride 20 mEq tablet,ER particles/crystals 20 meq PO BID Qty: 60 6RF calcium carbonate 500 mg calcium (1,250 mg) tablet 500 mg PO BID 90 Days Qty: 180 2RF (DME) nebulizers Misc See Rx Instructions .Route Qty: 1 0RF Rx Instructions: As directed fluticasone propionate 50 mcg/actuation spray,suspension 1 spray intranasal DAILY PRN (Reason: allergy symptoms) Qty: 16 0RF loratadine 10 mg tablet 10 mg PO DAILY Qty: 20 0RF multivitamin Tablet 1 tab PO DAILY Discontinued warfarin [Jantoven] 2 mg tablet 2 mg PO DAILY 90 Days Qty: 90 4RF Hold Instructions: Resume on 07/14/21. spironolactone 25 mg tablet 12.5 mg PO DAILY 30 Days Qty: 15 4RF Protocol: Hold for SBP< HOLD for SBP < : 90 Discharge Orders: Discharge Order (Routine); Ordered 05/02/23 Ordered By: Hayley Rain Diet: Advance to usual diet Activity on Discharge: As tolerated Stand Alone Forms: Patient Portal Discharge page Care Plan Goals: Take 5 mg of warfarin daily, follow-up with primary care provider for dosage adjustments Last INR 05/02/2023: 1.7 Stop taking spironolactone Health Concerns: Acute on chronic heart failure with preserved ejection fraction Acute hypoxic respiratory failure COPD exacerbation COVID-19 BRIONNA on CKD stage 4 Hyperkalemia Plan of Treatment: Follow-up with primary care provider as needed Take all medications as prescribed Assessment: See discharge summary
[2023-05-02 13:32] VITALS: PULSE 68; PULSE 72; PULSE 73; PULSE 81; O2SAT 90; O2SAT 91; O2SAT 92
== END 2023-05-02 15:43 | disposition home health service (06) | DRG 177 ==
LOC: HO.ED 04-21 02:26 → HO.EDOVER 04-21 03:04 → HO.IMC 04-21 11:50
PROVIDERS: Family Medicine; Hospitalist; Physician Assistant Medical; Admitting Provider Student in an Organized Health Care Education/Training Program; Emergency Provider Emergency Medicine; PCP Physician Assistant; Visit Provider Nurse Practitioner Acute Care
DX: U07.1 COVID-19 (principal); I50.33 Acute on chronic diastolic (congestive) heart failure; J96.01 Acute respiratory failure with hypoxia; J44.1 Chronic obstructive pulmonary disease with (acute) exacerbation; N18.4 Chronic kidney disease, stage 4 (severe); I42.2 Other hypertrophic cardiomyopathy; N17.9 Acute kidney failure, unspecified; E87.5 Hyperkalemia; I08.0 Rheumatic disorders of both mitral and aortic valves; E03.9 Hypothyroidism, unspecified; E78.2 Mixed hyperlipidemia; I73.9 Peripheral vascular disease, unspecified; G25.81 Restless legs syndrome; R79.1 Abnormal coagulation profile; I48.0 Paroxysmal atrial fibrillation; Z95.810 Presence of automatic (implantable) cardiac defibrillator; Z87.891 Personal history of nicotine dependence; Z79.890 Hormone replacement therapy; Z79.899 Other long term (current) drug therapy
CPT/HCPCS: 0241U; 36415; 71045; 71250; 74176; 75635; 80048; 80053; 80076; 81001; 82247; 82803; 83010; 83605; 83615; 83690; 83735; 83880; 84100; 84145; 84484; 85007; 85025; 85027; 85045; 85384; 85610; 85730; 86140; 86850; 86880; 86900; 86901; 87040; 87070; 87205; 87449; 87502; 87640; 87641; 87899; 93005; 93306; 94002; 94003; 94640; 94660; 94799; 97116; 97162; 97530; 99285; C1758; J0131; J0692; J0696; J0736; J1170; J1250; J1720; J1939; J1940; J1956; J2405; J2704; J2920; J2930; J3010; P9017; P9047; Q9967

== ENCOUNTER → 2023-04-20 21:43 | Outpatient (BNV) | payer OTHER, MEDICAID, SELFPAY | PROVIDERS: Admitting Provider Student in an Organized Health Care Education/Training Program; Emergency Provider Emergency Medicine; Visit Provider Internal Medicine Cardiovascular Disease | DX: R94.31 Abnormal electrocardiogram [ECG] [EKG] (principal) | CPT/HCPCS: 93010 ==

== ENCOUNTER → 2023-04-21 02:51 | Outpatient (BNV) | payer OTHER, MEDICAID, SELFPAY | PROVIDERS: Admitting Provider Student in an Organized Health Care Education/Training Program; Emergency Provider Emergency Medicine; Visit Provider Student in an Organized Health Care Education/Training Program | DX: I50.9 Heart failure, unspecified (principal); U07.1 COVID-19 | CPT/HCPCS: 99223; 99232; 99233; 99238; 99499 ==

== ENCOUNTER → 2023-04-21 07:00 | Outpatient (BNV) | payer OTHER, MEDICAID, SELFPAY | PROVIDERS: Admitting Provider Student in an Organized Health Care Education/Training Program; Emergency Provider Emergency Medicine; Visit Provider Internal Medicine Cardiovascular Disease | DX: I35.0 Nonrheumatic aortic (valve) stenosis (principal) | CPT/HCPCS: 93306 ==

== ENCOUNTER → 2023-04-21 11:54 | Outpatient (BNV) | payer OTHER, MEDICAID, SELFPAY | PROVIDERS: Admitting Provider Student in an Organized Health Care Education/Training Program; Emergency Provider Emergency Medicine; PCP Physician Assistant; Visit Provider Internal Medicine Hypertension Specialist | DX: N17.9 Acute kidney failure, unspecified (principal); N18.30 Chronic kidney disease, stage 3 unspecified | CPT/HCPCS: 99223; 99232 ==

== ENCOUNTER → 2023-04-21 11:54 | Outpatient (BNV) | payer OTHER, MEDICAID, SELFPAY | PROVIDERS: Admitting Provider Student in an Organized Health Care Education/Training Program; Emergency Provider Emergency Medicine; Visit Provider Internal Medicine Cardiovascular Disease | DX: I50.9 Heart failure, unspecified (principal) | CPT/HCPCS: 99222 ==

== ENCOUNTER 2023-05-05 01:56 | Inpatient (IN) | payer OTHER, SELFPAY ==
[2023-05-05] VITALS (34 sets, daily range): BP systolic 90–127; BP diastolic 46–66; PULSE 70–98; RESP 12–32; TEMP 36.6–37.8; O2SAT 88–96; BMI 24.6
--- NOTE | ~2023-05-05 | CT_ITS ---
EXAMINATION: CT CHEST, ABDOMEN AND PELVIS without contrast CLINICAL INFORMATION: Reason for Exam resp failure COMPARISON: Prior chest CT 2021 TECHNIQUE: Multidetector volumetric CT imaging of the chest abdomen and pelvis obtained Axial MIP volume rendering provided. Sagittal and coronal reformatted images were obtained. This CT examination was performed using dose optimization techniques as appropriate, variously including the following: *Automated exposure control *Adjustment of mA and/or kV according to patient size (this includes techniques or standardized protocols for targeted exams where dose is matched to indication/reason for exam; i.e. extremities or head) *Use of iterative reconstruction technique CONTRAST: Noncontrasted study Reformatted coronal and sagittal imaging was performed. DLP: 669 mGy-cm FINDINGS: TEACHING SUPERVISOR, LINES TUBES: Endotracheal tube tip in place. Cardiac pacemaker with electrodes in the right ventricle. LUNGS: Interstitial: Diffuse pulmonary opacification involving both lungs upper and lower lobes, dense consolidation with air bronchogram at right and left lower lobe. Sparing of the left lung apex and upper segment of left lower lobe. AIRWAYS: Trachea and bronchi are normal. PLEURA: There is a small right pleural effusion. MEDIASTINUM AND CAROLINE: The visualized thyroid gland is unremarkable. Is difficult to visualize lymph node due to lack of contrast, the fat in the mediastinum however has been replaced suggesting likely underlying mediastinal and hilar lymphadenopathy. Enlarged proximal right and left pulmonary arteries, the right measure up to 3 cm, this has been described in association with underlying pulmonary hypertension. The heart is enlarged. THORACIC AORTA: Heavy aortic vascular calcification. CHEST WALL, LOWER NECK, SURROUNDING SOFT TISSUES: Left thyroid nodule 1.4 cm, newly found compared to prior ultrasound of 2019 and may require correlation with follow-up thyroid ultrasound. HEART AND PERICARDIUM: Heart is normal in size. There is no pericardial effusion. There are coronary calcification. HEPATOBILIARY: There is a cyst in the left lobe of the liver 2 cm the attenuation of its matrix is higher than expected for a simple cyst measuring 21.5 Hounsfield units, could be a complex cyst however may require follow-up ultrasound to rule out pathology. GALLBLADDER: There is a large gallstone. SPLEEN: Spleen is normal in size. PANCREAS: No focal mass or ductal dilatation. GI TRACT: There is a gastric tube in the stomach, the stomach is air partially distended with air-fluid level. ADRENALS: Hypertrophy of left adrenal unchanged. KIDNEYS/URETERS: Atrophic small kidneys left more than right, renal cortices are hyperdense bilaterally, probably retained contrast from prior CT angiogram one day earlier suggesting poor renal function. PELVIC ORGANS/BLADDER: Fluid-filled cystic structure in the right side of the pelvis likely of right ovarian origin 2.6 cm, these are commonly benign, no follow-up imaging is required. There are calcified uterine fibroids. Urinary bladder is decompressed with a Frankel catheter in place. PERITONEUM: No free air or fluid. LYMPH NODES: no retroperitoneal or mesenteric lymphadenopathy. VASCULAR:Heavily calcified aorta, iliac arteries. No aneurysm. BONES, ABDOMINAL WALL AND SOFT TISSUES: Mild partial compression fractures of T11, T12 and L3 unchanged. CT/CT abdomen pelvis wo IV con IMPRESSION: 1. Dense consolidation with air bronchogram at right and left lower lobe, diffuse interstitial lung opacification involving both lungs upper and lower lobes, most likely pneumonia. 2. Small right pleural effusion. 3. Cardiomegaly. 4. Enlarged pulmonary arteries suggesting underlying pulmonary hypertension. 5. Cholelithiasis. 6. Atrophic small kidneys left more than right, renal cortices are hyperdense probably retained contrast from prior CT angiogram one day earlier suggesting poor renal function. 7. Other noncritical findings include coronary calcification, calcified uterine fibroids, cyst in the right adnexa of the pelvis most likely of right ovarian origin 2.6 cm, these are commonly benign, no follow-up imaging is warranted. Mild partial compression fractures of T11, T12 and L3, unchanged. 8. Left thyroid nodule 1.4 cm, newly found compared to prior ultrasound of 2019 and may require correlation with follow-up thyroid ultrasound. 9. Probably a complex cyst in the liver left lobe measure 2 cm, this has enlarged compared to prior study from 2015, the attenuation of its matrix is higher than expected for a simple cyst and may require correlation with follow-up imaging starting with ultrasound to rule out cystic neoplasm. 10. ET tube, gastric tube, Frankel catheter and cardiac electronic device are in place.
--- NOTE | ~2023-05-05 | XR_ITS ---
EXAMINATION: XR CHEST CLINICAL INFORMATION: Dyspnea. COMPARISON: 04/20/2023. TECHNIQUE: Frontal view of the chest was obtained. FINDINGS: The heart is enlarged. A single chamber pacer lead is in place. There is pulmonary vascular congestion, diffuse increased markings and diffuse bilateral infiltrates. The bony structures are osteopenic. The soft tissues are unremarkable. XR/XR chest 1V IMPRESSION: Cardiomegaly, pulmonary vascular congestion and diffuse bilateral infiltrates most consistent with CHF. Pneumonia considered less likely.
--- NOTE | ~2023-05-05 | XR_ITS ---
EXAMINATION: XR CHEST CLINICAL INFORMATION: Respiratory failure. Endotracheal and gastric tube placement. COMPARISON: 05/05/2023. TECHNIQUE: Frontal view of the chest was obtained. FINDINGS: The cardiomediastinal silhouette is stable. A pacer lead is in place. There is an endotracheal tube seen in good position above the zev. A gastric tube extends below the diaphragm into the left upper abdomen. Diffuse bilateral infiltrates are again seen with some apparent interval progression particularly on the right. The bony structures and soft tissues are unremarkable. XR/XR chest 1V IMPRESSION: 1. Endotracheal tube and gastric tube in good position. 2. Diffuse bilateral infiltrates with some apparent interval progression particularly on the right.
--- NOTE | ~2023-05-05 | XR_ITS ---
EXAMINATION: XR CHEST CLINICAL INFORMATION: Triple lumen catheter insertion COMPARISON: 05/06/2023 TECHNIQUE: Frontal view of the chest was obtained. FINDINGS: Right internal jugular central line placed with its tip overlying the atrial caval juncture. Limited detail. No gross pneumothorax. Slightly improving extensive bilateral infiltrates. AICD in up other support tubes and lines appear grossly stable. No other change. Coarse thousand calculations again noted with cardiomegaly. XR/XR chest 1V IMPRESSION: Right internal jugular central line placed as above. No pneumothorax. Slightly improving bilateral infiltrates.
--- NOTE | ~2023-05-05 | CT_ITS ---
EXAMINATION: CT ANGIOGRAM ABDOMEN AND PELVIS WITH RUN-OFF CLINICAL INFORMATION: Cold, pulseless left lower extremity. COMPARISON: None TECHNIQUE: Multiple axial images were obtained through the abdomen, pelvis, and lower extremities following the administration of 100 mL of Omnipaque 350 intravenous contrast. Sagittal, coronal, and MIP oblique sagittal reformatted images were obtained on the CT workstation, uploaded to PACS, and reviewed. Images were evaluated on independent dedicated 3-D workstation and 3-D images were reconstructed with concurrent radiologist supervision and subsequently interpreted. This CT examination was performed using dose optimization techniques as appropriate, variously including the following: *Automated exposure control *Adjustment of mA and/or kV according to patient size (this includes techniques or standardized protocols for targeted exams where dose is matched to indication/reason for exam; i.e. extremities or head) *Use of iterative reconstruction technique DLP: 313 mGy-cm FINDINGS: VASCULATURE: Aorta: Normal in caliber. Extensive calcified plaque without significant stenosis. Heavily calcified plaque is causing a moderate stenosis at the ostium of the celiac axis and a severe stenosis at the ostium of the superior mesenteric artery. Inferior mesenteric artery appears patent. Bilateral renal arteries are small and atretic consistent with chronic renal disease. Right iliac arteries: Heavily calcified plaque is seen within the right common iliac artery. There appears to be a stent in the right common iliac artery which is patent. There is a borderline mild to moderate stenosis at the ostium of the right common iliac artery. 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 External iliac artery demonstrates scattered calcified plaque without significant stenosis Left iliac arteries: Heavily calcified plaque is seen within the left common iliac artery with tandem areas of moderate to severe stenosis seen diffusely. Calcified plaques in the internal iliac artery with tandem moderate stenosis. Diffuse calcified plaque seen in the external iliac artery with moderate to severe stenosis in the distal segment. Right lower extremity: Heavily calcified plaque is seen in the common femoral artery with severe stenosis. Profunda femoral artery is patent. Superficial femoral artery is chronically occluded at the ostium due to heavily calcified plaque. Reconstituted flow is seen within the P1 segment of the popliteal artery. Scattered calcified plaque is seen in the popliteal artery with moderate stenosis in the P1 segment. Below knee runoff demonstrates patent flow in the anterior tibial artery, posterior tibial artery and peroneal artery without significant stenosis. Left lower extremity: Heavily calcified plaque is seen in the common femoral artery with diffuse severe stenosis. Profunda femoral artery branches are patent. Heavily calcified plaque is seen in the superficial femoral artery with diffuse severe stenosis throughout its entire course. Heavily calcified plaque is seen within the P1 and P2 segments of the popliteal artery with diffuse severe stenosis. P3 segment of the popliteal artery is small in caliber but otherwise patent. Below knee runoff vessels are small in caliber with calcified plaque at the level of the proximal trifurcation. Patent flow is seen in the runoff vessels to the level of the distal calf and then there is a paucity of contrast which could be due to timing of the contrast versus poor distal outflow. NONVASCULAR: Heart is markedly enlarged. There is reflux of contrast into the IVC and hepatic veins consistent with poor right heart function. Dense airspace consolidation is seen within the bilateral lung bases.. There is a simple cyst in the left lobe of the liver measuring 1.8 cm. Bilateral kidneys are atrophic, left greater than right. Solid abdominal organs are otherwise unremarkable. Nasogastric tube is extending into the stomach. Bowel loops are otherwise unremarkable. No free fluid seen in the abdomen and pelvis. Urinary bladder is decompressed by a Frankel catheter. There is a calcified fibroid in the uterus. No pathologic lymphadenopathy or mass lesion seen in the abdomen and pelvis. Osseous structures are intact. CT/CT angio abd aorta runoff IMPRESSION: 1. Heavily calcified plaque in the left common iliac artery with tandem areas of moderate to severe stenosis. Moderate to severe stenosis in the distal left external iliac artery. Heavily calcified plaque in the left common femoral artery with diffuse severe stenosis. Heavily calcified plaque in the superficial femoral artery with diffuse severe stenosis throughout its entire course. Heavily calcified plaque in the popliteal artery with diffuse severe stenosis. Patent flow is seen in the below knee runoff vessels to the level of the distal calf. 2. Right common iliac artery stent is patent. There is a borderline mild to moderate stenosis at the ostium of the right common iliac artery. 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 3. Right superficial femoral artery is chronically occluded. Reconstituted flow is seen in the P1 segment of the popliteal artery. Patent 3 vessel runoff is seen to the level of the distal calf. 4. Marked cardiomegaly with reflux of contrast into the IVC and hepatic veins consistent with poor right heart function. 5. Dense airspace consolidation in the bilateral lung bases. 6. Atrophic kidneys, left greater than right.
--- NOTE | 2023-05-05 02:03 | ECG_ITS ---
Test Reason : HEART FAILURE Blood Pressure : / mmHG Vent. Rate : 076 BPM Atrial Rate : 042 BPM P-R Int : 000 ms QRS Dur : 214 ms QT Int : 490 ms P-R-T Axes : 000 -38 134 degrees QTc Int : 551 ms Ventricular-paced rhythm with frequent Premature ventricular complexes Abnormal ECG When compared with ECG of 20-APR-2023 21:59, Premature ventricular complexes are now Present Vent. rate has increased BY 2 BPM Referred By: Chasity Albert Electronically Signed By:Mihir Castillo
--- NOTE | 2023-05-05 02:15 | ED.SOB ---
HPI - SOB/Dyspnea General Chief Complaint: Dyspnea Stated Complaint: shortness of breath Time Seen by Provider: 05/05/23 01:56 Source: patient, EMS and old records reviewed Mode of arrival: EMS Limitations: no limitations History of Present Illness HPI Narrative: 77 yo female PMH of CHF preserved EF, COPD not on home O2, PPM, afib on coumadin, CKD, PVD, just admitted here 04/21 to 05/03 for respiratory failure due to COPD and COVID - 19, CKD, supratherapeutic INR did not require O2 on discharge. She went home and did okay for about a day but then her breathing worsened and she could barely get out of bed. She notes her breathing worsened significantly tonight she also c/o vomiting, productive cough, fevers and chills. EMS were called and she was found to have O2 sat in the 60s no response to NRB placed on CPAP and still in the 80s. She states she is a full CODE. Placed on high flow immediately due to vomiting risk - found to be hypotensive MD elicited complaint: shortness of breath Pertinent past history: COPD and congestive heart failure Onset (ago): day(s) (1) Context: recent illness Timing: progressively worsening Severity: severe Exacerbating factors: recent new medication and coughing Relieving factors: oxygen, rest and bronchodilators Known history of: COPD and congestive heart failure Associated symptoms: fever, cough, sputum production and nausea/vomiting Treatment prior to arrival: oxygen and NIPPV Related Data Home Medications Medication Instructions Recorded Confirmed multivitamin 1 tab PO DAILY 02/03/20 04/21/23 Previous Rx's Medication Instructions Recorded fluticasone propionate 50 1 spray intranasal DAILY PRN 05/28/21 mcg/actuation nasal allergy symptoms #16 grams spray,suspension loratadine 10 mg tablet 10 mg PO DAILY #20 tabs 05/28/21 nebulizers #1 ea 07/12/21 viktoriya (Ultra-Light Rollator misc) #1 ea 07/13/21 ipratropium 0.5 mg-albuterol 3 mg 3 ml inhalation RQ6H WHILE AWAKE 08/24/21 (2.5 mg base)/3 mL nebulization PRN shortness of breath or soln wheezing 30 days #180 mL albuterol sulfate 90 mcg/actuation 2 puff inhalation Q4-6H PRN 01/20/23 aerosol inhaler Shortness Of Breath Or Wheezing 30 days #8.5 grams atorvastatin 40 mg tablet 40 mg PO DAILY #90 tabs 05/16/22 hospital bed #1 ea 10/24/22 cilostazol 100 mg tablet 100 mg PO Q12H 90 days #180 tabs 11/07/22 levothyroxine 50 mcg tablet 50 mcg PO DAILY #30 tabs 01/07/23 budesonide-formoterol HFA 160 2 puff inhalation BID 30 days 01/08/23 mcg-4.5 mcg/actuation aerosol #10.2 grams inhaler (Symbicort) bumetanide 1 mg tablet 2 mg PO DAILY #60 tabs 02/06/23 ferrous sulfate 325 mg (65 mg 325 mg PO DAILY #30 tabs 02/06/23 iron) tablet ropinirole 5 mg tablet 5 mg PO BEDTIME #30 tabs 02/06/23 amiodarone 200 mg tablet 200 mg PO DAILY 30 days #30 tabs 04/07/23 metoprolol tartrate 25 mg tablet 25 mg PO Q12H #180 tabs 04/10/23 calcium carbonate 500 mg calcium 500 mg PO BID 90 days #180 tabs 04/11/23 (1,250 mg) tablet potassium chloride 20 mEq 20 meq PO BID #60 tabs 04/11/23 tablet,extended release(part/cryst) benzonatate 100 mg capsule 200 mg (2 x 100 mg) PO TID PRN 05/02/23 Cough #12 caps prednisone 20 mg tablet 40 mg (2 x 20 mg) PO DAILY #4 tabs 05/02/23 warfarin 5 mg tablet 5 mg PO DAILY #20 tabs 05/02/23 Allergies Allergy/AdvReac Type Severity Reaction Status Date / Time doxycycline AdvReac Vomiting Verified 04/20/23 21:54 Review of Systems Review of Systems: Constitutional : pos Fever, pos Chills ENT/Mouth : No sore throat, No Rhinorrhea, No Swallowing Difficulty Eyes: No Eye Pain, No Swelling, No Redness Cardiovascular : No Chest Pain, positive SOB, No Orthopnea, no Edema Respiratory : pos Cough, pos Sputum, No Wheezing, positive dyspnea Gastrointestinal : No Nausea, No Vomiting, No Diarrhea, No abdominal Pain, No Hematochezia, No Melena Genitourinary : No Dysuria, No Urinary Frequency, No Hematuria Musculoskeletal : No joint pain, No Myalgias Skin : No Skin Lesions, No rash Neuro : pos Weakness, No Numbness, No Dizziness, No Headache Psych : No Anxiety/Panic, No Depression Heme/Lymph: No Bruising, No Lymphadenopathy Endocrine : No Polyuria, No Polydipsia All other systems reviewed and are negative [facility] Past Medical History Attestation statement: The following information was validated with the patient. Source: old records reviewed Medical History Chronic heart failure with preserved ejection fraction (HFpEF) Mitral valve disease Presence of combination internal cardiac defibrillator (ICD) and pacemaker On anticoagulant therapy On beta bert at home Congestive heart failure Hypertrophic cardiomyopathy Anemia Non-ST elevation PR (NSTEMI) Pleural effusion on right Fall Cardiac defibrillator in place COPD (chronic obstructive pulmonary disease) Afib History of breast cancer Hypothyroidism Vitamin D deficiency Osteoporosis Mucinous carcinoma of right breast Multinodular thyroid Current use of anticoagulant therapy Surgical History History of bilateral tubal ligation History of lumpectomy of right breast AICD (automatic cardioverter/defibrillator) present History of tubal ligation History of automatic internal cardiac defibrillator (AICD) Family History Family History Father Thrombus Mother Heart disease Social History Social History Household Members: Family Housing: Assisted Living Facility Do you presently have visiting nurse or other home services: Yes Alcohol intake: never Patient Tobacco Use Status: Former Tobacco user Quit Date: 2007 Years Smoked: 30 +/- e-Cigarette/Vaping Use: Never Used Second Hand Smoke Exposure: Yes Advance Directives: Yes Advance Directives on File: Yes Advance Directives Date on File: 07/23/20 service: No Current occupational status: retired Cognitive needs: Yes Hearing needs: No Vision needs: Yes Physical Exam Vital Signs: Vital Signs: Last Vital Signs Temp 98.1 F 05/05/23 04:26 Pulse 70 05/05/23 04:34 Resp 27 H 05/05/23 04:54 BP 107/51 L 05/05/23 04:34 Pulse Ox 90 L 05/05/23 04:34 O2 Del Method High Flow Nasal C annula 05/05/23 04:34 BMI result Body Mass Index 24.6 Appearance: Alert. Oriented X3. Moderate acute distress. Eyes: Pupils equal, round and reactive to light. ENT: Pharynx normal. Neck: Normal inspection. Neck supple. CVS: irregular heart rate and rhythm. Pulses normal. Respiratory: Moderate respiratory distress. Breath sounds coarse throughout with some faint exp wheezes Abdomen: Soft and nontender. Skin: Skin warm and dry. pale skin color. Normal skin turgor. Extremities: No lower extremity edema. No calf ttp Neuro: Oriented X 3. No motor deficit. No sensory deficit. Course Course Course Narrative: no heparin per Dr. Castillo patient more tired - IV lasix ordered, Bipap will monitor 442am. increased work of breathing - likely volume overload and high 80% on max high flow Reevaluation(s) Reevaluation #1: discussing case with ICU Dr. Jensen Reevaluation #2: focused exam for sepsis performed 7am Dr. Jensen to accept patient to ICU Medications Administered Discontinued Medications Generic Name Dose Route Start Last Admin Trade Name Freq PRN Reason Stop Dose Admin Albuterol Sulfate 7.5 mg/ 10 mg 05/05/23 02:19 05/05/23 02:26 Albuterol Sulfate 2.5 mg INHALE 05/05/23 02:20 10 mg ONCE ONE Administration Furosemide 40 mg 05/05/23 04:06 05/05/23 04:30 Furosemide 40 Mg/4 Ml Vial IVPUSH 05/05/23 04:07 40 mg STAT STA Administration Protocol Cefepime HCl 1 gm/ Sodium 50 mls @ 100 mls/hr 05/05/23 02:03 05/05/23 03:11 Chloride IV 05/05/23 02:32 100 mls/hr ONCE ONE Administration Sodium Chloride 500 mls @ 500 mls/hr 05/05/23 02:30 05/05/23 03:36 Ns IV 05/05/23 03:29 Infused .Q1H PATIENCE Infusion Albumin Human 100 mls @ 133.333 mls/hr 05/05/23 02:30 05/05/23 03:34 Kedbumin 25 % IV 05/05/23 04:14 133.33 mls/hr Q1H PATIENCE Administration Methylprednisolone Sodium Succinate 60 mg 05/05/23 02:03 05/05/23 02:22 Methylprednisolone Sod Succ 125 Mg/2 Ml Vial IVPUSH 05/05/23 02:04 60 mg ONCE ONE Administration Ondansetron HCl 4 mg 05/05/23 02:03 05/05/23 02:22 Ondansetron Hcl 4 Mg/2 Ml Vial IVPUSH 05/05/23 02:04 4 mg ONCE ONE Administration Medical Decision Making Medical Decision Making [facility] Narrative: 77 yo female PMH of CHF preserved EF, COPD not on home O2, PPM, afib on coumadin, CKD, PVD, just admitted here 04/21 to 05/03 for respiratory failure due to COPD and COVID - 19, CKD, supratherapeutic INR here with c/o worsening dyspnea and fevers/chills with sputum production she is requiring high flow O2, IV steroids, nebs and her BP is low - she will need gentle hydration given recent CHF exacerbation. At this time empiric antibiotics ordered as well. Possible pneumonia, CHF, COPD, viral syndrome, ACS Differential Diagnosis Differential Diagnoses: The differential diagnosis associated with the presentation includes pneumonia, CHF, COPD Admission/Observation Consideration of admission/observation: Escalation of care including admission/observation considered Lab Data [facility] Lab Attestation statement: I reviewed the patient's lab results. 05/05/23 03:21 05/05/23 03:16 Labs: Lab Results 05/05/23 05/05/23 05/05/23 Range/Units 02:18 02:24 03:16 WBC (4.8-10.8) X10*3/uL RBC (4.20-5.50) X10*6/uL Hgb (12.0-16.0) g/dl Hct (37.0-47.0) % MCV (80.0-98.0) fL MCH (27.0-33.0) pg MCHC (31.0-35.0) g/dl RDW (11.0-16.0) % Plt Count (160-400) X10*3/uL MPV (9.4-12.3) fL Immature Gran % (Auto) (0.0-0.4) % Neut % (Auto) (45-73) % Lymph % (Auto) (20-40) % [place] % (Auto) (2-11) % Eos % (Auto) (0-4) % Baso % (Auto) (0-2) % Lymph # (Auto) (1.2-4.9) X10*3/uL [place] # (Auto) (0.1-1.2) X10*3/uL Eos # (Auto) (0.0-0.4) X10*3/uL Baso # (Auto) (0.0-0.2) X10*3/uL Abs Immat Gran (auto) (0.00-0.03) X10*3/uL Absolute Neuts (auto) (2.0-8.3) x10*3/uL Absolute Nucleated RBC (0.0-0.012) X10*3/uL Nucleated RBC % (auto) (0.0-0.2) /100WBC Smear Tech's Comments PT (11.1-13.3) SEC INR (0.9-1.1) VBG pH 7.55 H (7.32-7.43) VBG pCO2 19 mmHg VBG pO2 106 mmHg VBG HCO3 17 L (22-26) mmol/L VBG O2 Saturation 99.0 % VBG Base Excess -2.0 mmol/L Sodium 141 (135-145) mmol/L Potassium 3.2 L D (3.3-5.1) mmol/L Chloride 106 (96-108) mmol/L Carbon Dioxide 21 L (22-29) mmol/L Anion Gap 17 (12-20) BUN 43 H (9-16) mg/dL Creatinine 2.10 H (0.5-1.4) mg/dL Estim Creat Clear Calc 17.5 Estimated GFR 23 Random Glucose 177 H (60-115) mg/dL Lactic Acid 3.0 H* (0.5-2.0) mmol/L Lactic Acid F/U @ 2Hr (0.5-2.0) mmol/L Calcium 7.3 L D (8.4-10.2) mg/dL Magnesium 1.7 (1.6-2.6) mg/dL Total Bilirubin 1.3 H (0.0-1.0) mg/dL Direct Bilirubin 0.7 H (0.0-0.5) mg/dL AST 74 H (5-31) U/L ALT 135 H (0-31) U/L Alkaline Phosphatase 77 (39-117) U/L Troponin I High Sens 661.3 H* D (<3.5-17.0) ng/L B-Natriuretic Peptide 3094 H (<100) pg/mL Total Protein 5.2 L (6.5-8.0) g/dL Albumin 2.7 L (3.5-5.0) g/dL Lipase 5 L (8-78) U/L Procalcitonin 0.90 ng/mL Influenza Type A (FAMILIA) (Negative) Influenza Type B (FAMILIA) (Negative) Influenza A & B Note 05/05/23 05/05/23 05/05/23 Range/Units 03:20 03:21 03:32 WBC 12.7 H (4.8-10.8) X10*3/uL RBC 4.23 (4.20-5.50) X10*6/uL Hgb 12.9 (12.0-16.0) g/dl Hct 37.7 (37.0-47.0) % MCV 89.1 (80.0-98.0) fL MCH 30.5 (27.0-33.0) pg MCHC 34.2 (31.0-35.0) g/dl RDW 14.3 (11.0-16.0) % Plt Count 98 L D (160-400) X10*3/uL MPV 10.9 (9.4-12.3) fL Immature Gran % (Auto) 1.0 H (0.0-0.4) % Neut % (Auto) 94.5 H (45-73) % Lymph % (Auto) 1.6 L (20-40) % [place] % (Auto) 2.8 (2-11) % Eos % (Auto) 0.0 (0-4) % Baso % (Auto) 0.1 (0-2) % Lymph # (Auto) 0.2 L (1.2-4.9) X10*3/uL [place] # (Auto) 0.4 (0.1-1.2) X10*3/uL Eos # (Auto) 0.0 (0.0-0.4) X10*3/uL Baso # (Auto) 0.0 (0.0-0.2) X10*3/uL Abs Immat Gran (auto) 0.13 H (0.00-0.03) X10*3/uL Absolute Neuts (auto) 12.0 H (2.0-8.3) x10*3/uL Absolute Nucleated RBC 0.000 (0.0-0.012) X10*3/uL Nucleated RBC % (auto) 0.0 (0.0-0.2) /100WBC Smear Tech's Comments VERIFIED PT 36.0 H D (11.1-13.3) SEC INR 3.0 H (0.9-1.1) VBG pH (7.32-7.43) VBG pCO2 mmHg VBG pO2 mmHg VBG HCO3 (22-26) mmol/L VBG O2 Saturation % VBG Base Excess mmol/L Sodium (135-145) mmol/L Potassium (3.3-5.1) mmol/L Chloride (96-108) mmol/L Carbon Dioxide (22-29) mmol/L Anion Gap (12-20) BUN (9-16) mg/dL Creatinine (0.5-1.4) mg/dL Estim Creat Clear Calc Estimated GFR Random Glucose (60-115) mg/dL Lactic Acid (0.5-2.0) mmol/L Lactic Acid F/U @ 2Hr (0.5-2.0) mmol/L Calcium (8.4-10.2) mg/dL Magnesium (1.6-2.6) mg/dL Total Bilirubin (0.0-1.0) mg/dL Direct Bilirubin (0.0-0.5) mg/dL AST (5-31) U/L ALT (0-31) U/L Alkaline Phosphatase (39-117) U/L Troponin I High Sens (<3.5-17.0) ng/L B-Natriuretic Peptide (<100) pg/mL Total Protein (6.5-8.0) g/dL Albumin (3.5-5.0) g/dL Lipase (8-78) U/L Procalcitonin ng/mL Influenza Type A (FAMILIA) Positive A (Negative) Influenza Type B (FAMILIA) Negative (Negative) Influenza A & B Note See Note 05/05/23 Range/Units 06:01 WBC (4.8-10.8) X10*3/uL RBC (4.20-5.50) X10*6/uL Hgb (12.0-16.0) g/dl Hct (37.0-47.0) % MCV (80.0-98.0) fL MCH (27.0-33.0) pg MCHC (31.0-35.0) g/dl RDW (11.0-16.0) % Plt Count (160-400) X10*3/uL MPV (9.4-12.3) fL Immature Gran % (Auto) (0.0-0.4) % Neut % (Auto) (45-73) % Lymph % (Auto) (20-40) % [place] % (Auto) (2-11) % Eos % (Auto) (0-4) % Baso % (Auto) (0-2) % Lymph # (Auto) (1.2-4.9) X10*3/uL [place] # (Auto) (0.1-1.2) X10*3/uL Eos # (Auto) (0.0-0.4) X10*3/uL Baso # (Auto) (0.0-0.2) X10*3/uL Abs Immat Gran (auto) (0.00-0.03) X10*3/uL Absolute Neuts (auto) (2.0-8.3) x10*3/uL Absolute Nucleated RBC (0.0-0.012) X10*3/uL Nucleated RBC % (auto) (0.0-0.2) /100WBC Smear Tech's Comments PT (11.1-13.3) SEC INR (0.9-1.1) VBG pH (7.32-7.43) VBG pCO2 mmHg VBG pO2 mmHg VBG HCO3 (22-26) mmol/L VBG O2 Saturation % VBG Base Excess mmol/L Sodium (135-145) mmol/L Potassium (3.3-5.1) mmol/L Chloride (96-108) mmol/L Carbon Dioxide (22-29) mmol/L Anion Gap (12-20) BUN (9-16) mg/dL Creatinine (0.5-1.4) mg/dL Estim Creat Clear Calc Estimated GFR Random Glucose (60-115) mg/dL Lactic Acid (0.5-2.0) mmol/L Lactic Acid F/U @ 2Hr 2.5 H* (0.5-2.0) mmol/L Calcium (8.4-10.2) mg/dL Magnesium (1.6-2.6) mg/dL Total Bilirubin (0.0-1.0) mg/dL Direct Bilirubin (0.0-0.5) mg/dL AST (5-31) U/L ALT (0-31) U/L Alkaline Phosphatase (39-117) U/L Troponin I High Sens (<3.5-17.0) ng/L B-Natriuretic Peptide (<100) pg/mL Total Protein (6.5-8.0) g/dL Albumin (3.5-5.0) g/dL Lipase (8-78) U/L Procalcitonin ng/mL Influenza Type A (FAMILIA) (Negative) Influenza Type B (FAMILIA) (Negative) Influenza A & B Note Independent Interpretation I performed an independent interpretation of an: EKG and Plain X-Ray Interpretation: Rate: 76 Rhythm: paced Russell: left wide QRS complex. ST T wave : inverted t waves lateral leads no DIOGENES, artifact throughout qTC: 551 prior studies: artifact throughout The study has been interpreted contemporaneously by me. . Radiology Impression Discussion of test interpretation with radiology: I have reviewed the radiologist's reading. Independent Historian Clinical information obtained from an independent historian. History obtained from or confirmed by: EMS External Record Review External record reviewed: Inpatient record Procedures EJ/Peripheral Line Neck R: Time Out Performed: Yes Skin Cleansed in Sterile Fashion: Yes Size (gauge): 18 IV Secured and Dressing Applied: Yes Patient Tolerated Procedure: well and no complications Critical Care Time Critical Care Time Critical Care Time: Yes Total Critical Care Time: 60 Attestation: NIPPV, blood pressure intervention, admission to ICU I attest to this time spent taking care of the patient Discharge Plan Discharge Clinical Impression: Hypoxia, Elevated troponin, Influenza A CHF (congestive heart failure) Qualifiers: Heart failure type: unspecified Heart failure chronicity: acute on chronic Qualified Code(s): I50.9 - Heart failure, unspecified Respiratory failure Qualifiers: Chronicity: acute Respiratory failure complication: hypoxia Qualified Code(s): J96.01 - Acute respiratory failure with hypoxia Patient Disposition: Admitted As Inpatient Sepsis Bolus Exclusion Sepsis Bolus Exclusion CHF/Renal Failure This patient met severe sepsis criteria due to the following condition(s):: Hypotension In my clinical judgement the administration of 30 ml/kg of crystalloid would be detrimental to this patient due to the patient's following conditions:: NYHA class III or IV Heart Failure(symptoms with low exertion or rest), Stage III or IV Chronic Kidney Disease (GFR<30) and Concern for fluid overload Replace the 30 mls/kg with (*zero amount not acceptable): Crystalloids amount given in mls: (rate must be at least 150cc/hr): 500 Colloids amount given in mls:: 200
[2023-05-05] MEDS: ondansetron HCL 4 MG/2 ML VIAL IVPUSH (02:22)
[2023-05-05] MEDS: methylPREDNISolone Sod Succ 125 MG/2 ML VIAL 60 MG IVPUSH (02:22)
[2023-05-05] MEDS: 0.9 % Sodium Chloride 500 ML IV (02:25)
[2023-05-05] MEDS: Albuterol Sulfate 7.5 MG, Albuterol Sulfate (0.083%) 2.5 MG 10 MG INHALE (02:26)
[2023-05-05 02:32] LABS: VBG HCO3 17 mmol/L (22-26); VBG pCO2 19 mmHg; VBG pH 7.55 (7.32-7.43); VBG pO2 106 mmHg
[2023-05-05 02:36] LABS: Venous Blood Gas Refer to POC result
[2023-05-05 02:59] LABS: B Type Natriuretic Peptide 3094 pg/mL (<100)
[2023-05-05] MEDS: Albumin Human 25 % 100 ML 133.33 ML IV ×2 (03:11→03:34)
[2023-05-05] MEDS: cefEPime HCl 1 GM in 0.9 % Sodium Chloride 50 ML IV (03:11)
[2023-05-05 03:28] LABS: Basophils Percent Auto 0.1 % (0-2); Hematocrit 37.7 % (37.0-47.0); Hemoglobin 12.9 g/dl (12.0-16.0); Imm Gran Abs Auto 0.13 X10*3/uL (0.00-0.03); Lymphocytes Absolute Auto 0.2 X10*3/uL (1.2-4.9); Lymphocytes Percent Auto 1.6 % (20-40); MANUAL DIFF FLAG SCAN; Mean Corpuscular HGB Conc 34.2 g/dl (31.0-35.0); Mean Corpuscular Hemoglobin 30.5 pg (27.0-33.0); Mean Corpuscular Volume 89.1 fL (80.0-98.0); Mean Platelet Volume 10.9 fL (9.4-12.3); Monocytes Absolute Auto 0.4 X10*3/uL (0.1-1.2); Monocytes Percent Auto 2.8 % (2-11); Neutrophils Percent Auto 94.5 % (45-73); Red Blood Count 4.23 X10*6/uL (4.20-5.50); Red Cell Distribution Width 14.3 % (11.0-16.0); SCAN SMEAR FLAG 1; White Blood Count 12.7 X10*3/uL (4.8-10.8)
[2023-05-05 03:30] LABS: Platelet Count 98 X10*3/uL (160-400)
[2023-05-05 03:46] LABS: Troponin-I High Sensitivity 661.3 ng/L (<3.5-17.0)
[2023-05-05 03:47] LABS: SLIDE REVIEW VERIFIED
--- NOTE | 2023-05-05 03:47 | PC.NURSE ---
Pt arrived by ambulance, recently d/c with covid and BRIONNA having acute onset sob. Pt O2 was in 60's on non re-breather with fire dept when EMS arrived, 88% c-pap for EMS. Pt placed on high flow by respiratory. Sepsis protocol called by provider. IV # 20 placed in R-forearm. Difficult placement. multiple attempts made to get line and collect labs delaying starting meds. notified and #18 to R-EJ placed. Labs drawn, abx, fluids and albumin administered. flu swab obtained
[2023-05-05 03:48] LABS: Alanine Aminotransferase 135 U/L (0-31); Albumin Level 2.7 g/dL (3.5-5.0); Alkaline Phosphatase 77 U/L (39-117); Anion Gap 17 (12-20); Aspartate Amino Transferase 74 U/L (5-31); Bilirubin Direct 0.7 mg/dL (0.0-0.5); Bilirubin Total 1.3 mg/dL (0.0-1.0); Blood Urea Nitrogen 43 mg/dL (9-16); Calcium 7.3 mg/dL (8.4-10.2); Carbon Dioxide 21 mmol/L (22-29); Chloride 106 mmol/L (96-108); Creatinine Clr Calc Pharmacy 17.5; Estimated Glomerular Filt Rate 23; Glucose Random 177 mg/dL (60-115); Lipase 5 U/L (8-78); Magnesium 1.7 mg/dL (1.6-2.6); Potassium 3.2 mmol/L (3.3-5.1); Sodium 141 mmol/L (135-145); Total Protein 5.2 g/dL (6.5-8.0)
[2023-05-05 03:48] LABS: IDNOW Serial# 08D9AD1C; Influenza A Positive (Negative)
[2023-05-05 03:55] LABS: Influenza B2 Negative (Negative)
[2023-05-05] MEDS: Furosemide 40 MG/4 ML VIAL IVPUSH (04:30)
--- NOTE | 2023-05-05 04:38 | PC.NURSE ---
Tropinin and lactic critically elevated. made aware. BNP critical IV LASIX ORDERED AND ADMINISTERED
--- NOTE | 2023-05-05 04:44 | PC.NURSE ---
Pt O2 sats dropping, 85-90% on high flow RR 25-30. Jordanix given at bedside, decided pt to be placed on bipap. Respiratory aT BEDSIDE.
[2023-05-05 05:23] LABS: Reflex Lactate? Lactic Acid Added
[2023-05-05 06:24] LABS: ~Lactic Acid-LAB USE ONLY 2.5 mmol/L (0.5-2.0)
[2023-05-05] MEDS: Potassium Chloride Packet 20 MEQ PACKET PO (07:41)
--- NOTE | 2023-05-05 07:49 | PC.NURSE ---
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
[2023-05-05 08:05] LABS: Reflex Lactate? 2 Y
[2023-05-05 08:50] LABS: Troponin-I High Sensitivity 667.6 ng/L (<3.5-17.0)
--- NOTE | 2023-05-05 08:54 | PHA.MEDREC ---
Pharmacy Consult ? Medication Reconciliation Pharmacy has completed the medication reconciliation. Patient confirmed medications. Was unsure if she was taking Potassium 20mEq, so not added to list.
--- NOTE | 2023-05-05 09:19 | PC.NURSE ---
report was given to icu, pt unable to go to the floor as there is no admission orders placed yet.
--- NOTE | 2023-05-05 09:35 | PM.CCHP ---
History of Present Illness Date of Service: 05/05/23 Attending physician on admission: Stone Jensen Chief Complaint: Shortness of breath 77-year-old female with underlying hypertrophic cardiomyopathy status post dual-chamber ICD as prophylaxis but also on warfarin presumably for paroxysmal atrial fibrillation underlying COPD 2-week-old diagnosis of COVID-19 infection presents with acute hypoxemic respiratory failure and dyspnea with influenza a and from the chest x-ray appears that she has got a complication of pneumonia but with my bedside echo she clearly has a hypertrophic cardiomyopathy and marked dilatation of the left atrium implying severe restrictive diastolic characteristics with heavy mitral annular calcification but with an opening mitral valve leaflets are there is no critical mitral stenosis but at least moderate mitral regurgitation and there is a normal right ventricular size but significant IVC dilatation with with under 50% inspiratory collapse and a well opening aortic valve so there is no critical aortic stenosis but any opening restriction is due to compromised stroke volume Single-chamber right ventricular pacing with 12 lead EKG all the implying underlying atrial flutter/atrial fibrillation and despite sympathomimetics unable to elevate heart rate through a kasaan mechanism of conduction and remains ventricularly paced at a rate of 70 Still has a a marked increase in the work of breathing Cognitive function/mentation is still well-maintained and she remains communicative Review of Systems Review of Systems: Yes all other systems are reviewed and are negative [facility] Past Medical History Medical History Chronic heart failure with preserved ejection fraction (HFpEF) Mitral valve disease Presence of combination internal cardiac defibrillator (ICD) and pacemaker On anticoagulant therapy On beta bert at home Congestive heart failure Hypertrophic cardiomyopathy Anemia Non-ST elevation [place] (NSTEMI) Pleural effusion on right Fall Cardiac defibrillator in place COPD (chronic obstructive pulmonary disease) Afib History of breast cancer Hypothyroidism Vitamin D deficiency Osteoporosis Mucinous carcinoma of right breast Multinodular thyroid Current use of anticoagulant therapy Family History Family History Father Thrombus Mother Heart disease Surgical History Surgical History History of bilateral tubal ligation History of lumpectomy of right breast AICD (automatic cardioverter/defibrillator) present History of tubal ligation History of automatic internal cardiac defibrillator (AICD) Social History Social History Household Members: Family Household Members Other:: daughter and grandson Housing: Apartment Do you presently have visiting nurse or other home services: Yes Alcohol intake: never Patient Tobacco Use Status: Former Tobacco user Quit Date: 2007 Smoked: 30 +/- Smoked in Last 30 Days: No e-Cigarette/Vaping Use: Never Used Second Hand Smoke Exposure: Yes Use of substances other than those prescribed or required for medical reasons: No Currently Displaying Signs/Symptoms of Drug Intoxication Withdrawal: No Have you been hit, kicked, punched, or otherwise hurt by someone within the past year? If so, by whom?: No Do you feel safe in your current relationship?: No Is there a partner from a previous relationship who is making you feel unsafe now?: No Are you made to feel afraid or neglected: No Advance Directives: Yes Advance Directives on File: Yes Advance Directives Date on File: 07/23/20 Do you have thoughts of harming others: None Do you have a plan to hurt others: No Plan Recently lost weight without trying: Yes How much weight loss: 2-13 pounds Eating poorly because of decreased appetite: Yes Nutrition screen score: 4 Nutrition Risks: Poor intake 0-25% >4 days Patient : No : No Poor oral hygiene: No service: No Current occupational status: retired Cognitive needs: Yes Hearing needs: No Vision needs: Yes Meds Allergies Allergy/AdvReac Type Severity Reaction Status Date / Time doxycycline AdvReac Vomiting Verified 04/20/23 21:54 Active Medications: Current Medications Ropinirole HCl (Ropinirole Hcl 5 Mg Tablet) 5 mg PO BEDTIME [facility]1983 Warfarin Sodium (Warfarin Sodium 2 Mg Tablet) 2 mg PO DAILY FOR[facility] Home Medications Medication Instructions Recorded Confirmed Last Taken Type multivitamin 1 tab PO DAILY 02/03/20 05/05/23 05/04/23 History warfarin 2 mg tablet (Jantoven) 2 mg PO DAILY 05/05/23 05/05/23 05/04/23 History Physical Exam Vital Signs: Vital Signs: Last Vital Signs Temp 99.3 F 05/05/23 07:39 Pulse 70 05/05/23 07:39 Resp 12 05/05/23 07:48 BP 105/54 L 05/05/23 07:39 Pulse Ox 92 05/05/23 07:39 O2 Del Method BiPAP 05/05/23 07:39 BMI result Body Mass Index 24.6 Blood pressures remaining 120-130 systolic with ventricular pacing at a rate of 70 Nonfocal neurologically Coarse bilateral rales with scattered bilateral wheezing Abdomen is soft with no organomegaly Cardiac exam with concentric left ventricular hypertrophy and at think a relative diminution in ejection fraction probably still between 50 and 55% but no primary valve or pericardial disease there is fairly well-preserved right ventricle as well Some degree of peripheral acrocyanosis Results Labs 05/06/23 04:07 05/05/23 03:16 Labs: Laboratory Results - last 24 hr 05/05/23 05/05/23 05/05/23 02:18 02:24 03:16 MCV MCH MCHC RDW Plt Count MPV Immature Gran % (Auto) Neut % (Auto) Lymph % (Auto) [place] % (Auto) Eos % (Auto) Baso % (Auto) Lymph # (Auto) [place] # (Auto) Eos # (Auto) Baso # (Auto) Abs Immat Gran (auto) Absolute Neuts (auto) Absolute Nucleated RBC Nucleated RBC % (auto) Smear Tech's Comments PT INR VBG pH 7.55 H VBG pCO2 19 VBG pO2 106 VBG HCO3 17 L VBG O2 Saturation 99.0 VBG Base Excess -2.0 Anion Gap 17 Estim Creat Clear Calc 17.5 Estimated GFR 23 Random Glucose 177 H Lactic Acid 3.0 H* Lactic Acid F/U @ 2Hr Lactic Acid F/U @ 4Hr Calcium 7.3 L D Magnesium 1.7 Total Bilirubin 1.3 H Direct Bilirubin 0.7 H AST 74 H ALT 135 H Alkaline Phosphatase 77 Troponin I High Sens 661.3 H* D B-Natriuretic Peptide 3094 H Total Protein 5.2 L Albumin 2.7 L Lipase 5 L Procalcitonin 0.90 Influenza Type A (FAMILIA) Influenza Type B (FAMILIA) Influenza A & B Note 05/05/23 05/05/23 05/05/23 03:20 03:21 03:32 MCV 89.1 MCH 30.5 MCHC 34.2 RDW 14.3 Plt Count 98 L D MPV 10.9 Immature Gran % (Auto) 1.0 H Neut % (Auto) 94.5 H Lymph % (Auto) 1.6 L [place] % (Auto) 2.8 Eos % (Auto) 0.0 Baso % (Auto) 0.1 Lymph # (Auto) 0.2 L [place] # (Auto) 0.4 Eos # (Auto) 0.0 Baso # (Auto) 0.0 Abs Immat Gran (auto) 0.13 H Absolute Neuts (auto) 12.0 H Absolute Nucleated RBC 0.000 Nucleated RBC % (auto) 0.0 Smear Tech's Comments VERIFIED PT 36.0 H D INR 3.0 H VBG pH VBG pCO2 VBG pO2 VBG HCO3 VBG O2 Saturation VBG Base Excess Anion Gap Estim Creat Clear Calc Estimated GFR Random Glucose Lactic Acid Lactic Acid F/U @ 2Hr Lactic Acid F/U @ 4Hr Calcium Magnesium Total Bilirubin Direct Bilirubin AST ALT Alkaline Phosphatase Troponin I High Sens B-Natriuretic Peptide Total Protein Albumin Lipase Procalcitonin Influenza Type A (FAMILIA) Positive A Influenza Type B (FAMILIA) Negative Influenza A & B Note See Note 05/05/23 05/05/23 06:01 08:19 MCV MCH MCHC RDW Plt Count MPV Immature Gran % (Auto) Neut % (Auto) Lymph % (Auto) [place] % (Auto) Eos % (Auto) Baso % (Auto) Lymph # (Auto) [place] # (Auto) Eos # (Auto) Baso # (Auto) Abs Immat Gran (auto) Absolute Neuts (auto) Absolute Nucleated RBC Nucleated RBC % (auto) Smear Tech's Comments PT INR VBG pH VBG pCO2 VBG pO2 VBG HCO3 VBG O2 Saturation VBG Base Excess Anion Gap Estim Creat Clear Calc Estimated GFR Random Glucose Lactic Acid Lactic Acid F/U @ 2Hr 2.5 H* Lactic Acid F/U @ 4Hr 2.0 Calcium Magnesium Total Bilirubin Direct Bilirubin AST ALT Alkaline Phosphatase Troponin I High Sens 667.6 H* B-Natriuretic Peptide Total Protein Albumin Lipase Procalcitonin Influenza Type A (FAMILIA) Influenza Type B (FAMILIA) Influenza A & B Note Imaging Radiologist's Impressions: Impressions Chest X-Ray 05/05/23 02:55 IMPRESSION: Cardiomegaly, pulmonary vascular congestion and diffuse bilateral infiltrates most consistent with CHF. Pneumonia considered less likely. Assessment and Plan (1) Critical limb ischemia of left lower extremity: Status: Acute (2) Respiratory failure: Qualifiers: Chronicity: acute Respiratory failure complication: hypoxia Qualified Code(s): J96.01 - Acute respiratory failure with hypoxia Status: Acute (3) Influenza A: Status: Acute (4) CHF (congestive heart failure): Qualifiers: Heart failure chronicity: acute on chronic Heart failure type: unspecified Qualified Code(s): I50.9 - Heart failure, unspecified Status: Acute (5) Elevated troponin: Status: Acute (6) Hypoxia: Status: Acute (7) CKD (chronic kidney disease) stage 3, GFR 30-59 ml/min: Status: Acute (8) Hyperkalemia: Status: Acute (9) Congestive heart failure: Status: Acute (10) COVID-19 virus infection: Status: Acute (11) Supratherapeutic INR: Status: Acute (12) Hypothyroidism: Status: Acute (13) COPD (chronic obstructive pulmonary disease): Qualifiers: COPD type: emphysema Emphysema type: centrilobular Qualified Code(s): J43.2 - Centrilobular emphysema Status: Acute Plan Plan is to intubate if she shows signs of fatigue and we have her on Tamiflu for the influenza given the apparent extent on her chest film as well as protecting the congestive heart failure in and right now I believe it to high output heart failure and we might need to program the pacemaker to a higher rate if she does not develop her own kasaan rhythm and we may introduce sympathomimetics toward that and give her into additional support With elevated procalcitonin I feel that we should at least do an MRSA screen and send off sputum cultures but empirically cover her with with with antibiotics to include clindamycin for staph coverage unless we have a refractory MRSA Total time managing care of this patient today: 120 minutes.
[2023-05-05 09:40] LABS: Influenza A PCR POSITIVE (Negative); Influenza B PCR NEGATIVE (Negative); Resp Syncy Virus RNA Qual PCR NEGATIVE (Negative); SARS COV2 PCR INHOUSE POSITIVE (Negative)
[2023-05-05] MEDS: levoFLOXacin/D5W 500 MG/100 ML PIGGYBACK 100 MG IV (11:00)
[2023-05-05] MEDS: Clindamycin Phosphate/D5W 600 MG/50 ML PIGGYBACK 100 MG IV ×2 (11:01→21:31)
[2023-05-05] MEDS: Oseltamivir Phosphate 30 MG CAPSULE PO (11:02)
[2023-05-05 11:14] LABS: Procalcitonin 2.73 ng/mL
--- NOTE | 2023-05-05 11:49 | HO.SKINPHOTO ---
Location: Right Buttucks Category: Pressure Injury Stage: I
--- NOTE | 2023-05-05 12:12 | PC.NURSE ---
Assumed care at 1000 from ED RN. Pt. Placed back on bipap 02/22 @ 70%. Pt. AOx4, calm and cooperative. SBPs 90s-100s with MAPs sustaining 55-65. MD notified- MAP goal of >55 per MD. Care ongoing.
[2023-05-05 12:34] LABS: Appearance Urine Clear; Color Urine Dark Yellow; Glucose Urine UA Negative (Negative); Leukocyte Esterase Urine Negative (Negative); Nitrite Urine Negative (Negative); PH 5.5 (5.0-9.0); UMIC TRIGGER UACC YES; Urine Blood Small (1+) (Negative); Urine Ketones Negative (Negative); Urine Protein 30 (1+) mg/dL (Neg-Trace)
[2023-05-05 12:40] LABS: Bacteria Urine None Seen (None Seen); Granular Casts Urine Present; Hyaline Casts Urine >20 /LPF (0-2); Squamous Epithelial Cell Urine 0-2 /HPF (0-2); WBC Urine 0-5 /HPF (0-5)
[2023-05-05 13:45] LABS: MRSA Nasal PCR NEGATIVE (Negative); SA Nasal PCR POSITIVE (Negative)
[2023-05-05] MEDS: Albuterol Sulfate (0.083%) 2.5 MG/3 ML VIAL.NEB INHALE ×2 (16:11→19:03)
[2023-05-05] MEDS: Warfarin Sodium 2 MG TABLET PO (17:51)
[2023-05-05] MEDS: Levothyroxine Sodium 100 MCG/5 ML VIAL 25 MCG IVPUSH (17:51)
[2023-05-05 22:04] LABS: VBG Base Excess 1.6 mmol/L; VBG HCO3 25 mmol/L (22-26); VBG pCO2 34 mmHg; VBG pH 7.46 (7.32-7.43); VBG pO2 59 mmHg
[2023-05-05 22:10] LABS: Venous Blood Gas Refer to POC result
--- NOTE | 2023-05-05 22:44 | PC.NURSE ---
Assumed care of patient at 19:00. Patient offers no complaints. Continues with marginal to low urine output via alberto catheter. Discussed with MORTGAGE FIELD INSPECTOR; pt okay for sips as tolerated during po care. Will continue to monitor for remainder of abstract writer's scheduled care.
[2023-05-06] VITALS (52 sets, daily range): BP systolic 78–159; BP diastolic 38–87; PULSE 70–85; RESP 17–32; TEMP 34–39.4; O2SAT 88–96; BMI 18.9; BMI 24.2
--- NOTE | 2023-05-06 02:29 | PC.NURSE ---
Patient continues on bipap, 31/08, rate 12, 70% fio2, as managed by respiratory. Patient tolerating bipap, denies sob. Breathing is observed even and unlabored without distress. Plan of care continues.
--- NOTE | 2023-05-06 03:49 | PC.NURSE ---
Patient left foot noted to be cold to touch compared to right foot on hourly bedside rounding. +DP and PT pulses able to be marked in right foot, unable to located these pulses with doppler in the left foot. Next palpable pulse in LLE is popliteal. Pt also c/o new 10/10 pain with diminished sensation in left foot at this time. CATHETERIZATION LABORATORY TECHNICIAN notified and to bedside to assist with locating pulses. Ultrasound ordered. Hospice Care Consultant made aware and Dr. Day from vascular consulted, awaiting return call at this time.
[2023-05-06 04:18] LABS: VBG Base Excess 2.3 mmol/L; VBG HCO3 25 mmol/L (22-26); VBG pCO2 35 mmHg; VBG pH 7.46 (7.32-7.43); VBG pO2 60 mmHg
[2023-05-06] MEDS: Albuterol Sulfate (0.083%) 2.5 MG/3 ML VIAL.NEB INHALE ×6 (04:23→19:41)
[2023-05-06] MEDS: fentaNYL citrate/PF 100 MCG/2 ML VIAL 25 MCG IVPUSH (04:28)
[2023-05-06 04:38] LABS: Venous Blood Gas Refer to POC result
[2023-05-06 05:11] LABS: Mean Corpuscular HGB Conc 33.3 g/dl (31.0-35.0); Mean Corpuscular Hemoglobin 29.9 pg (27.0-33.0); Mean Corpuscular Volume 89.7 fL (80.0-98.0); Mean Platelet Volume 11.7 fL (9.4-12.3); Red Blood Count 3.68 X10*6/uL (4.20-5.50); Red Cell Distribution Width 14.7 % (11.0-16.0); White Blood Count 15.1 X10*3/uL (4.8-10.8)
[2023-05-06 05:12] LABS: Platelet Count 76 X10*3/uL (160-400)
[2023-05-06] MEDS: Levothyroxine Sodium 100 MCG/5 ML VIAL 25 MCG IVPUSH (05:14)
[2023-05-06 05:19] LABS: Partial Thromboplastin Time 44.5 SEC (26.0-36.8)
[2023-05-06 05:22] LABS: INTERNATIONAL NORM RATIO 5.8 (0.9-1.1)
[2023-05-06] MEDS: propofoL 200 MG/20 ML VIAL 70 MG IVPUSH (05:25)
[2023-05-06] MEDS: Rocuronium Bromide 50 MG/5 ML VIAL 25 MG IVPUSH (05:29)
[2023-05-06] MEDS: propofoL 1,000 MG/100 ML VIAL 9.96 MG IVCONT ×2 (05:30→13:29)
--- NOTE | 2023-05-06 05:36 | W.PM.CCHP ---
Procedures Date of Service Date of Service: 05/06/23 Intubation Intubation Comments: The patient was preoxygenated with BiPAP 100%. ? RSI was carried out with the meds below.? The glottis was easily visualized with 4 GlideScope, and the trachea was intubated with a 7.0 ETT via? indirect video visualization, atraumatic.? BSBE, +CO2, SpO2 maintained.? The tube was secured at 22 cm at the upper lip.The patient tolerated the procedure well with no complications. Consent for Procedure: Elective - informed consent obtained Time out performed: Yes Sedative: propofol Mg given: 70 Paralytic: rocuronium Mg given: 25 Laryngoscope: fiber optic video scope ET tube size: 7 ET tube uncuffed: No Tube secured depth (cm): 22 Tube secured location: lips Tube placement confirmation: visualized tube passing through cords, equal breath sounds bilaterally and confirmation by capnometry Patient tolerated procedure: well and no complications Intubation complications: none
[2023-05-06] MEDS: iohexoL 350 MG/ML 100 ML INFUS..BTL IV (06:25)
--- NOTE | 2023-05-06 07:22 | PC.NURSE ---
Unable to obtain ultrasound overnight, nursing supervisor blood and provider notified. Patient medicated with 25mcg fentanyl for left foot pain per INSURANCE PROFESSIONAL order. Per Dr. Jensen, decision was made to intubate the patient due to respiratory status and increased work of breathing. Pt intubated at 05:30 with 70mg IVP propofol, 25mg of IVP rocuronium, ETT #7 filipino placed at 22cm at the lip. OG tube placed at the same time, clamped per provider. Pt placed on AC-VC vent settings with respiratory (see Vent assessment for full details). Propofol initiated at 30mcg/kg/min, VSS. CXR and CT angio obtained post-intubation as ordered, ETT and OG tube placements verified on imaging. Safety measures in place. See vitals, assessments, and MAR for full details. Handoff report given at 06:45. Dr. Day presented to patient bedside at 07:00.
--- NOTE | 2023-05-06 07:43 | PM.CNGS ---
History of Present Illness Consult details Consult date: 05/06/23 Reason for consult: ischemic leg Narrative: Complex 77-year-old female who was initially admitted on 05/05 for [facility] admit for shortness of breath. Has been anticoagulated with Coumadin for questionable AFib a flutter. She had recent diagnosis of COVID-19. She presented to the ICU with acute hypoxemic respiratory failure and dyspnea with influenza. It appears that there was a complication with pneumonia. Acutely early this morning there was complaints of left leg pain. At that time she was auto anticoagulated with her prior history of Coumadin. Stat CTA was obtained. In the interim she was intubated. She now presents for vascular evaluation regarding this left lower extremity. I was notified about this patient at 04:50 this morning and saw the patient at 06:45 this morning Review of Systems Review of Systems: Yes all other systems are reviewed and are negative Constitutional: Constitutional: Reports no additional constitutional complaints ENT: Reports Normal hearing present Cardiovascular: Cardiovascular: Denies chest pain, Denies chest pain at rest, Denies chest pain with activity and Denies pedal edema Respiratory: Respiratory: Denies cough Gastrointestinal: Gastrointestinal: Denies abdominal pain Musculoskeletal: Musculoskeletal: Denies abnormal gait, Denies muscle cramps and Denies radiating pain into limb Integumentary/Breasts: Skin/Breast: Denies skin ulcer and Denies wounds Neurologic: Reports Normal hearing present and Denies abnormal gait Psychiatric: Psychiatric: Reports no additional psychiatric complaints [facility] Past Medical History Medical History Chronic heart failure with preserved ejection fraction (HFpEF) Mitral valve disease Presence of combination internal cardiac defibrillator (ICD) and pacemaker On anticoagulant therapy On beta bert at home Congestive heart failure Hypertrophic cardiomyopathy Anemia Non-ST elevation AL (NSTEMI) Pleural effusion on right Fall Cardiac defibrillator in place COPD (chronic obstructive pulmonary disease) Afib History of breast cancer Hypothyroidism Vitamin D deficiency Osteoporosis Mucinous carcinoma of right breast Multinodular thyroid Current use of anticoagulant therapy Family History Family History Father Thrombus Mother Heart disease Surgical History Surgical History History of bilateral tubal ligation History of lumpectomy of right breast AICD (automatic cardioverter/defibrillator) present History of tubal ligation History of automatic internal cardiac defibrillator (AICD) Social History Social History Household Members: Family Household Members Other:: daughter and grandson Housing: Apartment Do you presently have visiting nurse or other home services: Yes Alcohol intake: never Patient Tobacco Use Status: Former Tobacco user Quit Date: 2007 Years Smoked: 30 +/- Smoked in Last 30 Days: No e-Cigarette/Vaping Use: Never Used Second Hand Smoke Exposure: Yes Use of substances other than those prescribed or required for medical reasons: No Currently Displaying Signs/Symptoms of Drug Intoxication Withdrawal: No Have you been hit, kicked, punched, or otherwise hurt by someone within the past year? If so, by whom?: No Do you feel safe in your current relationship?: No Is there a partner from a previous relationship who is making you feel unsafe now?: No Are you made to feel afraid or neglected: No Advance Directives: Yes Advance Directives on File: Yes Advance Directives Date on File: 07/23/20 Do you have thoughts of harming others: None Do you have a plan to hurt others: No Plan Recently lost weight without trying: Yes How much weight loss: 2-13 pounds Eating poorly because of decreased appetite: Yes Nutrition screen score: 4 Nutrition Risks: Poor intake 0-25% >4 days Patient : No : No Poor oral hygiene: No service: No Current occupational status: retired Cognitive needs: Yes Hearing needs: No Vision needs: Yes Meds Allergies Allergy/AdvReac Type Severity Reaction Status Date / Time doxycycline AdvReac Vomiting Verified 04/20/23 21:54 Active Medications: Current Medications Albuterol Sulfate (Albuterol Sulfate (0.083%) 2.5 Mg/3 Ml Vial.Neb) 2.5 mg INHALE RQ4H PATIENCE Last Admin: 05/06/23 04:23 Dose: 2.5 mg Chlorhexidine Gluconate (Chlorhexidine Gluc Oral Rinse 15 Ml Mouthwash) 15 ml BUCCAL TID PATIENCE Ceftriaxone Sodium 1 gm/ (Sodium Chloride) 50 mls @ 100 mls/hr IV Q12H PATIENCE Propofol (Diprivan) 1,000 mg in 100 mls @ 0 mls/hr IVCONT .Q0M PATIENCE; Protocol Last Admin: 05/06/23 05:30 Dose: 30 mcg/kg/min, 9.96 mls/hr Levothyroxine Sodium (Levothyroxine Sodium 100 Mcg/5 Ml Vial) 25 mcg IVPUSH DAILY@0600 [facility] Last Admin: 05/06/23 05:14 Dose: 25 mcg Methylprednisolone Sodium Succinate (Methylprednisolone Sod Succ 40 Mg/Ml Vial) 40 mg IVPUSH Q12H [facility] Oseltamivir Phosphate (Oseltamivir Phosphate 30 Mg Capsule) 30 mg PO DAILY [facility] Stop: 05/09/23 08:59 Ropinirole HCl (Ropinirole Hcl 5 Mg Tablet) 5 mg PO BEDTIME [facility] Last Admin: 05/05/23 19:31 Dose: 5 mg Warfarin Sodium (Warfarin Sodium 2 Mg Tablet) 2 mg PO DAILY@1800 [facility] Last Admin: 05/05/23 17:51 Dose: 2 mg Home Medications Medication Instructions Recorded Confirmed Last Taken Type multivitamin 1 tab PO DAILY 02/03/20 05/05/23 05/04/23 History warfarin 2 mg tablet ([facility]) 2 mg PO DAILY 05/05/23 05/05/23 05/04/23 History Physical Exam Vital Signs: Vital Signs: Last Vital Signs Temp 101.1 F H 05/06/23 07:00 Pulse 70 05/06/23 07:00 Resp 17 05/06/23 07:00 BP 131/66 05/06/23 07:00 Pulse Ox 88 L 05/06/23 07:00 O2 Del Method Mechanical Ventil ation 05/06/23 07:00 FiO2 100 05/06/23 07:00 BMI result Body Mass Index 18.9 Const: General: cooperative, healthy appearing and comfortable Orientation/consciousness: oriented to person, oriented to place and oriented to time HEENT: Head: Yes normal to inspection Neck: Neck: Yes normal visual inspection Carotids: no bruits Chest: Chest palpation & inspection: normal inspection of the chest Resp: Effort & Inspection: normal respiratory effort and able to speak in complete sentences Auscultation: clear to auscultation bilaterally, no crackles, no rales, no rhonchi and no wheezes Cardio: Other: Left leg femoral, popliteal monophasic to biphasic signal. No evidence of DP or PT. Rate: regular rate Rhythm: regular rhythm Heart sounds: S1 normal heart sound present and S2 normal heart sound present Bruits: no carotid bruits Peripheral pulses: Peripheral pulses 2+ throughout GI: Inspection: Yes normal to inspection Skin: Wounds: no wounds Hair: normal Neuro: General: oriented to person, oriented to place and oriented to time Cranial nerves: Yes CN's II-XII intact bilaterally and Yes Normal hearing present Cognition (Neuro): normal cognition Motor exam (neuro): 5/5 motor strength present throughout Extrem: Other: venous exam: No significant superficial varicosities or spider telangiectasias, minimal edema General: No clubbing, No cyanosis and No edema Psych: Appearance: grossly normal Mental Status: mental status grossly normal Speech and movement: Normal speech and movement present Results Labs 05/06/23 04:07 05/05/23 03:16 Labs: Abnormal lab results 05/05/23 05/05/23 05/05/23 Range/Units 08:19 08:55 11:27 WBC (4.8-10.8) X10*3/uL RBC (4.20-5.50) X10*6/uL Hgb (12.0-16.0) g/dl Hct (37.0-47.0) % Plt Count (160-400) X10*3/uL PT (11.1-13.3) SEC INR (0.9-1.1) APTT (26.0-36.8) SEC VBG pH (7.32-7.43) Troponin I High Sens 667.6 H* (<3.5-17.0) ng/L Urine Protein 30 (1+) H (Neg-Trace) mg/dL Urine Blood Small (1+) H (Negative) Urine RBC 6-10 H (0-2) /HPF Nasal S. aureus Screen POSITIVE A (Negative) Influenza Type A (PCR) POSITIVE A (Negative) SARS-CoV-2 RNA (RT-PCR) POSITIVE A (Negative) 05/05/23 05/06/23 05/06/23 Range/Units 21:56 04:07 04:11 WBC 15.1 H (4.8-10.8) X10*3/uL RBC 3.68 L (4.20-5.50) X10*6/uL Hgb 11.0 L (12.0-16.0) g/dl Hct 33.0 L (37.0-47.0) % Plt Count 76 L (160-400) X10*3/uL PT 71.0 H D (11.1-13.3) SEC INR 5.8 H* D (0.9-1.1) APTT 44.5 H D (26.0-36.8) SEC VBG pH 7.46 H 7.46 H (7.32-7.43) Troponin I High Sens (<3.5-17.0) ng/L Urine Protein (Neg-Trace) mg/dL Urine Blood (Negative) Urine RBC (0-2) /HPF Nasal S. aureus Screen (Negative) Influenza Type A (PCR) (Negative) SARS-CoV-2 RNA (RT-PCR) (Negative) Short CBC 05/06/23 Range/Units 04:07 WBC 15.1 H (4.8-10.8) X10*3/uL Hgb 11.0 L (12.0-16.0) g/dl Hct 33.0 L (37.0-47.0) % Plt Count 76 L (160-400) X10*3/uL Urine 05/05/23 Range/Units 11:27 Urine Color Dark Yellow Urine Appearance Clear Urine pH 5.5 (5.0-9.0) Ur Specific [place] 1.020 (1.005-1.025) Urine Protein 30 (1+) H (Neg-Trace) mg/dL Urine Glucose (UA) Negative (Negative) mg/dL All other labs normal. Imaging Additional studies: CTA images reviewed. Radiology report not posted yet Assessment and Plan (1) Critical limb ischemia of left lower extremity: Status: Acute Plan In short patient appears to have an acutely ischemic left lower extremity. On preliminary review of the CTA it does appear that there is chronic disease with significant calcifications throughout the common femoral on through the SFA. Do appreciate flow with present three-vessel below-knee runoff. The amount of runoff is difficult to ascertain. It does appear to acutely cut off at the ankle. Official read unavailable. Unfortunately she has multiple medical issues at the current time and is currently intubated and sedated secondary to acute respiratory failure. She is auto anticoagulated with an INR of 5.8. At the current time would only recommend conservative measures. The ischemic foot may be multifactorial due to sepsis poor cardiac output in the setting of congestive heart failure in addition to chronic peripheral vascular disease and the low-flow state created by her overall medical status. And unfortunately due to her status no intervention at the current time. Would ideally keep INR between the 2-3 range. If it does fall below the 2 range would start heparin. Would observe and see where the foot demarcate. If the patient should improve from her overall condition may require amputation at that point. We will continue to follow with you. Total time managing care of this patient today: 60 minutes. Procedures Date of Service Date of Service: 05/06/23
[2023-05-06] MEDS: methylPREDNISolone Sod Succ 40 MG/ML VIAL IVPUSH ×2 (07:49→18:14)
[2023-05-06] MEDS: Chlorhexidine Gluc Oral Rinse 15 ML MOUTHWASH BUCCAL ×3 (07:49→19:45)
[2023-05-06] MEDS: cefTRIAXone sodium 1 GM in 0.9 % Sodium Chloride 50 ML IV (07:49)
[2023-05-06] MEDS: Oseltamivir Phosphate 30 MG CAPSULE PO (07:50)
[2023-05-06] MEDS: DOBUTamine HCL/D5W 500 MG/250 ML IV.SOLN IVCONT (09:10)
--- NOTE | 2023-05-06 11:30 | MHC.CM.PN ---
IMM 05/06/23 FEMALE 77 DX ACUTE HYPOXIC RESPIRATORY FAILURE INTUBATED IN ICU LIVES WITH DTR+GRSON USES A WALKER. REQUIRES ASSIST ADLS HCP ON FILE. DP LIKELY STR. VIA BLS PATIENT HAS FREQUENT ADMISSIONS DISPO HAS BEEN HOME
--- NOTE | 2023-05-06 11:46 | PC.NURSE ---
Addendum entered by Suzanne Mccullough RN 05/06/23 19:03: Dobutamine titrated to 15 mcg/kg/min, max rate per accounts receivable assistant. UO continues to decrease, no UO from 1400 to end of this RNs shift (0)-MD notified. SBPs decreasing to 70s, MAPs 45-55- MD notified, levophed gtt started and titrated per EMAR. MAP goal reverted to >65 per MD. MAPs sustaining >65. Dobutamine gtt titrated off and d/c'd per MD. Bilateral feet continue to be cyanotic and cold, no dorsalis pedis/posterior tibial pulses present on either side on reassessments. Next palpable pulses are popliteal bilaterally- MD aware. Tmax 103.3 via core temp probe. MD notified, IV tylenol 1g administered with no effect. Pt. placed on cooling blanket. Current VS temp 99.9, BP 115/59 (71), HR 84, O2 95% on 100% FiO2. Family called and updated by spencer CH at bedside and updated by this RN. Q2 oral care and repositioning performed. Report given to Carol ALBERT. Original Note: Assumed care at 0700- On assessment pt. Left foot noted to by cyanotic and cold. Unable to obtain left dorsalis pedis/posterior tibial pulses with doppler. Right dorsalis pedis/posterior tibial pulses obtained via doppler. Dr. Day at bedside to evaluate pt- see report. HR sustaining 70s V-paced, SBP sustaining 120s-130s MAPs >65. UO noted to be about 10cc/hr- MD notified. Dobuatmine gtt started per MD, titrated per EMAR. Pt. core temp up to 101.9- MD notified, no new orders at this time. at 1100 pt. right foot noted to also be cyanotic and cold- both feet with increased capillary refill time. Unable to obtain bilateral dorsalis pedis/posterior tibial pulses via doppler.- MD notified, no new orders at this time. Care ongoing.
[2023-05-06] MEDS: Clindamycin Phosphate/D5W 600 MG/50 ML PIGGYBACK 100 MG IV (12:22)
--- NOTE | 2023-05-06 13:30 | PM.CCPN ---
Subjective Subjective Date of Service: 05/06/23 Interval History: 77-year-old female with hypertrophic cardiomyopathy and chronic atrial fibrillation/atrial flutter single-chamber pacing defibrillator who had recently had COVID and now presents with acute influenza pneumonitis as well as persistent COVID and what appears to be a septic picture with with strong potential for secondary bacterial superinfection with either strep or staph for which he is now being covered but also in the combination of septic and cardiogenic shock high-output heart failure and very difficult to compensate for I since programmed her heart rate to ventricular pacing at a rate of 85 on through this Medtronic unit that she has and crust is no sign of any koi conduction that I could see and that might have been because of amiodarone suppression long-term and I had stopped on admission the amiodarone In the release and technical records clerk I saw her at about 3-330 she developed increasing peripheral acrocyanosis but then a painful and cold left foot when I had much diminished pulses on the left side I Doppler through my echo machine so the disparity with better inflow and better adeno appearing vessel lumen on the right-sided system diminished on the on the left and we did a CT angiogram with peripheral runoff demonstrating that she has diffuse heavily calcified vascular disease there are vessels down to the ankle but poorly so on the foot itself and it looks like this is a relatively low-flow issue in general but with worse distal vasculature on the left side and before we sedated her to intubate her so that we could send her for the CT scan in a stable state because she was desaturating she had good motor capability on the left foot so hopefully if we can preserve her it will remain viable but we have concerns both for renal function because of the contrast which we had no choice with to define the vascular insufficiency that was potentially limb threatening and she did have a vascular consult who agree that no intervention and this was all low-flow and is simply needs to be observed Critical Care Time (minutes): 60 Physical Exam Vital Signs: Vital Signs: Last Vital Signs Temp 101.7 F H 05/06/23 13:00 Pulse 84 05/06/23 13:00 Resp 22 H 05/06/23 13:00 BP 94/47 L 05/06/23 13:00 Pulse Ox 95 05/06/23 13:00 O2 Del Method Mechanical Ventil ation 05/06/23 13:00 FiO2 100 05/06/23 13:00 BMI result Body Mass Index 18.9 Now sedated and intubated and on an FiO2 of 100% and oxygen saturations are 95% but on very full support with increased PEEP She went to sleep having had good cognitive function and now vital signs with a pressure of 100/54 and a mean pressure of 66 respiratory rate of 20 Bedside echo again with concentric left ventricular hypertrophy small ventricle relative reduction of systolic reserve and significant biatrial enlargement with inferior vena caval distension of course lack of inspiratory response on the ventilator-no central line because of the INR at 5.6 Objective Data Labs 05/06/23 04:07 05/05/23 03:16 Labs: Laboratory Results - last 24 hr 05/05/23 05/05/23 05/06/23 11:27 21:56 04:07 WBC 15.1 H RBC 3.68 L Hgb 11.0 L Hct 33.0 L MCV 89.7 MCH 29.9 MCHC 33.3 RDW 14.7 Plt Count 76 L MPV 11.7 Absolute Nucleated RBC 0.000 Nucleated RBC % (auto) 0.0 PT 71.0 H D INR 5.8 H* D APTT 44.5 H D VBG pH 7.46 H VBG pCO2 34 VBG pO2 59 VBG HCO3 25 VBG O2 Saturation 91.0 VBG Base Excess 1.6 Nasal Screen MRSA (PCR) NEGATIVE Nasal S. aureus Screen POSITIVE A Nasal MRSA/S.aureus Interp SEE NOTE 05/06/23 04:11 WBC RBC Hgb Hct MCV MCH MCHC RDW Plt Count MPV Absolute Nucleated RBC Nucleated RBC % (auto) PT INR APTT VBG pH 7.46 H VBG pCO2 35 VBG pO2 60 VBG HCO3 25 VBG O2 Saturation 91.0 VBG Base Excess 2.3 Nasal Screen MRSA (PCR) Nasal S. aureus Screen Nasal MRSA/S.aureus Interp Microbiology Microbiology Results: Microbiology 05/06/23 08:21 Sputum - Suctioned Gram Stain - Final 05/05/23 03:15 Blood - Arterial Line Blood Culture - Preliminary No growth after 24 hours. 05/05/23 03:14 Blood - Arterial Line Blood Culture - Preliminary No growth after 24 hours. Progress Note: A&P Assessment and plan (1) Critical limb ischemia of left lower extremity: Status: Acute (2) Respiratory failure: Status: Acute (3) Influenza A: Status: Acute (4) CHF (congestive heart failure): Status: Acute (5) Elevated troponin: Status: Acute (6) Septic shock: Status: Acute (7) Cardiogenic shock: Status: Acute (8) COVID-19 virus infection: Status: Acute (9) Congestive heart failure: Status: Acute (10) Hyperkalemia: Status: Acute (11) CKD (chronic kidney disease) stage 3, GFR 30-59 ml/min: Status: Acute (12) Hypoxia: Status: Acute (13) Elevated troponin: Status: Acute (14) Supratherapeutic INR: Status: Acute (15) Mitral valve disease: Status: Acute (16) Afib: Status: Acute (17) PVD (peripheral vascular disease): Status: Acute (18) Cardiac defibrillator in place: Status: Acute (19) BRIONNA (acute kidney injury): Status: Acute (20) Hypertrophic cardiomyopathy: Status: Acute (21) Hypothyroidism: Status: Acute (22) COPD (chronic obstructive pulmonary disease): Status: Acute Plan So we have combined septic and cardiogenic shock with influenza pneumonia high output congestive heart failure chronic persistent atrial fibrillation bilateral peripheral limb ischemia but worse and potentially limb threatening on the left side defined by vascular surgery as well as myself intubated on maximum support and currently on IV dobutamine and reprogrammed pacing the at the rate of 85 without anything else in particular to offer for support at at this point and prognosis unfortunately appears to be fairly grim there is progressive worsening of her chest x-ray as further objective evidence Quality Stroke Does the patient have a stroke diagnosis?: No VTE Prior VTE?: No VTE Risk Level:: Medical - moderate - high VTE Device Contraindication: N/A - Device Ordered VTE Drug Contraindication: N/A - Med Ordered
[2023-05-06] MEDS: Norepinephrine Bitartrate/D5W 8 MG/250 ML PLAST..BAG 3.98 MG IV (15:55)
[2023-05-06] MEDS: Acetaminophen 1,000 MG/100 ML PIGGYBACK 400 MG IV (16:09)
--- NOTE | 2023-05-06 19:38 | P.PCNCC_ITS ---
Procedures Date of Service Date of Service: 05/06/23 Intubation Intubation Comments: The patient was desaturating with any movement despite despite BiPAP 80% FiO2. She required a CT angiogram with peripheral runoff due to absence of pulse, pain, and a cold left foot. She consented to intubation. At 0530, she was preoxygenated with BiPAP 100%. RSI was carried out with the meds below.? The glottis was easily visualized with 4 GlideScope, and the trac hea was intubated with a 7.0 ETT via? indirect video visualization, atraumatic.? BSBE, +CO2, SpO2 maintained.? The tube was secured at 22 cm at the upper lip. The patient tolerated the procedure well with no complications.? Placement confirmed with chest x-ray. Consent for Procedure: Elective - informed consent obtained Time out performed: Yes Sedative: propofol Mg given: 70 Paralytic: rocuronium Mg given: 25 Laryngoscope: fiber optic video scope ET tube size: 7 ET tube uncuffed: No Tube secured depth (cm): 22 Tube secured location: lips Tube placement confirmation: visualized tube passing through cords, equal breath sounds bilaterally and confirmation by capnometry Patient tolerated procedure: well and no complications
[2023-05-06] MEDS: propofoL 1,000 MG/100 ML VIAL 6.64 MG IVCONT (21:37)
[2023-05-07] VITALS (44 sets, daily range): BP systolic 98–127; BP diastolic 49–66; PULSE 84–86; RESP 15–28; TEMP 34–38.5; O2SAT 90–99; BMI 25.2
[2023-05-07] MEDS: Albuterol Sulfate (0.083%) 2.5 MG/3 ML VIAL.NEB INHALE ×7 (02:11→23:43)
[2023-05-07] MEDS: Norepinephrine Bitartrate/D5W 8 MG/250 ML PLAST..BAG 21.52 MG IV ×3 (02:16→20:09)
[2023-05-07] MEDS: fentaNYL citrate/PF 100 MCG/2 ML VIAL 50 MCG IVPUSH (02:16)
[2023-05-07 04:42] LABS: Basophils Percent Auto 0.1 % (0-2); Hematocrit 39.3 % (37.0-47.0); Hemoglobin 12.6 g/dl (12.0-16.0); Imm Gran Abs Auto 0.41 X10*3/uL (0.00-0.03); Imm Gran Pct Auto 1.8 % (0.0-0.4); Lymphocytes Absolute Auto 0.2 X10*3/uL (1.2-4.9); Lymphocytes Percent Auto 0.9 % (20-40); MANUAL DIFF FLAG SCAN; Mean Corpuscular HGB Conc 32.1 g/dl (31.0-35.0); Mean Corpuscular Hemoglobin 30.4 pg (27.0-33.0); Mean Corpuscular Volume 94.7 fL (80.0-98.0); Mean Platelet Volume 11.1 fL (9.4-12.3); Monocytes Absolute Auto 0.4 X10*3/uL (0.1-1.2); NRBC Pct Auto 0.1 /100WBC (0.0-0.2); Neutrophils Absolute Auto 21.3 x10*3/uL (2.0-8.3); Neutrophils Percent Auto 95.2 % (45-73); Platelet Count 99 X10*3/uL (160-400); Red Blood Count 4.15 X10*6/uL (4.20-5.50); Red Cell Distribution Width 15.7 % (11.0-16.0); SCAN SMEAR FLAG 1; White Blood Count 22.4 X10*3/uL (4.8-10.8)
[2023-05-07 04:43] LABS: VBG Base Excess -2.9 mmol/L; VBG HCO3 23 mmol/L (22-26); VBG pCO2 45 mmHg; VBG pH 7.31 (7.32-7.43); VBG pO2 195 mmHg
[2023-05-07 04:43] LABS: Venous Blood Gas Refer to POC result
[2023-05-07 05:03] LABS: Alanine Aminotransferase 470 U/L (0-31); Albumin Level 3.1 g/dL (3.5-5.0); Alkaline Phosphatase 123 U/L (39-117); Anion Gap 18 (12-20); Aspartate Amino Transferase 483 U/L (5-31); Bilirubin Total 1.3 mg/dL (0.0-1.0); Blood Urea Nitrogen 78 mg/dL (9-16); Calcium 7.7 mg/dL (8.4-10.2); Carbon Dioxide 21 mmol/L (22-29); Chloride 101 mmol/L (96-108); Creatinine Clr Calc Pharmacy 8.1; Estimated Glomerular Filt Rate 9; Glucose Random 215 mg/dL (60-115); Magnesium 2.2 mg/dL (1.6-2.6); Phosphorus 6.4 mg/dL (2.7-4.5); Potassium 4.5 mmol/L (3.3-5.1); Sodium 135 mmol/L (135-145); Total Protein 5.6 g/dL (6.5-8.0)
[2023-05-07 05:05] LABS: SLIDE REVIEW VERIFIED
[2023-05-07] MEDS: methylPREDNISolone Sod Succ 40 MG/ML VIAL IVPUSH ×2 (05:54→17:15)
[2023-05-07] MEDS: Levothyroxine Sodium 100 MCG/5 ML VIAL 25 MCG IVPUSH (05:54)
[2023-05-07 06:32] LABS: Partial Thromboplastin Time 54.1 SEC (26.0-36.8)
[2023-05-07 06:36] LABS: Prothrombin Time 175.4 SEC (11.1-13.3)
--- NOTE | 2023-05-07 06:47 | PC.NURSE ---
Assumed care of patient at 19:00, 05/06. Continues on airborne and contact precautions for +covid and flu. Patient remains intubated and sedated. Fio2 decreased to 80% by respiratory after reviewing morning VBG/o2 with Amberly Banda NP. Other vent settings continue as were on assuming care. Pt tolerating settings. Levophed gtt continues at 0.27mcg/kg/min with BP maintained for map >65 per med protocol. Tmax 100.5 core via alberto, intermittently on cooling blanket on low setting with +effect. Pt medicated with 50mcg fentanyl IVP x1 with +effect. See EMAR, RASS, and vent assessments for full details. Pt remains v-paced on tele HR 84. Pt bilateral feet remain cyanotic to the ankle, marked with a skin marker at cool versus warm level. Palpable popliteal pulses bilaterally, LAP WINDING MACHINE OPERATOR aware. Pt tolerating tube feeds advanced to goal 40ml/hr with water q4h as ordered via OG tube. No n/v, residuals max 10ml. Patient remains oliguric with total UOP 15ml, more dior with some new sediment noted this morning. LAP WINDING MACHINE OPERATOR made aware of this in addition to critical creatinine back this morning at 4.61. CT chest and abdomen orders in this morning. Q2h po care and repositioning provided. Pt continues on air loss mattress. Handoff report given at 06:45.
[2023-05-07 06:52] LABS: INTERNATIONAL NORM RATIO 14.4 (0.9-1.1)
[2023-05-07] MEDS: cefTRIAXone sodium 1 GM in 0.9 % Sodium Chloride 50 ML IV (07:40)
[2023-05-07] MEDS: Oseltamivir Phosphate 30 MG CAPSULE PO (07:41)
[2023-05-07] MEDS: Chlorhexidine Gluc Oral Rinse 15 ML MOUTHWASH BUCCAL ×3 (07:41→20:08)
[2023-05-07] MEDS: propofoL 1,000 MG/100 ML VIAL 9.96 MG IVCONT ×3 (07:55→20:08)
[2023-05-07] MEDS: levoFLOXacin/D5W 500 MG/100 ML PIGGYBACK 100 MG IV (12:17)
--- NOTE | 2023-05-07 17:50 | W.PM.CCHP ---
Procedures Date of Service Date of Service: 05/07/23 Central Line Placement Right IJ: Central Line Comments: Because of 48 hours of an urea with creatinine elevating to greater than 4 consistent with acute end-stage 5 renal failure central line placement for the purpose of measuring CVP for volume status and to help with the indication to dialyze was was placed via the right internal jugular vein today without complication Using sonographic guidance easy visualization of the right internal jugular vein very quick easy single entry into the vein following the use of 2 units of fresh frozen plasma because of elevated prothrombin time there was no evidence of of bleeding and was able to pass retrograde with Seldinger technique a J tipped guidewire over which a 16 cm length central venous pressure triple-lumen catheter was placed with tip in the right atrium corroborated by chest x-ray without complication Mean right atrial pressure was 13 and given the the no her chronic cor pulmonale and the acute on chronic presentation we felt that this represented in all likelihood still a euvolemic state Consent for Procedure: Elective - informed consent obtained Time out performed: Yes Sterile Technique Used: Yes Patient placed on monitor/pulse ox: Yes prep: mask, gown and gloves Central line prep: Chlorhexidine scrub Ultrasound used for placement: Yes Central line lumen inserted: triple Post procedure: sutured in place, good blood return, all ports aspirated, flushed, capped and sterile dressing applied Post procedure x-ray: tip of catheter in good position and no pneumothorax seen Patient tolerated procedure: well and no complications Complications: none
--- NOTE | 2023-05-07 17:55 | P.PNCC_ITS ---
Subjective Subjective Date of Service: 05/07/23 Interval History: 77-year-old female who was recently discharged from the hospital following an acute COVID infection and was discharged on home oxygen came back within several days this time with increasing shortness of breath and weakness fatigue noted to be influenza A positive and had extensive bilateral pneumonia with acute hypoxic respiratory failure marked increase in in work of breathing and initially needed to be supported for oxygenation on BiPAP and FiO2 of 100% and was continuing to desaturate requiring intubation CT scan shows a an ARDS like picture with extensive bilateral ground-glass infiltration and consolidation multilobar involvement and clinically appearing to be in septic shock with with development of dense bilateral acrocyanosis mostly of both feet to the point where we we thought she might have had an embolic event because there was definitely a cold left foot in significant disparity to the right and we noted that with CT angiogram and peripheral runoff that she did have all 3 distal vessels patent bilaterally below the knee except there was no evidence of any vessels to the left foot and she appeared to be in high output failure with a low-flow state in this situation and also developed an urea with progressive worsening of her renal function and then required initially dobutamine and then finally Levophed for blood pressure support as she does have by bedside echo evidence of biventricular but predominant right heart dysfunction concentric left ventricular hypertrophy with reduced systolic and diastolic reserve She has had presence of a single-chamber pacing defibrillator with the lead tip in the right ventricle a rate of 70 I because there was no [place] conduction I had to program her heart rate up to 85 this is a [employer] device CVP placement today because of progressive renal failure currently stage 5 acute on chronic disease showed a CVP of 13 so I felt that this was not a generally fluid overloaded state and did not have an acute need for dialysis today but the family is aware that this need may develop within the next 24-48 hours We have covered her with antibiotics because of the septic picture with elevated procalcitonin greater than 2.7 and today we found that she had Gram-positive rods 1/2 bottles and it was a zev bacterial species and so she is on antibiotic coverage which included a a dose after 48 hours of Levaquin Critical Care Time (minutes): 60 Physical Exam 2 Vital Signs: Vital Signs: Last Vital Signs Temp 101.3 F H 05/07/23 17:00 Pulse 84 05/07/23 17:00 Resp 20 05/07/23 17:00 BP 102/52 L 05/07/23 17:00 Pulse Ox 96 05/07/23 17:00 O2 Del Method Mechanical Ventil ation 05/07/23 17:00 FiO2 80 05/07/23 17:00 BMI result Body Mass Index 25.2 Her vital signs are stable with a very stable dose of Levophed 100% ventricularly paced at a rate of 85 oxygen saturation on FiO2 70% is now 95% She has a positive neck vein distension palpable bilateral carotid upstrokes palpable tricuspid regurgitation in her jugular venous pulse Abdomen is soft with no organomegaly tolerating feedings Lungs with scattered coarse bilateral rales but no adventitious sounds no diaphragmatic effort Dense bilateral acrocyanosis Normal lactic acid now even though she has developing a slightly progressive negative base excess Objective Data Labs 05/07/23 04:30 05/07/23 04:30 Labs: Laboratory Results - last 24 hr 05/07/23 05/07/23 05/07/23 04:30 04:37 06:08 WBC 22.4 H RBC 4.15 L Hgb 12.6 Hct 39.3 MCV 94.7 D MCH 30.4 MCHC 32.1 RDW 15.7 Plt Count 99 L D MPV 11.1 Immature Gran % (Auto) 1.8 H Neut % (Auto) 95.2 H Lymph % (Auto) 0.9 L [place] % (Auto) 2.0 Eos % (Auto) 0.0 Baso % (Auto) 0.1 Lymph # (Auto) 0.2 L [place] # (Auto) 0.4 Eos # (Auto) 0.0 Baso # (Auto) 0.0 Abs Immat Gran (auto) 0.41 H Absolute Neuts (auto) 21.3 H Absolute Nucleated RBC 0.020 H Nucleated RBC % (auto) 0.1 Smear Tech's Comments VERIFIED PT 175.4 H D INR 14.4 H* D APTT 54.1 H D VBG pH 7.31 L VBG pCO2 45 VBG pO2 195 VBG HCO3 23 VBG O2 Saturation 99.0 VBG Base Excess -2.9 Sodium 135 Potassium 4.5 D Chloride 101 Carbon Dioxide 21 L Anion Gap 18 BUN 78 H Creatinine 4.61 H* Estim Creat Clear Calc 8.1 Estimated GFR 9 Random Glucose 215 H Lactic Acid Calcium 7.7 L Phosphorus 6.4 H Magnesium 2.2 Total Bilirubin 1.3 H AST 483 H ALT 470 H Alkaline Phosphatase 123 H Total Protein 5.6 L Albumin 3.1 L Blood Type Antibody Screen 05/07/23 08:07 WBC RBC Hgb Hct MCV MCH MCHC RDW Plt Count MPV Immature Gran % (Auto) Neut % (Auto) Lymph % (Auto) [place] % (Auto) Eos % (Auto) Baso % (Auto) Lymph # (Auto) [place] # (Auto) Eos # (Auto) Baso # (Auto) Abs Immat Gran (auto) Absolute Neuts (auto) Absolute Nucleated RBC Nucleated RBC % (auto) Smear Tech's Comments PT INR APTT VBG pH VBG pCO2 VBG pO2 VBG HCO3 VBG O2 Saturation VBG Base Excess Sodium Potassium Chloride Carbon Dioxide Anion Gap BUN Creatinine Estim Creat Clear Calc Estimated GFR Random Glucose Lactic Acid 1.0 Calcium Phosphorus Magnesium Total Bilirubin AST ALT Alkaline Phosphatase Total Protein Albumin Blood Type O Positive Antibody Screen NEGATIVE Microbiology Microbiology Results: Microbiology 05/05/23 03:14 Blood - Arterial Line Blood Culture - Final Corynebacterium species 05/06/23 08:21 Sputum - Suctioned Gram Stain - Final 05/06/23 08:21 Sputum - Suctioned Sputum Culture - Preliminary No growth to date. 05/05/23 03:15 Blood - Arterial Line Blood Culture - Preliminary No growth after 48 hours. Progress Note: A&P Assessment and plan (1) Cardiogenic shock: Status: Acute (2) Septic shock: Status: Acute (3) Critical limb ischemia of left lower extremity: Status: Acute (4) Respiratory failure: Status: Acute (5) Influenza A: Status: Acute (6) CHF (congestive heart failure): Status: Acute (7) Elevated troponin: Status: Acute (8) Hypoxia: Status: Acute (9) CKD (chronic kidney disease) stage 3, GFR 30-59 ml/min: Status: Acute (10) Hyperkalemia: Status: Acute (11) Congestive heart failure: Status: Acute (12) COVID-19 virus infection: Status: Acute (13) Elevated troponin: Status: Acute (14) Supratherapeutic INR: Status: Acute (15) Chronic heart failure with preserved ejection fraction (HFpEF): Status: Acute (16) Mitral valve disease: Status: Acute (17) Afib: Status: Acute (18) Supratherapeutic INR: Status: Acute (19) PVD (peripheral vascular disease): Status: Acute (20) BRIONNA (acute kidney injury): Status: Acute (21) Cardiac defibrillator in place: Status: Acute (22) Hypertrophic cardiomyopathy: Status: Acute (23) Hypothyroidism: Status: Acute (24) COPD (chronic obstructive pulmonary disease): Status: Acute (25) Anemia: Status: Acute (26) Vitamin D deficiency: Status: Acute (27) Gram-positive bacteremia: Status: Acute Plan 77-year-old female just recently status post COVID-19 infection presents with influenza a possibly bilateral pneumonitis with acute hypoxic respiratory failure requiring intubation clinically septic and cardiogenic shock because she has chronic hypertrophic cardiomyopathy with reduced systolic reserve biventricular but predominant right heart failure now with a CVP of 13 deemed to be indicative of euvolemic filling pressure and has developed acute renal failure ischemic dysfunction of both lower extremities with because of diffuse disease and a low-flow state evidence of transaminitis probably on an ischemic basis from a low-flow state as well as some diffuse bowel thickening which I believe is probably indicative of some low low-flow problems as well and has a grave prognosis because of multi organ failure is on appropriate antibiotic coverage adeno for her Gram-positive [place] bacteremia and has been on Tamiflu ever since she presented with the influenza and family understands and agrees with current treatment but says that her her basic wishes were not to be artificially lie sustain for prolonged amount of time so they will be ongoing discussion and they understand that that might yet be in need for dialysis to which they consent before making final decisions Quality Stroke Does the patient have a stroke diagnosis?: No VTE Prior VTE?: No VTE Risk Level:: Medical - moderate - high VTE Device Contraindication: N/A - Device Ordered VTE Drug Contraindication: N/A - Med Ordered
[2023-05-08] VITALS (35 sets, daily range): BP systolic 94–115; BP diastolic 51–61; PULSE 84–85; RESP 17–24; TEMP 34.7–39; O2SAT 90–100; BMI 25.5
[2023-05-08] MEDS: propofoL 1,000 MG/100 ML VIAL 9.96 MG IVCONT ×3 (03:45→20:52)
[2023-05-08] MEDS: Albuterol Sulfate (0.083%) 2.5 MG/3 ML VIAL.NEB INHALE ×5 (04:15→21:29)
[2023-05-08 04:53] LABS: VBG Base Excess -4.3 mmol/L; VBG HCO3 23 mmol/L (22-26); VBG pCO2 55 mmHg; VBG pH 7.23 (7.32-7.43); VBG pO2 36 mmHg
[2023-05-08 04:54] LABS: Venous Blood Gas Refer to POC result
[2023-05-08] MEDS: Levothyroxine Sodium 100 MCG/5 ML VIAL 25 MCG IVPUSH (05:28)
[2023-05-08] MEDS: Norepinephrine Bitartrate/D5W 8 MG/250 ML PLAST..BAG 23.11 MG IV (05:29)
[2023-05-08] MEDS: methylPREDNISolone Sod Succ 40 MG/ML VIAL IVPUSH ×2 (05:29→18:21)
[2023-05-08 05:46] LABS: Basophils Percent Auto 0.2 % (0-2); Hematocrit 35.7 % (37.0-47.0); Hemoglobin 11.6 g/dl (12.0-16.0); Imm Gran Abs Auto 0.45 X10*3/uL (0.00-0.03); Imm Gran Pct Auto 1.9 % (0.0-0.4); Lymphocytes Absolute Auto 0.2 X10*3/uL (1.2-4.9); Lymphocytes Percent Auto 0.7 % (20-40); MANUAL DIFF FLAG SCAN; Mean Corpuscular HGB Conc 32.5 g/dl (31.0-35.0); Mean Corpuscular Volume 95.5 fL (80.0-98.0); Mean Platelet Volume 11.9 fL (9.4-12.3); Monocytes Absolute Auto 0.6 X10*3/uL (0.1-1.2); Monocytes Percent Auto 2.4 % (2-11); NRBC Pct Auto 0.6 /100WBC (0.0-0.2); Neutrophils Absolute Auto 22.1 x10*3/uL (2.0-8.3); Neutrophils Percent Auto 94.8 % (45-73); Red Blood Count 3.74 X10*6/uL (4.20-5.50); Red Cell Distribution Width 15.8 % (11.0-16.0); SCAN SMEAR FLAG 1; White Blood Count 23.3 X10*3/uL (4.8-10.8)
[2023-05-08 05:48] LABS: Platelet Count 88 X10*3/uL (160-400)
[2023-05-08 05:54] LABS: Partial Thromboplastin Time 43.2 SEC (26.0-36.8)
[2023-05-08 05:57] LABS: Prothrombin Time 73.9 SEC (11.1-13.3)
[2023-05-08 06:00] LABS: INTERNATIONAL NORM RATIO 6.1 (0.9-1.1)
[2023-05-08 06:09] LABS: Alanine Aminotransferase 553 U/L (0-31); Albumin Level 3.1 g/dL (3.5-5.0); Alkaline Phosphatase 116 U/L (39-117); Anion Gap 17 (12-20); Aspartate Amino Transferase 346 U/L (5-31); Bilirubin Total 0.9 mg/dL (0.0-1.0); Blood Urea Nitrogen 103 mg/dL (9-16); Calcium 7.6 mg/dL (8.4-10.2); Carbon Dioxide 23 mmol/L (22-29); Chloride 94 mmol/L (96-108); Creatinine Clr Calc Pharmacy 6.5; Estimated Glomerular Filt Rate 7; Glucose Random 266 mg/dL (60-115); Magnesium 2.4 mg/dL (1.6-2.6); Phosphorus 6.2 mg/dL (2.7-4.5); Potassium 4.7 mmol/L (3.3-5.1); Sodium 129 mmol/L (135-145); Total Protein 5.5 g/dL (6.5-8.0)
[2023-05-08 06:11] LABS: SLIDE REVIEW VERIFIED
--- NOTE | 2023-05-08 08:32 | PM.CCPN ---
Subjective Subjective Date of Service: 05/08/23 Critical Care Time (minutes): 90 Physical Exam Vital Signs: Vital Signs: Last Vital Signs Temp 101.5 F H 05/08/23 08:00 Pulse 84 05/08/23 08:00 Resp 24 H 05/08/23 08:00 BP 102/52 L 05/08/23 08:00 Pulse Ox 92 05/08/23 08:00 O2 Del Method Mechanical Ventil ation 05/08/23 08:00 FiO2 55 05/08/23 08:00 BMI result Body Mass Index 25.5 Const: Other: intubated, sedated; no appreciable spontaneous movements HEENT: Head: Yes normal to inspection, Yes normocephalic and Yes atraumatic Eyes: General: appearance normal, both eyes and all related structures Neck: Neck: Yes normal visual inspection and Yes supple Chest: Chest palpation & inspection: normal inspection of the chest Resp: Other: appreciable rales, right greater than left; no appreciable rhonchi, wheezing Cardio: Rate: regular rate Rhythm: regular rhythm GI: Inspection: Yes normal to inspection, No Abdominal wall edema and No distended Palpation (GI): Soft to palpation, not firm, nontender, no guarding and not rigid : External Female Exam: normal external appearance Skin: Other: appreciable violacious changes bilateral feet Neuro: Other: no appreciable spontaneous movements Extrem: Other: appreciable cyanosis, cool lower extremities Psych: Other: unable to assess Objective Data Labs 05/08/23 04:39 05/08/23 04:39 Labs: Laboratory Results - last 24 hr 05/07/23 05/08/23 05/08/23 08:07 04:39 04:47 WBC 23.3 H RBC 3.74 L Hgb 11.6 L Hct 35.7 L MCV 95.5 MCH 31.0 MCHC 32.5 RDW 15.8 Plt Count 88 L MPV 11.9 Immature Gran % (Auto) 1.9 H Neut % (Auto) 94.8 H Lymph % (Auto) 0.7 L [place] % (Auto) 2.4 Eos % (Auto) 0.0 Baso % (Auto) 0.2 Lymph # (Auto) 0.2 L [place] # (Auto) 0.6 Eos # (Auto) 0.0 Baso # (Auto) 0.0 Abs Immat Gran (auto) 0.45 H Absolute Neuts (auto) 22.1 H Absolute Nucleated RBC 0.130 H Nucleated RBC % (auto) 0.6 H Smear Tech's Comments VERIFIED PT 73.9 H D INR 6.1 H* D APTT 43.2 H D VBG pH 7.23 L VBG pCO2 55 VBG pO2 36 VBG HCO3 23 VBG O2 Saturation 68.0 VBG Base Excess -4.3 Sodium 129 L Potassium 4.7 Chloride 94 L Carbon Dioxide 23 Anion Gap 17 BUN 103 H Creatinine 5.79 H* Estim Creat Clear Calc 6.5 Estimated GFR 7 Random Glucose 266 H Calcium 7.6 L Phosphorus 6.2 H Magnesium 2.4 Total Bilirubin 0.9 AST 346 H ALT 553 H Alkaline Phosphatase 116 Total Protein 5.5 L Albumin 3.1 L Blood Type O Positive Antibody Screen NEGATIVE Microbiology Microbiology Results: Microbiology 05/05/23 03:14 Blood - Arterial Line Blood Culture - Final Corynebacterium species 05/06/23 08:21 Sputum - Suctioned Gram Stain - Final 05/06/23 08:21 Sputum - Suctioned Sputum Culture - Preliminary No growth to date. 05/05/23 03:15 Blood - Arterial Line Blood Culture - Preliminary No growth after 48 hours. Progress Note: A&P Assessment and plan (1) Septic shock: Status: Acute (2) Acute respiratory failure: Status: Acute (3) Acute renal failure: Status: Acute Plan Patient is a 77 Y F with hypertrophic cardiomyopathy s/p dual-chamber pacemaker, ICD, paroxsymal atrial fibrillation on warfarin, COPD, and recent diagnosis of COVID, presenting on 05/05 with acute respiratory failure, found to also have influenza, intubated 05/06; ICU course c/b multi-system organ failure, including renal faliure N: intubated, sedated w/ propofol gtt CV: septic shock, on norepinephrine gtt, stress-dose steroids R: acute hypoxic respiratory failure d/t COVID, influenza, c/f bacterial superinfection GI: no a cute issues : acute renal failure; to start furosemide gtt, bicarbonate gtt H: leukocytosis, thrombocytopenia; to continue to monitor ID: influenza, on tamiflu; c/f bacterial superinfection, on levofloxacin E: hyperglycemia, to continue to monitor P: no acute issues Quality Stroke Does the patient have a stroke diagnosis?: No VTE Prior VTE?: No VTE Risk Level:: Medical - moderate - high VTE Device Contraindication: N/A - Device Ordered VTE Drug Contraindication: N/A - Med Ordered
[2023-05-08] MEDS: Chlorhexidine Gluc Oral Rinse 15 ML MOUTHWASH BUCCAL ×3 (08:48→20:52)
[2023-05-08] MEDS: Calcium Chloride 1 GM/10 ML SYRINGE IVPUSH (09:14)
[2023-05-08] MEDS: Oseltamivir Phosphate 30 MG CAPSULE PO (09:14)
[2023-05-08] MEDS: Hydrocortisone Sod Succ/PF 100 MG VIAL 50 MG IVPUSH (09:15)
[2023-05-08] MEDS: Furosemide 200 MG in 0.9 % Sodium Chloride 80 ML IVCONT (10:03)
[2023-05-08] MEDS: levoFLOXacin/D5W 250 MG/50 ML PIGGYBACK 50 MG IV (10:03)
[2023-05-08] MEDS: Sodium Bicarbonate 8.4% 100 MEQ in Dextrose 5 % 900 ML 50 MEQ IV (10:03)
[2023-05-08] MEDS: Albumin Human 25 % 50 ML 100 ML IV (11:19)
--- NOTE | 2023-05-08 11:24 | MHC.CLN ---
NUTRITION PATIENT IS INTUBATED AND SEDATED. RECOMMEND CHANGE TUBE FEEDING TO NEPRO AT MAX GOAL RATE 25ML/HR WITH 240ML FREE WATER FLUSHES Q 6 HRS TO PROVIDE 1080KCALS (1343KCALS TOTAL WITH SEDATION; 28.8KCALS/KG BASED ON CMW), 48.6G PROTEIN (1.04G/KG CMW), 1396ML TOTAL FLUIDS FROM FORMULA AND FLUSHES (30ML/KG). MONITOR TOLERANCE, RESIDUALS AND LYTES. SEE CLINICAL NUTRITION ASSESSMENT 05/08/23.
--- NOTE | 2023-05-08 12:06 | W.MHC.ACPN ---
Advanced Care Planning Note Advanced Care Planning Note Discussed with: family member(s) Time spent (in minutes): 30 Narrative: Ines and her son were present in person, Hilda was present via phone. I introduced myself and we discussed Ms. Hernandez's ICU course, specifically her COVID and influenza infections, complicated by multi-system organ failure. Ines and Hilda expressed understanding. Ines and Hilda stated that Ms. Hernandez have expressed that she would not want to have artificial life support. Moreover, Ines and Hilda believe Ms. Hernandez always wished to maintain her independence. Given her critical illness and guarded prognosis, Ines and Hilda believe it would be appropriate to transition Ms. Hernandez's philosophy of care to comfort-focused care when Ms. Hernandez's son and other daughter arrive from out of town. In the meantime, we discussed continuing the current care as is. Problems Discussed (1) Septic shock: (2) Acute respiratory failure: (3) Acute renal failure:
[2023-05-08 12:20] LABS: VBG Base Excess -5.2 mmol/L; VBG HCO3 23 mmol/L (22-26); VBG pCO2 58 mmHg; VBG pO2 39 mmHg
[2023-05-08 12:43] LABS: Venous Blood Gas Refer to POC result
[2023-05-08 15:13] LABS: Strep Pneumo Ag urine Not Detected (Not Detected)
[2023-05-08] MEDS: Norepinephrine Bitartrate/D5W 8 MG/250 ML PLAST..BAG 24.7 MG IV (15:45)
--- NOTE | 2023-05-08 16:08 | W.MHC.ACPN ---
Advanced Care Planning Note Advanced Care Planning Note Discussed with: family member(s) Time spent (in minutes): 15 Narrative: Ines reports her brother and sister may not arrive to the hospital tonight. In the meantime, Ines and Hilda are concerned Ms. Hernandez's suffering will be prolonged and would like to transition Ms. Hernandez to comfort-focused care at 23:00 tonight. Problems Discussed (1) Septic shock: (2) Acute respiratory failure: (3) Acute renal failure:
[2023-05-09] VITALS: BP 104/55; PULSE 84; RESP 23; TEMP 38.7; O2SAT 95
[2023-05-09 00:36] VITALS: BP 109/53; PULSE 84
[2023-05-09] MEDS: HYDROmorphone HCl 1 MG/ML SYRINGE IVPUSH (00:39)
[2023-05-09 01:00] VITALS: PULSE 85
--- NOTE | 2023-05-09 01:01 | PM.CCN ---
Critical Care Event Note Summary Date of Service: 05/09/23 Code activated: No Narrative: This case had a high probability of a clinically significant, sudden, or life threatening deterioration of this patient's condition which required my full and direct attention, intervention and personal management. Critical Care Time (minutes): 30 Comment: 00:29 on 05/09/2023 other family members that were expected to coming to say their goodbyes to the patient before the patient can be made [employer], pt was given Dilaudid 1 mg IV for comfort, I spoke to the patient's healthcare proxy Ms. Brad Wallace; who consents stopping all medicines that are being given at this time, starting comfort measures only. Terminal extubation was performed in my presence by respiratory therapy at 01:00 today, fentanyl? 200 mcg IV continuous drip was started, magnet placed over the pacer. At?0115? am? asystole was noted on the monitor.? At this time, the patient has no heartbeat, no palpable pulses, pupils are fixed at 5 mm bilaterally, overall that anterior chamber and cornea of the eyes appear glossy, no spontaneous breathing.? There is no corneal reflexes bilaterally, capillary refill of the fingers and toes is significantly delayed.? Patient was pronounced at?0115 ? . Certificate Completed. Organ Center Called by RN.? Total time spent with the patient planning, coordinating, insuring a natural, non suffering and humane passing? as well as pronouncement evaluation, and this documentation was 45 minutes. Discussed in detail with Dr. Stone.? He is aware of all the above.
[2023-05-09 01:10] VITALS: PULSE 84; RESP 20; O2SAT 95
[2023-05-09] MEDS: fentaNYL citrate/NS 1,000 MCG/100 ML PLAST..BAG 20 MCG IVCONT (01:10)
--- NOTE | 2023-05-09 01:36 | P.DS_ITS ---
DS: Providers Provider Date of Service: 05/09/23 Date of admission: 05/05/23 09:32 Date of discharge: 05/09/23 Primary care physician: Farhan Molina PA-C Admitting clinician: Stone Jensen Attending physician on admission: Stone Jensen Consults: 05/05/23 11:42 Consult to Wound Care Routine Reason for consultation: New Pressure Injury Attending physician on discharge: Amalia Ronquillo Discharging clinician: Jean-Claude Goldstein DS: Diagnosis Discharge Diagnosis (1) Septic shock: Status: Acute (2) Acute respiratory failure: Status: Acute (3) Acute renal failure: Status: Acute DS: Summary Hospital Course Hospital Course: ADMISSION/DISCHARGE DIAGNOSIS ACUTE RESPIRATORY FAILURE ACUTE SEPTIC SHOCK CARDIOGENIC SHOCK ACUTE KIDNEY INJURY ACUTE HYPERKALEMIA UREMIA INFLUENZA A INFECTION CHF WITH ACUTE EXACERBATION ATRIAL FIBRILLATION (WAS ON COUMADIN) COPD EXACERBATION COVID-19 INFECTION ILLNESS/DEMAND ISCHEMIA RELATED TROPONIN ELEVATION SUPRATHERAPEUTIC INR CRITICAL LIMB ISCHEMIA OF LEFT LOWER EXTREMITY 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 HYPOXIC RESPIRATORY FAILURE AND MULTI ORGAN FAILURE ? HPI/HOSPITAL COURSE This is a 77-year-old female who was admitted to the hospital from April 21 to May 03 due to COPD and COVID, upon her discharge from the hospital she had not require oxygen supplementation.? On 05/05/2023, she presented to the ER again with shortness of breath and admitted to the ICU, reported symptomatology included shortness of breath which was worse than before along with vomiting, productive cough, fever and chills, EMS evaluation reveal an O2 in the 60s with no response to non-rebreather rated mass therefore she was placed on CPAP and even with the her O2 sat had been in the 80s, in the ER, the patient appeared to be hemodynamically stable, clinically appear to be in heart failure, given Lasix, placed on BiPAP and subsequently on high-flow.? please refer to the history and physical done by Dr. Jensen for details, in brief, the patient with the above-mentioned comorbidities, who presented with symptoms of shortness of breath, is known that she has COPD and had suffered a 2 week symptomatology and diagnosis of COVID-19 infection, she had presented to the ICU with acute hypoxic respiratory failure and influenza a infection, all complicated by a diffuse pneumonia as well as decompensated heart failure. While in the ICU, her pacemaker was reprogrammed, it was also noted that the patient had significant cyanosis of the left lower extremity for which a CT angiogram of the abdomen pelvis and aorta runoff was done showing significant arterial disease consistent with ischemic foot.? Subsequently the patient was intubated due to her ongoing hypoxia, given the medical necessity and her diagnosis needs the above-mentioned study was done despite her chronic renal insufficiency, vascular consult had been placed but at the time no intervention was granted given the patient's overall clinical scenario and low flow issues therefore recommendation was to observe the limb. Over a short period of time, patient continued to deteriorate requiring more support; her renal function worsened with the highest creatinine of 5.79 other findings consistent with uremia, several discussions had taken place between the admitting physician as well as Dr. 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 The last daughter came in this morning at 00:30, had the opportunity to say her goodbyes in the healthcare proxy did allow to continue with CYTOTECHNOLOGIST/HISTOTECHNOLOGIST.? All medications were stopped, Dilaudid given, terminal extubation performed, fentanyl drip started at 1255, subsequently a magnet was placed over the pacer, patient developed asystole and stop breathing at 01:15, patient was pronounced at 01:20 am. IMAGES: ? [address] [address] XRay Report Signed Patient: Nishi Hernandez MR#: [id number] : 1945 Acct:[id number] Age/Sex: 77 / F ADM Date: 05/05/23 Loc: .ICU 262-[address]: Stone Jensen MD Ordering Physician: Stone Jensen MD Date of Service: 05/07/23 Procedure(s): XR chest 1V Accession Number(s): [id number] cc: Stone Jensen MD; Farhan Molina PA-C~ EXAMINATION: XR CHEST CLINICAL INFORMATION: Triple lumen catheter insertion COMPARISON: 05/06/2023 TECHNIQUE: Frontal view of the chest was obtained. FINDINGS: Right internal jugular central line placed with its tip overlying the atrial caval juncture. Limited detail. No gross pneumothorax. Slightly improving extensive bilateral infiltrates. AICD in up other support tubes and lines appear grossly stable. No other change. Coarse thousand calculations again noted with cardiomegaly. XR/XR chest 1V IMPRESSION: Right internal jugular central line placed as above. No pneumothorax. Slightly improving bilateral infiltrates. Dictated By: Sami Brar MD Signed By: <Electronically signed by Sami Brar MD in OV> 05/07/23 1531 DD/ 1422 TD/TT: [employer]: SL ? Launch?Image [place] [address] CT Scan Report Signed Patient: Nishi Hernandez MR#: [id number] : 1945 Acct:[id number] Age/Sex: 77 / F ADM Date: 05/05/23 Loc: .[facility] 262-[address]: Stone Jensen MD Ordering Physician: Susan Banda NP Date of Service: 05/06/23 Procedure(s): CT angio abd aorta runoff Accession Number(s): [id number] cc: Farhan Molina PA-C; Susan Banda NP~ EXAMINATION: CT ANGIOGRAM ABDOMEN AND PELVIS WITH RUN-OFF CLINICAL INFORMATION: Cold, pulseless left lower extremity. COMPARISON: None TECHNIQUE: Multiple axial images were obtained through the abdomen, pelvis, and lower extremities following the administration of 100 mL of Omnipaque 350 intravenous contrast. Sagittal, coronal, and MIP oblique sagittal reformatted images were obtained on the CT workstation, uploaded to PACS, and reviewed. Images were evaluated on independent dedicated 3-D workstation and 3-D images were reconstructed with concurrent radiologist supervision and subsequently interpreted. This CT examination was performed using dose optimization techniques as appropriate, variously including the following: *Automated exposure control *Adjustment of mA and/or kV according to patient size (this includes techniques or standardized protocols for targeted exams where dose is matched to indication/reason for exam; i.e. extremities or head) *Use of iterative reconstruction technique DLP: 313 mGy-cm FINDINGS: VASCULATURE: Aorta: Normal in caliber. Extensive calcified plaque without significant stenosis. Heavily calcified plaque is causing a moderate stenosis at the ostium of the celiac axis and a severe stenosis at the ostium of the superior mesenteric artery. Inferior mesenteric artery appears patent. Bilateral renal arteries are small and atretic consistent with chronic renal disease. Right iliac arteries: Heavily calcified plaque is seen within the right common iliac artery. There appears to be a stent in the right common iliac artery which is patent. There is a borderline mild to moderate stenosis at the ostium of the right common iliac artery. 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 External iliac artery demonstrates scattered calcified plaque without significant stenosis Left iliac arteries: Heavily calcified plaque is seen within the left common iliac artery with tandem areas of moderate to severe stenosis seen diffusely. Calcified plaques in the internal iliac artery with tandem moderate stenosis. Diffuse calcified plaque seen in the external iliac artery with moderate to severe stenosis in the distal segment. Right lower extremity: Heavily calcified plaque is seen in the common femoral artery with severe stenosis. Profunda femoral artery is patent. Superficial femoral artery is chronically occluded at the ostium due to heavily calcified plaque. Reconstituted flow is seen within the P1 segment of the popliteal artery. Scattered calcified plaque is seen in the popliteal artery with moderate stenosis in the P1 segment. Below knee runoff demonstrates patent flow in the anterior tibial artery, posterior tibial artery and peroneal artery without significant stenosis. Left lower extremity: Heavily calcified plaque is seen in the common femoral artery with diffuse severe stenosis. Profunda femoral artery branches are patent. Heavily calcified plaque is seen in the superficial femoral artery with diffuse severe stenosis throughout its entire course. Heavily calcified plaque is seen within the P1 and P2 segments of the popliteal artery with diffuse severe stenosis. P3 segment of the popliteal artery is small in caliber but otherwise patent. Below knee runoff vessels are small in caliber with calcified plaque at the level of the proximal trifurcation. Patent flow is seen in the runoff vessels to the level of the distal calf and then there is a paucity of contrast which could be due to timing of the contrast versus poor distal outflow. NONVASCULAR: Heart is markedly enlarged. There is reflux of contrast into the IVC and hepatic veins consistent with poor right heart function. Dense airspace consolidation is seen within the bilateral lung bases.. There is a simple cyst in the left lobe of the liver measuring 1.8 cm. Bilateral kidneys are atrophic, left greater than right. Solid abdominal organs are otherwise unremarkable. Nasogastric tube is extending into the stomach. Bowel loops are otherwise unremarkable. No free fluid seen in the abdomen and pelvis. Urinary bladder is decompressed by a Frankel catheter. There is a calcified fibroid in the uterus. No pathologic lymphadenopathy or mass lesion seen in the abdomen and pelvis. Osseous structures are intact. CT/CT angio abd aorta runoff IMPRESSION: 1. Heavily calcified plaque in the left common iliac artery with tandem areas of moderate to severe stenosis. Moderate to severe stenosis in the distal left external iliac artery. Heavily calcified plaque in the left common femoral artery with diffuse severe stenosis. Heavily calcified plaque in the superficial femoral artery with diffuse severe stenosis throughout its entire course. Heavily calcified plaque in the popliteal artery with diffuse severe stenosis. Patent flow is seen in the below knee runoff vessels to the level of the distal calf. 2. Right common iliac artery stent is patent. There is a borderline mild to moderate stenosis at the ostium of the right common iliac artery. 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 3. Right superficial femoral artery is chronically occluded. Reconstituted flow is seen in the P1 segment of the popliteal artery. Patent 3 vessel runoff is seen to the level of the distal calf. 4. Marked cardiomegaly with reflux of contrast into the IVC and hepatic veins consistent with poor right heart function. 5. Dense airspace consolidation in the bilateral lung bases. 6. Atrophic kidneys, left greater than right. Dictated By: Ga Jo MD Signed By: <Electronically signed by Ga Jo MD in OV> 05/06/[address] [place] [address] CT Scan Report Signed Patient: Nishi Hernandez MR#: [id number] : 1945 Acct:[id number] Age/Sex: 77 / F ADM Date: 05/05/23 Loc: .ICU 262-[address]: Stone Jensen MD Ordering Physician: Stone Jensen MD Date of Service: 05/07/23 Procedure(s): CT abdomen pelvis wo IV con Accession Number(s): [id number] cc: Stone Jensen MD; Farhan Molina PA-C~ EXAMINATION: CT CHEST, ABDOMEN AND PELVIS without contrast CLINICAL INFORMATION: Reason for Exam resp failure COMPARISON: Prior chest CT 2021 TECHNIQUE: Multidetector volumetric CT imaging of the chest abdomen and pelvis obtained Axial MIP volume rendering provided. Sagittal and coronal reformatted images were obtained. This CT examination was performed using dose optimization techniques as appropriate, variously including the following: *Automated exposure control *Adjustment of mA and/or kV according to patient size (this includes techniques or standardized protocols for targeted exams where dose is matched to indication/reason for exam; i.e. extremities or head) *Use of iterative reconstruction technique CONTRAST: Noncontrasted study Reformatted coronal and sagittal imaging was performed. DLP: 669 mGy-cm FINDINGS: HUMAN RESOURCES OFFICER, LINES TUBES: Endotracheal tube tip in place. Cardiac pacemaker with electrodes in the right ventricle. LUNGS: Interstitial: Diffuse pulmonary opacification involving both lungs upper and lower lobes, dense consolidation with air bronchogram at right and left lower lobe. Sparing of the left lung apex and upper segment of left lower lobe. AIRWAYS: Trachea and bronchi are normal. PLEURA: There is a small right pleural effusion. MEDIASTINUM AND CAROLINE: The visualized thyroid gland is unremarkable. Is difficult to visualize lymph node due to lack of contrast, the fat in the mediastinum however has been replaced suggesting likely underlying mediastinal and hilar lymphadenopathy. Enlarged proximal right and left pulmonary arteries, the right measure up to 3 cm, this has been described in association with underlying pulmonary hypertension. The heart is enlarged. THORACIC AORTA: Heavy aortic vascular calcification. CHEST WALL, LOWER NECK, SURROUNDING SOFT TISSUES: Left thyroid nodule 1.4 cm, newly found compared to prior ultrasound of 2019 and may require correlation with follow-up thyroid ultrasound. HEART AND PERICARDIUM: Heart is normal in size. There is no pericardial effusion. There are coronary calcification. HEPATOBILIARY: There is a cyst in the left lobe of the liver 2 cm the attenuation of its matrix is higher than expected for a simple cyst measuring 21.5 Hounsfield units, could be a complex cyst however may require follow-up ultrasound to rule out pathology. GALLBLADDER: There is a large gallstone. SPLEEN: Spleen is normal in size. PANCREAS: No focal mass or ductal dilatation. GI TRACT: There is a gastric tube in the stomach, the stomach is air partially distended with air-fluid level. ADRENALS: Hypertrophy of left adrenal unchanged. KIDNEYS/URETERS: Atrophic small kidneys left more than right, renal cortices are hyperdense bilaterally, probably retained contrast from prior CT angiogram one day earlier suggesting poor renal function. PELVIC ORGANS/BLADDER: Fluid-filled cystic structure in the right side of the pelvis likely of right ovarian origin 2.6 cm, these are commonly benign, no follow-up imaging is required. There are calcified uterine fibroids. Urinary bladder is decompressed with a Frankel catheter in place. PERITONEUM: No free air or fluid. LYMPH NODES: no retroperitoneal or mesenteric lymphadenopathy. VASCULAR:Heavily calcified aorta, iliac arteries. No aneurysm. BONES, ABDOMINAL WALL AND SOFT TISSUES: Mild partial compression fractures of T11, T12 and L3 unchanged. CHEST CT/CT abdomen pelvis wo IV con IMPRESSION: 1. Dense consolidation with air bronchogram at right and left lower lobe, diffuse interstitial lung opacification involving both lungs upper and lower lobes, most likely pneumonia. 2. Small right pleural effusion. 3. Cardiomegaly. 4. Enlarged pulmonary arteries suggesting underlying pulmonary hypertension. 5. Cholelithiasis. 6. Atrophic small kidneys left more than right, renal cortices are hyperdense probably retained contrast from prior CT angiogram one day earlier suggesting poor renal function. 7. Other noncritical findings include coronary calcification, calcified uterine fibroids, cyst in the right adnexa of the pelvis most likely of right ovarian origin 2.6 cm, these are commonly benign, no follow-up imaging is warranted. Mild partial compression fractures of T11, T12 and L3, unchanged. 8. Left thyroid nodule 1.4 cm, newly found compared to prior ultrasound of 2019 and may require correlation with follow-up thyroid ultrasound. 9. Probably a complex cyst in the liver left lobe measure 2 cm, this has enlarged compared to prior study from 2015, the attenuation of its matrix is higher than expected for a simple cyst and may require correlation with follow-up imaging starting with ultrasound to rule out cystic neoplasm. 10. ET tube, gastric tube, Frankel catheter and cardiac electronic device are in place. Dictated By: Flaco Bailey MD Signed By: <Electronically signed by Flaco Bailey MD in OV> 05/07/23 0945 DD/ 0845 TD/TT: [employer]: RANDAL ? ? [address] [address] XRay Report Signed Patient: Nishi Hernandez MR#: [id number] : 1945 Acct:[id number] Age/Sex: 77 / F ADM Date: 05/05/23 Loc: HO.ED Attending Dr: Ordering Physician: Chasity Albert DO Date of Service: 05/05/23 Procedure(s): XR chest 1V Accession Number(s): [id number] cc: Chasity Albert DO; Farhan Molina PA-C~ EXAMINATION: XR CHEST CLINICAL INFORMATION: Dyspnea. COMPARISON: 04/20/2023. TECHNIQUE: Frontal view of the chest was obtained. FINDINGS: The heart is enlarged. A single chamber pacer lead is in place. There is pulmonary vascular congestion, diffuse increased markings and diffuse bilateral infiltrates. The bony structures are osteopenic. The soft tissues are unremarkable. XR/XR chest 1V IMPRESSION: Cardiomegaly, pulmonary vascular congestion and diffuse bilateral infiltrates most consistent with CHF. Pneumonia considered less likely. Dictated By: Kali Pichardo Signed By: <Electronically signed by Kali Pichardo in OV> 05/05/23 0503 DD/ 0255 TD/TT: [employer]: ? CRITICAL CARE TIME USED FOR CRITICAL EVALUATION OF THIS PATIENT, DIAGNOSIS, TREATMENT AND COORDINATION OF CARE, REVIEW HER RECORDS AND DOCUMENTATION TOTAL CRITICAL CARE TIME 60 MIN . FAMILYDISCUSSION AND DISCHARGE SUMMARY, DOCUMENTATION AMONG OTHERS EXCLUDING ANY PROCEDURES. PATIENT'S CARE WAS DISCUSSED IN DETAIL WITH DR. RONQUILLO. HE IS AWARE OF ALL THE ABOVE WELL THE PLAN OF CARE FOR THIS PATIENT. Time Attestation Discharge coordination time: Greater than 30 minutes Quality: Safe Use of Opioids Does Pt have an Active Cancer Diagnosis on the Problem List?: No Quality: Stroke Does the patient have a stroke diagnosis?: No Physical Exam Vital Signs: Vital Signs: Last Vital Signs Temp 101.7 F H 05/09/23 00:00 Pulse 85 05/09/23 01:00 Resp 23 H 05/09/23 00:00 BP 109/53 L 05/09/23 00:36 Pulse Ox 95 05/09/23 00:00 O2 Del Method Mechanical Ventil ation 05/09/23 00:00 FiO2 50 05/09/23 00:00 BMI result Body Mass Index 25.5 DS: Data Data Completed and Pending Completed studies during hospitalization [Text1]: Procedures Drainage of Chest Wall, Percutaneous Approach (03/22/20) Transfusion of Nonautologous Red Blood Cells into Peripheral Vein, Percutaneous Approach (07/08/21) Labs on day of discharge: Laboratory Results - last 24 hr 05/05/23 05/08/23 05/08/23 11:27 04:39 04:47 WBC 23.3 H RBC 3.74 L Hgb 11.6 L Hct 35.7 L MCV 95.5 MCH 31.0 MCHC 32.5 RDW 15.8 Plt Count 88 L MPV 11.9 Immature Gran % (Auto) 1.9 H Neut % (Auto) 94.8 H Lymph % (Auto) 0.7 L Dolores % (Auto) 2.4 Eos % (Auto) 0.0 Baso % (Auto) 0.2 Lymph # (Auto) 0.2 L Dolores # (Auto) 0.6 Eos # (Auto) 0.0 Baso # (Auto) 0.0 Abs Immat Gran (auto) 0.45 H Absolute Neuts (auto) 22.1 H Absolute Nucleated RBC 0.130 H Nucleated RBC % (auto) 0.6 H Smear Tech's Comments VERIFIED Smear Path Review PT 73.9 H D INR 6.1 H* D APTT 43.2 H D VBG pH 7.23 L VBG pCO2 55 VBG pO2 36 VBG HCO3 23 VBG O2 Saturation 68.0 VBG Base Excess -4.3 Sodium 129 L Potassium 4.7 Chloride 94 L Carbon Dioxide 23 Anion Gap 17 BUN 103 H Creatinine 5.79 H* Estim Creat Clear Calc 6.5 Estimated GFR 7 Random Glucose 266 H Calcium 7.6 L Phosphorus 6.2 H Magnesium 2.4 Total Bilirubin 0.9 AST 346 H ALT 553 H Alkaline Phosphatase 116 Total Protein 5.5 L Albumin 3.1 L Ur Strep pneumoniae Ag Not Detected 05/08/23 12:13 WBC RBC Hgb Hct MCV MCH MCHC RDW Plt Count MPV Immature Gran % (Auto) Neut % (Auto) Lymph % (Auto) Dolores % (Auto) Eos % (Auto) Baso % (Auto) Lymph # (Auto) Dolores # (Auto) Eos # (Auto) Baso # (Auto) Abs Immat Gran (auto) Absolute Neuts (auto) Absolute Nucleated RBC Nucleated RBC % (auto) Smear Tech's Comments Smear Path Review PT INR APTT VBG pH 7.20 L* VBG pCO2 58 VBG pO2 39 VBG HCO3 23 VBG O2 Saturation 69.0 VBG Base Excess -5.2 Sodium Potassium Chloride Carbon Dioxide Anion Gap BUN Creatinine Estim Creat Clear Calc Estimated GFR Random Glucose Calcium Phosphorus Magnesium Total Bilirubin AST ALT Alkaline Phosphatase Total Protein Albumin Ur Strep pneumoniae Ag Preliminary micro results at discharge 05/05/23 03:15 Blood Culture - Preliminary Blood - Arterial Line No growth after 48 hours. Discharge Plan Discharge Anticipated Discharge Date/Time: 05/09/23 02:15 Patient Disposition: Discharge Diagnosis: ACUTE HYPOXIC RESPIRATORY FAILURE Referrals: Farhan Molina PA-C [Primary Care Provider] - 1 Week Discharge Medications: No Action (DME) Ultra-Light Rollator Misc See Rx Instructions .Route Qty: 1 0RF Rx Instructions: As directed ipratropium-albuterol 0.5 mg-3 mg(2.5 mg base)/3 mL solution for nebulization 3 ml inhalation RQ6H WHILE AWAKE PRN (Reason: shortness of breath or wheezing) 30 Days Qty: 180 6RF albuterol sulfate 90 mcg/actuation HFA aerosol inhaler 2 puff inhalation Q4-6H PRN (Reason: Shortness Of Breath Or Wheezing) 30 Days Qty: 8.5 3RF (DME) hospital bed Kit See Rx Instructions .Route Qty: 1 0RF Rx Instructions: As directed cilostazol 100 mg tablet 100 mg PO Q12H 90 Days Qty: 180 2RF budesonide-formoterol [Symbicort] 160-4.5 mcg/actuation HFA aerosol inhaler 2 puff inhalation BID 30 Days Qty: 10.2 0RF bumetanide 1 mg tablet 2 mg PO DAILY Qty: 60 6RF Protocol: Hold for SBP< HOLD for SBP < : 90 ropinirole 5 mg tablet 5 mg PO BEDTIME Qty: 30 6RF ferrous sulfate 325 mg (65 mg iron) tablet 325 mg PO DAILY Qty: 30 6RF amiodarone 200 mg tablet 200 mg PO DAILY 30 Days Qty: 30 6RF metoprolol tartrate 25 mg tablet 25 mg PO Q12H Qty: 180 2RF calcium carbonate 500 mg calcium (1,250 mg) tablet 500 mg PO BID 90 Days Qty: 180 2RF atorvastatin 40 mg tablet 40 mg PO DAILY Qty: 90 1RF levothyroxine 50 mcg tablet 50 mcg PO DAILY Qty: 30 3RF (DME) nebulizers Misc See Rx Instructions .Route Qty: 1 0RF Rx Instructions: As directed warfarin [Jantoven] 2 mg tablet 2 mg PO DAILY multivitamin Tablet 1 tab PO DAILY
--- NOTE | 2023-05-09 01:41 | PC.NURSE ---
At approx 0030- family arrived to pt bedside to say their goodbyes. 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 Given Dilaudid 1 mg IVP x1 then fentanyl gtt started for pt comfort per MAY. Extubated by RT at 0100. TOD at 0015. [facility] called, pt declined for referral.
--- NOTE | 2023-05-09 14:31 | W.MHC.F2F ---
Service Date Service Date: 05/02/23 Encounter Date of encounter: 05/02/23 Reasons for Services Signs and symptoms assessed: Covid hypoxia [facility] Reason for intermediate: CV/CP assess and/or care Homebound: Leaving the home is medically contraindicated at this time without the asist of a device and/or another person due th the listed conditions above and below. Reason homebound: unsteady gait / fall risk Certification: Based on the above findings, I certify that this patient is confined to the home and needs intermittent intermediate care, physical therapy and/or speech therapy, or continues to need occupational therapy. The patient is under my care, and I have initiated the establishment of the plan of care. The patient will be followed by a physician who will periodically review the plan of care. Time Spent With Patient Time: Total time managing care of this patient today ____ minutes.
[2023-05-10 06:04] LABS: Legionella Ag Urine Not Detected (Not Detected)
== END 2023-05-09 02:50 | disposition expired | DRG 871 ==
LOC: HO.ED 04:26 → HO.EDOVER 09:40 → HO.ICU 09:41
PROVIDERS: Nurse Practitioner Family; Student in an Organized Health Care Education/Training Program; Admitting Provider Internal Medicine Cardiovascular Disease; Emergency Provider Emergency Medicine; PCP Physician Assistant; Visit Provider Internal Medicine Critical Care Medicine
DX: A41.9 Sepsis, unspecified organism (principal); I50.33 Acute on chronic diastolic (congestive) heart failure; U07.1 COVID-19; R65.21 Severe sepsis with septic shock; J18.9 Pneumonia, unspecified organism; I42.2 Other hypertrophic cardiomyopathy; N17.9 Acute kidney failure, unspecified; Z66 Do not resuscitate; Z51.5 Encounter for palliative care; I70.222 Atherosclerosis of native arteries of extremities with rest pain, left leg; J43.2 Centrilobular emphysema; N18.30 Chronic kidney disease, stage 3 unspecified; R79.1 Abnormal coagulation profile; E87.5 Hyperkalemia; I34.0 Nonrheumatic mitral (valve) insufficiency; R57.0 Cardiogenic shock; I48.0 Paroxysmal atrial fibrillation; J10.1 Influenza due to other identified influenza virus with other respiratory manifestations; E03.9 Hypothyroidism, unspecified; Z95.810 Presence of automatic (implantable) cardiac defibrillator; Z87.891 Personal history of nicotine dependence; Z79.890 Hormone replacement therapy; Z79.899 Other long term (current) drug therapy
CPT/HCPCS: 0241U; 36415; 71045; 71250; 74176; 75635; 80048; 80053; 80076; 81001; 82803; 83605; 83690; 83735; 83880; 84100; 84145; 84484; 85025; 85027; 85610; 85730; 86850; 86900; 86901; 87040; 87070; 87205; 87449; 87502; 87640; 87641; 87899; 93005; 94002; 94003; 94640; 94660; 94799; 99285; C1758; J0131; J0692; J0696; J0736; J1170; J1250; J1720; J1940; J1956; J2405; J2704; J2920; J2930; J3010; P9017; P9047; Q9967

== ENCOUNTER → 2023-05-05 02:03 | Outpatient (BNV) | payer OTHER, MEDICAID, SELFPAY | PROVIDERS: Admitting Provider Internal Medicine Cardiovascular Disease; Emergency Provider Emergency Medicine; PCP Physician Assistant; Visit Provider Internal Medicine Cardiovascular Disease | DX: I50.9 Heart failure, unspecified (principal); I49.3 Ventricular premature depolarization | CPT/HCPCS: 93010 ==

== ENCOUNTER → 2023-05-05 09:32 | Outpatient (BNV) | payer OTHER, SELFPAY | PROVIDERS: Admitting Provider Internal Medicine Cardiovascular Disease; Emergency Provider Emergency Medicine; PCP Physician Assistant; Visit Provider Nurse Practitioner Acute Care | DX: J96.01 Acute respiratory failure with hypoxia (principal); J44.1 Chronic obstructive pulmonary disease with (acute) exacerbation; U07.1 COVID-19; I50.9 Heart failure, unspecified | CPT/HCPCS: G0180 ==

== ENCOUNTER → 2023-05-05 09:32 | Outpatient (BNV) | payer OTHER, MEDICAID, SELFPAY | PROVIDERS: Admitting Provider Internal Medicine Cardiovascular Disease; Emergency Provider Emergency Medicine; PCP Physician Assistant; Visit Provider Surgery Vascular Surgery | DX: I70.222 Atherosclerosis of native arteries of extremities with rest pain, left leg (principal) | CPT/HCPCS: 99223 ==

== ENCOUNTER → 2023-05-05 09:32 | Outpatient (BNV) | payer OTHER, MEDICAID, SELFPAY | PROVIDERS: Admitting Provider Internal Medicine Cardiovascular Disease; Emergency Provider Emergency Medicine; PCP Physician Assistant; Visit Provider Internal Medicine Cardiovascular Disease | DX: N18.5 Chronic kidney disease, stage 5 (principal); R79.89 Other specified abnormal findings of blood chemistry; R79.1 Abnormal coagulation profile | CPT/HCPCS: 36556; 99239; 99291; 99292 ==